=== PATIENT | female | born 2000 ===

== ENCOUNTER 2022-04-10 01:10 | Emergency (ER) | payer MEDICAID, SELFPAY ==
[2022-04-10 01:30] VITALS: BP 119/81; RESP 18; TEMP 36.6; O2SAT 98; BMI 58.9
--- NOTE | 2022-04-10 01:47 | ED_ITS ---
HPI - General Adult General Chief complaint: Sore Throat Stated complaint: Throat hurts, spitting out blood. Time Seen by Provider: 04/10/22 01:11 Source: patient Mode of arrival: ambulatory Limitations: no limitations History of Present Illness HPI narrative: 22-year-old female presents with a 2 month history of sore throat to the emergency department in the middle of the night. No shortness of breath, no throat closing, no itching, no tongue swelling. No specific reason why it needed to be addressed suddenly. Has not tried any isut-eti-ztjimck medications such as reflux medications, allergy meds, nasal sprays. No fevers. Does have some bloody mucousy drainage at times, mild mucus cough with no dyspnea. On specific questioning, does have a dog that sleeps in her room. Does not work around any severely cold environments or chemical irritants. Has not tried Tylenol, ibuprofen or other interventions as well. Past medical history benign, denies long-term health problems. Denies ENT surgeries. No long-term medications, no allergies. Is exposed to smoking and or vaping products. ROS is notable for the generalized and HEENT symptoms as above, otherwise denies times 12 systems. Related Data Previous Rx's Medication Instructions Recorded cetirizine 10 mg tablet (Zyrtec) 10 mg PO DAILY #30 tabs 04/10/22 fluticasone propionate 50 1 spray intranasal BID #16 grams 04/10/22 mcg/actuation nasal spray,suspension (Flonase Allergy Relief) Allergies Allergy/AdvReac Type Severity Reaction Status Date / Time No Known Drug Allergies Allergy Verified 04/10/22 01:37 Exam Const: Vital Signs, click to edit/add: Vital Signs - 24 hr 04/10/22 01:30 Temperature 97.8 F Respiratory Rate 18 Blood Pressure [Ri ght Upper Arm] 119/81 Pulse Oximetry 98 Oxygen Delivery Me thod Room Air Documenting provider has reviewed patient's vital signs: yes Common normals: no apparent distress General appearance: cooperative and comfortable HENMT: Common normals: normocephalic and head/scalp atraumatic Head and scalp: normocephalic and atraumatic Mouth: oral and palatal mucosa normal Other: Normal tongue, lips acyanotic. Normal dentition. Nose with some very minimal congestion, clear mucus. The oropharynx does have a slight cobblestoning postnasal drip and is slightly injected but not erythematous. Tonsils are not enlarged. There is no exudate. Eye: Common normals: conjunctivae normal General eye: normal appearance of both eyes Conjunctiva: conjunctiva(e) normal Neck & C-Spine: Common normals: full ROM and no lymphadenopathy Resp: Common normals: normal respiratory effort, no use of accessory muscles and clear to auscultation bilaterally Effort & inspection: able to speak in complete sentences Auscultation: clear to auscultation bilaterally Cardio: Common normals: regular rate, regular rhythm, S1 normal heart sound, S2 normal heart sound, no murmurs and peripheral pulses 2+ throughout Rate: regular rate Rhythm: regular rhythm Heart sounds: S1 normal and S2 normal Peripheral pulses: pulses 2+ throughout Psych: Common normals: thought process normal Activity/motor behavior: appropriate eye contact Thought process: normal thought process Insight: insight good Judgement: judgment good Skin: Common normals: no rashes or lesions noted General skin exam: no rashes or lesions noted Course Vital Signs Vital signs: Initial Vital Signs Temperature 97.8 F 04/10/22 01:30 Temperature Source Temporal Artery Scan 04/10/22 01:30 Respiratory Rate 18 04/10/22 01:30 Blood Pressure 119/81 04/10/22 01:30 Blood Pressure Mean 93 04/10/22 01:30 Blood Pressure Position Sitting 04/10/22 01:30 Pulse Oximetry 98 04/10/22 01:30 Oxygen Delivery Method 04/10/22 01:30 Vital Signs Temperature 97.8 F 04/10/22 01:30 Respiratory Rate 18 04/10/22 01:30 Blood Pressure 119/81 04/10/22 01:30 Pulse Oximetry 98 04/10/22 01:30 Oxygen Delivery Method 04/10/22 01:30 Temperature 97.8 F 04/10/22 01:30 Respiratory Rate 18 04/10/22 01:30 Blood Pressure 119/81 04/10/22 01:30 Pulse Oximetry 98 04/10/22 01:30 Oxygen Delivery Method 04/10/22 01:30 Medical Decision Making MDM Narrative Medical decision making narrative: Discussed chronic sore throat, underlying etiology is typically some type of rhinitis with postnasal drip, typically allergic. Other differential diagnosis including hidden gastric reflux. She is inclined to believe it is likely rhinitis and postnasal drip based on our discussion. Is agreeable to a trial of Zyrtec and Flonase, will be sent to pharmacy. Swabs reviewed. Counseled that if things are not improving in 1 month, discontinue the nasal medications and begin [id number] omeprazole for 1 month. If her symptoms still have not improved, follow-up with primary care provider. Discussed changing on her bedding and having the dog sleep outside of her room. She verbalized understanding and agreement. Update: Swabs negative as expected. Will start [id number] Flonase and Zyrtec Lab Data Lab results reviewed: Yes I reviewed the patient's lab results Labs: Lab Results 04/10/22 04/10/22 Range/Units 01:39 01:39 SARS-CoV-2 (PCR) Negative SARS-CoV-2 (Negative) Influenza Type A (PCR) Negative PCR FLU A (Negative) Influenza Type B (PCR) Negative PCR FLU B (Negative) RSV (PCR) Negative PCR RSV (Negative) Group A Strep DNA NOT DETECTED (Not Detectd) Discharge Plan Discharge Clinical Impression: Chronic sore throat, Allergic rhinitis Patient Disposition: Home w/ Parent or Adult Condition: Stable Instructions: Allergic Rhinitis (DC) Additional Instructions: As we discussed, your chronic sore throat is likely secondary to either hidden gastroesophageal reflux or postnasal drip from nasal irritation. They look the same on exam. We have elected to start 1 month of an allergy medicine combined with nasal spray. Try to avoid smoke, vaping products, extreme cold temperatures. Consider having her dog sleep outside the room u and washing all of your bedding. If after 1 month, your symptoms are not improving, discontinue the allergy and nasal medication and switch to 1 month of [id number]-[id number] omeprazole which is a stomach acid medication. If after that month, things are not improving, make an appointment with her primary care provider to discuss next steps. Activity Level: No Restrictions Discharge Diet: Regular Prescriptions: New cetirizine [Zyrtec] 10 mg tablet 10 mg PO DAILY Qty: 30 1RF fluticasone propionate [Flonase Allergy Relief] 50 mcg/actuation spray,suspension 1 spray intranasal BID Qty: 16 1RF Rx Instructions: administer into each nostril Stand Alone Forms: [employer] Info Instructions
[2022-04-10 02:16] LABS: Strep A DNA Probe* NOT DETECTED (Not Detectd)
[2022-04-10 02:29] LABS: PCR FLU A Negative PCR FLU A (Negative); PCR FLU B Negative PCR FLU B (Negative); PCR RSV Negative PCR RSV (Negative)
[2022-04-10 02:41] LABS: SARS PCR* Negative SARS-CoV-2 (Negative)
== END 2022-04-10 03:02 | disposition home or self-care (01) ==
PROVIDERS: Emergency Provider Family Medicine
DX: J02.9 Acute pharyngitis, unspecified (principal); J30.9 Allergic rhinitis, unspecified
CPT/HCPCS: 87502; 87634; 87635; 87651; 99282; 99283

== ENCOUNTER 2022-05-14 18:25 | Emergency (ER) | payer MEDICAID, SELFPAY ==
[2022-05-14 18:29] VITALS: BP 107/66; PULSE 82; RESP 16; TEMP 36.8; O2SAT 100; BMI 26.0
--- NOTE | 2022-05-14 18:59 | ED_ITS ---
HPI - Abdominal Pain General Chief Complaint: Abdominal Pain Stated Complaint: Rt abdominal pain, Time Seen by Provider: 05/14/22 18:45 History of Present Illness HPI narrative: This 22-year-old female comes in reporting abdominal pain that is been rather constant over the past couple months. She does not report any nausea, vomiting, lightheadedness, shortness of breath, diarrhea, or dysuria. She has not had any fevers. She states that food does not seem to make any difference. She found out recently that she is and states that she is not sure when her last menstrual period was as it is typically irregular. Related Data Previous Rx's Medication Instructions Recorded cetirizine 10 mg tablet (Zyrtec) 10 mg PO DAILY #30 tabs 04/10/22 fluticasone propionate 50 1 spray intranasal BID #16 grams 04/10/22 mcg/actuation nasal spray,suspension (Flonase Allergy Relief) ondansetron HCl 4 mg tablet 4 mg PO Q6H #20 tabs 05/14/22 Allergies Allergy/AdvReac Type Severity Reaction Status Date / Time No Known Drug Allergies Allergy Verified 05/14/22 18:32 Review of Systems Status of ROS Reports: 10 or more systems reviewed and unremarkable except as noted in History and below Narrative Constitutional: No fevers, no weight gain or loss. Eyes: No discharge. No vision changes. HENT: No congestion, no sore throat, no ear pain. Cardiovascular: No chest pain, no palpitations. Respiratory: No shortness of breath, no wheezes, no cough. Gastrointestinal: No vomiting, no diarrhea. Right-sided abdominal pain. Genitourinary: No dysuria, no hematuria. Musculoskeletal: Normal range of motion. Skin: No rashes, no pruritis. Neurological: No dizziness, weakness, sensory change, speech change. Endo/Heme/Allergies: No bruising or bleeding. No polydipsia. Pysch: no suicidality, no anxiety, no insomnia. All other systems reviewed and are negative. [facility] Social History Smoking Status: Current every day smoker What tobacco products do you use: cigarettes Do you use any of these nicotine containing products: E-Cigarettes Second hand tobacco smoke exposure: No How often do you have a drink containing alcohol: 2-4 times a month How many standard drinks containing alcohol do you have on a typical day: 1 or 2 AUDIT-C Alcohol total score: 2 Non-prescribed substance use: denies use service: No Exam Narrative: Exam Narrative: Constitutional: Well-developed, well-nourished, no acute distress. HEENT: Normocephalic, atraumatic. Neck: Normal range of motion. Nontender. Supple. Heart: Regular. No murmurs. Normal rate. Intact distal pulses. Lungs: Clear to auscultation. No chest discomfort. No wheezes, rhonchi, or rales. Abdomen: Normal bowel sounds. Diffuse tenderness in the right abdomen. I am a ble to palpate rather deeply but this does elicit [id number] pain. No rebound tenderness. Genitalia: Deferred. Back: No midline tenderness. Normal range of motion. Extremities: Normal range of motion. No injury. Skin: Intact. No rash. Warm. No erythema or pallor. Neurologic: No altered sensation. No weakness. Alert and oriented. Psychiatric: No suicidality. No anxiety or depression. No insomnia. Nursing notes and vitals signs are reviewed. Const: Vital Signs, click to edit/add: Vital Signs - 24 hr 05/14/22 18:29 Temperature 98.2 F Pulse Rate [Pulse Oximeter] 82 Respiratory Rate 16 Blood Pressure [Ri ght Upper Arm] 107/66 Pulse Oximetry 100 Oxygen Delivery Me thod Room Air Course Vital Signs Vital signs: Initial Vital Signs Temperature 98.2 F 05/14/22 18:29 Temperature Source Temporal Artery Scan 05/14/22 18:29 Pulse Rate 82 05/14/22 18:29 Pulse Rhythm 05/14/22 18:29 Pulse Strength 3+ Normal 05/14/22 18:29 Respiratory Rate 16 05/14/22 18:29 Blood Pressure 107/66 05/14/22 18:29 Blood Pressure Mean 79 05/14/22 18:29 Blood Pressure Position Sitting 05/14/22 18:29 Pulse Oximetry 100 05/14/22 18:29 Oxygen Delivery Method 05/14/22 18:29 Vital Signs Temperature 98.2 F 05/14/22 18:29 Pulse Rate 82 05/14/22 18:29 Respiratory Rate 16 05/14/22 18:29 Blood Pressure 107/66 05/14/22 18:29 Pulse Oximetry 100 05/14/22 18:29 Oxygen Delivery Method 05/14/22 18:29 Temperature 98.2 F 05/14/22 18:29 Pulse Rate 82 05/14/22 18:29 Respiratory Rate 16 05/14/22 18:29 Blood Pressure 107/66 05/14/22 18:29 Pulse Oximetry 100 05/14/22 18:29 Oxygen Delivery Method 05/14/22 18:29 Discharge Plan Discharge Clinical Impression: , Abdominal pain Patient Disposition: Home, Self-Care Condition: Stable Additional Instructions: Follow with MD for 1st OB appointment. Take medication for nausea as needed and indicated. Return if worsening symptoms happen. Prescriptions: New ondansetron HCl 4 mg tablet 4 mg PO Q6H Qty: 20 0RF No Action cetirizine [Zyrtec] 10 mg tablet 10 mg PO DAILY Qty: 30 1RF fluticasone propionate [Flonase Allergy Relief] 50 mcg/actuation spray,suspension 1 spray intranasal BID Qty: 16 1RF Rx Instructions: administer into each nostril Follow Up/Referrals: Provider,Not a Local [Primary Care Provider] - Stand Alone Forms: [facility] Info Instructions Procedures Ultrasound Biliary exam #1: Anatomical areas examined: gallbladder, long and short axis and common aggie e duct Indications: RUQ/epigastric pain Exam type: limited abdominal ultrasound; RUQ Description/Findings: Gallbladder is contracted but no obvious sign of sludge or stones in the gallbladder. Common bile duct also appears normal.
== END 2022-05-14 19:52 | disposition home or self-care (01) ==
PROVIDERS: Emergency Provider Emergency Medicine Emergency Medical Services
DX: R10.9 Unspecified abdominal pain (principal); Z33.1 Pregnant state, incidental
CPT/HCPCS: 76705; 99283; 99284

== ENCOUNTER 2022-10-15 17:05 | Outpatient (CLI) | payer MEDICAID, SELFPAY ==
[2022-10-15 17:26] VITALS: BP 100/63; PULSE 83; RESP 16; TEMP 37; O2SAT 100; BMI 31.1
--- NOTE | 2022-10-15 17:41 | ED.ABDPAIN ---
HPI - Abdominal Pain General Time Seen by Provider: 17:41 Date Seen: 10/15/22 Chief Complaint: Abdominal Pain Stated Complaint: Pressure on lower abdomen Time Seen by Provider: 10/15/22 17:39 Source: patient and RN notes reviewed Mode of arrival: ambulatory Limitations: no limitations Related Data Home Medications Medication Instructions Recorded Confirmed Vitamin D2 10/15/22 Allergies Allergy/AdvReac Type Severity Reaction Status Date / Time No Known Drug Allergies Allergy Verified 10/15/22 17:34 PFSH PFSH Social History Smoking Status: Former smoker Second hand tobacco smoke exposure: No How often do you have a drink containing alcohol: never AUDIT-C Alcohol total score: 0 Non-prescribed substance use: denies use service: No Exam Const: Vital Signs, click to edit/add: Vital Signs - 24 hr 10/15/22 17:26 Temperature 98.6 F Pulse Rate [Right Pulse Oximeter] 83 Respiratory Rate 16 Blood Pressure [Ri ght Upper Arm] 100/63 Pulse Oximetry 100 Oxygen Delivery Me thod Room Air Course Vital Signs Vital signs: Initial Vital Signs Temperature 98.6 F 10/15/22 17:26 Temperature Source Temporal Artery Scan 10/15/22 17:26 Pulse Rate 83 10/15/22 17:26 Pulse Rhythm Regular 10/15/22 17:26 Respiratory Rate 16 10/15/22 17:26 Blood Pressure 100/63 10/15/22 17:26 Blood Pressure Mean 75 10/15/22 17:26 Blood Pressure Position Sitting 10/15/22 17:26 Pulse Oximetry 100 10/15/22 17:26 Oxygen Delivery Method Room Air 10/15/22 17:26 Vital Signs Temperature 98.6 F 10/15/22 17:26 Pulse Rate 83 10/15/22 17:26 Respiratory Rate 16 10/15/22 17:26 Blood Pressure 100/63 10/15/22 17:26 Pulse Oximetry 100 10/15/22 17:26 Oxygen Delivery Method Room Air 10/15/22 17:26 Temperature 98.6 F 10/15/22 17:26 Pulse Rate 83 10/15/22 17:26 Respiratory Rate 16 10/15/22 17:26 Blood Pressure 100/63 10/15/22 17:26 Pulse Oximetry 100 10/15/22 17:26 Oxygen Delivery Method Room Air 10/15/22 17:26 Discharge Plan Discharge Prescriptions: No Action Vitamin D2 Follow Up/Referrals: Provider,Not a Local [Primary Care Provider] -
--- NOTE | 2022-10-15 17:48 | ED.NURSE ---
Called OB regarding patient, they said they would take her as their own patient.
[2022-10-15 18:10] VITALS: TEMP 37.1
[2022-10-15 18:11] VITALS: BP 103/59; PULSE 79
[2022-10-15 18:43] LABS: Appearance Urine Slightly Cloudy (Clear); Bilirubin Urine Negative (Negative); Blood Urine Negative (Negative); Color Urine Yellow (Yellow); Glucose Urine Negative (Negative); Ketones Urine Negative (Negative); Leukocyte Esterase Urine Negative (Negative); Nitrite Urine Negative (Negative); Protein Urine Negative (Negative); Specific Gravity Urine 1.025 (1.000-1.030); Urobilinogen Urine 0.2 (0.2-1.0)
[2022-10-15 19:12] LABS: RBC Urine 0-2 (0-2); WBC Urine 0-2 (0-5)
[2022-10-15 19:13] LABS: Squamous Epithelial Cell Urine Few (None-Few)
[2022-10-15] MEDS: ACETAMINOPHEN 500 MG TABLET 1000 MG PO (19:35)
--- NOTE | 2022-10-15 19:52 | PC.OBNST ---
NST Note NST Note Start: 10/15/22 18:04 Freq: ONCE Status: Active Protocol: Document 10/15/22 19:50 MMB (Rec: 10/15/22 19:52 MMB [id number]) NST Note 2 Para (# of births) 1 EDC 01/21/23 Gestational Age In Weeks & Days 26 Weeks & 0 Days Patient Presented with Complaint(s) of Contractions/cramping,Pain If Pain, describe location right lower sacrum Reactive Yes Appropriate for Gestational Age Yes RN Shae Cote RN Date 10/15/22 Reactive Yes Appropriate for Gestational Age Yes LYNNE Tiwari RN Date 10/15/22 OB NST charge Yes Complete NST Note via Write Note Yes The provider's electronic signature indicates the NST is reactive/appropriate for gestational age. *Note to provider: If an addendum is required, open the patient's chart and click on the note under the Nurse/Allied Health tab.
== END 2022-10-15 19:40 | disposition home or self-care (01) ==
LOC: ED 17:52 → OB OUT 17:53 → OB 17:54
PROVIDERS: Emergency Provider Family Medicine; Visit Provider Obstetrics & Gynecology
DX: O47.02 False labor before 37 completed weeks of gestation, second trimester (principal); Z3A.26 26 weeks gestation of pregnancy
CPT/HCPCS: 59025; 81001; 81003; 87086; 99213; A9270

== ENCOUNTER 2022-10-22 17:34 | Outpatient (CLI) | payer MEDICAID, SELFPAY ==
[2022-10-22 17:51] VITALS: PULSE 77; O2SAT 97
[2022-10-22 17:56] VITALS: PULSE 81; O2SAT 97
[2022-10-22 18:01] VITALS: PULSE 84; O2SAT 97
[2022-10-22 18:04] VITALS: BP 117/67; PULSE 83
[2022-10-22 18:06] VITALS: PULSE 84; O2SAT 97
[2022-10-22 18:13] LABS: Appearance Urine Cloudy (Clear); Bilirubin Urine Negative (Negative); Blood Urine Trace-intact (Negative); Color Urine Yellow (Yellow); Glucose Urine Negative (Negative); Ketones Urine Negative (Negative); Leukocyte Esterase Urine Trace (Negative); Nitrite Urine Negative (Negative); Protein Urine Negative (Negative); Urobilinogen Urine 0.2 (0.2-1.0)
[2022-10-22 18:22] LABS: Bacteria Urine Few; RBC Urine 0-2 (0-2); Squamous Epithelial Cell Urine Moderate (None-Few)
[2022-10-22 19:01] LABS: Amnisure Rom* Negative
[2022-10-22] MEDS: polyethylene glycoL 3350 17 GM PACK PO (19:48)
--- NOTE | 2022-10-22 20:09 | PC.OBNST ---
NST Note NST Note Start: 10/22/22 17:56 Freq: ONCE Status: Active Protocol: Document 10/22/22 19:55 MIRIAM (Rec: 10/22/22 20:08 MIRIAM [id number]) NST Note 2 Para (# of births) 1 EDC 01/20/23 Gestational Age In Weeks & Days 27 Weeks & 1 Days Patient Presented with Complaint(s) of Leaking fluid,Pain If Pain, describe location Patient having pain related to constipation Other Complaints Patient states pain is in her rectum when she tries to have a BM. Reactive Yes Appropriate for Gestational Age Yes LYNNE Pineda RN Date 10/22/22 Reactive Yes Appropriate for Gestational Age Yes LYNNE Hudson Date 10/22/22 OB NST charge Yes Complete NST Note via Write Note Yes The provider's electronic signature indicates the NST is reactive/appropriate for gestational age. *Note to provider: If an addendum is required, open the patient's chart and click on the note under the Nurse/Allied Health tab.
== END 2022-10-22 19:55 | disposition home or self-care (01) ==
LOC: OB OUT 17:34 → OB 17:35
PROVIDERS: Visit Provider Family Medicine
DX: O47.02 False labor before 37 completed weeks of gestation, second trimester (principal); Z3A.27 27 weeks gestation of pregnancy
CPT/HCPCS: 59025; 81003; 81015; 84112; 87086; 99213; A9270

== ENCOUNTER 2022-12-06 19:39 | Outpatient (CLI) | payer MEDICAID, SELFPAY ==
[2022-12-06 20:17] VITALS: TEMP 36.9
[2022-12-06] MEDS: ACETAMINOPHEN 500 MG TABLET 1000 MG PO (20:18)
[2022-12-06 20:19] LABS: Appearance Urine Clear (Clear); Bilirubin Urine Negative (Negative); Blood Urine Trace-lysed (Negative); Color Urine Yellow (Yellow); Glucose Urine Negative (Negative); Ketones Urine Trace (Negative); Leukocyte Esterase Urine Trace (Negative); Nitrite Urine Negative (Negative); Protein Urine Negative (Negative); Urobilinogen Urine 0.2 (0.2-1.0); pH Urine 6.5 (5.0-8.5)
[2022-12-06 20:35] LABS: RBC Urine 0-2 (0-2); Squamous Epithelial Cell Urine Few (None-Few); WBC Urine 0-2 (0-5)
[2022-12-06 20:36] LABS: Mucus Urine Few
--- NOTE | 2022-12-06 21:02 | PC.OBNST ---
NST Note NST Note Start: 12/06/22 19:49 Freq: ONCE Status: Active Protocol: Document 12/06/22 21:01 MELE (Rec: 12/06/22 21:02 MELE [id number]) NST Note 2 Para (# of births) 1 EDC 01/21/23 Gestational Age In Weeks & Days 33 Weeks & 3 Days Patient Presented with Complaint(s) of Contractions/cramping,Nausea and vomiting Reactive Yes Appropriate for Gestational Age Yes LYNNE Hudosn RNC Date 12/06/22 Reactive Yes Appropriate for Gestational Age Yes LYNNE Solis RN Date 12/06/22 OB NST charge Yes Complete NST Note via Write Note Yes The provider's electronic signature indicates the NST is reactive/appropriate for gestational age. *Note to provider: If an addendum is required, open the patient's chart and click on the note under the Nurse/Allied Health tab.
== END 2022-12-06 21:00 | disposition home or self-care (01) ==
LOC: OB CLI 19:44 → OB 19:46
PROVIDERS: Visit Provider Obstetrics & Gynecology
DX: O47.03 False labor before 37 completed weeks of gestation, third trimester (principal); Z3A.33 33 weeks gestation of pregnancy
CPT/HCPCS: 59025; 81003; 81015; 87086; 99213; A9270

== ENCOUNTER 2023-04-23 13:07 | Emergency (ER) | payer MEDICAID, SELFPAY ==
[2023-04-23 13:41] VITALS: BP 111/72; PULSE 86; RESP 16; TEMP 36.7; O2SAT 98; BMI 29.3
--- OUTSIDE RECORDS SUMMARY | 2023-04-23 16:22 | XMS_ITS | Encounter Summary ---
Author Name Unknown Organization [facility] Address [address] [place] [address] Care Team Providers Care Shower Room Attendant Name Role Phone Tyrel Reyes M.D. Primary Care Provider [phone] Reason for Referral * Outpatient (Routine) - Closed Specialty Diagnoses / Procedures Referred By Contac t Referred To Contact Diagnoses Abnormal Uterine And Vaginal Bleeding Unspecified Procedures US Pelvis Transvaginal Jesús Díaz M.D. [address] [place] [address] [facility] Referral ID Status Reason Start Date Expiration Date Visits Re quested Visits Authorized [id number] Closed 01/24/2023 01/24/2024 1 1 COVER CUTTER Reason for Visit * Reason Comments Nurse Visit 2 week incision chec k. * Appointment Request (Routine) - Closed Specialty Diagnoses / Procedures Referred By Contac t Referred To Contact Obstetrics and Gynecology Referral ID Status Reason Start Date Expiration Date Visits Re quested Visits Authorized [id number] Closed 01/15/2023 01/15/2024 1 1 Encounter Details Date Type Department Care Team (Late st Contact Info) Description 01/24/2023 1:45 PM SLIPCOVER CUTTER Office Visit Department of Obstetrics and Gynecology in [address] [phone] Silva Peterson M.D. [address] [place] [phone] Katiuska Clarke M.SOsirisN., R.N. Dysuria (Primary Dx); Abnormal Uterine And Vaginal Bleeding Unspecified Discharge Disposition: Home or Self Care Social History Tobacco Use Types Packs/Day Years Used Date Smoking Tobacco: Former Cigarettes Q uit: 05/13/2022 Smokeless Tobacco: Former Quit: 05/13/2022 Alcohol Use Standard Drinks/Week Comments No 0 (1 standard drink = 0.6 oz pur e alcohol) Overall Financial Resource Strain (CARDIA) Answe r Date Recorded How hard is it for you to pa y for the very basics like food, housing, medical care, and heating? Not very hard 01/04/2023 PHQ-2 Answer Date Recorded PHQ-2 Score 0 10/24/2022 Exercise Vital Sign Answer Date Recorde d On average, how many days pe r week do you engage in moderate to strenuous exercise (like a brisk walk)? 4 days 01/04/2023 On average, how many minutes do you engage in exercise at this level? 30 min 01/04/2023 Hunger Vital Sign Answer Date Recorded Within the past 12 months, y ou worried that your food would run out before you got the money to buy more. Never true 01/05/20 Within the past 12 months, t he food you bought just didn't last and you didn't have money to get more. Never true 01/04/2023 PRAPARE - Transportation Answer Date Re corded In the past 12 months, has l ack of transportation kept you from medical appointments or from getting medications? No 12/17 In the past 12 months, has l ack of transportation kept you from meetings, work, or from getting things needed for daily living? No 01/04/2023 Depression Answer Date Recor ded PHQ-9 Total Score (max 27) 1 10/24 Nutrition Answer Date Recorded Nutrition: EVOO Fat Source Unknown 01/04 On average, how many serving s of fruits and vegetables do you eat per day (serving size is equal to 1 cup or approximately the size of a tennis ball)? 0-2 01/04/2023 Dental Answer Date Recorded Dental: Regular Dentist No 01/05/20 Employment Answer Date Recorded Employment status Unemployed/not in th e paid workforce and NOT seeking employment 01/04/2023 Housing Stability Answer Date Recorded What is your living situatio n today? I do not have a steady place to live (I am temporarily staying with others, in a hotel, in a correction, living outside on the street, on a beach, in a car, abandoned building, bus or train station, or in a park) 01/04/2023 Education Answer Date Recorded What is the highest level of school you have completed or the highest degree you have received? High school graduate 05/15/2022 Comments Yes Sex and Gender Information Value Date Recorded Sex Assigned at Female 08/30/2021 5:50 PM CDT Gender Identity Female 08/30/2021 5:50 PM CDT Sexual Orientation Not on file documented as of this encounter Last Filed Vital Signs Vital Sign Reading Time Taken Comments Blood Pressure 126/70 01/24/2023 1:55 PM SLIPCOVER CUTTER Pulse - - Temperature 36.8 ??C (98.3 ??F) 01/24/2023 1:55 PM CS T Respiratory Rate - - Oxygen Saturation - - Inhaled Oxygen Concentration - - Weight 84.2 kg (185 lb 11.8 oz) 01/24/2023 1:55 PM SLIPCOVER CUTTER Height - - Body Mass Index 35.07 11/27/2017 1:37 PM CDT documented in this encounter Progress Notes * Katiuska Clarke M.S.Shobha., R.N. - 01/24/2023 1:45 PM CST 2 week check Delivery Date: 01/13/2023 Delivery Type: , repeat Gender and weight: male, 7 lbs, 11.8 ounces Are you adjusting well to being at home with a little one? Doing well. Good family support. Denies mood changes Do you have any concerns since we last connected with you? 1.Small pimples on face. Not itchy, red. No systemic complaints. 2. Dysuria and abdominal discomfort with urination. 3. Increased vaginal bleeding x 3 days 4. Constipation- daily Senna. Taking iron. LBM 11. Are you having any pain? Minimal incisional pain. Tylenol and Ibuprofen for pain, prn. Managed well. Discontinued oxycodone. She has some abdominal discomfort with urination. Dysuria at times. Denies urgency and frequency. Has some hesitancy. No flank pain. How is your vaginal bleeding? States in the last 3 days it is not uncommon to saturate a pad hourly. She denies dizziness or lightheadedness. She states that it is worse with light activity (walking)but happens at rest. Amount, color, clots, odor, how often are you changing a pad? Bright red, moderate to heavy. (If you are soaking that big maxi pad, provided to you in the hospital, in an hour or less it is too much bleeding and we would want to bring you in for a visit.) Are you developing any new headaches, vision changes, or right sided rib pain?Denies Are you breast feeding or bottle feeding?Breast feeding, going well. Any concerns or questions with this? No concerns. Any concerns with a laceration or incision? None. Steri strips removed. Her incision is clean, dry, and intact. Edges well approximated. No redness, drainage, or odor observed. Are you having any baby blue or mood swings symptoms? Denies (if yes, perform PHQ-9 and send to provider) visit scheduled? 02/27/2023 Plan: Monitor skin changes. Gentle cleanser and moisturizers. Monitor for worsening symptoms. UA/UC collected in clinic for dysuria, abdominal pain with urination and urinary hesitancy. She will report worsening signs and follow up with fevers, severe pain or worsening symptoms. MD aware. TVUS today, scheduled on provider calendar today due to increased bleeding x 3 days. Bleeding precautions discussed. Constipation-increase dietary intake of fiber and increase if possible with whole grains, high fiber cereals, fresh fruits, and increase your fluid intake. Continue Senna. Reviewed safe OTC medications for constipation. COVER CUTTER documented in this encounter Plan of Treatment Not on file documented as of this encounter Procedures Procedure Name Priority Date/Time Associated Diagnosis Comments BACTERIAL CULTURE, AEROBIC + SUSC, URINE Routine 01/24/2023 2:26 PM SLIPCOVER CUTTER Dysuria URINALYSIS WITH MICROSCOPIC Routine 01/24/2023 2:26 PM SLIPCOVER CUTTER Dysuria documented in this encounter Results * US Pelvis Transvaginal (01/24/2023 3:47 PM SLIPCOVER CUTTER) Anatomical Region Laterality Modality Pelvis, Ultrasound RST LOS, Ultrasound ARZ LOS, Ultrasound FLA LOS N/A Ultrasound 01/24/2023 6:19 PM SLIPCOVER CUTTER Impressions 01/24/2023 6:20 PM SLIPCOVER CUTTER Normal-appearing uterus and endometrium in the ., no evidence of retained products of conception Narrative 01/24/2023 6:20 PM SLIPCOVER CUTTER EXAM: US PELVIS TRANSVAGINAL COMPARISON: TECHNIQUE: Transvaginal. Transvaginal exam performed to better visualize the uterus and/or adnexal regions. FINDINGS: Uterus: x x . . Myometrium: Normal. Endometrium: avascular copmlex fluid, likely blood given recent csection. Thickness: 21 mm Right ovary: Normal. ??Ovarian volume: 4 cc. Left ovary: Normal. ??Ovarian volume: 4 cc. Intraperitoneal Fluid: None. Procedure Note Jesús Díaz M.D. - 01/24/2023 EXAM: US PELVIS TRANSVAGINAL COMPARISON: TECHNIQUE: Transvaginal. Transvaginal exam performed to better visualizethe uterus and/or adnexal regions. FINDINGS: Uterus: x x . . Myometrium: Normal. Endometrium: avascular copmlex fluid, likely blood given recent csection.Thickness: 21 mm Right ovary: Normal. Ovarian volume: 4 cc. Left ovary: Normal. Ovarian volume: 4 cc. Intraperitoneal Fluid: None. IMPRESSION: Normal-appearing uterus and endometrium in the ., no evidence ofretained products of conception Jesús Díaz M.D. IMG US PROCEDURES * Bacterial Culture, Aerobic + Susceptibility, Urine (01/24/2023 2:26 PM SLIPCOVER CUTTER) Urine Culture No growth after 1 day of incubation. 01/25/2023 12:15 PM SLIPCOVER CUTTER MKTO Urine (Urine, Midstream) 01/24/2023 2:26 PM SLIPCOVER CUTTER 01/24/2023 7:10 PM SLIPCOVER CUTTER Comment:Specimen Source Site : Urine Jesús Díaz M.D. LAB MICROBIOLOGY - G ENERAL ORDERABLES [facility] [address] [place] [address], [place] MKTO [facility] [place] [address] [place] [address] * (ABNORMAL) Urinalysis with Microscopic: Urine, Midstream (01/24/2023 2:26 PM SLIPCOVER CUTTER) Source Urine, Urine, Midstream 01/24/2023 4:54 PM SLIPCOVER CUTTER FB60 Clarity Cloudy(A) Clear 01/24/2023 4:58 PM SLIPCOVER CUTTER FB60 Color Yellow 01/24/2023 4:58 PM SLIPCOVER CUTTER FB60 Comment: ----REFERENCE VALUE---- Colorless Yellow Jelena Blood Large(A) Negative 01/24/2023 4:58 PM SLIPCOVER CUTTER FB60 Nitrite Negative Negative 01/24/2023 4:58 PM SLIPCOVER CUTTER FB60 Leukocyte Esterase Moderate(A) Negative 01/24/2023 4:58 PM SLIPCOVER CUTTER FB60 Protein 30(A) mg/dL 01/24/2023 4:58 PM SLIPCOVER CUTTER FB60 Comment: ----REFERENCE VALUE---- Negative Trace Glucose Negative Negative mg/dL 01/24/2023 4:58 PM SLIPCOVER CUTTER FB60 Ketones, QI(U) Negative Negative mg/dL 01/24/2023 4:58 PM SLIPCOVER CUTTER FB60 Bilirubin Negative Negative 01/24/2023 4:58 PM SLIPCOVER CUTTER FB60 pH 5.5 5.0 - 8.0 01/24/2023 4:58 PM SLIPCOVER CUTTER FB60 Specific [place] 1.020 1.001 - 1.035 01/24/2023 4:58 PM SLIPCOVER CUTTER FB60 Urobilinogen 0.2 0.2 - 1.0 mg/dL 01/24/2023 4:58 PM SLIPCOVER CUTTER FB60 White Blood Cells 11-20(A) /hpf 01/24/2023 5:12 PM SLIPCOVER CUTTER FB60 Comment: ----REFERENCE VALUE---- Males: 0-3 Females: 0-10 Unknown: 0-10 Red Blood Cells >100(A) 0 - 2 /hpf 5:12 PM SLIPCOVER CUTTER FB60 Dysmorphic Red Blood Cells <=25 <=25 % 01/24/2023 5:12 PM SLIPCOVER CUTTER FB60 Urine (Urine, Midstream) 01/24/2023 2:26 PM SLIPCOVER CUTTER 01/24/2023 4:54 PM SLIPCOVER CUTTER Jesús Díaz M.D. LAB URINE ORDERABLES [facility] [address] [place] [address], [facility] FB60 [facility] [place] [address] [place] [address] documented in this encounter Visit Diagnoses Diagnosis Dysuria- Primary Abnormal Uterine And Vaginal Bleeding Unspecified Abnormal Uterine And Vaginal Bleeding Unspecified documented in this encounter Additional Health Concerns Assessment Noted Time PHQ-9 Depression Total Score: 1 10/25/19 23 1:25 PM CDT documented as of this encounter Care Teams Shower Room Attendant Relationship Specialty Start Date End Date Tyrel Reyes M.D. [address] [place] [phone] PCP - General Family Medicine 05/14/22 documented as of this encounter
--- OUTSIDE RECORDS SUMMARY | 2023-04-23 16:22 | XMS_ITS ---
Author Name Unknown Organization [facility] Address [address] [place] [address] Care Team Providers Care Flume Ride Operator Name Role Phone Unavailable Unavailable Unavailable Surgery Details Not on file Complications Check Surgery Details section. Procedure Estimated Blood Loss Check Surgery Details section. Procedure Findings Check Surgery Details section. Procedure Specimens Taken Check Surgery Details section.
--- OUTSIDE RECORDS SUMMARY | 2023-04-23 16:22 | XMS_ITS | Encounter Summary ---
Author Name Unknown Organization [facility] Address [address] [place] [address] Care Team Providers Care [employer] Principal Name Role Phone Tyrel Reyes M.D. Primary Care Provider [phone] Reason for Visit * Outpatient (Routine) - Closed Specialty Diagnoses / Procedures Referred By Rebel armstrong Referred To Contact Diagnoses Abnormal Uterine And Vaginal Bleeding Unspecified Procedures US Pelvis Transvaginal Jesús Díaz M.D. [address] [place] [address] [facility] Referral ID Status Reason Start Date Expiration Date Visits Re quested Visits Authorized [id number] Closed 01/24/2023 01/24/2024 1 1 Encounter Details Date Type Department Care Team (Latest Contact Info) Description 01/24/2023 3:30 PM RN BARIATRIC Ancillary Procedure Department of Obstetrics and Gynecology in [place], [place] [address] [place] [address] Jesús Díaz M.D. [address] [place] [address] Abnormal Uterine And Vaginal Bleeding Unspecified Discharge [...] with others, in a hotel, in a skilled nursing, living outside on the street, on a [...] on file documented as of this encounter Plan of Treatment Not on file documented as of this encounter Procedures Procedure Name Priority Date/Time Associated Diagnosis Comments US PELVIS TRANSVAGINAL RAD - Routine (most inpatients and all outpatients) 01/24/2023 3:47 PM RN BARIATRIC Abnormal Uterine And Vaginal Bleeding Unspecified documented in this encounter Results * US Pelvis Transvaginal (01/24/2023 3:47 PM RN BARIATRIC) Anatomical Region Laterality Modality Pelvis, Ultrasound RST LOS, Ultrasound ARZ LOS, Ultrasound FLA LOS N/A Ultrasound 01/24/2023 6:19 PM RN BARIATRIC Impressions 01/24/2023 6:20 PM RN BARIATRIC Normal-appearing uterus and endometrium in the ., no evidence of retained products of conception Narrative 01/24/2023 6:20 PM RN BARIATRIC EXAM: US PELVIS TRANSVAGINAL COMPARISON: TECHNIQUE: Transvaginal. [...] conception Jesús Díaz M.D. IMG US PROCEDURES documented in this encounter Visit Diagnoses Diagnosis Abnormal Uterine And Vaginal Bleeding Unspecified documented in this encounter Additional Health Concerns Assessment Noted Time PHQ-9 Depression Total Score: 1 10/25/19 1:25 PM CDT documented as of this encounter Care Teams Middle [employer] Principal Relationship Specialty Start Date End Date Tyrel Reyes M.D. [address] [place] [phone] PCP - General Family Medicine 05/14/22 documented as of this encounter
--- OUTSIDE RECORDS SUMMARY | 2023-04-23 16:22 | XMS_ITS | Encounter Summary ---
Author Name Unknown Organization [facility] Address [address] [place] [address] Care Team Providers Care Early Childhood Coordinator Name Role Phone Tyrel Reyes M.D. Primary Care Provider Encounter Details Date Type Department Care Team (Late st Contact Info) Description 01/08/2023 Orders Only Department of Obstetrics and Gynecology in [place], [place] [address] [place] [address] Sarahi Prabhakar, HOROLOGIST, C.N.P. [address] [place] [address] Anemia Complicating Third Trimester (HCC) (Primary Dx) Social History Tobacco Use Types Packs/Day Years [...] with others, in a hotel, in a snf, living outside on the street, on a [...] on file documented as of this encounter Visit Diagnoses Diagnosis Anemia Complicating Third Trimester (HCC)- Primary documented in this encounter Additional Health Concerns Assessment Noted Time PHQ-9 Depression Total Score: 1 10/25/19 1:25 PM CDT documented as of this encounter Care Teams Early Childhood Coordinator Relationship Specialty Start Date End Date Tyrel Reyes M.D. [address] [place], [place] [address]j[place] [phone] PCP - General Family Medicine 05/14/22 documented as of this encounter
--- OUTSIDE RECORDS SUMMARY | 2023-04-23 16:22 | XMS_ITS | Encounter Summary ---
Author Name Unknown Organization [facility] Address [address] [place] [address] Care Team Providers Care Borough Coordinator Name Role Phone Tyrel Reyes M.D. Primary Care Provider Reason for Visit * Appointment Request (Routine) - Closed Specialty Diagnoses / Procedures Referred By Rebel armstrong Referred To Contact Obstetrics and Gynecology Referral ID Status Reason Start Date Expiration Date Visits Re quested Visits Authorized [id number] Closed 01/24/2023 01/24/2024 1 1 Encounter Details Date Type Department Care Team (Late st Contact Info) Description 01/24/2023 3:30 PM PROGRAM DIRECTOR SCOUTING Office Visit Department of Obstetrics and Gynecology in [address] [phone] Jesús Díaz M.D. [address] [place] [phone] Exam (HCC) (Primary Dx) Discharge Disposition: Home or Self Care Social [...] with others, in a hotel, in a fci, living outside on the street, on a [...] on file documented as of this encounter Progress Notes * Jesús Díaz M.D. - 01/24/2023 3:30 PM CST RN visit and ultrasound only today, see separate documentation RAM DIRECTOR SCOUTING documented in this encounter Plan of Treatment Not on file documented as of this encounter Visit Diagnoses Diagnosis Exam (HCC)- Primary documented in this encounter Additional Health Concerns Assessment Noted Time PHQ-9 Depression Total Score: 1 10/25/19 23 1:25 PM CDT documented as of this encounter Care Teams Borough Coordinator Relationship Specialty Start Date End Date Tyrel Reyes M.D. [address] [place] [phone] PCP - General Family Medicine 05/14/22 documented as of this encounter
--- OUTSIDE RECORDS SUMMARY | 2023-04-23 16:22 | XMS_ITS | Clinical Summary ---
Author Name Unknown Organization [facility] Address [address] [place] [id number] Care Team Providers Care Product Tester Fiberglass Name Role Phone Tyrel Reyes M.D. Primary Care Provider [phone] Source Comments Patient records contain information from all sites at [facility]. For routine questions regarding patient records, call [phone] during business hours, M-F 8:00 AM - 5:00 PM Central Time. Record requests for emergency care only can be directed to [phone] at any time.[facility] Allergies No known active allergies Medications Medication Sig Dispensed Refills Start Date End Date Status MAPAP EXTRA STRENGTH 500 mg tablet TAKE TWO TABLETS BY MOUTH EVERY 6 HOURS IF NEEDED MAXIMUM 4000MG ACETAMINOPHEN PER 24 HOURS 0 11/19/2017 Active ibuprofen (ADVIL,MOTRIN) 600 mg tablet TAKE ONE TABLET BY MOUTH EVERY 6 HOURS IF NEEDED FOR PAIN MAXIMUM OF 3200MG IN 24 HOURS 0 11/19/2017 Active polyethylene glycol (MIRALAX) 17 gram/dose oral powderIndications: Constipation Take 17 g by mouth daily. Dissolve each 17 g dose in 240 mL (8 ounces) of beverage. 595 g 2 08/29/2022 Active Additional Information Patient not taking.Reported on 01/08/2023 hydrocortisone (ANUSOL-HC) 2.5 % rectal creamIndications:C onstipation Insert 1 Application into the rectum 2 (two) times a day. 28 g 3 08/29/2022 Active Additional Information Patient not taking.Reported on 10/24/2022 witch alban-glycerin (TUCKS) pad Apply to rectum prn. 40 each 11 08/29/2022 Active Additional Information Patient not taking.Reported on 10/24/2022 cholecalciferol (VITAMIN D3) 10 mcg (400 Unit) tabletIndications: Deficiency Vitamin D Take 2 tablets (800 Units total) by mouth daily. 60 tablet 8 09/26/2022 Active Additional Information Patient not taking.Reported on 01/08/2023 ferrous sulfate 325 mg (65 mg iron) DR tabletIndications: Anemia Complicating Third Trimester (HCC) Take 1 tablet (65 mg of iron total) by mouth daily with breakfast. 60 tablet 3 12/12/2022 12/12/2023 Active multivit no.32-zfsb-itgpa acid (-U) 106.5-1 mg capsule Take 1 tablet by mouth daily. 0 01/15/2023 Active sennosides (SENOKOT) 8.6 mg tablet Take 8.6-17.2 mg by mouth 2 (two) times a day as needed. 0 01/15/2023 Active acetaminophen (TYLENOL) 500 mg tablet Take 1,000 mg by mouth every 6 (six) hours as needed. 0 01/15/2023 Active ibuprofen (MOTRIN) 600 mg tablet Take 600 mg by mouth every 6 (six) hours as needed. 0 01/15/2023 Active Hospital, Clinic, or Other Facility Administered Medication Ordered Dose Route Frequency Start Date End Date Status medroxyPROGESTERone injection 150 mgIndications:Manageme nt Contraceptive 150 mg IM Every 3 months 02/27/2023 02/22/2024 Acti ve Active Problems Patient Care Coordination No te Formatting of this note migh t be different from the original. First trimester OB education completed. Pre-reg completed at [facility]. LMP: 04/23/22 EDC:01/28/22 provider: filtration supervisor FOB involved: yes, Sorin. Problem Noted Date Diagnosed Date Management Contraceptive 02/27/2023 Overview: Desires depo provera. First injection today. Discussed possible weight gain with this. Will monitor weight closely. Deficiency Vitamin D 06/09/2022 Overview: S/p Vitamin D3 50,000 weekly x 8 weeks. Now on daily vitamin D3 800 IU. Exam 06/06/2022 Overview: The patient is making excellent progress. She is voiding, ambulating, tolerating a regular diet, and having bowel movements without difficulty. Her PHQ-9 score is 0 today. History Of Uterine Scar From Previous Surgery Overview: Did not progress past 4 cm with first labor and tracing was non-reassuring at that time, so section was performed. This was a LTCS. Chance of successful TOLAC with this is 63% and discuss risks and benefits of TOLAC vs scheduled repeat section discussed and [facility] TOLAC consent signed on 11/21/2022. Scoliosis 06/06/2022 Overview: Epidural was placed without difficulty with her last , but pain was not well managed when section was performed and anesthesia was converted to general. This should be a consideration with planning delivery with this . Spoke with anesthesia today (12/26/2022) and they have reviewed her chart and would like to examine her in the near future. Labor and delivery nursing will reach out to her to coordinate this visit. Anxiety 08/06/2017 Pain Chest Atypical 08/06/2017 Obesity Body Mass Index 30-39.9 Adult 06/26/2017 Dermatitis Perioral 06/07/2017 Suicide Ideation 05/23/2014 07/01/2022 Depression Major Overview: PHQ-9 score is 0 today, indicating well managed depression. Not currently on medication for this. Resolved Problems Problem Noted Date Diagnosed Date Resolved Date Anemia Complicating Third Trimester 10/26/19 23 02/27/2023 Overview: Hgb was 8.5 on discharge. On iron supplement since hospital discharge. Will recheck hgb today. Abnormal Ultrasound Placenta 08/30/2022 02/27/2023 Overview: Marginal cord insertion. Repeat US at 27 weeks 2 days showed EFW of 1197 gm with growth at the 75th%ile and normal amniotic fluid assessment, confirmed marginal cord insertion. Normal growth at 50th%ile at 36 weeks. Threatened 06/06/2022 02/27/2023 Overview: Possible subchorionic hemorrhage noted at the time of her US in the ED in early May. No recent bleeding. Rh positive, so rhogam was not needed. Examination Normal First Third Trimester 11/04/2017 05/24/2022 Uterine Size Date Discrepancy Third Trimester 11/05/19 18 05/24/2022 Pain Back From 06/07/2017 Deficiency Vitamin D 04/30/2017 018 Encounters Date Type Department Care Team Description 02/27/2023 11:33 AM [facility] - 02/27/2023 11:59 PM [facility] Hospital Encounter Department of Laboratory Medicine in [place], [place] [address] [place] [address] Silva Peterson M.D. Anemia Complicating Third Trimester (HCC) Discharge Disposition: Home or Self Care 02/27/2023 11:00 AM [facility] Office Visit Department of Obstetrics and Gynecology in [place], [place] [address] [place] [address] Silva Peterson M.D. Exam (HCC) (Primary Dx); Anemia Complicating Third Trimester (HCC); Management Contraceptive; Depression Major Discharge Disposition: Home or Self Care 01/24/2023 3:30 PM [facility] Office Visit Department of Obstetrics and Gynecology in [place], [place] [address] [place] [address] Jesús Díaz M.D. Exam (HCC) (Primary Dx) Discharge Disposition: Home or Self Care 01/24/2023 3:30 PM [facility] Ancillary Procedure Department of Obstetrics and Gynecology in [place], [place] [address] [place] [address] Jesús Díaz M.D. Abnormal Uterine And Vaginal Bleeding Unspecified Discharge Disposition: Home or Self Care 01/24/2023 1:45 PM [facility] Office Visit Department of Obstetrics and Gynecology in [place], [place] [address] [place] [address] Silva Peterson M.D. Lewis, Tarra J, M.S.N., R.N. Dysuria (Primary Dx); Abnormal Uterine And Vaginal Bleeding Unspecified Discharge Disposition: Home or Self Care from Last 3 Months Immunizations Name Administration Dates Next Due HepB Pediatric/Adolescent 05/01/2005 Influenza, Injectable, Quadrivalent 01/19/2016 MCV4 (Menveo) 04/19/2011 SARS-COV-2 (COVID-19) - MODERNA(Discontinued) 07/07/2020,06/09/2020 Tdap 10/24/2022,09/04/2017,04/19/2011 YOON 11/12/2011 Family History Medical History Relation Name Comments No Known Problems Daughter No Known Problems Father No Known Problems Maternal Grandfather Diabetes Maternal Grandmother No Known Problems Mother No Known Problems Paternal Grandfather No Known Problems Paternal Grandmother No Known Problems Sister Relation Name Status Comments Daughter Alive Father Alive Maternal Grandfather Alive Maternal Grandmother Alive Mother Alive Paternal Grandfather Alive Paternal Grandmother Alive Sister Social History Tobacco Use Types Packs/Day Years Used Date Smoking Tobacco: Former Cigarettes Q uit: 05/13/2022 Smokeless Tobacco: Former Quit: 05/13/2022 Tobacco Cessation:Counseling Given: Not Answered Alcohol Use Standard Drinks/Week Comments No 0 (1 standard drink = 0.6 oz pur e alcohol) Overall Financial Resource Strain (CARDIA) Answe r Date Recorded How hard is it for you to pa y for the very basics like food, housing, medical care, and heating? Not very hard 01/04/2023 PHQ-2 Answer Date Recorded PHQ-2 Score 0 02/27/2023 Exercise Vital Sign Answer Date Recorde d [...] money to buy more. Never true 01/05/20 23 Within the past 12 months, t he [...] Recor ded PHQ-9 Total Score (max 27) 0 02/27 Nutrition Answer Date Recorded Nutrition: EVOO Fat [...] with others, in a hotel, in a senior living, living outside on the street, on a beach, in a car, abandoned building, bus or train station, or in a park) 01/04/2023 Education Answer Date Recorded What is the highest level of school you have completed or the highest degree you have received? High school graduate 05/15/2022 Sex and Gender Information Value Date Recorded Sex Assigned at Female 08/30/2021 5:50 PM CDT Gender Identity Female 08/30/2021 5:50 PM CDT Sexual Orientation Not on file Last Filed Vital Signs Vital Sign Reading Time Taken Comments Blood Pressure 108/66 02/27/2023 10:38 AM [facility] Pulse 75 08/31/2021 7:15 PM CDT Temperature 36.8 ??C (98.3 ??F) 01/24/2023 1:55 PM CS T Respiratory Rate 16 08/31/2021 7:15 PM CDT Oxygen Saturation - - Inhaled Oxygen Concentration - - Weight 82.1 kg (180 lb 14.2 oz) 023 10:38 AM [facility] Height 155 cm (5' 1.02) 11/27/2017 1:37 PM CDT Body Mass Index 34.15 11/27/2017 1:37 PM CDT Plan of Treatment Health Maintenance Due Date Last Done Comments Hepatitis B Vaccines (2 of 3 - 3-dose series) 05/29/2005 05/01/2005 HPV Vaccines (1 - 2-dose series) 2007 Varicella Vaccines (2 of 2 - 13+ 2-dose series) 12/10/2011 11/12/2011 COVID-19 Vaccine (3 - 2022- season) 2022 07/07/2020, 06/09/2020 Depression Monitoring (PHQ-9) 06/29/2023 02/27/2023 Cervical Cancer Screening 06/20/2025 06/20/2022 DTaP,Tdap,and Td Vaccines (4 - Td or Tdap) 10/24/2032 10/24/2022, 09/04/2017, 04/19/2011 HIV Screening Completed 06/05/2022, 04/26/2017 Chlamydia and Gonorrhea Screening Discontinued 06/20/2022, 08/31/2021, 12/15/2019, Additional history exists Influenza Vaccine Completed 01/15/2023, 01/19/2016 Pneumococcal vaccine (0-64 years) Aged Out No longer eligible based on patient's age to complete this topic Procedures Procedure Name Priority Date/Time Associated Diagnosis Comments CBC WITH DIFFERENTIAL, B Routine 02/27/2023 11:40 AM [facility] Anemia Complicating Third Trimester (HCC) US PELVIS TRANSVAGINAL RAD - Routine (most inpatients and all outpatients) 01/24/2023 3:47 PM [facility] Abnormal Uterine And Vaginal Bleeding Unspecified URINALYSIS WITH MICROSCOPIC Routine 01/24/2023 2:26 PM [facility] Dysuria BACTERIAL CULTURE, AEROBIC + SUSC, URINE Routine 01/24/2023 2:26 PM [facility] Dysuria from Last 3 Months Results * CBC with Differential, Blood (02/27/2023 11:40 AM [facility]) Hemoglobin 12.1 11.6 - 15.0 g/dL 02/27/2023 12:52 PM [facility] Hematocrit 39.8 35.5 - 44.9 % 02/27/2023 12:52 PM [facility] Erythrocytes 4.87 3.92 - 5.13 x10(12)/L 02/27/2023 12:52 PM [facility] MCV 81.7 78.2 - 97.9 fL 02/27/2023 12:52 PM [facility] RBC Distrib Width 13.5 12.2 - 16.1 % 02/27/2023 12:52 PM [facility] Platelet Count 336 157 - 371 x10(9)/L 02/27/2023 12:52 PM [facility] Leukocytes 7.6 3.4 - 9.6 x10(9)/L 02/27/2023 12:52 PM [facility] Neutrophils 3.89 1.56 - 6.45 x10(9)/L 02/27/2023 12:52 PM [facility] Lymphocytes 2.92 0.95 - 3.07 x10(9)/L 02/27/2023 12:52 PM [facility] Monocytes 0.62 0.26 - 0.81 x10(9)/L 02/27/2023 12:52 PM [facility] Eosinophils 0.12 0.03 - 0.48 x10(9)/L 02/27/2023 12:52 PM [facility] Basophils 0.03 0.01 - 0.08 x10(9)/L 02/27/2023 12:52 PM [facility] Blood (Blood, Venous) 02/27/2023 11:40 AM [facility] 02/27/2023 11:40 AM [facility] Silva Peterson M.D. LAB BLOOD ADD-O N [facility] [address] [place] [address], [facility] OWAT [facility] in [place] [address] [place] [address] * US Pelvis Transvaginal (01/24/2023 3:47 PM [facility]) Anatomical Region Laterality Modality Pelvis, Ultrasound RST LOS, Ultrasound ARZ LOS, Ultrasound FLA LOS N/A Ultrasound 01/24/2023 6:19 PM [facility] Impressions 01/24/2023 6:20 PM [facility] Normal-appearing uterus and endometrium in the ., no evidence of retained products of conception Narrative 01/24/2023 6:20 PM [facility] EXAM: US PELVIS TRANSVAGINAL COMPARISON: TECHNIQUE: Transvaginal. [...] Aerobic + Susceptibility, Urine (01/24/2023 2:26 PM [facility]) Urine Culture No growth after 1 day of incubation. 01/25/2023 12:15 PM [facility] Urine (Urine, Midstream) 01/24/2023 2:26 PM [facility] 01/24/2023 7:10 PM [facility] Comment:Specimen Source Site : Urine Jesús Díaz M.D. LAB MICROBIOLOGY - G ENERAL ORDERABLES [facility] [address] [place] [address], [facility] MKTO [facility] in [place] [address] [place] [address] * (ABNORMAL) Urinalysis with Microscopic: Urine, Midstream (01/24/2023 2:26 PM [facility]) Source Urine, Urine, Midstream 01/24/2023 4:54 PM [facility] Clarity Cloudy(A) Clear 01/24/2023 4:58 PM [facility] Color Yellow 01/24/2023 4:58 PM [facility] Comment: ----REFERENCE VALUE---- Colorless Yellow Jelena Blood Large(A) Negative 01/24/2023 4:58 PM [facility] Nitrite Negative Negative 01/24/2023 4:58 PM [facility] Leukocyte Esterase Moderate(A) Negative 01/24/2023 4:58 PM [facility] Protein 30(A) mg/dL 01/24/2023 4:58 PM [facility] FB60 Comment: ----REFERENCE VALUE---- Negative Trace Glucose Negative Negative mg/dL 01/24/2023 4:58 PM [facility]60 Ketones, QI(U) Negative Negative mg/dL 01/24/2023 4:58 PM [facility] Bilirubin Negative Negative 01/24/2023 4:58 PM [facility] pH 5.5 5.0 - 8.0 01/24/2023 4:58 PM [facility]60 Specific [place] 1.020 1.001 - 1.035 01/24/2023 4:58 PM [facility] Urobilinogen 0.2 0.2 - 1.0 mg/dL 01/24/2023 4:58 PM [facility] White Blood Cells 11-20(A) /hpf 01/24/2023 5:12 PM [facility] Comment: ----REFERENCE VALUE---- Males: 0-3 Females: 0-10 Unknown: 0-10 Red Blood Cells >100(A) 0 - 2 /hpf 5:12 PM [facility] Dysmorphic Red Blood Cells <=25 <=25 % 01/24/2023 5:12 PM [facility] Urine (Urine, Midstream) 01/24/2023 2:26 PM [facility] 01/24/2023 4:54 PM [facility] Jesús Díaz M.D. LAB URINE ORDERABLES [facility] [address] [place] [address], [facility] FB60 [facility] [place] [address] [place] [address] from Last 3 Months Care Teams Product Tester Fiberglass Relationship Specialty Start Date End Date Tyrel Reyes M.D. NPDigna: [phone] [address] [facility] [place] [address] PCP - General Family Medicine 05/14/22
--- OUTSIDE RECORDS SUMMARY | 2023-04-23 16:22 | XMS_ITS | Clinical Summary ---
Author Name Unknown Organization [facility] [employer] Address [place], [place] [address] Care Team Providers Care Paper Cutter Operator Name Role Phone Stella Cid DO Unavailable [phone] Gretchen Summers RN, AUTOMATIC SPINNING LATHE OPERATOR Unavailable Jesús Díaz MD Primary Care Provider + Allergies No known active allergies Medications Medication Sig Dispensed Refills Start Date End Date Status Breast Pump - PurchaseIndicatio ns: delivery delivered Electric breast pump for home use. Gestation age at delivery: 52 weeks. Reason for need: breastpumping. Length of need: 12 months 1 Device 0 11/17/2017 Active acetaminophen (TYLENOL EXTRA STRGTH) 500 mg tabletIndications : delivery delivered Take 2 Tablets (1,000 mg) by mouth every 6 hours if needed for Pain. Max acetaminophen dose: 4000mg in 24 hrs. 60 Tablet 1 01/15/2023 Active ibuprofen (ADVIL; MOTRIN) 600 mg tabletIndications : delivery delivered Take 1 Tablet (600 mg) by mouth every 6 hours if needed for Pain. Maximum of 3200 mg in 24 hours. 60 Tablet 0 01/15/2023 Active oxyCODONE (ROXICODONE) 5 mg immediate release tabletIndications : delivery delivered Take 1 Tablet (5 mg) by mouth every 4 hours if needed for Pain. 10 Tablet 0 01/15/2023 Active sennosides (SENNA) 8.6 mg tabletIndications : delivery delivered Take 1-2 Tablets (8.6-17.2 mg) by mouth 2 times daily if needed for Constipation. 60 Tablet 0 01/15/2023 Active vit 28/iron fum/folic (multivitamin folic acid 1 mg)Indications:Ce sarean delivery delivered Take 1 Tablet by mouth once daily. 100 Tablet 0 01/15/2023 Active Breast Pump PurchaseIndicatio ns: delivery delivered Electric breast pump for home use. Gestational age at delivery: 38 weeks. Reason for need: assist with breast feeding. Length of need: 99 months (lifetime use) 1 Each 0 01/15/2023 Active ferrous sulfate, 65 mg elemental, tabletIndications : delivery delivered Take 1 Tablet (325 mg) by mouth once daily with a meal. 100 Tablet 0 01/15/2023 Active Active Problems Problem Noted Date Diagnosed Date delivery delivered 11/16/2017 Depression 06/08/2014 Depression 05/23/2014 Suicidal ideation 05/23/2014 Vitamin D deficiency 07/11/2012 Immunizations Name Administration Dates Next Due Influenza, IIV4 01/15/2023 Meningococcal Vaccine (Menveo) 04/19/2011 Tdap 04/19/2011 Varicella Vaccine 11/12/2011 Family History Medical History Relation Name Comments Diabetes Maternal Grandmother Relation Name Status Comments Maternal Grandmother Social History Tobacco Use Types Packs/Day Years Used Date Smoking Tobacco: Never Smokeless Tobacco: Never Tobacco Cessation:Counseling Given: Yes Comments:uncle smokes Alcohol Use Standard Drinks/Week Comments No 0 (1 standard drink = 0.6 oz pur e alcohol) Social Connections Answer Date Recorded Frequency of Communication with Friends and Fami ly 0 01/13/2023 Financial Resource Strain Answer Date R ecorded Difficulty of Paying Living Expenses 3 01/13/2023 Difficulty of Paying Living Expenses Not on file 01/13/2023 Food Insecurity Answer Date Recorded Worried About Running Out of Food in the Last Ye ar 1 01/13/2023 Transportation Needs Answer Date Record ed Lack of Transportation (Medical) 1 01/13/2023 Housing Stability Answer Date Recorded Unable to Pay for Housing in the Last Year 1 01/13/2023 Sex and Gender Information Value Date Recorded Sex Assigned at Not on file Gender Identity Not on file Sexual Orientation Not on file Obstetrics History Para Term AB IAB SAB Ectopic Multiple Livin g Live Births 2 2 2 0 0 0 0 0 0 2 2 Date Outcome GA Total Labor Labor/2nd/3rd Weight Sex Delivery Anes PTL Pau A1 A5 Name Cl in 11/14 Term 38w 5d 19h 45m 3.59 kg (7 lb 14.6 oz) F CS-LTranv Epidu ral,S sharif ,Gene ral N Vilma zhou Complications:Failure to Pro marck in Second Stage Delivery Location:[place] 3 Comments:Unplanned C-s ection 01/13 Term 38w 6d 3.51 kg (7 lb 11.8 oz) M [facility] Vilma ng 9 9 OLYAI SUZETTE [place],BB Leonard Holden MD Complications:None Delivery Location:Hospital ( [facility] Last Filed Vital Signs Vital Sign Reading Time Taken Comments Blood Pressure 119/65 01/15/2023 9:00 AM CDT Pulse 80 01/15/2023 9:00 AM CDT Temperature 37 ??C (98.6 ??F) 01/15/2023 9:00 AM CDT Respiratory Rate 16 01/15/2023 9:00 AM CDT Oxygen Saturation 99% 01/13/2023 10:32 AM CDT Inhaled Oxygen Concentration - - Weight 90.7 kg (200 lb) 01/15/2023 9:00 AM CDT Height 157.5 cm (5' 2) 01/13/2023 2:15 AM CDT Body Mass Index 36.58 01/13/2023 2:15 AM CDT Plan of Treatment Health Maintenance Due Date Last Done Comments HPV series for age 9-26 (1 - 2-dose series) 2009 BMI (ht and wt on same day) for age 18+ 2016 Hepatitis C screening for ag e 18-79 2016 Depression screening for age 12+ 04/01/2016 04/01/2015 Pap test for age 21-65 2019 Tetanus booster 04/19/2021 04/19/2011 COVID-19 vaccine series (2022- season) 2022 07/07/2020, 06/09/2020 Tdap Completed 04/19/2011 HIV for age 15-65 Completed 09/11/2013 Influenza for age 9-49 Completed 01/15/2023 Pneumococcal series for age 6-64 Aged Out No longer eligible b ased on patient's age to complete this topic Advance Directives Latest Code Status on File Code Status Date Activated Date Inactivated Comments Full Code 01/13/2023 3:47 AM 01/15/2023 5:00 PM Question Answer Comments Code Status Discussion: Unable to Assess Preferences, Provider to review later Code Status History Code Status Date Activated Date Inactivated Comments Full Code 11/14/2017 8:32 PM 11/17/2017 1:38 PM Question Answer Comments Code Status Discussion: Discussed Full Code 05/22/2014 8:38 PM 05/24/2014 7:50 PM Care Teams Paper Cutter Operator Relationship Specialty Start Date End Date Jesús Díaz MD [address] [place] [address] SAMY NOBLE [phone] PCP - General Obstetrics and Gynecology 01/14/23 Stella Cid DO Family Practice 05/25/14 Gretchen Summers RN, AUTOMATIC SPINNING LATHE OPERATOR [address] [place] [address] Nurse Practitioner 08/04/13
--- OUTSIDE RECORDS SUMMARY | 2023-04-23 16:22 | XMS_ITS | Encounter Summary ---
Author Name Unknown Organization [facility] Address [address] [place] [address] Care Team Providers Care Sports Media Name Role Phone Tyrel Reyes M.D. Primary Care Provider Encounter Details Date Type Department Care Team (Latest Contact Info) Description 02/27/2023 11:33 AM DISPENSARY TECHNICIAN - 02/27/2023 11:59 PM DISPENSARY TECHNICIAN Hospital Encounter Department of Laboratory Medicine in [place] [address] [place] [address] Silva Peterson M.D. [address] [place] [phone] Anemia Complicating Third Trimester (HCC) Discharge Disposition: Home or Self Care Social [...] on file documented as of this encounter Medications at Time of Discharge Medication Sig Dispensed Refills Start Date End Date acetaminophen (TYLENOL) 500 mg tablet Take 1,000 mg by mouth every 6 (six) hours as needed. 0 01/15/2023 cholecalciferol (VITAMIN D3) 10 mcg (400 Unit) tabletIndications:Def iciency Vitamin D Take 2 tablets (800 Units total) by mouth daily. 60 tablet 8 09/26/2022 ferrous sulfate 325 mg (65 mg iron) DR tabletIndications:Ane nasir Complicating Third Trimester (HCC) Take 1 tablet (65 mg of iron total) by mouth daily with breakfast. 60 tablet 3 12/12/2022 12/12/2023 hydrocortisone (ANUSOL-HC) 2.5 % rectal creamIndications:Cons tipation Insert 1 Application into the rectum 2 (two) times a day. 28 g 3 08/29/2022 ibuprofen (ADVIL,MOTRIN) 600 mg tablet TAKE ONE TABLET BY MOUTH EVERY 6 HOURS IF NEEDED FOR PAIN MAXIMUM OF 3200MG IN 24 HOURS 0 11/19/2017 ibuprofen (MOTRIN) 600 mg tablet Take 600 mg by mouth every 6 (six) hours as needed. 0 01/15/2023 MAPAP EXTRA STRENGTH 500 mg tablet TAKE TWO TABLETS BY MOUTH EVERY 6 HOURS IF NEEDED MAXIMUM 4000MG ACETAMINOPHEN PER 24 HOURS 0 11/19/2017 multivit no.90-osyc-nphuq acid (-U) 106.5-1 mg capsule Take 1 tablet by mouth daily. 0 01/15/2023 polyethylene glycol (MIRALAX) 17 gram/dose oral powderIndications:Con stipation Take 17 g by mouth daily. Dissolve each 17 g dose in 240 mL (8 ounces) of beverage. 595 g 2 08/29/2022 sennosides (SENOKOT) 8.6 mg tablet Take 8.6-17.2 mg by mouth 2 (two) times a day as needed. 0 01/15/2023 witch alban-glycerin (TUCKS) pad Apply to rectum prn. 40 each 11 08/29/2022 documented as of this encounter Plan of Treatment Not on file documented as of this encounter Procedures Procedure Name Priority Date/Time Associated Diagnosis Comments CBC WITH DIFFERENTIAL, B Routine 02/27/2023 11:40 AM DISPENSARY TECHNICIAN Anemia Complicating Third Trimester (HCC) documented in this encounter Results * CBC with Differential, Blood (02/27/2023 11:40 AM DISPENSARY TECHNICIAN) Hemoglobin 12.1 11.6 - 15.0 g/dL 02/27/2023 12:52 PM DISPENSARY TECHNICIAN OWAT Hematocrit 39.8 35.5 - 44.9 % 02/27/2023 12:52 PM DISPENSARY TECHNICIAN OWAT Erythrocytes 4.87 3.92 - 5.13 x10(12)/L 02/27/2023 12:52 PM DISPENSARY TECHNICIAN OWAT MCV 81.7 78.2 - 97.9 fL 02/27/2023 12:52 PM DISPENSARY TECHNICIAN OWAT RBC Distrib Width 13.5 12.2 - 16.1 % 02/27/2023 12:52 PM DISPENSARY TECHNICIAN OWAT Platelet Count 336 157 - 371 x10(9)/L 02/27/2023 12:52 PM DISPENSARY TECHNICIAN OWAT Leukocytes 7.6 3.4 - 9.6 x10(9)/L 02/27/2023 12:52 PM DISPENSARY TECHNICIAN OWAT Neutrophils 3.89 1.56 - 6.45 x10(9)/L 02/27/2023 12:52 PM DISPENSARY TECHNICIAN OWAT Lymphocytes 2.92 0.95 - 3.07 x10(9)/L 02/27/2023 12:52 PM DISPENSARY TECHNICIAN OWAT Monocytes 0.62 0.26 - 0.81 x10(9)/L 02/27/2023 12:52 PM DISPENSARY TECHNICIAN OWAT Eosinophils 0.12 0.03 - 0.48 x10(9)/L 02/27/2023 12:52 PM DISPENSARY TECHNICIAN OWAT Basophils 0.03 0.01 - 0.08 x10(9)/L 02/27/2023 12:52 PM DISPENSARY TECHNICIAN OWAT Blood (Blood, Venous) 02/27/2023 11:40 AM DISPENSARY TECHNICIAN 02/27/2023 11:40 AM DISPENSARY TECHNICIAN Silva Peterson M.D. LAB BLOOD ADD-O N [facility] [address] [place] [address], [facility] OWAT [facility] in [place] [address] [place] [address] documented in this encounter Visit Diagnoses Diagnosis Anemia Complicating Third Trimester (HCC) documented in this encounter Additional Health Concerns Assessment Noted Time PHQ-9 Depression Total Score: 0 02/28/20 10:40 AM DISPENSARY TECHNICIAN documented as of this encounter Care Teams Sports Media Relationship Specialty Start Date End Date Tyrel Reyes M.D. [address] [place] [address] [place] [phone] PCP - General Family Medicine 05/14/22 documented as of this encounter
--- OUTSIDE RECORDS SUMMARY | 2023-04-23 16:22 | XMS_ITS | Referral Summary ---
Author Name Unknown Organization [facility] Address [address] [place] [address] Care Team Providers Care Lumber Racker Name Role Phone Tyrel Reyes M.D. Primary Care Provider Source Comments Patient records contain information from all sites at [facility]. For routine questions regarding patient records, call [phone] during business hours, M-F 8:00 AM - 5:00 PM Central Time. Record requests for emergency care only can be directed to [phone] at any time.[facility] Encounters Date Type Department Care Team Description 02/27/2023 11:33 AM ENGINEERING DRAFTER - 02/27/2023 11:59 PM ENGINEERING DRAFTER Hospital Encounter Department of Laboratory Medicine in [place], [place] [address] [place] [phone] Silva Peterson M.D. Anemia Complicating Third Trimester (HCC) Discharge Disposition: Home or Self Care 02/27/2023 11:00 AM ENGINEERING DRAFTER Office Visit Department of Obstetrics and Gynecology in [place], [place] [address] [place] [phone] Silva Peterson M.D. Exam (HCC) (Primary Dx); Anemia Complicating Third Trimester (HCC); Management Contraceptive; Depression Major Discharge Disposition: Home or Self Care 01/24/2023 3:30 PM ENGINEERING DRAFTER Office Visit Department of Obstetrics and Gynecology in [place], [place] [address] [place] [address] Jesús Díaz M.D. Exam (HCC) (Primary Dx) Discharge Disposition: Home or Self Care 01/24/2023 3:30 PM ENGINEERING DRAFTER Ancillary Procedure Department of Obstetrics and Gynecology in [address] [phone] Jesús Díaz M.D. Abnormal Uterine And Vaginal Bleeding Unspecified Discharge Disposition: Home or Self Care 01/24/2023 1:45 PM ENGINEERING DRAFTER Office Visit Department of Obstetrics and Gynecology in [address] [address] Silva Peterson M.D. Lewis, Tarra J, M.S.N., R.N. Dysuria (Primary Dx); Abnormal Uterine And Vaginal Bleeding Unspecified Discharge Disposition: Home or Self Care from Last 3 Months Allergies No known active allergies Medications Medication [...] 60 tablet 3 12/12/2022 12/12/2023 Active multivit no.11-ptep-amgco acid (-U) 106.5-1 mg capsule Take 1 [...] education completed. Pre-reg completed at [facility]. LMP: 04/23/22 EDC:01/28/22 [place] provider: avionics systems repairer FOB involved: yes, Sorin. Problem Noted Date [...] Date Resolved Date Anemia Complicating Third Trimester 10/26/1902/27/2023 Overview: Hgb was 8.5 on discharge. On [...] From 06/07/2017 Deficiency Vitamin D 04/30/2017 018 Immunizations Name Administration Dates Next Due HepB Pediatric/Adolescent 05/01/2005 Influenza, Injectable, Quadrivalent 01/19/2016 MCV4 (Menveo) 04/19/2011 SARS-COV-2 (COVID-19) - MODERNA(Discontinued) 07/07/2020,06/09/2020 Tdap 10/24/2022,09/04/2017,04/19/2011 YOON 11/12/2011 Social History Tobacco Use Types Packs/Day Years [...] with others, in a hotel, in a usp, living outside on the street, on a [...] Comments Blood Pressure 108/66 02/27/2023 10:38 AM ENGINEERING DRAFTER Pulse 75 08/31/2021 7:15 PM CDT Temperature 36.8 ??C (98.3 ??F) 01/24/2023 1:55 PM CS T Respiratory Rate 16 08/31/2021 7:15 PM CDT Oxygen Saturation - - Inhaled Oxygen Concentration - - Weight 82.1 kg (180 lb 14.2 oz) 023 10:38 AM ENGINEERING DRAFTER Height 155 cm (5' 1.02) 11/27/2017 1:37 PM CDT Body Mass Index 34.15 11/27/2017 1:37 PM CDT Plan of Treatment Not on file Procedures Procedure Name Priority Date/Time Associated Diagnosis Comments CBC WITH DIFFERENTIAL, B Routine 02/27/2023 11:40 AM ENGINEERING DRAFTER Anemia Complicating Third Trimester (HCC) US PELVIS TRANSVAGINAL RAD - Routine (most inpatients and all outpatients) 01/24/2023 3:47 PM ENGINEERING DRAFTER Abnormal Uterine And Vaginal Bleeding Unspecified URINALYSIS WITH MICROSCOPIC Routine 01/24/2023 2:26 PM ENGINEERING DRAFTER Dysuria BACTERIAL CULTURE, AEROBIC + SUSC, URINE Routine 01/24/2023 2:26 PM ENGINEERING DRAFTER Dysuria from Last 3 Months Results * CBC with Differential, Blood (02/27/2023 11:40 AM ENGINEERING DRAFTER) Hemoglobin 12.1 11.6 - 15.0 g/dL 02/27/2023 12:52 PM ENGINEERING DRAFTER OWAT Hematocrit 39.8 35.5 - 44.9 % 02/27/2023 12:52 PM ENGINEERING DRAFTER OWAT Erythrocytes 4.87 3.92 - 5.13 x10(12)/L 02/27/2023 12:52 PM ENGINEERING DRAFTER OWAT MCV 81.7 78.2 - 97.9 fL 02/27/2023 12:52 PM ENGINEERING DRAFTER OWAT RBC Distrib Width 13.5 12.2 - 16.1 % 02/27/2023 12:52 PM ENGINEERING DRAFTER OWAT Platelet Count 336 157 - 371 x10(9)/L 02/27/2023 12:52 PM ENGINEERING DRAFTER OWAT Leukocytes 7.6 3.4 - 9.6 x10(9)/L 02/27/2023 12:52 PM ENGINEERING DRAFTER OWAT Neutrophils 3.89 1.56 - 6.45 x10(9)/L 02/27/2023 12:52 PM ENGINEERING DRAFTER OWAT Lymphocytes 2.92 0.95 - 3.07 x10(9)/L 02/27/2023 12:52 PM ENGINEERING DRAFTER OWAT Monocytes 0.62 0.26 - 0.81 x10(9)/L 02/27/2023 12:52 PM ENGINEERING DRAFTER OWAT Eosinophils 0.12 0.03 - 0.48 x10(9)/L 02/27/2023 12:52 PM ENGINEERING DRAFTER OWAT Basophils 0.03 0.01 - 0.08 x10(9)/L 02/27/2023 12:52 PM ENGINEERING DRAFTER OWAT Blood (Blood, Venous) 02/27/2023 11:40 AM ENGINEERING DRAFTER 02/27/2023 11:40 AM ENGINEERING DRAFTER Silva Peterson M.D. LAB BLOOD ADD-O N [facility] [address] [place] [address], [place] OWAT [facility] in [place] [address] [place] [address] * US Pelvis Transvaginal (01/24/2023 3:47 PM ENGINEERING DRAFTER) Anatomical Region Laterality Modality Pelvis, Ultrasound RST LOS, Ultrasound ARZ LOS, Ultrasound FLA LOS N/A Ultrasound 01/24/2023 6:19 PM ENGINEERING DRAFTER Impressions 01/24/2023 6:20 PM ENGINEERING DRAFTER Normal-appearing uterus and endometrium in the ., no evidence of retained products of conception Narrative 01/24/2023 6:20 PM ENGINEERING DRAFTER EXAM: US PELVIS TRANSVAGINAL COMPARISON: TECHNIQUE: Transvaginal. [...] Aerobic + Susceptibility, Urine (01/24/2023 2:26 PM ENGINEERING DRAFTER) Urine Culture No growth after 1 day of incubation. 01/25/2023 12:15 PM ENGINEERING DRAFTER MKTO Urine (Urine, Midstream) 01/24/2023 2:26 PM ENGINEERING DRAFTER 01/24/2023 7:10 PM ENGINEERING DRAFTER Comment:Specimen Source Site : Urine Jesús Díaz M.D. LAB MICROBIOLOGY - G ENERAL ORDERABLES [facility] [address] [place] [address], [facility] MKTO [facility] in [place] [address] [place] [address] * (ABNORMAL) Urinalysis with Microscopic: Urine, Midstream (01/24/2023 2:26 PM ENGINEERING DRAFTER) Source Urine, Urine, Midstream 01/24/2023 4:54 PM ENGINEERING DRAFTER FB60 Clarity Cloudy(A) Clear 01/24/2023 4:58 PM ENGINEERING DRAFTER FB60 Color Yellow 01/24/2023 4:58 PM ENGINEERING DRAFTER FB60 Comment: ----REFERENCE VALUE---- Colorless Yellow Jelena Blood Large(A) Negative 01/24/2023 4:58 PM ENGINEERING DRAFTER FB60 Nitrite Negative Negative 01/24/2023 4:58 PM ENGINEERING DRAFTER FB60 Leukocyte Esterase Moderate(A) Negative 01/24/2023 4:58 PM ENGINEERING DRAFTER FB60 Protein 30(A) mg/dL 01/24/2023 4:58 PM ENGINEERING DRAFTER FB60 Comment: ----REFERENCE VALUE---- Negative Trace Glucose Negative Negative mg/dL 01/24/2023 4:58 PM ENGINEERING DRAFTER FB60 Ketones, QI(U) Negative Negative mg/dL 01/24/2023 4:58 PM ENGINEERING DRAFTER FB60 Bilirubin Negative Negative 01/24/2023 4:58 PM ENGINEERING DRAFTER FB60 pH 5.5 5.0 - 8.0 01/24/2023 4:58 PM ENGINEERING DRAFTER FB60 Specific [place] 1.020 1.001 - 1.035 01/24/2023 4:58 PM ENGINEERING DRAFTER FB60 Urobilinogen 0.2 0.2 - 1.0 mg/dL 01/24/2023 4:58 PM ENGINEERING DRAFTER FB60 White Blood Cells 11-20(A) /hpf 01/24/2023 5:12 PM ENGINEERING DRAFTER FB60 Comment: ----REFERENCE VALUE---- Males: 0-3 Females: 0-10 Unknown: 0-10 Red Blood Cells >100(A) 0 - 2 /hpf 5:12 PM ENGINEERING DRAFTER FB60 Dysmorphic Red Blood Cells <=25 <=25 % 01/24/2023 5:12 PM ENGINEERING DRAFTER FB60 Urine (Urine, Midstream) 01/24/2023 2:26 PM ENGINEERING DRAFTER 01/24/2023 4:54 PM ENGINEERING DRAFTER Jesús Díaz M.D. LAB URINE ORDERABLES [facility] [address] [place] [address], [facility] FB60 [facility] in [place] [address] [place] [address] from Last 3 Months Care Teams Lumber Racker Relationship Specialty Start Date End Date Tyrel Reyes M.D. [address] [place] [phone] PCP - General Family Medicine 05/14/22
--- OUTSIDE RECORDS SUMMARY | 2023-04-23 16:22 | XMS_ITS | Encounter Summary ---
Author Name Unknown Organization [facility] Address [address] [place] [address] Care Team Providers Care Machine Spreader Name Role Phone Tyrel Reyes M.D. Primary Care Provider [phone] Reason for Visit * Appointment Request (Routine) - Closed Specialty Diagnoses / Procedures Referred By Rebel armstrong Referred To Contact Obstetrics and Gynecology Referral ID Status Reason Start Date Expiration Date Visits Re quested Visits Authorized [id number] Closed 01/14/2023 01/14/2024 1 1 Encounter Details Date Type Department Care Team (Late st Contact Info) Description 02/27/2023 11:00 AM TRACK WELDER Office Visit Department of Obstetrics and Gynecology in [address] [phone] Silva Peterson M.D. [address], [place] [address] Exam (HCC) (Primary Dx); Anemia Complicating Third Trimester (HCC); Management Contraceptive; Depression Major Discharge Disposition: Home or Self Care Social [...] with others, in a hotel, in a long-term, living outside on the street, on a [...] Comments Blood Pressure 108/66 02/27/2023 10:38 AM TRACK WELDER Pulse - - Temperature - - Respiratory Rate - - Oxygen Saturation - - Inhaled Oxygen Concentration - - Weight 82.1 kg (180 lb 14.2 oz) 023 10:38 AM TRACK WELDER Height - - Body Mass Index 34.15 11/27/2017 1:37 PM CDT documented in this encounter H&P Notes * Silva Peterson M.D. - 02/27/2023 11:00 AM CST SUBJECTIVE VISIT REASON FOR VISIT/CHIOMA IF COMPLAINT visit HISTORY OF PRESENT ILLNESS Miguel is a 22 y.o. female who is 6 weeks 3 day(s) status post repeat low transverse section who presents for visit today. She is voiding, ambulating, tolerating a regular diet, and having bowel movements without difficulty. She is having no difficulty with voiding, ambulating, tolerating a regular diet, and having bowel movements. Her lochia has resolved. She has had intercourse since delivery. She has soreness near her incision with intercourse. She has no mood concerns at this time. She has post delivery pain at this time, she has soreness near her incision. Thisis on the skin, and the skin was red. She put some antifungal medication on it, and her symptoms have resolved. She is bottle feeding her infant without difficulty. She plans Depo Provera for contraception. The patient's allergies and current medications were reviewed and updated as appropriate. REVIEW OF SYSTEMS: Skin: Positive for skin rash (near the incision under her panus). All other systems reviewed and are negative. The patient's Past Medical History, Past Surgical History, Social History, and Family History were reviewed and updated as appropriate. 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 OB History Para Term AB Living 2 2 2 2 SAB IAB Ectopic Molar Multiple Live Births 2 # Outcome Date GA Lbr Nate/2nd Weight Sex Delivery Anes PTL Lv 2 Term 01/13/23 38w6d 3.51 kg M Spinal BRIGHT 1 Term 11/14/17 38w5d 3.59 kg F CS-LTranv BRIGHT Complications: Failure to Progress in First Stage, Premature Rupture Membrane (HCC) OBJECTIVE PHYSICAL EXAM Vitals: 02/27/23 1038 BP: 108/66 Weight: 82.1 kg General: Well-nourished female in no acute distress Head: Normocephalic, atraumatic ENT: Vision and hearing grossly intact Lymph nodes: No supraclavicular, infraclavicular, or axillary lymphadenopathy Heart: Regular rate and rhythm, no murmurs, rubs or gallops Chest: Clear to auscultation bilaterally, no wheezes or rales, breathing nonlabored Breasts: Symmetric bilaterally, no lesions or dimpling of the skin noted, nipples without inversion, drainage is present and consistent with , no dominant masses palpable but changes consistent with are noted Abdomen: Soft, nondistended, nontender, normoactive bowel sounds, no masses palpable, no rebound orguarding, Pfannenstiel skin incision is healing well and without signs of infection. Pelvic exam: External genitalia without lesions or abnormalities, normal pubic hair distribution, urethral meatus normal in appearance and without masses, vaginal mucosa is pink and moist with a small amount of thin, clear discharge present in the posterior vaginal fornix, cervix appears parous andis without gross lesions or abnormalities, on bimanual examination, the bladder and urethra are nontender, the uterus is normal in size and nontender, no adnexal masses or tenderness are noted Lower extremities: Nontender, no edema Skin: No rashes or lesions Neuro: Alert and oriented x3 ASSESSMENT / PLAN 22 y.o. female who is 6 weeks 3 day(s) status post repeat low transverse section who presents for visit today. #1 Exam (HCC) Overview: The patient is making excellent progress. She is voiding, ambulating, tolerating a regular diet, and having bowel movements without difficulty. Her PHQ-9 score is 0 today. #2 Anemia Complicating Third Trimester (HCC) Overview: Hgb was 8.5 on discharge. On iron supplement since hospital discharge. Will recheck hgb today. Orders: - CBC with Differential, Blood; Future; Expected date: 02/27/2023 #3 Management Contraceptive Overview: Desires depo provera. First injection today. Discussed possible weight gain with this. Will monitorweight closely. Orders: - medroxyPROGESTERone injection 150 mg; 150 mg, intramuscular, Every 3 months, First dose on Sat02/27/23 at 1200, For 4 doses #4 Depression Major Overview: PHQ-9 score is 0 today, indicating well managed depression. Not currently on medication for this. Follow-up: 2 1/2 years for well adult exam and pap smear, or as needed. K WELDER documented in this encounter Plan of Treatment Not on file documented as of this encounter Results * CBC with Differential, Blood (02/27/2023 11:40 AM TRACK WELDER) Hemoglobin 12.1 11.6 - 15.0 g/dL 02/27/2023 12:52 PM TRACK WELDER OWAT Hematocrit 39.8 35.5 - 44.9 % 02/27/2023 12:52 PM TRACK WELDER OWAT Erythrocytes 4.87 3.92 - 5.13 x10(12)/L 02/27/2023 12:52 PM TRACK WELDER OWAT MCV 81.7 78.2 - 97.9 fL 02/27/2023 12:52 PM TRACK WELDER OWAT RBC Distrib Width 13.5 12.2 - 16.1 % 02/27/2023 12:52 PM TRACK WELDER OWAT Platelet Count 336 157 - 371 x10(9)/L 02/27/2023 12:52 PM TRACK WELDER OWAT Leukocytes 7.6 3.4 - 9.6 x10(9)/L 02/27/2023 12:52 PM TRACK WELDER OWAT Neutrophils 3.89 1.56 - 6.45 x10(9)/L 02/27/2023 12:52 PM TRACK WELDER OWAT Lymphocytes 2.92 0.95 - 3.07 x10(9)/L 02/27/2023 12:52 PM TRACK WELDER OWAT Monocytes 0.62 0.26 - 0.81 x10(9)/L 02/27/2023 12:52 PM TRACK WELDER OWAT Eosinophils 0.12 0.03 - 0.48 x10(9)/L 02/27/2023 12:52 PM TRACK WELDER OWAT Basophils 0.03 0.01 - 0.08 x10(9)/L 02/27/2023 12:52 PM TRACK WELDER OWAT Blood (Blood, Venous) 02/27/2023 11:40 AM TRACK WELDER 02/27/2023 11:40 AM TRACK WELDER Silva Peterson M.D. LAB BLOOD ADD-O N [facility] [address] [place] [address], [place] OWAT [facility] [place] [address] [place] [address] documented in this encounter Visit Diagnoses Diagnosis Exam (HCC)- Primary Anemia Complicating Third Trimester (HCC) Management Contraceptive Depression Major documented in this encounter Administered Medications Active Administered Medications - up to 3 most recent administrations Medication Order MAR Action Action Date Dose Rate Site medroxyPROGESTERone injection 150 mg 150 mg, intramuscular, Every 3 months, First dose on Sat02/27/23 at 1200, For 4 doses Given 02/27/2023 11:34 AM TRACK WELDER 150 mg Right Ventrogluteal documented in this encounter Additional Health Concerns Assessment Noted Time PHQ-9 Depression Total Score: 0 02/28/20 10:40 AM TRACK WELDER documented as of this encounter Care Teams Machine Spreader Relationship Specialty Start Date End Date Tyrel Reyes M.D. [address] [place] [address] [place] [address] PCP - General Family Medicine 05/14/22 documented as of this encounter
--- OUTSIDE RECORDS SUMMARY | 2023-04-23 16:22 | XMS_ITS | Encounter Summary ---
Author Name Unknown Organization [facility] Address [address] [place] [address] Care Team Providers Care Lab Support Technician Name Role Phone Tyrel Reyes M.D. Primary Care Provider Encounter Details Date Type Department Care Team (Latest Contact Info) Description 01/08/2023 11:13 AM CDT - 01/08/2023 11:59 PM CDT Hospital Encounter Department of Laboratory Medicine in [place] [address] [place] [address] Sarahi Prabhakar, REPORT CHECKER, C.N.P. [address] [place] [phone] Anemia Complicating Third Trimester (HCC) Discharge Disposition: [...] with others, in a hotel, in a prison, living outside on the street, on a [...] Sig Dispensed Refills Start Date End Date cholecalciferol (VITAMIN D3) 10 mcg (400 Unit) tabletIndications:Defi ciency Vitamin D Take 2 tablets (800 Units total) by mouth daily. 60 tablet 8 09/26/2022 ferrous sulfate 325 mg (65 mg iron) DR tabletIndications:Anem ia Complicating Third Trimester (HCC) Take 1 tablet (65 mg of iron total) by mouth daily with breakfast. 60 tablet 3 12/12/2022 12/12/2023 hydrocortisone (ANUSOL-HC) 2.5 % rectal creamIndications:Const ipation Insert 1 Application into the rectum 2 (two) times a day. 28 g 3 08/29/2022 ibuprofen (ADVIL,MOTRIN) 600 mg tablet TAKE ONE TABLET BY MOUTH EVERY 6 HOURS IF NEEDED FOR PAIN MAXIMUM OF 3200MG IN 24 HOURS 0 11/19/2017 MAPAP EXTRA STRENGTH 500 mg tablet TAKE TWO TABLETS BY MOUTH EVERY 6 HOURS IF NEEDED MAXIMUM 4000MG ACETAMINOPHEN PER 24 HOURS 0 11/19/2017 polyethylene glycol (MIRALAX) 17 gram/dose oral powderIndications:Cons tipation Take 17 g by mouth daily. Dissolve each 17 g dose in 240 mL (8 ounces) of beverage. 595 g 2 08/29/2022 witch alban-glycerin (TUCKS) pad Apply to rectum prn. 40 each 11 08/29/2022 PNV NO.95/FERROUS FUM/FOLIC AC ( MULTIVITAMINS ORAL) Take by mouth. 0 2022 documented as of this encounter Plan of Treatment Not on file documented as of this encounter Procedures Procedure Name Priority Date/Time Associated Diagnosis Comments CBC WITH DIFFERENTIAL, B Routine 01/08/2023 11:28 AM CDT Anemia Complicating Third Trimester (HCC) documented in this encounter Results * (ABNORMAL) CBC with Differential, Blood (01/08/2023 11:28 AM CDT) Hemoglobin 10.5(L) 11.6 - 15.0 g/dL 01/08/2023 11:49 AM CDT FB60 Hematocrit 33.3(L) 35.5 - 44.9 % 01/08/2023 11:49 AM CDT FB60 Erythrocytes 4.12 3.92 - 5.13 x10(12)/L 01/08/2023 11:49 AM CDT FB60 MCV 80.8 78.2 - 97.9 fL 01/08/2023 11:49 AM CDT FB60 RBC Distrib Width 15.6 12.2 - 16.1 % 01/08/2023 11:49 AM CDT FB60 Platelet Count 298 157 - 371 x10(9)/L 01/08/2023 11:49 AM CDT FB60 Leukocytes 8.4 3.4 - 9.6 x10(9)/L 01/08/2023 11:49 AM CDT FB60 Neutrophils 5.00 1.56 - 6.45 x10(9)/L 01/08/2023 11:49 AM CDT FB60 Lymphocytes 2.41 0.95 - 3.07 x10(9)/L 01/08/2023 11:49 AM CDT FB60 Monocytes 0.80 0.26 - 0.81 x10(9)/L 01/08/2023 11:49 AM CDT FB60 Eosinophils 0.15 0.03 - 0.48 x10(9)/L 01/08/2023 11:49 AM CDT FB60 Basophils 0.05 0.01 - 0.08 x10(9)/L 01/08/2023 11:49 AM CDT FB60 Blood (Blood, Venous) 01/08/2023 11:28 AM CDT 01/08/2023 11:28 AM CDT Sarahi Prabhakar APRN, C.N.P. LAB BLOOD ADD-ON [facility] [address] [place] [address], [facility] FB60 [facility] [place] [address] [place] [address] documented in this encounter Visit Diagnoses Diagnosis Anemia Complicating Third Trimester (HCC) documented in this encounter Additional Health Concerns Assessment Noted Time PHQ-9 Depression Total Score: 1 10/25/19 23 1:25 PM CDT documented as of this encounter Care Teams Lab Support Technician Relationship Specialty Start Date End Date Tyrel Reyes M.D. [address] [place] [address] PCP - General Family Medicine 05/14/22 documented as of this encounter
--- OUTSIDE RECORDS SUMMARY | 2023-04-23 16:23 | XMS_ITS | Encounter Summary ---
Author Name Unknown Organization [facility] Address [address] [place] [address] Care Team Providers Care Lobby Concierge Name Role Phone Tyrel Reyes M.D. Primary Care Provider Reason for Visit * Outpatient (Routine) - Closed Specialty Diagnoses / Procedures Referred By Rebel armstrong Referred To Contact Obstetrics and Gynecology Diagnoses Examination Other Normal Second Trimester (HCC) Silva Peterson M.D. [address], [place] [address] [facility] Referral ID Status Reason Start Date Expiration Date Visits Re quested Visits Authorized [id number] Closed 11/21/2022 11/20/2025 1 1 Encounter Details Date Type Department Care Team (Latest Contact Info) Description 12/12/2022 2:00 PM CDT Routine Department of Obstetrics and Gynecology in [address] [phone] Silva Peterson M.D. [address], [place] [address] Examination Other Normal Third Trimester (HCC) (Primary Dx); Threatened (HCC); Depression Major; History Of Uterine Scar From Previous Surgery; Scoliosis; Deficiency Vitamin D; Abnormal Ultrasound Placenta; Anemia Complicating Third Trimester (HCC) Discharge Disposition: Home or Self Care Social History Tobacco Use Types Packs/Day Years Used Date Smoking Tobacco: Former Cigarettes Q uit: 05/13/2022 Smokeless Tobacco: Former Quit: 05/13/2022 Alcohol Use Standard Drinks/Week Comments No 0 (1 standard drink = 0.6 oz pur e alcohol) PHQ-2 Answer Date Recorded PHQ-2 Score 0 10/24/2022 Depression Answer Date Recor ded PHQ-9 Total Score (max 27) 1 10/24 Nutrition Answer Date Recorded Nutrition: EVOO Fat Source Unknown 05/05 Nutrition: Servings of Fruits/Vegetables per Day Not on file 05/05/2020 Dental Answer Date Recorded Dental: Regular Dentist Unknown 05/05/19 21 Education Answer Date Recorded What is the [...] Sign Reading Time Taken Comments Blood Pressure 116/70 12/12/2022 1:59 PM CDT Pulse - - Temperature - - Respiratory Rate - - Oxygen Saturation - - Inhaled Oxygen Concentration - - Weight 87.1 kg (192 lb 2.1 oz) 12/12/2022 1:59 P M CDT Height - - Body Mass Index 36.27 11/27/2017 1:37 PM CDT documented in this encounter Progress Notes * Silva Peterson M.D. - 12/12/2022 2:00 PM CDT SUBJECTIVE She is having some contractions. Sometimes they are quite strong. Sometimes she has more than 6 in an hour, but they have always improved and decreased with increased hydration. She fell a couple of weeks ago on her knee and felt like some fluid came out at that time. She had some soreness in the lower abdomen after that. She reports feeling like she has to urinate when bending forward, but she doesn't think the liquid was urine. She has not continued to leak fluid after that. SYSTEMS REVIEW Gastrointestinal: Positive for abdominal (belly) pain or cramping (occasional, with contractions adn after a fall). All other systems reviewed and are negative. OBJECTIVE Vitals: 12/12/22 1359 BP: 116/70 Weight: 87.1 kg PHYSICAL EXAM Gen: NAD Lower extremities: Nontender, no edema ASSESSMENT / PLAN Miguel George is a 22 y.o. female at 34w2d by 7+1 week ultrasound who presents for OBFU. #1 Examination Other Normal Third Trimester (HCC) Overview: OB education complete. Plan US for presentation check at 36 weeks. Ordered. Concern about possible leaking of fluid after a fall - no further leaking noted, so SROM is unlikely. Also, US today shows normal amount of amniotic fluid. Orders: - Obstetrics and Gynecology office visit (clinic) - US OB Limited; Future; Expected date: 12/12/2022 #2 Threatened (HCC) Overview: Possible subchorionic hemorrhage noted at the time of her US in the ED in early May. No recent bleeding. Rh positive, so rhogam was not needed. #3 Depression Major Overview: PHQ-9 score was 4 on 05/15/22 and was 1 on 10/24/2022, indicating well managed depression. Not currently on medication for this. We will follow mood closely in and the . #4 History Of Uterine Scar From Previous Surgery Overview: Did not progress past 4 cm with first labor and tracing was non-reassuring at that time, so section was performed. This was a LTCS. Chance of successful TOLAC with this is 63% and discuss risks and benefits of TOLAC vs scheduled repeat section discussed today and [facility] TOLAC consent signed (11/21/2022). #5 Scoliosis Overview: Epidural was placed without difficulty with her last , but pain was not well managed when section was performed and anesthesia was converted to general. This should be a consideration with planning delivery with this . Consider anesthesia consult prior to delivery. #6 Deficiency Vitamin D Overview: S/p Vitamin D3 50,000 weekly x 8 weeks. Now on daily vitamin D3 800 IU. #7 Abnormal Ultrasound Placenta Overview: Marginal cord insertion. Repeat US at 27 weeks 2 days showed EFW of 1197 gm with growth at the 75th%ile and normal amniotic fluid assessment, confirmed marginal cord insertion. #8 Anemia Complicating Third Trimester (HCC) Overview: Hgb was 10.5 at 28 weeks. Iron supplement started. Will reassess at 38 weeks. Orders: - ferrous sulfate 325 mg (65 mg iron) DR tablet; Take 1 tablet (65 mg of iron total) by mouth dailywith breakfast., Starting 12/12/2022, Until Latesha 12/12/2023, Normal Followup: In 2 weeks for OBFU. documented in this encounter Plan of Treatment Not on file documented as of this encounter Results * US OB Limited (12/12/2022 2:47 PM CDT) Anatomical Region Laterality Modality Ultrasound OB RST LOS, Ultra sound ARZ LOS, Ultrasound FLA LOS, Ultrasound ARZ LOS N/A Ultrasound 12/12/2022 8:16 PM CDT Impressions 12/12/2022 8:18 PM CDT Single intrauterine at 34 w 2 d gestation. Normal amniotic fluid assessment. ??Fetus is vertex. Narrative 12/12/2022 8:18 PM CDT EXAM: US OB LIMITED COMPARISON: None TECHNIQUE: Transabdominal Only FINDINGS: Number of Gestations: Single Established Gestational age: 34 w 2 d, TIKI: 01/21/2023 Presentation: Cephalic Placenta Location: Right Lateral, Fundal Placental Relationship to Internal Os: Not visualized Amniotic Fluid: Normal Maximum Vertical Pocket: 4.3 cm heart rate: 155 Uterus: No unexpected findings. Right ovary/adnexa: Not Evaluated. Left ovary/adnexa: Not Evaluated. Cervix: Subjectively normal by Transabd evaluation only. Procedure Note Silva Peterson M.D. - 12/12/2022 EXAM: US OB LIMITED COMPARISON: None TECHNIQUE: Transabdominal Only FINDINGS: Number of Gestations: Single Established Gestational age: 34 w 2 d, TIKI: 01/21/2023 Presentation: Cephalic Placenta Location: Right Lateral, Fundal Placental Relationship to Internal Os: Not visualized Amniotic Fluid: Normal Maximum Vertical Pocket: 4.3 cm heart rate: 155 Uterus: No unexpected findings. Right ovary/adnexa: Not Evaluated. Left ovary/adnexa: Not Evaluated. Cervix: Subjectively normal by Transabd evaluation only. IMPRESSION: Single intrauterine at 34 w 2 d gestation. Normal amniotic fluidassessment. Fetus is vertex. Silva Peterson M.D. IMG OB US DC HUNTER documented in this encounter Visit Diagnoses Diagnosis Examination Other Normal Third Trimester (HCC)- Primary Threatened (HCC) Depression Major History Of Uterine Scar From Previous Surgery Scoliosis Deficiency Vitamin D Abnormal Ultrasound Placenta Anemia Complicating Third Trimester (HCC) Examination Other Normal Third Trimester (HCC) documented in this encounter Additional Health Concerns Assessment Noted Time PHQ-9 Depression Total Score: 1 10/25/19 1:25 PM CDT documented as of this encounter Care Teams Lobby Concierge Relationship Specialty Start Date End Date Tyrel Reyes M.D. [address] [place] [phone] PCP - General Family Medicine 05/14/22 documented as of this encounter
--- OUTSIDE RECORDS SUMMARY | 2023-04-23 16:23 | XMS_ITS | Encounter Summary ---
Author Name Unknown Organization [facility] Address [address] [place] [address] Care Team Providers Care Food Photographer Name Role Phone Tyrel Reyes M.D. Primary Care Provider [phone] Reason for Visit * Reason Comments Nurse Visit 28 week education * Outpatient (Routine) - Authorized Specialty Diagnoses / Procedures Referred By Contjacqueline t Referred To Contact Obstetrics and Gynecology Diagnoses Examination Other Normal First Trimester (HCC) Aleah Hayes M.D. [address] [place] [address] [facility] Region Referral ID Status Reason Start Date Expiration Date V isits Requested Visits Authorized [id number] Authorized 08/29/2022 08/28/2025 4 4 Encounter Details Date Type Department Care Team (Latest Contact Info) Description 10/24/2022 1:00 PM CDT Routine Department of Obstetrics and Gynecology in [address] [address] Aleah Hayes M.D. [address] [place] [address] Ladonna Cohen, ROsirisNOsiris Need Vaccine Immunization Tetanus And Diphtheria Toxoids And Pertussis (Primary Dx); Examination Other Normal Second Trimester (HCC) Discharge Disposition: Home or Self [...] Sign Reading Time Taken Comments Blood Pressure 112/60 10/24/2022 1:25 PM CDT Pulse - - Temperature - - Respiratory Rate - - Oxygen Saturation - - Inhaled Oxygen Concentration - - Weight 78.2 kg (172 lb 6.4 oz) 10/24/2022 1:25 P M CDT Height - - Body Mass Index 32.55 11/27/2017 1:37 PM CDT documented in this encounter Progress Notes * Ladonna Cohen, ROsirisN. - 10/24/2022 1:00 PM CDT S: Patient states she is feeling good. She has not had cramping, has not had nausea, has not had vomiting, has not had vaginal bleeding, leaking of fluid, or contractions. She stated movement is present and active. REVIEW OF SYSTEMS: General: No fever, chills, fatigue, unintentional weight loss, or weight gain HEENT: No sore throat, nasal congestion, changes in vision or changes in hearing Cardiovascular: No chest pain, irregular heartbeat or racing heart Respiratory: No shortness of breath, cough, or wheezing Gastrointestinal: No nausea, vomiting, diarrhea, constipation or abdominal pain Genitourinary: No leaking urine, pain with urination, burning with urination, irregular vaginal bleeding, heavy periods, painful periods, abnormal vaginal discharge or leaking gas or stool Skin: No rashes or skin lesions Breasts: No masses or lumps, positive for discharge from the nipples Neuro: No difficulty with memory, numbness, tingling, or falls Psych: No anxiety, depression or difficulty sleeping Endocrine: No excessive thirst, hair loss, intolerance of heat or cold A/P: 22 y.o. at 27w2d who presents for OB follow up and third trimester OB education. 1.) 28 week labs were ordered and obtained 10/24/22. We will contact her with results. 2.) TDAP was administered 10/24/22 She tolerated this well. 3.) Depression screening was completed and her PHQ-9 score was 1, answering no to question 9. Good communication encouraged. Advised to contact us with any worsening mood concerns. 4.) movement monitoring, labor signs, signs and symptoms of preeclampsia, postterm counseling, and depression were all discussed in detail. 5.) Anesthesia plans discussed. She is planning on TOLAC. Non-medication pain relief options were also discussed in detail. 6.) [place] education was discussed in detail, including safe sleeping positions/ SIDS, medications, and screening. provider is ultrasound applications specialist. She is having a boy. She is planning to breastfeed. Signs and symptoms of mastitis were also reviewed. 7.) family planning was reviewed and she is planning on unsure at this time. 2nd/3rd Trimester education provided today using the ACOG list of recommended antepartum education topics and in accordance with [facility] guidelines. Patient states understanding to all topics presented. All questions answered during appointment. Written information regarding topics presented provided for patient to take home. Please see education tab for further details about topics addressed. documented in this encounter Plan of Treatment Not on file documented as of this encounter Visit Diagnoses Diagnosis Need Vaccine Immunization Tetanus And Diphtheria Toxoids And Pertussis- Primary Examination Other Normal Second Trimester (HCC) documented in this encounter Additional Health Concerns Assessment Noted Time PHQ-9 Depression Total Score: 1 10/25/19 23 1:25 PM CDT documented as of this encounter Care Teams Food Photographer Relationship Specialty Start Date End Date Tyerl Reyes M.D. [address] [place], [place] [address] [phone] PCP - General Family Medicine 05/14/22 documented as of this encounter
--- OUTSIDE RECORDS SUMMARY | 2023-04-23 16:23 | XMS_ITS | Encounter Summary ---
Author Name Unknown Organization [facility] Address [address] [place] [address] Care Team Providers Care Lye Treater Name Role Phone Tyrel Reyes M.D. Primary Care Provider [phone] Reason for Visit * Outpatient (Routine) - Closed Specialty Diagnoses / Procedures Referred By Rebel armstrong Referred To Contact Obstetrics and Gynecology Diagnoses Examination Other Normal Second Trimester (HCC) Silva Peterson M.D. [address], [place] [address] [facility] Referral ID Status Reason Start Date Expiration Date Visits Re quested Visits Authorized [id number] Closed 11/21/2022 11/20/2025 1 1 Encounter Details Date Type Department Care Team (Latest Contact Info) Description 12/26/2022 9:15 AM CDT Routine Department of Obstetrics and Gynecology in [address] [phone] Silva Peterson M.D. [address] [place] [address] Examination Other Normal Third Trimester [...] Sign Reading Time Taken Comments Blood Pressure 116/68 12/26/2022 9:56 AM CDT Pulse - - Temperature - - Respiratory Rate - - Oxygen Saturation - - Inhaled Oxygen Concentration - - Weight 89.1 kg (196 lb 8.6 oz) 12/26/2022 9:56 A M CDT Height - - Body Mass Index 37.11 11/27/2017 1:37 PM CDT documented in this encounter Progress Notes * Silva Peterson M.D. - 12/26/2022 9:15 AM CDT SUBJECTIVE She was worried that her water had broken 5 days ago. This was ruled out, but she was having contractions on the monitor that day and was feeling some of them. She continues to have some contractionsbut less than she was the day that she presented. SYSTEMS REVIEW Gastrointestinal: Positive for abdominal (belly) pain or cramping (occasional, with contractions adn after a fall). All other systems reviewed and are negative. OBJECTIVE Vitals: 12/26/22 0956 BP: 116/68 Weight: 89.1 kg PHYSICAL EXAM Gen: NAD Lower extremities: Nontender, no edema ASSESSMENT / PLAN Miguel George is a 22 y.o. female at 36w2d by 7+1 week ultrasound who presents for OBFU. #1 Examination Other Normal Third Trimester (HCC) Overview: OB education complete. Plan US for presentation check at 36 weeks - fetus is vertex today (12/26/2022) with growth at the 50th%ile. GBS negative on 12/21/2022, will need to repeat this if she has not delivered by 01/25/2023. Orders: - Obstetrics and Gynecology office visit (clinic) #2 Threatened (HCC) Overview: Possible subchorionic hemorrhage [...] and [facility] TOLAC consent signed on 11/21/2022. #5 Scoliosis Overview: Epidural was placed without [...] out to her to coordinate this visit. #6 Deficiency Vitamin D Overview: S/p Vitamin D3 50,000 weekly x 8 weeks. Now on daily vitamin D3 800 IU. #7 Abnormal Ultrasound Placenta Overview: Marginal cord insertion. Repeat US at 27 weeks 2 days showed EFW of 1197 gm with growth at the 75th%ile and normal amniotic fluid assessment, confirmed marginal cord insertion. Normal growth at 50th%ile at 36 weeks. #8 Anemia Complicating Third Trimester (HCC) Overview: Hgb was 10.5 at 28 weeks. Iron supplement started. Will reassess at 38 weeks. Followup: In 2 weeks for OBFU. documented in this encounter Plan of Treatment Not on file documented as of this encounter Visit Diagnoses Diagnosis Examination Other Normal Third Trimester (HCC)- Primary Threatened (HCC) Depression Major History Of Uterine Scar From Previous Surgery Scoliosis Deficiency Vitamin D Abnormal Ultrasound Placenta Anemia Complicating Third Trimester (HCC) documented in this encounter Additional Health Concerns Assessment Noted Time PHQ-9 Depression Total Score: 1 10/25/19 1:25 PM CDT documented as of this encounter Care Teams Lye Treater Relationship Specialty Start Date End Date Tyrel Reyes M.D. NPDigna: [phone] [address] [place] [phone] PCP - General Family Medicine 05/14/22 documented as of this encounter
--- OUTSIDE RECORDS SUMMARY | 2023-04-23 16:23 | XMS_ITS | Encounter Summary ---
Author Name Unknown Organization [facility] Address [address] [place] [address] Care Team Providers Care Yarn Skeins Examiner Name Role Phone Tyrel Reyes M.D. Primary Care Provider Encounter Details Date Type Department Care Team (Latest Contact Info) Description 12/26/2022 9:30 AM CDT Silent Schedule Department of Obstetrics and Gynecology in [place], [place] [address] [place] [address] Silva Peterson M.D. [address] [place] [address] Examination Other Normal Third Trimester (HCC) Discharge Disposition: Home or [...] Name Priority Date/Time Associated Diagnosis Comments US OB GROWTH GARNER RAD - Routine (most inpatients and all outpatients) 12/26/2022 9:40 AM CDT Examination Other Normal Third Trimester (HCC) documented in this encounter Results * US OB Growth Garner (12/26/2022 9:40 AM CDT) Anatomical Region Laterality Modality Body, Ultrasound OB RST LOS, Ultrasound ARZ LOS N/A Ultrasound 12/28/2022 2:35 PM CDT Impressions 12/28/2022 2:38 PM CDT Single intrauterine at 36 w 2 d gestation. Based upon multiple biometric measurements, EFW is 2874 gm with growth at the 50th%ile. ??Fetus is vertex. ??Cardiac activity and amniotic fluid assessment are normal. ??Placenta is right lateral and fundal. Narrative 12/28/2022 2:38 PM CDT EXAM: US OB GROWTH GARNER COMPARISON: None TECHNIQUE: Transabdominal Only FINDINGS: Number of Gestations: Single Established Gestational age: 36 w 2 d, TIKI: ??01/21/2023 Presentation: Cephalic Placenta Location: Right Lateral, Fundal Placental Relationship to Internal Os: Not visualized Amniotic Fluid: Normal Maximum Vertical Pocket: 5.0 cm Age by current ultrasound measurements: 35 w 6 d Estimated weight: 2874 g. EFW %: 50.0 % heart rate: 144 Motion: . Stomach: Normal. Kidneys: Normal. Bladder: Normal. BIOMETRIC PARAMETERS: ?? BPD: 35 w 4 d 40.4 % HC: 36 w 2 d 20.3 % AC: 36 w 6 d 77.5 % FL: 35 w 0 d 15.3 % HC/AC ratio: 0.97 Uterus: No unexpected findings. Right ovary/adnexa: Not Evaluated. Left ovary/adnexa: Not Evaluated. Cervix: Subjectively normal by Transabd evaluation only. Procedure Note Silva Peterson M.D. - 12/28/2022 EXAM: US OB GROWTH GARNER COMPARISON: None TECHNIQUE: Transabdominal Only FINDINGS: Number of Gestations: Single Established Gestational age: 36 w 2 d, TIKI: 01/21/2023 Presentation: Cephalic Placenta Location: Right Lateral, Fundal Placental Relationship to Internal Os: Not visualized Amniotic Fluid: Normal Maximum Vertical Pocket: 5.0 cm Age by current ultrasound measurements: 35 w 6 d Estimated weight: 2874 g. EFW %: 50.0 % heart rate: 144 Motion: . Stomach: Normal. Kidneys: Normal. Bladder: Normal. BIOMETRIC PARAMETERS: BPD: 35 w 4 d 40.4 % HC: 36 w 2 d 20.3 % AC: 36 w 6 d 77.5 % FL: 35 w 0 d 15.3 % HC/AC ratio: 0.97 Uterus: No unexpected findings. Right ovary/adnexa: Not Evaluated. Left ovary/adnexa: Not Evaluated. Cervix: Subjectively normal by Transabd evaluation only. IMPRESSION: Single intrauterine at 36 w 2 d gestation. Based upon multiple biometric measurements, EFW is 2874 gm with growth atthe 50th%ile. Fetus is vertex. Cardiac activity and amniotic fluid assessment are normal.Placenta is right lateral and fundal. Silva Peterson M.D. IMG OB US DC HUNTER documented in this encounter Visit Diagnoses Diagnosis Examination Other Normal Third Trimester (HCC) documented in this encounter Additional Health Concerns Assessment Noted Time PHQ-9 Depression Total Score: 1 10/25/19 23 1:25 PM CDT documented as of this encounter Care Teams Yarn Skeins Examiner Relationship Specialty Start Date End Date Tyrel Reyes M.D. [address] [place] [phone] PCP - General Family Medicine 05/14/22 documented as of this encounter
--- OUTSIDE RECORDS SUMMARY | 2023-04-23 16:23 | XMS_ITS | Encounter Summary ---
Author Name Unknown Organization [facility] Address [address] [place] [address] Care Team Providers Care Data Integration Analyst Name Role Phone Tyrel Reyes M.D. Primary Care Provider Reason for Referral * Outpatient (Routine) - Closed Specialty Diagnoses / Procedures Referred By Rebel armstrong Referred To Contact Obstetrics and Gynecology Diagnoses Examination Other Normal Second Trimester (HCC) Silva Peterson M.D. [address] [phone] [facility] Referral ID Status Reason Start Date Expiration Date Visits Re quested Visits Authorized [id number] Closed 09/26/2022 09/25/2025 1 1 Reason for Visit * Outpatient (Routine) - Authorized Specialty Diagnoses / Procedures Referred By Rebel armstrong Referred To Contact Obstetrics and Gynecology Diagnoses Examination Other Normal First Trimester (HCC) Aleah Hayes M.D. [address] [place] [phone] [facility] Region Referral ID Status Reason Start Date Expiration Date V isits Requested Visits Authorized [id number] Authorized 08/29/2022 08/28/2025 4 4 Encounter Details Date Type Department Care Team (Latest Contact Info) Description 09/26/2022 1:15 PM CDT Routine Department of Obstetrics and Gynecology in [address] [phone] Silva Peterson M.D. [address] [place] [phone] Examination Other Normal Second Trimester (HCC) (Primary Dx); Deficiency Vitamin D; Abnormal Ultrasound Placenta; Threatened (HCC); Depression Major; Scoliosis Discharge Disposition: Home or Self Care Social History Tobacco Use Types Packs/Day Years Used Date Smoking Tobacco: Former Cigarettes Q uit: 05/13/2022 Smokeless Tobacco: Former Quit: 05/13/2022 Alcohol Use Standard Drinks/Week Comments No 0 (1 standard drink = 0.6 oz pur e alcohol) PHQ-2 Answer Date Recorded PHQ-2 Score 2 05/15/2022 Depression Answer Date Recor ded PHQ-9 Total Score (max 27) 4 05/15 Nutrition Answer Date Recorded Nutrition: EVOO Fat Source Unknown 05/05 Nutrition: Servings of Fruits/Vegetables per Day Not on file 05/05/2020 Dental Answer Date Recorded Dental: Regular Dentist Unknown 05/05/19 Education Answer Date Recorded What is the [...] Sign Reading Time Taken Comments Blood Pressure 96/60 09/26/2022 1:03 PM CDT Pulse - - Temperature - - Respiratory Rate - - Oxygen Saturation - - Inhaled Oxygen Concentration - - Weight 76 kg (167 lb 7 oz) 09/26/2022 1:03 PM CD T Height - - Body Mass Index 31.61 11/27/2017 1:37 PM CDT documented in this encounter Progress Notes * Silva Peterson M.D. - 09/26/2022 1:15 PM CDT SUBJECTIVE When she saw Dr. Díaz last on 08/29/2022, she had complains of pain with intercourse and RLQ pain. She is still having this pain. She does have occasional issues with constipation with passage of blood per rectum. SYSTEMS REVIEW All other systems reviewed and are negative. OBJECTIVE Vitals: 09/26/22 1303 BP: 96/60 Weight: 76 kg PHYSICAL EXAM Gen: NAD Lower extremities: Nontender, no edema ASSESSMENT / PLAN Miguel George is a 22 y.o. female at 23+2 by 7+1 week ultrasound who presents for OBFU. #1 Examination Other Normal Second Trimester (HCC) Overview: S/p visit with OB educator for 1st trimester OB education. 2nd and 3rd trimester ed at 28 week visit. Orders: - Obstetrics and Gynecology office visit (clinic) - Obstetrics and Gynecology - OB education visit (clinic); Future; Expected date: 10/24/2022 - Obstetrics and Gynecology office visit (clinic); Future; Expected date: 11/21/2022 #2 Deficiency Vitamin D Overview: S/p Vitamin D3 50,000 weekly x 8 weeks. Rx for daily vitamin D3 800 IU sent. Orders: - cholecalciferol (VITAMIN D3) 10 mcg (400 Unit) tablet; Take 2 tablets (800 Units total) by mouth daily., Starting 09/26/2022, Normal #3 Abnormal Ultrasound Placenta Overview: Marginal cord insertion. Repeat US at 28 weeks. Orders: - US OB Growth Garner; Future; Expected date: 10/24/2022 #4 Threatened (HCC) Overview: Possible subchorionic hemorrhage noted at the time of her US in the ED in early May. No recent bleeding. Rh positive, so rhogam was not needed. #5 Depression Major Overview: PHQ-9 score was 4 on 05/15/22, indicating well managed depression. Not currently on medication for this. We will follow mood closely in and the #6 Scoliosis Overview: Epidural was placed without difficulty with her last , but pain was not well managed when section was performed and anesthesia was converted to general. This should be a consideration with planning delivery with this . Consider anesthesia consult prior to delivery. Followup: In 4-5 weeks for OB ed, 28 week labs, and OBFU with RN and in 9 weeks with me for OBFU. documented in this encounter Plan of Treatment Scheduled Referrals Name Type Priority Associated Diagnoses Order Schedule Obstetrics and Gynecology office visit (clinic) Outpatient Referral Routine Examination Other Normal Second Trimester (HCC) Expected: 11/21/2022 (Approximate), Expires: 12/28/2023 documented as of this encounter Results * US OB Follow-up and or Growth Garner (10/24/2022 1:52 PM CDT) Anatomical Region Laterality Modality Body, Ultrasound OB RST LOS, Ultrasound ARZ LOS N/A Ultrasound 10/30/2022 2:58 PM CDT Impressions 10/30/2022 3:02 PM CDT Single intrauterine at 27 w 2 d gestation. Based upon multiple biometric measurements, EFW is 1197 gm with growth at the 75th%ile. ??Fetus is in breech presentation. ??Placenta is fundal. ??Marginal cord insertion. Narrative 10/30/2022 3:02 PM CDT EXAM: US OB FOLLOW-UP AND OR GROWTH GARNER COMPARISON: None TECHNIQUE: Transabdominal Only FINDINGS: Number of Gestations: Single Established Gestational age: 27 w 2 d, TIKI: ??01/21/2023 Presentation: Breech Placenta Location: Right Lateral, Fundal ??Marginal umbilical cord insertion. Placental Relationship to Internal Os: Normal, no previa Amniotic Fluid: Normal Maximum Vertical Pocket: 3.8 cm Age by current ultrasound measurements: 28 w 2 d Estimated weight: 1197 g. EFW %: ??74.9 % heart rate: 143 Motion: Normal. Stomach: Normal. Kidneys: Normal. Bladder: Normal. BIOMETRIC PARAMETERS: ?? BPD: 28 w 6 d ??85.1 % HC: 28 w 2 d ??52.0 % AC: 29 w 1 d ??90.0 % FL: 26 w 5 d ??21.2 % HC/AC ratio: 1.04 Uterus: No unexpected findings. Right ovary/adnexa: Not Evaluated. Left ovary/adnexa: Not Evaluated. Cervix: Subjectively normal by Transabd evaluation only. Procedure Note Silva Peterson M.D. - 10/30/2022 EXAM: US OB FOLLOW-UP AND OR GROWTH GARNER COMPARISON: None TECHNIQUE: Transabdominal Only FINDINGS: Number of Gestations: Single Established Gestational age: 27 w 2 d, TIKI: 01/21/2023 Presentation: Breech Placenta Location: Right Lateral, Fundal Marginal umbilical cordinsertion. Placental Relationship to Internal Os: Normal, no previa Amniotic Fluid: Normal Maximum Vertical Pocket: 3.8 cm Age by current ultrasound measurements: 28 w 2 d Estimated weight: 1197 g. EFW %: 74.9 % heart rate: 143 Motion: Normal. Stomach: Normal. Kidneys: Normal. Bladder: Normal. BIOMETRIC PARAMETERS: BPD: 28 w 6 d 85.1 % HC: 28 w 2 d 52.0 % AC: 29 w 1 d 90.0 % FL: 26 w 5 d 21.2 % HC/AC ratio: 1.04 Uterus: No unexpected findings. Right ovary/adnexa: Not Evaluated. Left ovary/adnexa: Not Evaluated. Cervix: Subjectively normal by Transabd evaluation only. IMPRESSION: Single intrauterine at 27 w 2 d gestation. Based upon multiple biometric measurements, EFW is 1197 gm with growth atthe 75th%ile. Fetus is in breech presentation. Placenta is fundal. Marginal cord insertion. Silva Peterson M.D. 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 [address] [place] [phone] PCP - General Family Medicine 05/14/22 documented as of this encounter
--- OUTSIDE RECORDS SUMMARY | 2023-04-23 16:23 | XMS_ITS | Encounter Summary ---
Author Name Unknown Organization [facility] Address [address] [place] [address] Care Team Providers Care Child Care Aide Name Role Phone Tyrel Reyes M.D. Primary Care Provider [phone] Reason for Visit * Reason Onset Date Comments Left Without Being Seen 12/28/2022 * Outpatient (Routine) - Closed Specialty Diagnoses / Procedures Referred By Rebel armstrong Referred To Contact Obstetrics and Gynecology Diagnoses Examination Test With Positive Result (HCC) Silva Peterson M.D. [address] [place] [address] [facility] Region Referral ID Status Reason Start Date Expiration Date Visits Re quested Visits Authorized [id number] Closed 06/05/2022 06/04/2025 1 1 Encounter Details Date Type Department Care Team (Latest Contact Info) Description 06/19/2022 11:00 AM CDT Routine Department of Obstetrics and Gynecology in [address] [phone] Sarahi Prabhakar, ZAIRE, C.N.P. [address] [place] [address] Procedure And Treatment Not Carried Out Due To Patient Leaving Prior To Being Seen By Health Care Provider (Primary Dx); Examination Test With Positive Result (HCC) Social History Tobacco Use Types Packs/Day Years [...] as of this encounter Progress Notes * Bernadine Grayson - 06/19/2022 11:00 AM CDT Miguel George was scheduled and checked in for an appointment but left before being seen by Sarahi Prabhakar APRN, C.N.P.. 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 [address] [place] [phone] PCP - General Family Medicine 05/14/22 documented as of this encounter
--- OUTSIDE RECORDS SUMMARY | 2023-04-23 16:23 | XMS_ITS | Encounter Summary ---
Author Name Unknown Organization [facility] Address [address] [place] [address] Care Team Providers Care Scrub Nurse Name Role Phone Tyrel Reyes M.D. Primary Care Provider [phone] Reason for Visit * Reason Comments Routine Visit 38w1d * Outpatient (Routine) - Closed Specialty Diagnoses / Procedures Referred By Rebel armstrong Referred To Contact Obstetrics and Gynecology Diagnoses Examination Other Normal Second Trimester (HCC) Silva Peterson M.D. [address] [place] [address] [facility] Region Referral ID Status Reason Start Date Expiration Date Visits Re quested Visits Authorized [id number] Closed 11/21/2022 11/20/2025 1 1 Encounter Details Date Type Department Care Team (Latest Contact Info) Description 01/08/2023 10:30 AM CDT Routine Department of Obstetrics and Gynecology in [address] [phone] Sarahi Prabhakar, ZAIRE, C.N.P. [address] [place] [address] Examination Other Normal Third Trimester (HCC) (Primary Dx); Anemia Complicating Third Trimester (HCC); History Of Uterine Scar From Previous Surgery; Pain Back From Discharge Disposition: Home or Self Care Social [...] Sign Reading Time Taken Comments Blood Pressure 114/66 01/08/2023 10:19 AM CDT Pulse - - Temperature - - Respiratory Rate - - Oxygen Saturation - - Inhaled Oxygen Concentration - - Weight 92.8 kg (204 lb 9.4 oz) 01/08/2023 10:19 AM CDT Height - - Body Mass Index 38.63 11/27/2017 1:37 PM CDT documented in this encounter Progress Notes * Sarahi Prabhakar APRN, C.N.P. - 01/08/2023 10:30 AM CDT SUBJECTIVE Chief Complaint Patient presents with Routine Visit 38w1d HISTORY OF PRESENT ILLNESS Miguel is a 22 y.o. Patient's last menstrual period was 04/23/2022 (approximate). Estimated Date of Delivery: 01/21/23 Based on this, her gestational age is 38w1d. She presents to the office today for routine care. She denies any vaginal bleeding , leaking of fluids or mucousy discharge. She is having irregular contractions and crampy back pain, especially at night. She reports movement that is active. Overall, she is doing well. She has no unusual complaints. She denies any bowel or bladder concerns, although she is getting up at night to urinate, no headache or vision changes, and no concerns surrounding her mood at this time. REVIEW OF SYSTEMS Cardiovascular: Positive for swelling in the legs or feet. Musculoskeletal: Positive for back pain. The following systems were negative: Constitutional, Skin, Eyes, ENT, Respiratory, Gastrointestinal, Genitourinary, Hematologic, Neurological, Psychiatric The patient's allergies, current medications and problem list were reviewed and updated as appropriate. OBJECTIVE BP 114/66 Wt 92.8 kg LMP 04/23/2022 (Approximate) BMI 38.63 kg/m?? PHYSICAL EXAM General: She is a well appearing female in no acute distress. HEENT: Hearing vision are grossly intact. Abdomen: Soft and nontender, gravid. Fundal Height 36cm. heart tones 150bpm per doptone. Vertex per Alessio's. Pelvis: External genitalia appears healthy and normal. Upon sterile digital exam, I am only able topalpate the external os, and therefore can not assess dilation. Extremities: Trace nonpitting pedal edema edema bilaterally. Automotive Parts Coordinator: Rachael Lomeli CNA ASSESSMENT / PLAN #1 Examination Other Normal Third Trimester ([facility]) Overview: OB education complete. US for presentation check at 36 weeks - fetus is vertex today (12/26/2022) with growth at the 50th%ile. GBS negative on 12/21/2022, will need to repeat this if she has not delivered by 01/25/2023. Orders: - Obstetrics and Gynecology office visit (clinic) #2 Anemia Complicating Third Trimester ([facility]) Overview: Hgb was 10.5 at 28 weeks. Iron supplement started. Repeat CBC obtained at 38 week visit. Orders: - CBC with Differential, Blood; Future; Expected date: 01/08/2023 #3 History Of Uterine Scar From Previous Surgery Overview: Did not progress past 4 cm with first labor and tracing was non-reassuring at that time, so section was performed. This was a LTCS. Chance of successful TOLAC with this is 63% and discuss risks and benefits of TOLAC vs scheduled repeat section discussed and [facility] TOLAC consent signed on 11/21/2022. #4 Pain Back From ([facility]) Satisfactory third trimester ob exam today. I will plan to send her a portal message with CBC results. Signs and symptoms of labor and precautions were reviewed. She will continue monitoring movement and will seek care if she notes decreased movement. She is scheduled for routine ob follow-up in 1 week(s). She will contact our obstetrics team if she has any concerns or questions prior to her next visit. All questions have been answered and those present are in agreement with this plan. Sarahi Prabhakar APRN, C.N.P. Patient Education Ready to learn, no apparent learning barriers were identified; learning preferences include listening. Explained diagnosis and treatment plan; patient expressed understanding of the content. documented in this encounter Plan of Treatment Not on file documented as of this encounter Results * (ABNORMAL) CBC with [...] Sarahi Prabhakar APRN, C.N.P. LAB BLOOD ADD-[facility] [address] [place] [address], [facility] [address] [facility] [place] [facility] [place] [address] [place] [address] documented in this encounter Visit Diagnoses Diagnosis Examination Other Normal Third Trimester (HCC)- Primary Anemia Complicating Third Trimester (HCC) History Of Uterine Scar From Previous Surgery Pain Back From documented in this encounter Additional Health Concerns Assessment Noted Time PHQ-9 Depression Total Score: 1 10/25/19 23 1:25 PM CDT documented as of this encounter Care Teams Scrub Nurse Relationship Specialty Start Date End Date Tyrel Reyes M.D. [address] [place] [phone] PCP - General Family Medicine 05/14/22 documented as of this encounter
--- OUTSIDE RECORDS SUMMARY | 2023-04-23 16:23 | XMS_ITS | Encounter Summary ---
Author Name Unknown Organization [facility] Address [address] [place] [address] Care Team Providers Care Cadmium Plater Name Role Phone Tyrel Reyes M.D. Primary Care Provider [phone] Encounter Details Date Type Department Care Team (Late st Contact Info) Description 06/20/2022 11:40 AM CDT Silent Schedule Department of Obstetrics and Gynecology in [place], [place] [address] [place] [phone] Silva Peterson M.D. [address] [place] [phone] Social History Tobacco Use Types Packs/Day Years [...] Priority Date/Time Associated Diagnosis Comments US OB LIMITED RAD - Routine (most inpatients and all outpatients) 07/01/2022 2:09 PM CDT Examination Other Normal First Trimester (HCC) documented in this encounter Results * US OB Limited (07/01/2022 2:09 PM CDT) FHR 182 bpm CRL 23 mm Anatomical Region Laterality Modality Ultrasound OB RST LOS, Ultra sound ARZ LOS, Ultrasound FLA LOS, Ultrasound ARZ LOS N/A Ultrasound Narrative 07/01/2022 2:09 PM CDT Single, living intrauterine with crown-rump length of 2.3 cm corresponding to 9w0d gestational age. ??Cardiac activity is present at 182 bpm. ?? The report for this exam was documented during the exam and is located with the images in Qreads. Silva Peterson M.D. 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 [address] [place] [phone] PCP - General Family Medicine 05/14/22 documented as of this encounter
--- OUTSIDE RECORDS SUMMARY | 2023-04-23 16:23 | XMS_ITS | Encounter Summary ---
Author Name Unknown Organization [facility] Address [address] [place] [address] Care Team Providers Care Edger Feeder Name Role Phone Tyrel Reyes M.D. Primary Care Provider Encounter Details Date Type Department Care Team (Latest Contact Info) Description 10/24/2022 1:30 PM CDT Ancillary Procedure Department of Obstetrics and Gynecology in [place], [place] [address] [place] [address] Silva Peterson M.D. [address] [place] [address] Abnormal Ultrasound Placenta Discharge Disposition: Home or Self Care Social [...] Priority Date/Time Associated Diagnosis Comments US OB FOLLOW-UP AND OR GROWTH GARNER RAD - Routine (most inpatients and all outpatients) 10/24/2022 1:52 PM CDT Abnormal Ultrasound Placenta documented in this encounter Results * US OB Follow-up [...] insertion. Silva Peterson M.D. IMG OB US PROCE DURES documented in this encounter Visit Diagnoses Diagnosis Abnormal Ultrasound Placenta documented in this encounter Additional Health Concerns Assessment Noted Time PHQ-9 Depression Total Score: 1 10/25/19 1:25 PM CDT documented as of this encounter Care Teams Edger Feeder Relationship Specialty Start Date End Date Tyrel Reyes M.D. [address] [place] [phone] PCP - General Family Medicine 05/14/22 documented as of this encounter
--- OUTSIDE RECORDS SUMMARY | 2023-04-23 16:23 | XMS_ITS | Encounter Summary ---
Author Name Unknown Organization [facility] Address [address] [place] [address] Care Team Providers Care Cellophaner Name Role Phone Tyrel Reyes M.D. Primary Care Provider Encounter Details Date Type Department Care Team (Latest Contact Info) Description 10/24/2022 1:56 PM CDT - 10/24/2022 11:59 PM CDT Hospital Encounter Department of Laboratory Medicine in [place] [address] [place] [phone] Aleah Hayes M.D. [address] [place] [phone] Screening Examination Diabetes Mellitus; Deficiency Vitamin D; Examination Other Normal First Trimester (HCC); Screening For Venereal Disease Discharge Disposition: Home or Self Care Social [...] by mouth daily. 60 tablet 8 09/26/2022 hydrocortisone (ANUSOL-HC) 2.5 % rectal creamIndications:Const ipation [...] to rectum prn. 40 each 11 08/29/2022 ferrous sulfate 325 mg (65 mg iron) tablet Take 65 mg of iron by mouth daily with breakfast. 3 11/19/2017 12/12/2022 PNV NO.95/FERROUS FUM/FOLIC AC ( MULTIVITAMINS ORAL) Take by mouth. 0 2022 documented as of this encounter Plan of Treatment Not on file documented as of this encounter Procedures Procedure Name Priority Date/Time Associated Diagnosis Comments SYPHILIS TOTAL AB W/ REFLEX S Routine 10/24/2022 2:18 PM CDT Screening For Venereal Disease VITAMIN D, IMMUNOASSAY, TOTAL, S Routine 10/24/2022 2:18 PM CDT GLUCOSE RONDA, 1HR, S/P Routine 10/24/2022 2:18 PM CDT Screening Examination Diabetes Mellitus CBC WITHOUT DIFFERENTIAL, B Routine 10/24/2022 2:18 PM CDT Examination Other Normal First Trimester (HCC) documented in this encounter Results * Vitamin D, Immunoassay, Total, Serum (10/24/2022 2:18 PM CDT) Vitamin D, Immunoassay, Total, S 31 20 - 80 ng/mL 10/24/2022 8:04 PM CDT [facility] Comment: Optimum levels within the healthy population are 20-50, patients with bone disease may benefit from high levels within this range Blood 10/24/2022 2:18 PM CDT 10/24/2022 7:03 PM CDT Aleah Hayes M.D. LAB BLOOD ADD-ON Performing Organization Address [facility]/ZIP Co de Phone Number [facility] [address] [place] [address], [place] [facility] in [place] [address] [place] [address] * Syphilis Total Antibody with Reflex, Serum (10/24/2022 2:18 PM CDT) Pathologist [facility] Syphilis Total Ab w/ Reflex Nonreactive Nonreactive 10/25/2022 1:03 PM CDT [facility] Comment: No serologic evidence of infection with T. pallidum (syphilis). ??Repeat testing may be considered in patients with suspected acute or primary syphilis in 2-4 weeks. For additional information on interpretation of the syphilis reverse algorithm and results, see: [email or web address] Blood (Blood, Venous) 10/24/2022 2:18 PM CDT 10/25/2022 11:43 AM CDT Aleah Hayes M.D. LAB BLOOD ADD-ON [facility] [address] [place] [address], [facility] in [address] [address] * (ABNORMAL) CBC without Differential (10/24/2022 2:18 PM CDT) Hemoglobin 10.5(L) 11.6 - 15.0 g/dL 10/24/2022 2:47 PM CDT FB[facility] Hematocrit 33.6(L) 35.5 - 44.9 % 10/24/2022 2:47 PM CDT [facility] Erythrocytes 4.19 3.92 - 5.13 x10(12)/L 10/24/2022 2:47 PM CDT [facility] MCV 80.2 78.2 - 97.9 fL 10/24/2022 2:47 PM CDT FB[facility] RBC Distrib Width 14.8 12.2 - 16.1 % 10/24/2022 2:47 PM CDT [facility] Platelet Count 343 157 - 371 x10(9)/L 10/24/2022 2:47 PM CDT [facility] Leukocytes 9.1 3.4 - 9.6 x10(9)/L 10/24/2022 2:47 PM CDT [facility] Blood (Blood, Venous) 10/24/2022 2:18 PM CDT 10/24/2022 2:27 PM CDT Aleah Hayes M.D. LAB BLOOD ADD-ON [facility] [address] [place] [address], [facility] FB60 [facility] in [place] [address] [place] [address] * Glucose Tolerance Test, 1 hour (10/24/2022 2:18 PM CDT) Glucose Ronda, 1 Hr, P 97 <140 mg/dL 10/25/2022 9:18 AM CDT [facility] Blood (Blood, Venous) 10/24/2022 2:18 PM CDT 10/24/2022 3:31 PM CDT Aleah Hayes M.D. LAB BLOOD NON ADD-ON [facility] [address] [place] [address], [place] [facility] in [place] [address] [place] [address] documented in this encounter Visit Diagnoses Diagnosis Screening Examination Diabetes Mellitus Deficiency Vitamin D Examination Other Normal First Trimester (HCC) Screening For Venereal Disease documented in this encounter Additional Health Concerns Assessment Noted Time PHQ-9 Depression Total Score: 1 10/25/19 23 1:25 PM CDT documented as of this encounter Care Teams Cellophaner Relationship Specialty Start Date End Date Tyrel Reyes M.D. [address] [place] [phone] PCP - General Family Medicine 05/14/22 documented as of this encounter
--- OUTSIDE RECORDS SUMMARY | 2023-04-23 16:23 | XMS_ITS | Encounter Summary ---
Author Name Unknown Organization [facility] Address [address] [place] [address] Care Team Providers Care Slat Basket Maker Name Role Phone Tyrel Reyes M.D. Primary Care Provider Reason for Referral * Outpatient (Routine) - Closed Specialty Diagnoses / Procedures Referred By Rebel armstrong Referred To Contact Obstetrics and Gynecology Diagnoses Examination Other Normal Second Trimester (HCC) Silva Peterson M.D. [address] [phone] [facility] Region Referral ID Status Reason Start Date Expiration Date Visits Re quested Visits Authorized [id number] Closed 11/21/2022 11/20/2025 1 1 * Outpatient (Routine) - Closed Specialty Diagnoses / Procedures Referred By Rebel t Referred To Contact Obstetrics and Gynecology Diagnoses Examination Other Normal Second Trimester (HCC) Silva Peterson M.D. [address] [place] [phone] [facility] Region Referral ID Status Reason Start Date Expiration Date Visits Re quested Visits Authorized [id number] Closed 11/21/2022 11/20/2025 1 1 * Outpatient (Routine) - Closed Specialty Diagnoses / Procedures Referred By Contac t Referred To Contact Obstetrics and Gynecology Diagnoses Examination Other Normal Second Trimester (HCC) Silva Peterson M.D. [address] [place] [phone] [facility] Region Referral ID Status Reason Start Date Expiration Date Visits Re quested Visits Authorized [id number] Closed 11/21/2022 11/20/2025 1 1 Reason for Visit * Outpatient (Routine) - Closed Specialty Diagnoses / Procedures Referred By Rebel t Referred To Contact Obstetrics and Gynecology Diagnoses Examination Other Normal Second Trimester (HCC) Silva Peterson M.D. [address] [place] [phone] [facility] Referral ID Status Reason Start Date Expiration Date Visits Re quested Visits Authorized [id number] Closed 09/26/2022 09/25/2025 1 1 Encounter Details Date Type Department Care Team (Latest Contact Info) Description 11/21/2022 1:45 PM CDT Routine Department of Obstetrics and Gynecology in [address] [phone] Silva Peterson M.D. [address] [phone] Examination Other Normal Third Trimester (HCC) (Primary Dx); History Of Uterine Scar From Previous Surgery; Scoliosis; Depression Major; Threatened (HCC); Deficiency Vitamin D; Abnormal Ultrasound Placenta Discharge Disposition: Home or [...] Sign Reading Time Taken Comments Blood Pressure 114/56 11/21/2022 2:05 PM CDT Pulse - - Temperature - - Respiratory Rate - - Oxygen Saturation - - Inhaled Oxygen Concentration - - Weight 83.4 kg (183 lb 13.8 oz) 11/21/2022 2:05 PM CDT Height - - Body Mass Index 34.71 11/27/2017 1:37 PM CDT documented in this encounter Progress Notes * Silva Peterson M.D. - 11/21/2022 1:45 PM CDT SUBJECTIVE The RLQ pain that she had in the past has resolved. She has some left lower back pain. She is no longer passing blood in her stools. She does have some contractions that are not regular or painful. SYSTEMS REVIEW All other systems reviewed and are negative. OBJECTIVE Vitals: 11/21/22 1405 BP: 114/56 Weight: 83.4 kg PHYSICAL EXAM Gen: NAD Lower extremities: Nontender, no edema ASSESSMENT / PLAN Miguel George is a 22 y.o. female at 31w2d by 7+1 week ultrasound who presents for OBFU. #1 Examination Other Normal Third Trimester (HCC) Overview: OB education complete. Orders: - Obstetrics and Gynecology office visit (clinic) - Obstetrics and Gynecology office visit (clinic); Future; Expected date: 12/12/2022 - Obstetrics and Gynecology office visit (clinic); Future; Expected date: 12/26/2022 - Obstetrics and Gynecology office visit (clinic); Future; Expected date: 01/09/2023 - Obstetrics and Gynecology office visit (clinic); Future; Expected date: 01/16/2023 - Obstetrics and Gynecology office visit (clinic); Future; Expected date: 01/23/2023 - US OB Follow-up and or Growth Bustos; Future; Expected date: 12/26/2022 #2 History Of Uterine Scar From Previous Surgery Overview: Did not progress past 4 cm with first labor and tracing was non-reassuring at that time, so section was performed. This was a LTCS. Chance of successful TOLAC with this is 63% and discuss risks and benefits of TOLAC vs scheduled repeat section discussed today and [facility] TOLAC consent signed (11/21/2022). #3 Scoliosis Overview: Epidural was placed without difficulty with her last , but pain was not well managed when section was performed and anesthesia was converted to general. This should be a consideration with planning delivery with this . Consider anesthesia consult prior to delivery. #4 Depression Major Overview: PHQ-9 score was 4 on 05/15/22 and was 1 on 10/24/2022, indicating well managed depression. Not currently on medication for this. We will follow mood closely in and the . #5 Threatened (HCC) Overview: Possible subchorionic hemorrhage noted at the time of her US in the ED in early May. No recent bleeding. Rh positive, so rhogam was not needed. #6 Deficiency Vitamin D Overview: S/p Vitamin D3 50,000 weekly x 8 weeks. Now on daily vitamin D3 800 IU. #7 Abnormal Ultrasound Placenta Overview: Marginal cord insertion. Repeat US at 27 weeks 2 days showed EFW of 1197 gm with growth at the 75th%ile and normal amniotic fluid assessment, confirmed marginal cord insertion. Followup: In 3 weeks for OBFU. documented in this encounter Plan of Treatment Scheduled Referrals Name Type Priority Associated Diagnoses Order Schedule Obstetrics and Gynecology office visit (clinic) Outpatient Referral Routine Examination Other Normal Third Trimester (HCC) Expected: 12/12/2022 (Approximate), Expires: 02/21/2024 Obstetrics and Gynecology office visit (clinic) Outpatient Referral Routine Examination Other Normal Third Trimester (HCC) Expected: 12/26/2022 (Approximate), Expires: 02/21/2024 Obstetrics and Gynecology office visit (clinic) Outpatient Referral Routine Examination Other Normal Third Trimester (HCC) Expected: 01/09/2023 (Approximate), Expires: 02/21/2024 documented as of this encounter Visit Diagnoses Diagnosis Examination Other Normal Third Trimester (HCC)- Primary History Of Uterine Scar From Previous Surgery Scoliosis Depression Major Threatened (HCC) Deficiency Vitamin D Abnormal Ultrasound Placenta documented in this encounter Additional Health Concerns Assessment Noted Time PHQ-9 Depression Total Score: 1 10/25/19 23 1:25 PM CDT documented as of this encounter Care Teams Slat Basket Maker Relationship Specialty Start Date End Date Tyrel Reyes M.D. [address] [place] [phone] PCP - General Family Medicine 05/14/22 documented as of this encounter
--- OUTSIDE RECORDS SUMMARY | 2023-04-23 16:23 | XMS_ITS | Encounter Summary ---
Author Name Unknown Organization [facility] Address [address] [place] [address] Care Team Providers Care Inside Contractor Sales Name Role Phone Tyrel Reyes M.D. Primary Care Provider Encounter Details Date Type Department Care Team (Late st Contact Info) Description 12/21/2022 Clinical Communication Department of Obstetrics and Gynecology in [place], [place] [address] [phone] Silva Peterson M.D. [address], [place] [phone] Social History Tobacco Use Types [...] on file documented as of this encounter Miscellaneous Notes * Telephone Encounter - Katiuska Clarke M.S.N., R.N. - 12/21/2022 11:02 AM CDT CHIEF COMPLAINT / REASON FOR CALL Possible rupture of membranes HISTORY OF PRESENT ILLNESS Miguel George is a [address] Peterson. She is 35w4d today, and a . Patient'slast menstrual period was 04/23/2022 (approximate).. Her Blood type is Opos. Next OB appt is 12/26/22. ASSESSMENT / PLAN Pt states she had a large gush of clear fluid while getting ready for her day. She has some mild lower abdominal cramping. She has a pad on and continues to have clear fluid leaking. She denies vaginal bleeding, spotting. She has good movement. Disposition/Recommendation: recommended to report to the nearest emergency department and recommended not to drive self If urge to push to call 911. Education: patient/caller able to teach back Caller agreeable to plan of care: yes The following references were used: nursing clinical judgement documented in this encounter Plan of Treatment Not on file documented as of this encounter Visit Diagnoses Not on filedocumented in this encounter Additional Health Concerns Assessment Noted Time PHQ-9 Depression Total Score: 1 10/25/19 1:25 PM CDT documented as of this encounter Care Teams Inside Contractor Sales Relationship Specialty Start Date End Date Tyrel Reyes M.D. [address] [place] [phone] PCP - General Family Medicine 05/14/22 documented as of this encounter
--- OUTSIDE RECORDS SUMMARY | 2023-04-23 16:23 | XMS_ITS | Encounter Summary ---
Author Name Unknown Organization [facility] Address [address] [place] [address] Care Team Providers Care Transcription Name Role Phone Tyrel Reyes M.D. Primary Care Provider Encounter Details Date Type Department Care Team (Latest Contact Info) Description 12/12/2022 2:40 PM CDT Silent Schedule Department of Obstetrics and Gynecology in [place], [place] [address] [place] [phone] Silva Peterson M.D. [address] [place] [address] Examination Other Normal Third Trimester (HCC) Social History Tobacco Use Types Packs/Day [...] - Routine (most inpatients and all outpatients) 12/12/2022 2:47 PM CDT Examination Other Normal Third Trimester (HCC) [...] documented as of this encounter Care Teams Transcription Relationship Specialty Start Date End Date Tyrel Reyes M.D. [address] [place] [phone] PCP - General Family Medicine 05/14/22 documented as of this encounter
--- OUTSIDE RECORDS SUMMARY | 2023-04-23 16:23 | XMS_ITS | Encounter Summary ---
Author Name Unknown Organization [facility] Address [address] [place] [address] Care Team Providers Care President Name Role Phone Tyrel Reyes M.D. Primary Care Provider [phone] Reason for Referral * Outpatient (Routine) - Authorized Specialty Diagnoses / Procedures Referred By Rebel armstrong Referred To Contact Obstetrics and Gynecology Diagnoses Examination Other Normal First Trimester (HCC) Aleah Hayes M.D. [address], [place] [address] [facility] Region Referral ID Status Reason Start Date Expiration Date V isits Requested Visits Authorized [id number] Authorized 08/29/2022 08/28/2025 4 4 Reason for Visit * Outpatient (Routine) - Closed Specialty Diagnoses / Procedures Referred By Rebel armstrong Referred To Contact Obstetrics and Gynecology Diagnoses Examination Other Normal First Trimester (HCC) Silva Peterson M.D. [address], [place] [address] [facility] Region Referral ID Status Reason Start Date Expiration Date Visits Re quested Visits Authorized [id number] Closed 06/20/2022 06/19/2025 1 1 Encounter Details Date Type Department Care Team (Latest Contact Info) Description 08/29/2022 11:45 AM CDT Routine Department of Obstetrics and Gynecology in [address] [phone] Aleah Hayes M.D. [address] [place] [phone] History Of Uterine Scar From Previous Surgery (Primary Dx); Examination Other Normal First Trimester (HCC); Constipation; Deficiency Vitamin D; Screening Examination Diabetes Mellitus; Screening For Venereal Disease Discharge Disposition: Home [...] Sign Reading Time Taken Comments Blood Pressure 106/54 08/29/2022 11:14 AM CDT Pulse - - Temperature - - Respiratory Rate - - Oxygen Saturation - - Inhaled Oxygen Concentration - - Weight 71 kg (156 lb 8.4 oz) 08/29/2022 11:14 AM CDT Height - - Body Mass Index 29.55 11/27/2017 1:37 PM CDT documented in this encounter Patient Instructions * Attachments The following attachments cannot be sent through Care Everywhere. * Hemorrhoids (Haitian) * About Constipation (Haitian) documented in this encounter Progress Notes * Aleah Hayes M.D. - 08/29/2022 11:45 AM CDT 22 y.o. 19w2d 01/21/2023, by Ultrasound presents for routine obstetrical visit SUBJECTIVE Patient presents for 19 week visit. She underwent an ultrasound prior to our visit. This showed normal anatomy, normal growth, fundal placenta and borderline marginal cord insertion. We reviewed consideration of recheck ultrasound at 28-32 weeks. The patient reports symptoms of pain with intercourse and right lower quadrant pain. She also admits to constipation and occasionally blood per rectum associated with increased strain. She has used MiraLax previously for this but was not sure if she could use this with . OBJECTIVE BP (!) 106/54 Wt 71 kg LMP 04/23/2022 (Approximate) BMI 29.55 kg/m?? ASSESSMENT / PLAN Diagnosis Plan 1. History Of Uterine Scar From Previous Surgery 2. Examination Other Normal First Trimester (HCC) Obstetrics and Gynecology office visit (clinic) CBC without Differential Obstetrics and Gynecology office visit (clinic) 3. Constipation polyethylene glycol (MIRALAX) 17 gram/dose oral powder hydrocortisone (ANUSOL-HC) 2.5 % rectal cream 4. Deficiency Vitamin D cholecalciferol, vitamin D3, (cholecalciferol) 25 mcg (1,000 Unit) tablet 25-Hydroxyvitamin D2 and D3 5. Screening Examination Diabetes Mellitus Glucose Tolerance Test, 1 hour 6. Screening For Venereal Disease Syphilis Total Antibody with Reflex, Serum -Ultrasound reviewed, essentially normal with normal growth and question of marginal cord insertion, consider attention on follow-up. - The patient has been on increased dosage of vitamin-D for vitamin-D deficiency. She wonders if a refill as needed. I would favor decreased to 1000 units per day and to recheck this with her 28 weeklabs. These are ordered for her. - Additionally I discussed management of hemorrhoids and constipation in and Anusol and MiraLax are prescribed. -reviewed safety of sexual intercourse in and advised to consider varying positioned to facilitate comfort Advised to schedule future ob visits 28 week labs ordered, including recheck of vit C Followup: 4 weeks. Interval precautions reviewed. Problem List updated: Patient Active Problem List Diagnosis Depression Major Pain Back From (HCC) Dermatitis Perioral Obesity Body Mass Index 30-39.9 Adult Anxiety Pain Chest Atypical Examination Other Normal First Trimester (HCC) Threatened (HCC) History Of Uterine Scar From Previous Surgery Scoliosis Deficiency Vitamin D Suicide Ideation Aleah Hayes M.D. documented in this encounter Plan of Treatment Scheduled Referrals Name Type Priority Associated Diagnoses Order Schedule Obstetrics and Gynecology office visit (clinic) Outpatient Referral Routine Examination Other Normal First Trimester (HCC) 4 week for 4 Occurrences starting 08/29/2022 until 11/30/2023 documented as of this encounter Results * Syphilis Total Antibody with Reflex, Serum (10/24/2022 2:18 PM CDT) Syphilis Total Ab w/ Reflex Nonreactive Nonreactive 10/25/2022 1:03 PM CDT [facility] Comment: No serologic evidence of infection with T. pallidum (syphilis). ??Repeat testing may be considered in patients with suspected acute or primary syphilis in 2-4 weeks. For additional information on interpretation of the syphilis reverse algorithm and results, see: [email or web address] Blood (Blood, Venous) 10/24/2022 2:18 PM CDT 10/25/2022 11:43 AM CDT Aleah Hayes M.D. LAB BLOOD ADD-ON [facility] [address] [place] [address], [facility] in [address] [address] * (ABNORMAL) CBC without Differential (10/24/2022 2:18 [...] M.D. LAB BLOOD ADD-ON Performing Organization Address City/[facility] Co de Phone Number [facility] [address] [place] [address], [facility] FB60 [facility] [place] [address] [place] [address] * Glucose Tolerance Test, 1 hour (10/24/2022 2:18 PM CDT) Glucose Ronda, 1 Hr, P 97 <140 mg/dL 10/25/2022 9:18 AM CDT [facility] Blood (Blood, Venous) 10/24/2022 2:18 PM CDT 10/24/2022 3:31 PM CDT Aleah Hayes M.D. LAB BLOOD NON ADD-ON Performing Organization Address City/[facility] Co de Phone Number [facility] [address] [place] [address], [facility] OW[facility] [place] [address] [place] [address] documented in this encounter Visit Diagnoses Diagnosis History Of Uterine Scar From Previous Surgery- Primary Examination Other Normal First Trimester (HCC) Constipation Deficiency Vitamin D Screening Examination Diabetes Mellitus Screening For Venereal Disease documented in this encounter Additional Health Concerns Assessment Noted Time PHQ-9 Depression Total Score: 4 05/15/19 23 10:39 AM PORTER [place] documented as of this encounter Care Teams President Relationship Specialty Start Date End Date Tyrel Reyes M.D. [address] [place] [address] SAMY Mcbride [phone] PCP - General Family Medicine 05/14/22 documented as of this encounter
--- OUTSIDE RECORDS SUMMARY | 2023-04-23 16:23 | XMS_ITS | Encounter Summary ---
Author Name Unknown Organization [facility] Address [address] [place] [address] Care Team Providers Care Insurance Follow Up Specialist Name Role Phone Tyrel Reyes M.D. Primary Care Provider [phone] Reason for Referral * Outpatient (Routine) - Closed Specialty Diagnoses / Procedures Referred By Rebel armstrong Referred To Contact Obstetrics and Gynecology Diagnoses Examination Other Normal First Trimester (HCC) Silva Peterson M.D. [address] [phone] [facility] Referral ID Status Reason Start Date Expiration Date Visits Re quested Visits Authorized [id number] Closed 06/20/2022 06/19/2025 1 1 Reason for Visit * Outpatient (Routine) - Closed Specialty Diagnoses / Procedures Referred By Rebel armstrong Referred To Contact Obstetrics and Gynecology Diagnoses Examination Test With Positive Result ([facility]) Silva Peterson M.D. [address] [place] [phone] [facility] Referral ID Status Reason Start Date Expiration Date Visits Re quested Visits Authorized [id number] Closed 06/05/2022 06/04/2025 1 1 Encounter Details Date Type Department Care Team (Latest Contact Info) Description 06/20/2022 11:30 AM CDT Routine Department of Obstetrics and Gynecology in [address] [phone] Silva Peterson M.D. [address] [place] [phone] Examination Other Normal First Trimester (HCC) (Primary Dx); Pap Smear Examination; Threatened (HCC); Depression Major; Scoliosis; Deficiency Vitamin D Social History Tobacco Use Types Packs/Day Years [...] Sign Reading Time Taken Comments Blood Pressure 112/62 06/20/2022 11:14 AM CDT Pulse - - Temperature - - Respiratory Rate - - Oxygen Saturation - - Inhaled Oxygen Concentration - - Weight 69.5 kg (153 lb 3.5 oz) 06/20/2022 11:14 AM CDT Height - - Body Mass Index 28.93 11/27/2017 1:37 PM CDT documented in this encounter Progress Notes * Silva Peterson M.D. - 06/20/2022 11:30 AM CDT SUBJECTIVE She is doing well and has no complaints. No nausea or vomiting. SYSTEMS REVIEW All other systems reviewed and are negative. OBJECTIVE Vitals: 06/20/22 1114 BP: 112/62 Weight: 69.5 kg PHYSICAL EXAM Constitutional General: She is not in acute distress. Appearance: Normal appearance. She is well-developed. Exam conducted with a periodontal assistant present. Genitourinary Urethral meatus normal. No lesions in the vagina. Right Labia: No tenderness, lesions or skin changes. Left Labia: No tenderness, lesions or skin changes. No vaginal erythema or ulceration. Right Adnexa: not tender and no mass present. Left Adnexa: not tender and no mass present. No cervical lesion. Uterus is enlarged (to 9 weeks size). Uterus is not tender or irregular. No urethral tenderness or mass present. Bladder is not tender. Breasts Breasts are symmetrical. Right: No inverted nipple, mass, nipple discharge or skin change. Left: No inverted nipple, mass, nipple discharge or skin change. HENT Head: Normocephalic and atraumatic. Eyes General: Vision grossly intact. Cardiovascular Rate and Rhythm: Normal rate and regular rhythm. Heart sounds: S1 normal and S2 normal. No murmur heard. No friction rub. No gallop. Pulmonary Effort: No respiratory distress. Breath sounds: Normal breath sounds. No wheezing or rales. Abdominal General: Bowel sounds are normal. There is no distension. Palpations: Abdomen is soft. There is no mass. Tenderness: There is no abdominal tenderness. There is no guarding or rebound. Lymphadenopathy Upper Body: Right upper body: No supraclavicular, axillary or pectoral adenopathy. Left upper body: No supraclavicular, axillary or pectoral adenopathy. Neurological Mental Status: She is alert and oriented to person, place, and time. Skin General: Skin is warm and dry. Findings: No lesion or rash. Psychiatric Mood and Affect: Mood and affect normal. Behavior: Behavior normal. Musculoskeletal General: No tenderness. Right lower leg: No tenderness. No edema. Left lower leg: No tenderness. No edema. ASSESSMENT / PLAN Miguel George is a 22 y.o. female at 9w2d by 7+1 week ultrasound who presents for OBFU. #1 Examination Other Normal First Trimester (HCC) Overview: S/p visit with OB educator for 1st trimester OB education. 2nd and 3rd trimester ed at 28 week visit. Orders: - US OB Limited - Chlamydia / Gonorrhoeae Amplified RNA - Obstetrics and Gynecology office visit (clinic); Future; Expected date: 08/29/2022 - US OB Anatomy Garner; Future; Expected date: 08/29/2022 #2 Pap Smear Examination - ThinPrep Screen HPV Reflex #3 Threatened (HCC) Overview: Possible subchorionic hemorrhage noted at the time of her US in the ED in early May. No recent bleeding. US today shows a viable IUP with appropriate growth since the last US. RH positive, so rhogam was needed. #4 Depression Major Overview: Recent PHQ-9 score was 4 on 05/15/22, indicating well managed depression. Not currently on medication for this. We will follow mood closely in and the #5 Scoliosis Overview: Epidural was placed without difficulty with her last , but pain was not well managed when section was performed and anesthesia was converted to general. This should be a consideration with planning delivery with this . Consider anesthesia consult prior to delivery. #6 Deficiency Vitamin D Overview: Vitamin D3 50,000 weekly x 8 weeks. Will then transition to daily vitamin D3 800 IU. Followup: In 10 weeks for OBFU and anatomy US. documented in this encounter Plan of Treatment Scheduled Referrals Name Type Priority Associated Diagnoses Order Schedule Obstetrics and Gynecology office visit (clinic) Outpatient Referral Routine Examination Other Normal First Trimester (HCC) Expected: 08/29/2022 (Approximate), Expires: 09/20/2023 documented as of this encounter Procedures Procedure Name Priority Date/Time Associated Diagnosis Comments US OB LIMITED RAD - Routine (most inpatients and all outpatients) 07/01/2022 2:09 PM CDT Examination Other Normal First Trimester (HCC) THINPREP SCREEN HPV REFLEX Routine 06/20/2022 12:19 PM CDT Pap Smear Examination CHLAMYDIA/GONORRH OEAE AMPLIFIED RNA Routine 06/20/2022 12:08 PM CDT Examination Other Normal First Trimester (HCC) documented in this encounter Results * US OB Anatomy Garnre (08/29/2022 11:14 AM CDT) Anatomical Region Laterality Modality Body, Ultrasound OB RST LOS, Ultrasound ARZ LOS N/A Ultrasound 08/30/2022 12:2 9 PM CDT Impressions 08/30/2022 12:40 PM CDT 1. Garner . No abnormalities identified. 2. No placenta previa. Marginal cord insertion into the placenta. Follow-up ultrasound at 28 weeks for growth assessment is recommended. Narrative 08/30/2022 12:40 PM CDT EXAM: ??US OB ANATOMY GARNER COMPARISON: ??1st trimester OB ultrasound 06/20/2022 FINDINGS: ?? TECHNIQUE: ?? Transabdominal Only NUMBER OF GESTATIONS: ?? Single LMP DATE: ?? ESTABLISHED TIKI IN EMR: ?? Yes GA BY LMP: ?? 19 w 2 d TIKI BY LMP: ?? 01/21/2023 POSITION: ?? Variable; PLACENTA LOCATION: ?? PLACENTA RELATIONSHIP TO CERVICAL OS: ?? Normal, no previa; AMNIOTIC FLUID: ?? Subjectively normal in volume; CURRENT US AGE: ?? 19 w 3 d ESTIMATED WEIGHT: ?? 298 g WEIGHT PERCENTILE: ?? 58.7 % HEART RATE: ?? 142 bpm BIOMETRIC PARAMETERS: ??BPD EGA: ?? 19 w 4 d ??BPD %ile: ?? 63.1 % HC EGA: ?? 19 w 2 d ??HC %ile: ?? 41.4 % AC EGA: ?? 19 w 6 d ??AC %ile: ?? 62.6 % FL EGA: ?? 19 w 2 d ??FL %ile: ?? 43.3 % HC/AC ratio: ??1.14 ? SURVEY: ??PARAMETER ?FINDINGS ?? Motion ??Normal ? 4 Chamber Heart ??Normal ? RVOT/LVOT ??Normal ? Cardiac Situs ?? Normal ? Diaphragm ??Normal ?? Stomach/Situs ??Normal ? Kidneys ??Normal ? Bladder ??Normal ? Spine ??Normal ? Lat Vents, Choroid ??Normal ? Cavum Septum ??Normal ? Cisterna Magna ??Normal ? Nuchal Fold Thickness ??Normal ? Cerebellum ??Normal ? 3 Vessel Cord ??Normal ? Cord Insert ?? Normal ? Placental Cord Insert ??Other ?? augustin approx 1cm from post edge 4 Extremities ??Normal ? Lip and Face ??Normal ? 3VV ??Not evaluated ? Aortic/Ductal Arches ??Not evaluated ? Orbits ??Not evaluated ? Procedure Note Sammi Sandhu M.D. - 08/30/2022 EXAM: US OB ANATOMY GARNER COMPARISON: 1st trimester OB ultrasound 06/20/2022 FINDINGS: TECHNIQUE: Transabdominal Only NUMBER OF GESTATIONS: Single LMP DATE: ESTABLISHED TIKI IN EMR: Yes GA BY LMP: 19 w 2 d TIKI BY LMP: 01/21/2023 POSITION: Variable; PLACENTA LOCATION: PLACENTA RELATIONSHIP TO CERVICAL OS: Normal, no previa; AMNIOTIC FLUID: Subjectively normal in volume; CURRENT US AGE: 19 w 3 d ESTIMATED WEIGHT: 298 g WEIGHT PERCENTILE: 58.7 % HEART RATE: 142 bpm BIOMETRIC PARAMETERS: BPD EGA: 19 w 4 d BPD %ile: 63.1 % HC EGA: 19 w 2 d HC %ile: 41.4 % AC EGA: 19 w 6 d AC %ile: 62.6 % FL EGA: 19 w 2 d FL %ile: 43.3 % HC/AC ratio: 1.14 SURVEY: PARAMETER FINDINGS Motion Normal 4 Chamber Heart Normal RVOT/LVOT Normal Cardiac Situs Normal Diaphragm Normal Stomach/Situs Normal Kidneys Normal Bladder Normal Spine Normal Lat Vents, Choroid Normal Cavum Septum Normal Cisterna Magna Normal Nuchal Fold Thickness Normal Cerebellum Normal 3 Vessel Cord Normal Cord Insert Normal Placental Cord Insert Other augustin approx 1cm from post edge 4 Extremities Normal Lip and Face Normal 3VV Not evaluated Aortic/Ductal Arches Not evaluated Orbits Not evaluated IMPRESSION: 1. Garner . No abnormalities identified. 2. No placenta previa. Marginal cord insertion into the placenta.Follow-up ultrasound at 28 weeks for growth assessment is recommended. Silva WHITE OB US PROCE DURES * US OB Limited (07/01/2022 2:09 PM [...] the images in Qreads. Silva Peterson M.D. [facility] OB US PROCE DURES * ThinPrep Screen HPV Reflex (06/20/2022 12:19 PM CDT) 06/27/2022 1:11 PM CDT [facility] Report electronically signed by Norah Fan MD I verify that I have examined all relevant slides/materials for the specimen(s) and rendered or confirmed the diagnosis. 06/27/2022 1:11 PM CDT [facility] Gross Description Received specimen in a ThinPrep vial. 06/27/2022 1:11 PM CDT [facility] Pap Test Source Cervical/Endocervi dory 06/27/2022 1:11 PM CDT [facility] Clinical History routine 06/28/19 23 1:11 PM CDT [facility] Menstrual Status(LMP, PM, ) 06/27/2022 1:11 PM CDT [facility] Hormone Therapy/Contracep tives None/Not known 06/27/2022 1:11 PM CDT [facility] Interpretation Cervical/Endocervi dory ??(ThinPrep): Satisfactory for Evaluation Partially obscuring bacteria Negative for Intraepithelial Lesion or Malignancy Reactive cellular changes associated with: ? Reparative or inflammatory changes 06/27/2022 1:11 PM CDT [facility] Thin Prep Vial (Cervix/Endocerv ix) 06/20/2022 12:19 PM CDT 06/21/2022 1:16 PM CDT Silva Peterson M.D. LAB PAP PATHDX ORDERABLES Performing Organization Address [facility] Co de Phone Number [facility] [address] [place] [phone], [facility] HKCY [facility] [address] [place] [phone] * Chlamydia / Gonorrhoeae Amplified RNA (06/20/2022 12:08 PM CDT) Source Swab, Vagina 06/20/2022 11:11 PM CDT [facility] Chlamydia trachomatis amplified RNA Negative Negative 06/20/2022 11:11 PM CDT [facility] Source Swab, Vagina 06/20/2022 11:11 PM CDT [facility] Neisseria gonorrhoeae amplified RNA Negative Negative 06/20/2022 11:11 PM CDT [facility] Swab (Vagina) 06/20/2022 12: 08 PM CDT 06/20/2022 3:15 PM CDT Silva Peterson M.D. LAB MICROBIOLOG Y - GENERAL ORDERABLES Performing Organization Address [facility] Co de Phone Number [facility] [address] [place] [phone], [facility] MKTO [facility] [place] [address] documented in this encounter Visit Diagnoses Diagnosis Examination Other Normal First Trimester (HCC)- Primary Pap Smear Examination Threatened (HCC) Depression Major Scoliosis Deficiency Vitamin D Examination Other Normal First Trimester (HCC) documented in this encounter Additional Health Concerns Assessment Noted Time PHQ-9 Depression Total Score: 4 05/15/19 23 10:39 AM STOCK REPLENISHER documented as of this encounter Care Teams Insurance Follow Up Specialist Relationship Specialty Start Date End Date Tyrel Reyes M.D. [address] [place] [phone] PCP - General Family Medicine 05/14/22 documented as of this encounter
--- OUTSIDE RECORDS SUMMARY | 2023-04-23 16:23 | XMS_ITS | Encounter Summary ---
Author Name Unknown Organization [facility] Address [address] [place] [address] Care Team Providers Care Jewelry Bench Worker Name Role Phone Tyrel Reyes M.D. Primary Care Provider Encounter Details Date Type Department Care Team (Latest Contact Info) Description 08/29/2022 10:45 AM CDT Ancillary Procedure Department of Obstetrics and Gynecology in [place], [place] [address] [place] [address] Silva Peterson M.D. [address] [place] [address] Examination Other Normal First Trimester (HCC) Discharge Disposition: Home or Self [...] Priority Date/Time Associated Diagnosis Comments US OB ANATOMY GARNER RAD - Routine (most inpatients and all outpatients) 08/29/2022 11:14 AM CDT Examination Other Normal First Trimester (HCC) documented in this encounter Results * US OB Anatomy Garner (08/29/2022 11:14 AM CDT) Anatomical Region Laterality [...] weeks for growth assessment is recommended. Silva Peterson M.D. IMG OB US DC HUNTER documented in this encounter Visit Diagnoses Diagnosis Examination Other Normal First Trimester (HCC) documented in this encounter Additional Health Concerns Assessment Noted Time PHQ-9 Depression Total Score: 4 05/15/19 23 10:39 AM DOCK HAND documented as of this encounter Care Teams Jewelry Bench Worker Relationship Specialty Start Date End Date Tyrel Reyes M.D. [address] [place] [phone] PCP - General Family Medicine 05/14/22 documented as of this encounter
--- OUTSIDE RECORDS SUMMARY | 2023-04-23 16:24 | XMS_ITS | Encounter Summary ---
Author Name Unknown Organization [facility] Address [address] [place] [address] Care Team Providers Care Channel Marketing Program Manager Name Role Phone Tyrel Reyes M.D. Primary Care Provider Reason for Referral * Outpatient (Routine) - Closed Specialty Diagnoses / Procedures Referred By Rebel armstrong Referred To Contact Obstetrics and Gynecology Diagnoses Examination Test With Positive Result (HCC) Silva Peterson M.D. [address] [place] [phone] [facility] Referral ID Status Reason Start Date Expiration Date Visits Re quested Visits Authorized [id number] Closed 05/15/2022 05/15/2023 1 1 HAND Reason for Visit * Reason Comments Nurse Visit RN NOYao intake/educat ion * Appointment Request (Routine) - Closed Specialty Diagnoses / Procedures Referred By Rebel armstrong Referred To Contact Obstetrics and Gynecology Referral ID Status Reason Start Date Expiration Date Visits Re quested Visits Authorized [id number] Closed 05/14/2022 05/14/2023 1 Encounter Details Date Type Department Care Team (Latest Contact Info) Description 05/15/2022 10:30 AM YARD HAND Initial Department of Obstetrics and Gynecology in [address] [phone] Jesús Díaz M.D. [address] [place] [phone] Katiuska Clarke M.S.N., R.N. GA: 4w1d Discharge Disposition: Home or Self Care Social [...] as of this encounter Progress Notes * Katiuska Clarke R.N. - 05/15/2022 10:30 AM CST SUBJECTIVE Consult conducted via real-time audio/video technology by Katiuska Clarke R.N. in [facility] Region to the patient in Patient's Home CHIEF COMPLAINT / REASON FOR VISIT Miguel George is a 22 y.o. . Patient's last menstrual period was 04/23/2022 (approximate). Her Estimated Date of Delivery: 01/28/23 determined by LMP. Gestational age is 3w1d. + UPT on 05/13/22. Relationship with FOB: significant other, not living together. Patient plans to breastfeed. Pt has hx of c/s 2018, would like TOLAC. ED visit on 05/14/22 for right sided 9/10 abdominal pain (off midline from umbilicus). She was encouraged to go home and take Tylenol. Her pain was still present this morning. She has no other associated symptoms. Denies fever, vaginal bleeding, LOF, dizziness/lightheaded, dysuria. She has been resting and at time of call pain has resolved. She has not yet tried taking Tylenol. 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 Former tobacco user; quit with + test 05/13/22. Pt requests hcg test. HISTORY OF PRESENT CONDITION OB History Para Term AB Living 2 1 1 1 SAB IAB Ectopic Molar Multiple Live Births 1 # Outcome Date GA Lbr Nate/2nd Weight Sex Delivery Anes PTL Lv 2 Current 1 Term 11/14/17 38w5d 3.59 kg F CS-LTranv BRIGHT Complications: Failure to Progress in First Stage, Premature Rupture Membrane (HCC) Genetic Screen: reviewed Past Medical History: Diagnosis Date ??? Deficiency Vitamin D 04/30/2017 ??? Depression Major ??? 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 Infection Chlamydia ??? Obesity Body Mass Index 30-39.9 Adult 06/26/2017 ??? Pain Back From (HCC) 06/07/2017 Past Surgical History: Procedure Laterality Date ??? SECTION 11/14/2017 Family History Problem Relation Age of Onset ??? No Known Problems Mother ??? No Known Problems Father ??? No Known Problems Sister ??? No Known Problems Daughter ??? Diabetes Maternal Grandmother ??? No Known Problems Maternal Grandfather ??? No Known Problems Paternal Grandmother ??? No Known Problems Paternal Grandfather Social History Socioeconomic History ??? Marital status: Single Spouse name: Sorin--ROSYB ??? Number of children: 1 ??? Highest education level: High school graduate Occupational History ??? Occupation: [employer] Comment: [employer] Tobacco Use ??? Smoking status: Former Types: Cigarettes Quit date: 05/13/2022 ??? Smokeless tobacco: Former Quit date: 05/13/2022 Vaping Use ??? Vaping Use: former use ??? Start date: 03/18/2019 ??? Substances: Nicotine ??? Devices: Pre-filled pod Substance and Sexual Activity ??? Alcohol use: No ??? Drug use: Not Currently Types: Methamphetamines Comment: used 3 moths, quit 01/2022 ??? Sexual activity: Yes Partners: Male Social History Narrative Lives with uncle. FOB from Sorin Pickard that she does not live with but is involved.. Has daughter from previous relationship that is with her night thru Saturday. Verbal consent to [facility]. She has already spoken to [employer] [facility] for insurance questions. Needs are housing. Discussed WIC. No Known Allergies OBJECTIVE VITAL SIGNS ASSESSMENT / PLAN Pain/bleeding precautions discussed and when to follow up emergently. ELECTRONIC PAGE MAKEUP SYSTEM OPERATOR contact information given. Encouraged daily PNV. . The following were reviewed with patient:1st/2ndTrimester education provided today using the ACOG list of recommended antepartum education topics and in accordance with [facility] guidelines. Patient states understanding to all topics presented. All questions answered during appointment. Written information regarding topics presented provided for patient to take home. Please see education tab for further details about topics addressed. Anticipated course of care, Routine labs, optional labs, seat belt use, dental care, exercise, caffeine use, sexual activity, toxoplasmosis precautions(if indicated), avoidance of hot tubs/saunas, WIC, [place] policy, safe over the counter medications, care cost estimate/insurance, common symptoms, mercury and listeria precautions, and , topics of when to notify care team(fever, excessive nausea/vomiting, pain, bleeding, urinary symptoms, headaches). Encouraged good communication with care team re: emotional status. Lead screening complete and is negative. [facility] pre-registration form completed and sent. Encouraged to call with questions or concerns. Katiuska Clarke R.N. HAND documented in this encounter Plan of Treatment Scheduled Referrals Name Type Priority Associated Diagnoses Orde r Schedule Obstetrics and Gynecology - Obstetrics consult (clinic) Outpatient Referral Routine Examination Test With Positive Result (HCC) Expected: 06/11/2022, Expires: 08/13/2023 documented as of this encounter Results * US OB First Trimester (06/05/2022 1:48 PM CDT) Anatomical Region Laterality Modality Body, Ultrasound OB RST LOS, Ultrasound ARZ LOS N/A Ultrasound 06/09/2022 7:16 AM CDT Impressions 06/09/2022 7:17 AM CDT Single, living intrauterine with crown-rump length of 1.01 cm, 7w 1d gestation. ??Normal cardiac activity. ?? Narrative 06/09/2022 7:17 AM CDT EXAM: US OB FIRST TRIMESTER COMPARISON: None TECHNIQUE: FINDINGS: Number of Gestations: Single Gestational age and TIKI by LMP or OB/EHR assignment: 6 w 1 d, TIKI: 01/28/2023 INTRAUTERINE Pole: Normal, [place]-Rump Length: 10.1 mm ??There is indistinct tissue near the embryo within the gestational sac. Gestational Sac: Normal Yolk Sac: Normal Placenta Location: Too Early to ID Age and TIKI by current ultrasound measurements: 7 w 1 d, TIKI: 01/21/2023. heart rate: 140 Uterus: No unexpected findings. Right Ovary/Adnexa: Normal. Left Ovary/Adnexa: Normal. Cervical Length: Subjectively normal by Transabd evaluation only Intraperitoneal Fluid: None. Procedure Note Silva Peterson M.D. - 06/09/2022 EXAM: US OB FIRST TRIMESTER COMPARISON: None TECHNIQUE: FINDINGS: Number of Gestations: Single Gestational age and TIKI by LMP or OB/EHR assignment: 6 w 1 d, TIKI:01/28/2023 INTRAUTERINE Pole: Normal, [place]-Rump Length: 10.1 mm There is indistinct tissuenear the embryo within the gestational sac. Gestational Sac: Normal Yolk Sac: Normal Placenta Location: Too Early to ID Age and TIKI by current ultrasound measurements: 7 w 1 d, TIKI: 01/21/2023. heart rate: 140 Uterus: No unexpected findings. Right Ovary/Adnexa: Normal. Left Ovary/Adnexa: Normal. Cervical Length: Subjectively normal by Transabd evaluation only Intraperitoneal Fluid: None. IMPRESSION: Single, living intrauterine with crown-rump length of 1.01 cm,7w 1d gestation. Normal cardiac activity. Silva Peterson M.D. IMG OB US PROCE DURES documented in this encounter Visit Diagnoses Diagnosis Examination Test With Positive Result (HCC)- Primary Examination Test With Positive Result (HCC) documented in this encounter Additional Health Concerns Assessment Noted Time PHQ-9 Depression Total Score: 4 02/28/20 23 10:39 AM YARD HAND documented as of this encounter Care Teams Channel Marketing Program Manager Relationship Specialty Start Date End Date Tyrel Reyes M.D. [address] [place] [address] [email or web address] [phone] PCP - General Family Medicine 05/14/22 documented as of this encounter
--- OUTSIDE RECORDS SUMMARY | 2023-04-23 16:24 | XMS_ITS | Encounter Summary ---
Author Name Unknown Organization [facility] Address [address] [place] [address] Care Team Providers Care Tailoring Teacher Name Role Phone Tyrel Reyes M.D. Primary Care Provider [phone] Encounter Details Date Type Department Care Team (Latest Contact Info) Description 06/05/2022 2:10 PM CDT - 06/05/2022 2:11 PM CDT Hospital Encounter Department of Laboratory Medicine in [place] [address] [place] [address] Silva Peterson M.D. [address] [place] [phone] Examination Test With Positive Result (HCC) Discharge Disposition: Home or Self Care [...] Sig Dispensed Refills Start Date End Date ibuprofen (ADVIL,MOTRIN) 600 mg tablet TAKE ONE TABLET BY MOUTH EVERY 6 HOURS IF NEEDED FOR PAIN MAXIMUM OF 3200MG IN 24 HOURS 0 11/19/2017 MAPAP EXTRA STRENGTH 500 mg tablet TAKE TWO TABLETS BY MOUTH EVERY 6 HOURS IF NEEDED MAXIMUM 4000MG ACETAMINOPHEN PER 24 HOURS 0 11/19/2017 cholecalciferol (VITAMIN D3) 1,250 mcg (50,000 unit) tabletIndications:Defi ciency Vitamin D Take 1 tablet (50,000 Units total) by mouth once a week. 8 tablet 0 06/09/2022 08/29/2022 ferrous sulfate 325 mg (65 mg iron) tablet Take 65 mg of iron by mouth daily with breakfast. 3 11/19/2017 12/12/2022 PNV NO.95/FERROUS FUM/FOLIC AC ( MULTIVITAMINS ORAL) Take by mouth. 0 2022 documented as of this encounter Plan of Treatment Not on file documented as of this encounter Procedures Procedure Name Priority Date/Time Associated Diagnosis Comments HEPATITIS B SURFACE ANTIGEN Routine 06/05/2022 2:30 PM CDT Examination Test With Positive Result (HCC) CF AND SMA CARRIER SCREEN PANEL Routine 06/05/2022 2:29 PM CDT Examination Test With Positive Result (HCC) HIV-1/-2 AG AND AB SCRN, PLASMA Routine 06/05/2022 2:29 PM CDT Examination Test With Positive Result (HCC) SYPHILIS TOTAL AB W/ REFLEX S Routine 06/05/2022 2:29 PM CDT Examination Test With Positive Result (HCC) HCV AB SCRN W/REFLEX TO HCV PCR, S Routine 06/05/2022 2:29 PM CDT Examination Test With Positive Result (HCC) ABORH, RBC Routine 06/05/2022 2:29 PM CDT Examination Test With Positive Result (HCC) 25-HYDROXYVITAMIN D2 AND D3, S Routine 06/05/2022 2:29 PM CDT Examination Test With Positive Result (HCC) RUBELLA ANTIBODIES, IGG Routine 06/05/2022 2:29 PM CDT Examination Test With Positive Result (HCC) CBC WITH DIFFERENTIAL, B Routine 06/05/2022 2:29 PM CDT Examination Test With Positive Result (HCC) ANTIBODY SCREEN, B Routine 06/05/2022 2: 29 PM CDT Examination Test With Positive Result (HCC) documented in this encounter Results * Hepatitis B Surface Antigen (06/05/2022 2:30 PM CDT) HBs Antigen, S Nonreactive Nonreactive 06/06/2022 1:25 AM CDT [facility] Blood (Blood, Venous) 06/05/2022 2:30 PM CDT 06/05/2022 9:17 PM CDT Silva Peterson M.D. LAB MICROBIOLOG Y - BLOOD ORDERABLES Performing Organization Address [facility]/State/ZIP Co de Phone Number [facility] [address] [place] [address], [facility] [place] [address] * Cystic Fibrosis and Spinal Muscular Atrophy Carrier Screen Panel (06/05/2022 2:29 PM CDT) Released By Sugey Silverio M.D., Ph.D. 06/15/2022 4:09 PM CDT DTL Result Summary NEGATIVE 06/15/2022 4:09 PM CDT DTL Result No variants tested by this assay were identified. Spinal Muscular Atrophy (SMA): SMN1 Copies: greater than or equal to 2. The [id number] polymorphism is absent. 06/15/2022 4:09 PM CDT DTL Specimen WB Whole Blood 06/15/2022 4:09 PM CDT DTL Method Targeted genotyping array (build GRCh37 (hg19)) was performed to test for the presence of select variants within the CFTR gene (GenBank accession number [id number]) and for SMN1 exon 7 and exon 8 copy numbers (GenBank accession number [id number]). A variety of methods including (but not limited to) multiplex ligation-dependen t probe amplification (MLPA), digital droplet PCR, and [place] sequencing are used to confirm variants detected by when appropriate. See www.[employer] (Test ID [email or web address]) for additional information about this test, including CFTR variants assessed by this assay. 06/15/2022 4:09 PM CDT DTL Interpretation The result indicates a reduced carrier risk for cystic fibrosis (CF) and spinal muscular atrophy (SMA). CYSTIC FIBROSIS (CF) This screening panel includes the most common pathogenic variants in CFTR; however, it does not comprehensively rule out all known disease-causing pathogenic variants in this gene. An individual's residual risk for CF carrier status varies by ancestry. The table below lists the residual risk of being a carrier based on ancestry. Ancestry ?Prior Risk ?Residual Risk After ?Negative Carrier Screen -------- Chilean ? 04/11 ? Ashkenazi Advent ?04/11 ? 481 ? 493 [place]an ? [place]an* ? 255 General [place] Population ? 244 *Does not apply to individuals of Romansh ancestry SPINAL MUSCULAR ATROPHY (SMA) SMN1 gene deletions account for 95% of SMA-causing pathogenic variants; however, carrier status cannot be completely excluded because this test cannot differentiate at least one copy of SMN1 exon 7 on each chromosome from all copies of SMN1 on one chromosome and none on the other chromosome. Individuals that carry zero copies of the SMN1 gene on one of their chromosomes may be at risk to have an affected child if their partner is also an SMA carrier. Other variants within the SMN1 gene, such as single nucleotide variants, are also not detected by this test. We are unable to provide a revised risk assessment for ancestries other than those listed above as there is insufficient information available about the carrier frequency and pathogenic variant detection rates in other populations. These calculations are based on the pathogenic variant detection rates and population carrier frequencies noted in the chart. They assume that this individual is neither clinically affected with nor has a family history of CF or SMA. A genetic consultation may be of benefit. 06/15/2022 4:09 PM CDT DTL Comment: ----ADDITIONAL INFORMATION---- CAUTIONS A negative result does not eliminate the risk of carrier status for any of the included conditions, due to the possibility that the patient carries a variant that is not interrogated with this assay or the rare chance of a false-negative result for a tested variant. For tested variants, the negative predictive value of this screen is greater than 98%. The patient's residual risk to be a carrier after a negative screen is dependent on ethnic background and family history. A positive control was not available for all variants targeted on this panel. For more information regarding availability of a positive control for each variant see Targeted Variants Interrogated by Expanded Carrier Screen Panels in Special Instructions. ??The negative predictive value of these targets is unknown. Rare polymorphisms exist that could lead to false-negative or false-positive results. If results obtained do not match the clinical findings, additional testing should be considered. All detected variants are evaluated according to [employer] [employer] recommendations. This assay was designed to specifically target known pathogenic or likely pathogenic variants. ??In rare cases, DNA variants of undetermined significance may be identified. ??The laboratory encourages health care providers to contact the laboratory at any time to learn how the status of a particular variant may have changed over time. Multiple in-silico evaluation tools may have been used to assist in the interpretation of these results. Of note, the sensitivity and specificity of these tools for the determination of pathogenicity is currently unvalidated. Test results should be interpreted in the context of clinical findings, family history, and other laboratory data. Misinterpretation of results may occur if the information provided is inaccurate or incomplete. Bone Marrow transplants from allogenic donors will interfere with testing. Call [facility] for instructions for testing patients who have received a bone marrow transplant. An online research opportunity called 1-800-DENTIST ([employer]), a project of [employer], is available for the recipient of this genetic test. This patient registry collects deidentified genetic and health information to advance the knowledge of genetic variants. [facility] is a collaborator of [employer]. This may not be applicable for all tests. TEST CLASSIFICATION This test was developed and its performance characteristics determined by [facility] in a manner consistent with CLIA requirements. This test has not been cleared or approved by the U.S. Food and Drug Administration. Blood (Blood, Peripheral Draw) 06/05/2022 2:29 PM CDT 06/06/2022 7:20 AM CDT Silva Peterson M.D. LAB GENETIC [facility] [address] [place] [address], [facility] [address] [address] * HCV Ab Scrn w/Reflex to HCV PCR, Serum (06/05/2022 2:29 PM CDT) HCV Ab Screen, S Negative Negative 06/06/19 9:12 PM CDT [facility] Comment: Biotin has been identified by the gang mower operator as a potential interfering substance. Higher concentrations of biotin may be found in multivitamins, hair/nail supplements, and workout supplements. If the result does not match clinical observations, repeat testing after patient refrains from the use of supplements for at least 12 hours. Blood (Blood, Venous) 06/05/2022 2:29 PM CDT 06/05/2022 7:[address] [facility] - 06/05/2022 9:12 PM CDT Specimen Information: Specimen ID: [id number] Specimen Type: Blood Specimen Collection Start Date: 06/05/2022 ??2:29 PM Specimen Received Date: 06/05/2022 ??7:13 PM Specimen ID: [id number] Specimen Type: Blood Specimen Collection Start Date: 06/05/2022 ??2:30 PM Specimen Received Date: 06/05/2022 ??7:11 PM Silva Peterson M.D. LAB MICROBIOLOG Y - BLOOD ORDERABLES [facility] [address] [place] [address], [facility] in [place] [address] [place] [address] * (ABNORMAL) 25-Hydroxyvitamin D2 and D3 (06/05/2022 2:29 PM CDT) [facility] 25-Hydroxy D2 <4.0 ng/mL 06/08/2022 12:19 AM CDT [facility] 25-Hydroxy D3 15 ng/mL 06/08/2022 12:19 AM CDT [facility] 25-Hydroxy D Total 15(L) ng/mL 2022 12:19 AM CDT [facility] Comment: Interpretation: 10-19 ng/mL (mild to moderate deficiency) ----REFERENCE VALUE---- 25-HYDROXY D TOTAL (D2+D3) Optimum levels in the healthy population are 20-50, patients with bone disease may benefit from higher levels within this range. ----ADDITIONAL INFORMATION---- This test was developed and its performance characteristics determined by [facility] in a manner consistent with CLIA requirements. This test has not been cleared or approved by the U.S. Food and Drug Administration. Blood (Blood, Venous) 06/05/2022 2:29 PM CDT 06/06/2022 7:09 AM CDT Silva Peterson M.D. LAB BLOOD ADD-O N [facility] [address] [place] [address] [facility] [address] [place] [address] * Syphilis Total Ab w/ Reflex, Serum (06/05/2022 2:29 PM CDT) Syphilis Total Ab w/ Reflex Nonreactive Nonreactive 06/06/2022 1:01 PM CDT [facility] Comment: No serologic evidence of infection with T. pallidum (syphilis). ??Repeat testing may be considered in patients with suspected acute or primary syphilis in 2-4 weeks. For additional information on interpretation of the syphilis reverse algorithm and results, see: [email or web address] Blood (Blood, Venous) 06/05/2022 2:29 PM CDT 06/06/2022 10:54 AM CDT Silva Peterson M.D. LAB BLOOD ADD-O N Performing Organization Address City/[facility]/ZIP Co de Phone Number [facility] [address] [place] [address], [facility] in [address] [address] * Rubella Antibodies, IgG (06/05/2022 2:29 PM CDT) Rubella Ab, IgG, S Positive 06/06/2022 1:01 PM CDT [facility] Comment: Results suggest response to immunization or prior exposure to the virus. ----REFERENCE VALUE---- Vaccinated: Positive (>=1.0 AI) Unvaccinated: Negative (<=0.7 AI) Rubella IgG Antibody Index 1.9 06/06/2022 1:01 PM CDT [facility] Blood (Blood, Venous) 06/05/2022 2:29 PM CDT 06/06/2022 10:54 AM CDT Silva Peterson M.D. LAB MICROBIOLOG Y - BLOOD ORDERABLES Performing Organization Address City/[facility]/ZIP Co de Phone Number [facility] [address] [place] [address] [place] [address], [facility] in [address] [place] [address] * HIV-1/-2 Ag and Ab Scrn, Plasma (06/05/2022 2:29 PM CDT) HIV Ag/Ab Scrn, P Negative Negative 06/06/2022 1:01 PM CDT [facility] Comment: Negative result does not rule out HIV infection. If exposure to HIV infection occurred <14 days ago, contact the laboratory to request addition of HIV-1 RNA detection / quantification test. HIV-1 p24 Ag Scrn, P Negative Negative 06/06/2022 1:01 PM CDT [facility] Comment: Negative result does not rule out HIV infection. If exposure to HIV infection occurred <14 days ago, contact the laboratory to request addition of HIV-1 RNA detection / quantification test. HIV-1 Ab Scrn, P Negative Negative 06/06/2022 1:01 PM CDT [facility] Comment: Negative result does not rule out HIV infection. If exposure to HIV infection occurred <14 days ago, contact the laboratory to request addition of HIV-1 RNA detection / quantification test. HIV-2 Ab Scrn, P Negative Negative 06/06/2022 1:01 PM CDT [facility] Comment: Negative result does not rule out HIV infection. If exposure to HIV infection occurred <14 days ago, contact the laboratory to request addition of HIV-1 RNA detection / quantification test. Blood (Blood, Venous) 06/05/2022 2:29 PM CDT 06/06/2022 10:54 AM CDT Silva Peterson M.D. LAB MICROBIOLOG Y - BLOOD ORDERABLES Performing Organization Address City/[facility]/ZIP Co de Phone Number [facility] [address] [place] [address] [place] [address], [place] [facility] in [address] [place] [address] * CBC with Differential, Blood (06/05/2022 2:29 PM CDT) Hemoglobin 11.7 11.6 - 15.0 g/dL 06/05/2022 3:02 PM CDT FB60 Hematocrit 36.8 35.5 - 44.9 % 06/05/2022 3:02 PM CDT FB60 Erythrocytes 4.70 3.92 - 5.13 x10(12)/L 06/05/2022 3:02 PM CDT FB60 MCV 78.3 78.2 - 97.9 fL 06/05/2022 3:02 PM CDT FB60 RBC Distrib Width 13.8 12.2 - 16.1 % 06/05/2022 3:02 PM CDT FB60 Platelet Count 311 157 - 371 x10(9)/L 06/05/2022 3:02 PM CDT FB60 Leukocytes 8.3 3.4 - 9.6 x10(9)/L 06/05/2022 3:02 PM CDT FB60 Neutrophils 5.81 1.56 - 6.45 x10(9)/L 06/05/2022 3:02 PM CDT FB60 Lymphocytes 1.86 0.95 - 3.07 x10(9)/L 06/05/2022 3:02 PM CDT FB60 Monocytes 0.62 0.26 - 0.81 x10(9)/L 06/05/2022 3:02 PM CDT FB60 Eosinophils <0.04 0.03 - 0.48 x10(9)/L 06/05/2022 3:02 PM CDT FB60 Basophils <0.04 0.01 - 0.08 x10(9)/L 06/05/2022 3:02 PM CDT FB60 Blood (Blood, Venous) 06/05/2022 2:29 PM CDT 06/05/2022 2:30 PM CDT Silva Peterson M.D. LAB BLOOD ADD-O N [facility] [address] [place] [address], [place] FB60 [facility] [place] [address] [place] [address] * ABORh, RBC (06/05/2022 2:29 PM CDT) ABO Group O 06/06/2022 9:2 3 AM CDT [facility] Rh Type POS 06/06/2022 9:2 3 AM CDT [facility] Blood (Blood, Venous) 06/05/2022 2:29 PM CDT 06/05/2022 9:20 PM CDT Silva Peterson M.D. LAB BLOOD BANK TEST ORDERABLES Performing Organization Address City/[facility]/ZIP Co de Phone Number [facility] [address] [place] [address], [facility] - [address] [address] * Antibody Screen, RBC (with reflex Antibody ID) (06/05/2022 2:29 PM CDT) Antibody Screen NEG 9:23 AM CDT [facility] Blood (Blood, Venous) 06/05/2022 2:29 PM CDT 06/05/2022 9:20 PM CDT Silva Peterson M.D. 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 [address] [place] [address] [place] [address] PCP - General Family Medicine 05/14/22 documented as of this encounter
--- OUTSIDE RECORDS SUMMARY | 2023-04-23 16:24 | XMS_ITS | Encounter Summary ---
Author Name Unknown Organization [facility] Address [address] [place] [address] Care Team Providers Care Road Design Draftsperson Name Role Phone Tyrel Reyes M.D. Primary Care Provider [phone] Reason for Referral * Outpatient (Routine) - Closed Specialty Diagnoses / Procedures Referred By Rebel armstrong Referred To Contact Obstetrics and Gynecology Diagnoses Examination Test With Positive Result (HCC) Ventura Pineda M.D. [address] [address] [facility] Referral ID Status Reason Start Date Expiration Date Visits Re quested Visits Authorized [id number] Closed 06/05/2022 06/04/2025 1 1 Scheduling Instructions Can schedule during blocked time if needed Reason for Visit * Outpatient (Routine) - Closed Specialty Diagnoses / Procedures Referred By Rebel armstrong Referred To Contact Obstetrics and Gynecology Diagnoses Examination Test With Positive Result (HCC) Ventura Pineda M.D. [address] [place] [phone] [facility] Referral ID Status Reason Start Date Expiration Date Visits Re quested Visits Authorized [id number] Closed 05/15/2022 05/15/2023 1 1 Encounter Details Date Type Department Care Team (Latest Contact Info) Description 06/05/2022 1:15 PM CDT Initial Department of Obstetrics and Gynecology in [address] [phone] Ventura Pineda M.D. [address] [facility] [place] [phone] [place]: [id number] Discharge Disposition: Home or Self Care Social [...] Sign Reading Time Taken Comments Blood Pressure 104/56 06/05/2022 1:11 PM CDT Pulse - - Temperature - - Respiratory Rate - - Oxygen Saturation - - Inhaled Oxygen Concentration - - Weight 69.8 kg (153 lb 14.1 oz) 06/05/2022 1:11 PM CDT Height - - Body Mass Index 29.05 11/27/2017 1:37 PM CDT documented in this encounter Progress Notes * Ventura Pineda M.D. - 06/05/2022 1:15 PM CDT SUBJECTIVE REASON FOR VISIT/CHIEF COMPLAINT confirmation HISTORY OF PRESENT ILLNESS LMP: 04/23/2022, was on time, was normal amount and duration. She has had VB since her LMP. This occurred on 05/21/2022 and she was seen in the ED for this. Dr. Greenwood saw her in follow up on 05/24/2022 and the bleeding had decreased by that time and intrauterine gestational sac was noted on US but no definitive pole or cardiac activity was noted. Today, she states that the bleeding has resolved. She has had varicella or the vaccination, has no history of TB, has no history of blood transfusions, has no history of herpes, and has no history of complications from anesthesia. She has no nausea and vomiting. She is doing well at this time. The patient's allergies and current medications were reviewed and updated as appropriate. REVIEW OF SYSTEMS: The patient's Past Medical History, Past Surgical History, Social History, and Family History were reviewed and updated as appropriate. OBJECTIVE Vitals: 06/05/22 1311 BP: 104/56 Weight: 69.8 kg General: Well-nourished female in no acute distress Head: Normocephalic, atraumatic ENT: Vision and hearing grossly intact Chest: Breathing nonlabored Abdomen: Soft, nondistended, nontender Lower extremities: Nontender, no edema Neuro: Alert and oriented x3, normal gait Skin: No rashes or lesions ASSESSMENT / PLAN IMPRESSION/PLAN 22 y.o. at 7w1d by 7+1 week ultrasound who presents for confirmation today and follow up of bleeding in early . #1 Examination Test With Positive Result (HCC) Overview: care: S/p visit with OB educator for 1st trimester OB education. New OB labs were drawn today. 2nd and 3rd trimester ed at 28 week visit. Dating/viability: Ultrasound today shows a single living intrauterine at 7+1 weeks gestation. Her LMP is approximate, not certain, so we will use the US today for dating. Therefore her TIKI will be 01/21/2023. Orders: - Obstetrics and Gynecology - Obstetrics consult (clinic) - Antibody Screen, RBC (with reflex Antibody ID); Future; Expected date: 06/05/2022 - ABORh, RBC; Future; Expected date: 06/05/2022 - CBC with Differential, Blood; Future; Expected date: 06/05/2022 - Hepatitis B Surface Antigen; Future; Expected date: 06/05/2022 - HIV-1/-2 Ag and Ab Scrn, Plasma; Future; Expected date: 06/05/2022 - Rubella Antibodies, IgG; Future; Expected date: 06/05/2022 - Syphilis Total Ab w/ Reflex, Serum; Future; Expected date: 06/05/2022 - Bacterial Culture, Aerobic + Susc, Urine; Future; Expected date: 06/05/2022 - 25-Hydroxyvitamin D2 and D3; Future; Expected date: 06/05/2022 - HCV Ab Scrn w/Reflex to HCV PCR, Serum; Future; Expected date: 06/05/2022 - Cystic Fibrosis and Spinal Muscular Atrophy Carrier Screen Panel; Future; Expected date: 06/05/2022 - Obstetrics and Gynecology office visit (clinic); Future; Expected date: 06/19/2022 - US OB Follow-up and or Growth Bustos; Future; Expected date: 06/19/2022 #2 Threatened (HCC) Overview: Possible subchorionic hemorrhage noted at the time of her US in the ED in early May. No recent bleeding. US today shows a viable IUP. RH positive, so rhogam not needed. #3 Depression Major Overview: Recent PHQ-9 score was 4 on 05/15/22, indicating well managed depression. Not currently on medication for this. We will follow mood closely in and the #4 Scoliosis Overview: Epidural was placed without difficulty with her last , but pain was not well managed when section was performed and anesthesia was converted to general. #5 History Of Uterine Scar From Previous Surgery Overview: Did not progress past 4 cm with first labor and tracing was non-reassuring at that time, so section was performed. This was a LTCS. Will need to calculate chance of successful TOLAC with this and discuss risks and benefits of TOLAC vs scheduled repeat section. Follow-up: 2 weeks for OBFU and US. documented in this encounter Miscellaneous Notes * Addendum Note - Ventura Pineda M.D. - 06/05/2022 1:15 PM CDTAddended by: VENTURA PINEDA on: 06/09/2022 07:38 AM Modules accepted: Orders documented in this encounter Plan of Treatment Scheduled Referrals Name Type Priority Associated Diagnoses Orde r Schedule Obstetrics and Gynecology office visit (clinic) Outpatient Referral Routine Examination Test With Positive Result (HCC) Expected: 06/19/2022 (Approximate), Expires: 09/06/2023 documented as of this encounter Results * Hepatitis B Surface Antigen (06/05/2022 2:30 PM CDT) HBs Antigen, S Nonreactive Nonreactive 06/06/2022 1:25 AM CDT [facility] Blood (Blood, Venous) 06/05/2022 2:30 PM CDT 06/05/2022 9:17 PM CDT Ventura Pineda M.D. LAB MICROBIOLOG Y - BLOOD ORDERABLES [facility] [address] [place] [address], [facility] [place] [address] * Cystic Fibrosis and Spinal Muscular Atrophy Carrier Screen Panel (06/05/2022 2:29 PM CDT) Pathologist [facility] Released By Sugey Silverio M.D., Ph.D. 06/15/2022 4:09 PM CDT DTL Result Summary NEGATIVE 06/15/2022 4:09 PM CDT DTL Result No variants tested by this assay were identified. Spinal Muscular Atrophy (SMA): SMN1 Copies: greater than or equal to 2. The [id number] polymorphism is absent. 06/15/2022 4:09 PM CDT [...] probe amplification (MLPA), digital droplet PCR, and Coco sequencing are used to confirm variants detected by when appropriate. See [email or web address].com (Test ID [email or web address]) for additional information about [...] ?Residual Risk After ?Negative Carrier Screen -------- [place]er ? 04/11 ? 401 Ashkenazi Methodist ?04/11 ? 481 ?65 ? 493 [place]er ? 46 ? 347 [place]* ? 1255 General [place] Population ? 244 *Does not apply to individuals of [place] ancestry SPINAL MUSCULAR ATROPHY (SMA) SMN1 gene [...] All detected variants are evaluated according to [place] [employer] recommendations. [...] allogenic donors will interfere with testing. Call [facility] [employer] (ROOF) for instructions for testing patients who have received a bone marrow transplant. An online research opportunity called [employer] (genomeconnect.org), a project of [employer], is available for the recipient of this genetic test. This patient registry collects deidentified genetic and health information to advance the knowledge of genetic variants. [facility] is a collaborator of [employer]. This may not be applicable for all tests. TEST CLASSIFICATION This test was developed and its performance characteristics determined by [facility] in a manner consistent with CLIA requirements. This test has not been cleared or approved by the U.S. Food and Drug Administration. Blood (Blood, Peripheral Draw) 06/05/2022 2:29 PM CDT 06/06/2022 7:20 AM CDT eVntura Pineda M.D. LAB GENETIC GABBY TING [facility] [address] [place] [address], [facility] [place] [address] [place] [address] * HCV Ab Scrn w/Reflex to HCV PCR, Serum (06/05/2022 2:29 PM CDT) HCV Ab Screen, S Negative Negative 06/06/19 9:12 PM CDT [facility] Comment: Biotin has been identified by the button maker and installer as a potential interfering substance. Higher concentrations of biotin may be found in multivitamins, hair/nail supplements, and workout supplements. If the result does not match clinical observations, repeat testing after patient refrains from the use of supplements for at least 12 hours. Blood (Blood, Venous) 06/05/2022 2:29 PM CDT 06/05/2022 7:13 PM CDT Narrative [facility] - 06/05/2022 9:12 PM CDT Specimen Information: Specimen ID: [id number] Specimen Type: Blood Specimen Collection Start Date: 06/05/2022 ??2:29 PM Specimen Received Date: 06/05/2022 ??7:13 PM Specimen ID: [id number] Specimen Type: Blood Specimen Collection Start Date: 06/05/2022 ??2:30 PM Specimen Received Date: 06/05/2022 ??7:11 PM Ventura Pineda M.D. LAB MICROBIOLOG Y - BLOOD ORDERABLES [facility] [address] [place] [address], [place] [facility] [place] [address] [place] [address] * (ABNORMAL) 25-Hydroxyvitamin D2 and D3 (06/05/2022 2:29 PM CDT) 25-Hydroxy D2 <4.0 ng/mL 06/08/2022 12:19 AM CDT SDSC 25-Hydroxy D3 15 ng/mL 06/08/2022 12:19 AM CDT SDS 25-Hydroxy D Total 15(L) ng/mL 2022 12:19 AM CDT [facility] Comment: Interpretation: 10-19 ng/mL (mild to moderate deficiency) ----REFERENCE VALUE---- 25-HYDROXY D TOTAL (D2+D3) Optimum levels in the healthy population are 20-50, patients with bone disease may benefit from higher levels within this range. ----ADDITIONAL INFORMATION---- This test was developed and its performance characteristics determined by [facility] in a manner consistent with CLIA requirements. This test has not been cleared or approved by the U.S. Food and Drug Administration. Blood (Blood, Venous) 06/05/2022 2:29 PM CDT 06/06/2022 7:09 AM CDT Ventura Pineda M.D. LAB BLOOD ADD-O N [facility] [address] [place] [address] [facility] [address] [place] [address] * Syphilis Total Ab w/ Reflex, Serum (06/05/2022 2:29 PM CDT) Syphilis Total Ab w/ Reflex Nonreactive Nonreactive 06/06/2022 1:01 PM CDT [facility] Comment: No serologic evidence of infection with T. pallidum (syphilis). ??Repeat testing may be considered in patients with suspected acute or primary syphilis in 2-4 weeks. For additional information on interpretation of the syphilis reverse algorithm and results, see: [email or web address]-[email or web address]_Algorithm.pdf Blood (Blood, Venous) 06/05/2022 2:29 PM CDT 06/06/2022 10:54 AM CDT Ventura Pineda M.D. LAB BLOOD ADD-O N Performing Organization Address [facility]/ZIP Co de Phone Number [address] [address], [facility] in [address] [address] * Rubella Antibodies, IgG (06/05/2022 2:29 PM CDT) Rubella Ab, IgG, S Positive 06/06/2022 1:01 PM CDT [facility] Comment: Results suggest response to immunization or prior exposure to the virus. ----REFERENCE VALUE---- Vaccinated: Positive (>=1.0 AI) Unvaccinated: Negative (<=0.7 AI) Rubella IgG Antibody Index 1.9 06/06/2022 1:01 PM CDT [facility] Blood (Blood, Venous) 06/05/2022 2:29 PM CDT 06/06/2022 10:54 AM CDT Ventura Pineda M.D. LAB MICROBIOLOG Y - BLOOD ORDERABLES Performing Organization Address [facility]/ZIP Co de Phone Number [facility] [address] [place] [address], [facility] in [address] [address] * HIV-1/-2 Ag and Ab Scrn, Plasma [...] 2:29 PM CDT 06/06/2022 10:54 AM CDT Ventura Pineda M.D. LAB MICROBIOLOG Y - BLOOD ORDERABLES [facility] [address] [place] [address], [facility] [place] [address] * CBC with Differential, Blood (06/05/2022 2:29 [...] 2:29 PM CDT 06/05/2022 2:30 PM CDT Ventura Pineda M.D. LAB BLOOD ADD-O N [facility] [address] [place] [address], [facility] FB60 [facility] [place] [address] [place] [address] * ABORh, RBC (06/05/2022 2:29 PM CDT) ABO Group O 06/06/2022 9:2 3 AM CDT [facility] Rh Type POS 06/06/2022 9:2 3 AM CDT [facility] Blood (Blood, Venous) 06/05/2022 2:29 PM CDT 06/05/2022 9:20 PM CDT Ventura Pineda M.D. LAB BLOOD BANK TEST ORDERABLES Performing Organization Address City/[facility]/ZIP Co de Phone Number [address] [address], [facility] - [address] [address] * Antibody Screen, RBC (with reflex Antibody ID) (06/05/2022 2:29 PM CDT) Antibody Screen NEG 9:23 AM CDT [facility] Blood (Blood, Venous) 06/05/2022 2:29 PM CDT 06/05/2022 9:20 PM CDT Ventura Pineda M.D. LAB BLOOD BANK TEST ORDERABLES Performing Organization Address [facility] Co de Phone Number [facility] [address] [place] [address], [facility] - [address] [address] documented in this encounter Visit Diagnoses Diagnosis Examination Test With Positive Result (HCC)- Primary Threatened (HCC) Depression Major Scoliosis History Of Uterine Scar From Previous Surgery Deficiency Vitamin D Examination Test With Positive Result (HCC) documented in this encounter Additional Health Concerns Assessment Noted Time PHQ-9 Depression Total Score: 4 05/15/19 10:39 AM FILL MANAGER documented as of this encounter Care Teams Road Design Draftsperson Relationship Specialty Start Date End Date Tyrel Reyes M.D. [address] [place] [address] [place] [address] PCP - General Family Medicine 05/14/22 documented as of this encounter
--- OUTSIDE RECORDS SUMMARY | 2023-04-23 16:24 | XMS_ITS | Encounter Summary ---
Author Name Unknown Organization [facility] Address [address] [place] [address] Care Team Providers Care Hydrogen Power Plant Manager Name Role Phone Tyrel Reyes M.D. Primary Care Provider Encounter Details Date Type Department Care Team (Late st Contact Info) Description 05/14/2022 Clinical Communication Department of Family Medicine, [facility], in [place], [place] [address] [place] [phone] Tyrel Reyes M.D. [address] [place] [phone] Social History Tobacco Use Types Packs/Day Years Used Date Smoking Tobacco: Former Cigarettes Q uit: 01/2017 Smokeless Tobacco: Former Alcohol Use Standard Drinks/Week Comments No 0 [...] Recorded Dental: Regular Dentist Unknown 05/05/19 21 Sex and Gender Information Value Date Recorded Sex Assigned at Female 08/30/2021 5:50 PM CDT Gender Identity Female 08/30/2021 5:50 PM CDT Sexual Orientation Not on file documented as of this encounter Plan of Treatment Not on file documented as of this encounter Visit Diagnoses Not on filedocumented in this encounter Additional Health Concerns Assessment Noted Time PHQ-9 Depression Total Score: 3 05/29/19 18 3:23 PM CDT documented as of this encounter Care Teams Hydrogen Power Plant Manager Relationship Specialty Start Date End Date Tyrel Reyes M.D. [address] [place], [place] [address] [address] PCP - General Family Medicine 05/14/22 documented as of this encounter
--- OUTSIDE RECORDS SUMMARY | 2023-04-23 16:24 | XMS_ITS | Encounter Summary ---
Author Name Unknown Organization [facility] Address [address] [place] [address] Care Team Providers Care Insights Analyst Name Role Phone Tyrel Reyes M.D. Primary Care Provider Reason for Visit * Reason Onset Date Comments Vag Bleed 05/22/2022 Encounter Details Date Type Department Care Team (Late st Contact Info) Description 05/22/2022 Nurse Triage Department of Family Medicine, [facility], in [address] [phone] Anabel Green, R.N. Vag Bleed Social History Tobacco Use Types Packs/Day Years [...] encounter Miscellaneous Notes * Telephone Encounter - Anabel Green RJax. - 05/22/2022 10:15 AM RASCHEL KNITTING MACHINE OPERATOR Chief Complaint / Reason for Call Patient is a 22 y.o. female calling regarding Vag Bleed . Assessment Concern: Increased vaginal bleeding with very small clots Present for: 22 hours of bleeding Home cares tried: went to the ED and was advised to schedule a follow-up appointment Calling to request: appointment The recommended disposition is See a health care provider within 3 days. Patient was warm transferred toHiginio Patient Appointment Telephone Information Supervisor at the clinic for further assistance. Reason for Disposition MILD vaginal bleeding (i.e., less than 1 pad / hour; less than patient's usual menstrual bleeding; not just spotting) Protocols used: - Vaginal Bleeding Less Than 20 Weeks [id number] Care Advice Patient/Caregiver understands and will follow care advice?: Yes, able to teach back SEE PCP WITHIN 3 DAYS: GENERAL RECOMMENDATIONS: * No intercourse until next seen by your PCP. * Avoid heavy lifting or strenuous labor. * No douching. * Do not use tampons. Use a vaginal pad (sanitary pad). CALL BACK IF: * Severe abdomen pain or constant pain lasting over 1 hour * Vaginal bleeding worsens * Pass any tissue * You become worse HEL KNITTING MACHINE OPERATOR documented in this encounter Plan of Treatment Not on file documented as of this encounter Visit Diagnoses Not on filedocumented in this encounter Additional Health Concerns Assessment Noted Time PHQ-9 Depression Total Score: 4 05/15/19 10:39 AM RASCHEL KNITTING MACHINE OPERATOR documented as of this encounter Care Teams Insights Analyst Relationship Specialty Start Date End Date Tyrel Reyes M.D. [address] [place] [phone] PCP - General Family Medicine 05/14/22 documented as of this encounter
--- OUTSIDE RECORDS SUMMARY | 2023-04-23 16:24 | XMS_ITS | Encounter Summary ---
Author Name Unknown Organization [facility] Address [address] [place] [address] Care Team Providers Care International Relations Professor Name Role Phone Tyrel Reyes M.D. Primary Care Provider [phone] Encounter Details Date Type Department Care Team (Latest Contact Info) Description 06/05/2022 2:12 PM CDT - 06/05/2022 11:59 PM CDT Hospital Encounter Department of Laboratory Medicine in [place] [address] [place] [address] Silva Peterson M.D. [address] [place] [phone] Examination Test With Positive Result (HCC) Discharge [...] of this encounter Visit Diagnoses Diagnosis Examination Test With Positive Result (HCC) documented in this encounter Additional Health Concerns Assessment Noted Time PHQ-9 Depression Total Score: 4 05/15/19 23 10:39 AM PEANUT SALTER documented as of this encounter Care Teams International Relations Professor Relationship Specialty Start Date End Date Tyrel Reyes M.D. [address] [place] [phone] PCP - General Family Medicine 05/14/22 documented as of this encounter
--- OUTSIDE RECORDS SUMMARY | 2023-04-23 16:24 | XMS_ITS | Encounter Summary ---
Author Name Unknown Organization [facility] Address [address] [place] [address] Care Team Providers Care Supervisor Case Loading Name Role Phone Tyrel Reyes M.D. Primary Care Provider Reason for Visit * Reason Comments Problem Encounter Details Date Type Department Care Team (Late st Contact Info) Description 05/21/2022 6:46 PM ACCREDITATION MANAGER - 05/21/2022 8:55 PM ACCREDITATION MANAGER Emergency [facility] [address] [place] [address] Pain Abdominal With (Primary Dx) Discharge Disposition: Home or Self [...] 4000MG ACETAMINOPHEN PER 24 HOURS 0 11/19/2017 ferrous sulfate 325 mg (65 mg iron) tablet Take 65 mg of iron by mouth daily with breakfast. 3 11/19/2017 12/12/2022 PNV NO.95/FERROUS FUM/FOLIC AC ( MULTIVITAMINS ORAL) Take by mouth. 0 2022 documented as of this encounter Plan of Treatment Not on file documented as of this encounter Procedures Procedure Name Priority Date/Time Associated Diagnosis Comments US OB TRANSVAGINAL RAD - Semiurgent (Fast; most ED patients; some inpatients) 05/21/2022 8:10 PM ACCREDITATION MANAGER documented in this encounter Results * US OB Transvaginal (05/21/2022 8:10 PM ACCREDITATION MANAGER) Anatomical Region Laterality Modality Pelvis, Ultrasound OB RST LOS, Ultrasound ARZ LO S N/A Ultrasound 05/21/2022 11:1 3 PM ACCREDITATION MANAGER Impressions 05/21/2022 11:22 PM ACCREDITATION MANAGER 1. ??Intrauterine with a yolk sac but no embryo or cardiac activity yet seen. Consider follow-up ultrasound in 11-14 days. 2. ??Small hypoechoic collection adjacent to the gestational sac, which is most suspicious for a subchorionic hemorrhage. vRad: ??Findings concordant with preliminary vRad report. Narrative 05/21/2022 11:22 PM ACCREDITATION MANAGER EXAM: US OB TRANSVAGINAL COMPARISON: Ultrasound 11/11/2017 TECHNIQUE: Transvaginal Only FINDINGS: Number of Gestations: Single Gestational age and TIKI by LMP or OB/EHR assignment: 4 w 0 d, TIKI: 01/28/2023 INTRAUTERINE Pole: Not seen Gestational Sac: Normal position and morphology of the gestational sac. Yolk Sac: Normal Placenta Location: Too Early to ID Uterus: There is a thin marginal hypoechoic collection adjacent to the gestational sac, measuring 2 x 10 x 8 mm, most suspicious for a small subchorionic hemorrhage. Right Ovary/Adnexa: Thick walled centrally hypoechoic structure centered in the right ovary with marginal increased vascularity demonstrated on color Doppler, most consistent with a corpus luteum. Right ovarian volume measures 9.9 mL. Left Ovary/Adnexa: Normal. Left ovarian volume measures 3.9 mL. Cervical Length: Subjectively normal by Transabd evaluation only Intraperitoneal Fluid: None. Procedure Note Suad Conn M.D. - 05/21/2022 EXAM: US OB TRANSVAGINAL COMPARISON: Ultrasound 11/11/2017 TECHNIQUE: Transvaginal Only FINDINGS: Number of Gestations: Single Gestational age and TIKI by LMP or OB/EHR assignment: 4 w 0 d, TIKI:01/28/2023 INTRAUTERINE Pole: Not seen Gestational Sac: Normal position and morphology of the gestational sac. Yolk Sac: Normal Placenta Location: Too Early to ID Uterus: There is a thin marginal hypoechoic collection adjacent to thegestational sac, measuring 2 x 10 x 8 mm, most suspicious for a small subchorionic hemorrhage. Right Ovary/Adnexa: Thick walled centrally hypoechoic structure centeredin the right ovary with marginal increased vascularity demonstrated on color Doppler, mostconsistent with a corpus luteum. Right ovarian volume measures 9.9 mL. Left Ovary/Adnexa: Normal. Left ovarian volume measures 3.9 mL. Cervical Length: Subjectively normal by Transabd evaluation only Intraperitoneal Fluid: None. IMPRESSION: 1. Intrauterine with a yolk sac but no embryo or cardiacactivity yet seen. Consider follow-up ultrasound in 11-14 days. 2. Small hypoechoic collection adjacent to the gestational sac, which ismost suspicious for a subchorionic hemorrhage. vRad: Findings concordant with preliminary vRad report. Wesley Tuttle M.D. IMG OB US PROCEDURES documented in this encounter Visit Diagnoses Diagnosis Pain Abdominal With - Primary documented in this encounter Additional Health Concerns Assessment Noted Time PHQ-9 Depression Total Score: 4 05/15/19 23 10:39 AM ACCREDITATION MANAGER documented as of this encounter Care Teams Supervisor Case Loading Relationship Specialty Start Date End Date Tyrel Reyes M.D. [address] [place] [phone] PCP - General Family Medicine 05/14/22 documented as of this encounter
--- OUTSIDE RECORDS SUMMARY | 2023-04-23 16:24 | XMS_ITS | Encounter Summary ---
Author Name Unknown Organization [facility] Address [address] [place] [address] Care Team Providers Care Field Staff Manager Name Role Phone Tyrel Reyes M.D. Primary Care Provider [phone] Encounter Details Date Type Department Care Team (Late st Contact Info) Description 06/05/2022 Clinical Communication Department of Obstetrics and Gynecology in [place], [place] [address] [place] [phone] Silva Peterson M.D. [address] [place] [phone] Social History Tobacco Use Types Packs/Day Years [...] Depression Total Score: 4 05/15/19 10:39 AM RIGGING ENGINEER documented as of this encounter Care Teams Field Staff Manager Relationship Specialty Start Date End Date Tyrel Reyes M.D. [address] [place] [phone] PCP - General Family Medicine 05/14/22 documented as of this encounter
--- OUTSIDE RECORDS SUMMARY | 2023-04-23 16:24 | XMS_ITS | Encounter Summary ---
Author Name Unknown Organization [facility] Address [address] [place] [address] Care Team Providers Care Drapery Estimator Name Role Phone Tyrel Reyes M.D. Primary Care Provider Encounter Details Date Type Department Care Team (Latest Contact Info) Description 05/24/2022 3:05 PM PERL DEVELOPER Silent Schedule Department of Obstetrics and Gynecology in [place], [place] [address] [place] [address] Regis Greenwood Jr., M.D. [address] [place] [phone] Bleeding Vaginal Less Than 22 Week (HCC) Social History Tobacco Use Types Packs/Day [...] Diagnosis Comments US OB TRANSVAGINAL RAD - Routine (most inpatients and all outpatients) 05/24/2022 3:23 PM PERL DEVELOPER Bleeding Vaginal Less Than 22 Week (HCC) documented in this encounter Results * US OB Transvaginal (05/24/2022 3:23 PM PERL DEVELOPER) Anatomical Region Laterality Modality Pelvis, Ultrasound OB RST LOS, Ultrasound ARZ LO S N/A Ultrasound 05/24/2022 3:28 PM PERL DEVELOPER Impressions 05/24/2022 3:29 PM PERL DEVELOPER Pick List or free text intrauterine without definitive pole noted. Previous Section is noted. ??Small amount of free fluid noted next 2 IUP. ??Probable right corpus luteum. ??Recommend follow-up in 1-2 weeks. Narrative 05/24/2022 3:29 PM PERL DEVELOPER EXAM: US OB TRANSVAGINAL COMPARISON: None TECHNIQUE: Transvaginal Only FINDINGS: Number of Gestations: Single Gestational age and TIKI by LMP or OB/EHR assignment: 4 w 3 d, TIKI: 01/28/2023 INTRAUTERINE Pole: Not seen, [place]-Rump Length: Gestational Sac: Normal Yolk Sac: Normal Placenta Location: Too Early to ID Age and TIKI by current ultrasound measurements: 6 w 0 d, TIKI: 01/17/2023. heart rate: Uterus: No unexpected findings. Right Ovary/Adnexa: Corpus luteum. Left Ovary/Adnexa: Normal. Cervical Length: Normal, greater than 2.5cm TV Intraperitoneal Fluid: None. Procedure Note Regis Greenwood Jr., M.D. - 05/24/2022 EXAM: US OB TRANSVAGINAL COMPARISON: None TECHNIQUE: Transvaginal Only FINDINGS: Number of Gestations: Single Gestational age and TIKI by LMP or OB/EHR assignment: 4 w 3 d, TIKI:01/28/2023 INTRAUTERINE Pole: Not seen, [place] Length: Gestational Sac: Normal Yolk Sac: Normal Placenta Location: Too Early to ID Age and TIKI by current ultrasound measurements: 6 w 0 d, TIKI: 01/17/2023. heart rate: Uterus: No unexpected findings. Right Ovary/Adnexa: Corpus luteum. Left Ovary/Adnexa: Normal. Cervical Length: Normal, greater than 2.5cm TV Intraperitoneal Fluid: None. IMPRESSION: Pick List or free text intrauterine without definitive fetalpole noted. Previous Section is noted. Small amount of free fluid noted next2 IUP. Probable right corpus luteum. Recommend follow-up in 1-2 weeks. Regis Greenwood Jr., M.D. IMG OB US PROC EDURES documented in this encounter Visit Diagnoses Diagnosis Bleeding Vaginal Less Than 22 Week (HCC) documented in this encounter Additional Health Concerns Assessment Noted Time PHQ-9 Depression Total Score: 4 05/15/19 23 10:39 AM PERL DEVELOPER documented as of this encounter Care Teams Drapery Estimator Relationship Specialty Start Date End Date Tyrel Reyes M.D. [address] [place] [phone] PCP - General Family Medicine 05/14/22 documented as of this encounter
--- OUTSIDE RECORDS SUMMARY | 2023-04-23 16:24 | XMS_ITS | Encounter Summary ---
Author Name Unknown Organization [facility] Address [address] [place] [address] Care Team Providers Care Drinking Water Technician Name Role Phone Tyrel Reyes M.D. Primary Care Provider Reason for Visit * Reason Comments Initial Visit Bleeding with pos itive test * Appointment Request (Routine) - Closed Specialty Diagnoses / Procedures Referred By Rebel t Referred To Contact Obstetrics and Gynecology Referral ID Status Reason Start Date Expiration Date Visits Re quested Visits Authorized [id number] Closed 05/24/2022 05/24/2023 1 Encounter Details Date Type Department Care Team (Latest Contact Info) Description 05/24/2022 5:00 PM DIRECTOR OF REHABILITATIVE SERVICES Initial Department of Obstetrics and Gynecology in [address] [phone] Regis Greenwood Jr., M.D. [address] [place] [phone] GA: 5w3d Discharge Disposition: Home or Self Care Social [...] Sign Reading Time Taken Comments Blood Pressure 100/50 05/24/2022 2:59 PM DIRECTOR OF REHABILITATIVE SERVICES Pulse - - Temperature - - Respiratory Rate - - Oxygen Saturation - - Inhaled Oxygen Concentration - - Weight 67.8 kg (149 lb 7.6 oz) 05/24/2022 2:59 P M DIRECTOR OF REHABILITATIVE SERVICES Height - - Body Mass Index 28.22 11/27/2017 1:37 PM CDT documented in this encounter Progress Notes * Regis Greenwood Jr., M.D. - 05/24/2022 5:00 PM CST SUBJECTIVE Follow-up from an emergency department. Was seen on 05/21 with a quantitative HCG over 3000 and an intrauterine with probable subchorionic hemorrhage noted on ultrasound. She is having minimal spotting at this time and otherwise generally feels well. PHYSICAL EXAM GEN: NAD Lower Extremities: NT, no edema DIAGNOSTICS Ultrasound consistent with a gestational sac of 6 weeks. Intrauterine without definitive pole. Yolk sac is seen. ASSESSMENT / PLAN Miguel George is a 22 y.o. female at 4w3d who presents for OBFU. #1 Bleeding Vaginal Less Than 22 Week (HCC) Overview: Irregular menstruation. Ultrasound on 05/24/2022 shows positive gestational sac with a yolk sac. Nodefinitive pole is seen. What appears to be a small hemorrhagic right corpus luteum is noted.Minimal free pelvic fluid. Gestational sac size consistent with 6 weeks. Threatened miscarriage warnings given. Patient will follow-up in 2 weeks. Orders: - US OB Transvaginal; Future; Expected date: 05/24/2022 Follow up: 2 weeks earlier if needed. CTOR OF REHABILITATIVE SERVICES documented in this encounter Plan of Treatment Not on file documented as of this encounter Results * US OB Transvaginal (05/24/2022 3:23 PM DIRECTOR OF REHABILITATIVE SERVICES) Anatomical Region Laterality Modality Pelvis, Ultrasound OB RST LOS, Ultrasound ARZ LO S N/A Ultrasound 05/24/2022 3:28 PM DIRECTOR OF REHABILITATIVE SERVICES Impressions 05/24/2022 3:29 PM DIRECTOR OF REHABILITATIVE SERVICES Pick List or free text intrauterine without definitive pole noted. Previous Section is noted. ??Small amount of free fluid noted next 2 IUP. ??Probable right corpus luteum. ??Recommend follow-up in 1-2 weeks. Narrative 05/24/2022 3:29 PM DIRECTOR OF REHABILITATIVE SERVICES EXAM: US OB TRANSVAGINAL COMPARISON: None TECHNIQUE: Transvaginal Only FINDINGS: Number of Gestations: Single Gestational age and TIKI by LMP or OB/EHR assignment: 4 w 3 d, TIKI: 01/28/2023 INTRAUTERINE Pole: Not seen, [place]-Rump Length: Gestational Sac: Normal Yolk Sac: Normal [...] 3 d, TIKI:01/28/2023 INTRAUTERINE Pole: Not seen, [place]-Rump Length: Gestational Sac: Normal Yolk Sac: Normal [...] in 1-2 weeks. Regis Greenwood Jr., M.D. [facility] [place] OB US PROC EDURES documented in this encounter Visit Diagnoses Diagnosis Bleeding Vaginal Less Than 22 Week (HCC)- Primary Bleeding Vaginal Less Than 22 Week (HCC) documented in this encounter Additional Health Concerns Assessment Noted Time PHQ-9 Depression Total Score: 4 05/15/19 23 10:39 AM DIRECTOR OF REHABILITATIVE SERVICES documented as of this encounter Care Teams Drinking Water Technician Relationship Specialty Start Date End Date Tyrel Reyes M.D. [address] [place] [phone] PCP - General Family Medicine 05/14/22 documented as of this encounter
--- OUTSIDE RECORDS SUMMARY | 2023-04-23 16:24 | XMS_ITS | Encounter Summary ---
Author Name Unknown Organization [facility] Address [address] [place] [address] Care Team Providers Care Salon Supervisor Name Role Phone Tyrel Reyes M.D. Primary Care Provider Encounter Details Date Type Department Care Team (Latest Contact Info) Description 06/05/2022 1:15 PM CDT Silent Schedule Department of Obstetrics and Gynecology in [place], [place] [address] [place] [phone] Silva Peterson M.D. [address] [place] [phone] Examination Test With Positive Result (HCC) Discharge [...] Priority Date/Time Associated Diagnosis Comments US OB FIRST TRIMESTER RAD - Routine (most inpatients and all outpatients) 06/05/2022 1:48 PM CDT Examination Test With Positive Result (HCC) documented in this encounter Results * US OB First [...] 1 d, TIKI: 01/28/2023 INTRAUTERINE Pole: Normal, [place]-Rump Length: 10.1 mm ??There is indistinct tissue [...] w 1 d, TIKI:01/28/2023 INTRAUTERINE Pole: Normal, [place]-Rump Length: 10.1 mm There is indistinct tissuenear [...] activity. Silva Peterson M.D. IMG OB US DC HUNTER documented in this encounter Visit Diagnoses Diagnosis Examination Test With Positive Result (HCC) documented in this encounter Additional Health Concerns Assessment Noted Time PHQ-9 Depression Total Score: 4 05/15/19 23 10:39 AM SAND CARRIER documented as of this encounter Care Teams Salon Supervisor Relationship Specialty Start Date End Date Tyrel Reyes M.D. [address] [place] [phone] PCP - General Family Medicine 05/14/22 documented as of this encounter
--- OUTSIDE RECORDS SUMMARY | 2023-04-23 16:24 | XMS_ITS | Encounter Summary ---
Author Name Unknown Organization [facility] Address [address] [place] [address] Care Team Providers Care Field Technical Specialist Name Role Phone Tyrel Reyes M.D. Primary Care Provider [phone] Reason for Visit * Appointment Request (Routine) - Closed Specialty Diagnoses / Procedures Referred By Rebel armstrong Referred To Contact Family Medicine Referral ID Status Reason Start Date Expiration Date Visits Re quested Visits Authorized [id number] Closed 05/22/2022 05/22/2023 1 1 Encounter Details Date Type Department Care Team (Late st Contact Info) Description 05/24/2022 3:00 PM SCREEN CUTTER AND TRIMMER Office Visit Department of Family Medicine, [facility], in [place], [place] [address] [place] [address] Tyrel Reyes M.D. [address] [place] [phone] Examination Normal First First Trimester (HCC) (Primary Dx) Social History Tobacco [...] as of this encounter Progress Notes * Tyrel Reyes M.D. - 05/24/2022 3:00 PM CST Scheduled with OBGYN documented in this encounter Plan of Treatment Not on file documented as of this encounter Visit Diagnoses Diagnosis Examination Normal First First Trimester (HCC)- Primary documented in this encounter Additional Health Concerns Assessment Noted Time PHQ-9 Depression Total Score: 4 05/15/19 23 10:39 AM SCREEN CUTTER AND TRIMMER documented as of this encounter Care Teams Field Technical Specialist Relationship Specialty Start Date End Date Tyrel Reyes M.D. [address] [place] [phone] PCP - General Family Medicine 05/14/22 documented as of this encounter
--- NOTE | 2023-04-23 16:35 | ED.NURSE ---
Patient not in waiting room when called back for rooming in ED.
--- NOTE | 2023-04-23 16:39 | W.ED.CHARTNO ---
ED Chart Note Chart Note Details Date: 04/23/23 Details: Patient left without being seen by a provider
== END 2023-04-23 16:36 | disposition left against medical advice (07) ==
PROVIDERS: Emergency Provider Student in an Organized Health Care Education/Training Program
DX: Z53.21 Procedure and treatment not carried out due to patient leaving prior to being seen by health care provider (principal)

== ENCOUNTER 2024-02-09 16:42 | Emergency (ER) | payer MEDICAID, SELFPAY ==
[2024-02-09 16:44] VITALS: BP 115/74; PULSE 76; RESP 16; TEMP 36.1; O2SAT 99; BMI 31.9
--- NOTE | 2024-02-09 17:15 | ED_ITS ---
HPI - Abdominal Pain General Date Seen: 02/09/24 Chief Complaint: Abdominal Pain Stated Complaint: R side abd pain Time Seen by Provider: 02/09/24 16:51 Source: patient Mode of arrival: ambulatory Limitations: no limitations History of Present Illness HPI narrative: Patient is a 23-year-old female presenting for right lower quadrant abdominal pain. Symptoms have been going on for the past 2 weeks but usually she states symptoms were either for what 10 seconds acutely then go away. The symptoms occurred earlier sharp in nature. This time she had this sharp pain again but lasted for 3 minutes so she came in to be evaluated. Also states she is late on her menstrual period. She is usually very regular and is concerned she could be . Denies ever having pain like this before. No history of kidney stones. Does have some mostly right lower quadrant pain but also some suprapubic and pelvic pain on palpation. Has not noticed any vaginal discharge or bleeding. Denies dysuria. Has been eating and drinking without issue. Denies constipation, diarrhea, nausea/vomiting, chest pain, shortness of breath, lightheadedness, dizziness. Related Data Home Medications ?Medication ?Instructions ?Recorded ?Confirmed medroxyprogesterone 150 mg/mL 150 mg IM [id number] 04/30/23 04/30/23 intramuscular suspension (Depo-Provera) Allergies Allergy/AdvReac Type Severity Reaction Status Date / Time No Known Drug Allergies Allergy Verified 02/09/24 16:49 Review of Systems Status of ROS Reports: 10 or more systems reviewed and unremarkable except as noted in History and below PFSH PFS Surgical History History of section ?Z98.891 - History of uterine scar from previous surgery (ICD-10) Social History Smoking Status: Former smoker Do you use any of these nicotine containing products: Vaping Products Second hand tobacco smoke exposure: No How often do you have a drink containing alcohol: monthly or less How many standard drinks containing alcohol do you have on a typical day: 1 or 2 AUDIT-C Alcohol total score: 1 Non-prescribed substance use: denies use service: No Exam Narrative: Exam Narrative: Const: Well-nourished, Well-developed, in mild distress Eyes: PERRL, no conjunctival injection, and symmetrical lids HENT: Atraumatic external nose and ears. Moist mucous membranes. Neck: Symmetric, trachea midline, No thyromegaly. CVS: RRR, No murmurs or gallops. Peripheral pulses 2+ and equal in all extremities RESP: Unlabored respiratory effort. Clear to auscultation bilaterally. GI: Right lower quadrant tenderness around McBurney's point, suprapubic tenderness, Nondistended, No rebound or guarding. Has some midline pelvic tenderness but no tenderness to the right or left pelvic region MSK:Extremities w/o deformity, Normal Active ROM Skin: Warm, Dry. No rashes or lesions. Neuro: Normal Muscle tone, No focal neurological deficits. Psych: Awake, Alert, & Oriented x3. Appropriate mood and affect. Const: Vital Signs, click to edit/add: Vital Signs - 24 hr 02/09/24 16:44 02/09/24 18:00 Temperature 97 F L Pulse Rate [Pulse Oximeter] 76 77 Respiratory Rate 16 16 Blood Pressure [Ri t Upper Arm] 115/74 102/46 L Pulse Oximetry 99 98 Oxygen Delivery Me thod Room Air Room Air Course Vital Signs Vital signs: Initial Vital Signs Temperature 97 F L 02/09/24 16:44 Temperature Source Temporal Artery Scan 02/09/24 16:44 Pulse Rate 76 02/09/24 16:44 Respiratory Rate 16 02/09/24 16:44 Blood Pressure 115/74 02/09/24 16:44 Blood Pressure Mean 87 02/09/24 16:44 Blood Pressure Position Sitting 02/09/24 16:44 Pulse Oximetry 99 02/09/24 16:44 Oxygen Delivery Method Room Air 02/09/24 16:44 Vital Signs Temperature 97 F L 02/09/24 16:44 Pulse Rate 76 02/09/24 16:44 Respiratory Rate 16 02/09/24 16:44 Blood Pressure 115/74 02/09/24 16:44 Pulse Oximetry 99 02/09/24 16:44 Oxygen Delivery Method Room Air 02/09/24 16:44 Temperature 97 F L 02/09/24 16:44 Pulse Rate 77 02/09/24 18:00 Respiratory Rate 16 02/09/24 18:00 Blood Pressure 102/46 L 02/09/24 18:00 Pulse Oximetry 98 02/09/24 18:00 Oxygen Delivery Method Room Air 02/09/24 18:00 MDM - Abdominal Pain MDM Narrative Medical decision making narrative: Patient is a 23-year-old female presenting to emergency department for right lower quadrant pain. My initial concern was appendicitis due to the location although other location the symptoms she was describing does not sound like appendicitis. She is also concerned she is so will hold off on any imaging until test returns. Will also do a CBC, urinalysis, CMP. test is positive. Due to this there is some concern for ectopic . Will order an transvaginal ultrasound. Quantitative hCG was ordered. Came back at the 3353. CBC and CMP showed no concerning abnormalities. Urinalysis shows no signs of UTI. Ultrasound shows a intrauterine gestational sac without definitive evidence of viability. Considering age this is likely due to being too early to establish viability. I spoke to the patient about the results. Spoke to her about concern for appendicitis. I explained that there is theoretical concern for fetus abnormalities caused by CT of the abdomen. Did inform her that this has not been improving yet. I explained to her that her symptoms are not consistent with appendicitis other than location. Spoke to her and if she would want to CT scanner not at this time she declined. Also spoke to her about possible transfer for MRI and she declined this also. I find this all reasonable as this does not appear to be consistent with a appendicitis episode. I did inform her that if symptoms return we do have MRI available during the day on weekdays. She is agreeable to this plan. Lab Data Labs: Lab Results 02/09/24 02/09/24 02/09/24 Range/Units 17:15 17:25 17:30 WBC 9.34 (4.50-11.00) K/uL RBC 5.36 H (4.00-5.20) m/uL Hgb 13.1 (12.0-16.0) gm/dL Hct 41.9 (33.0-51.0) % MCV 78 L (80-100) fL MCH 24 L (26-34) pg MCHC 31 L (32-36) gm/dL RDW Coeff of Lorenzo 14.6 (11.5-15.5) % Plt Count 332 (140-440) K/uL Neut % (Auto) 59.5 (42.0-72.0) % Lymph % (Auto) 31.7 (20-44) % [place] % (Auto) 7.5 (0.0-11.0) % Eos % (Auto) 0.9 (0.0-7.0) % Baso % (Auto) 0.2 (0.0-3.0) % Neut # (Auto) 5.56 (1.7-7.0) K/uL Lymph # (Auto) 2.96 H (0.90-2.90) K/uL [place] # (Auto) 0.70 (0.00-0.90) K/UL Eos # (Auto) 0.08 (0.00-0.50) K/uL Baso # (Auto) 0.02 (0.00-0.30) K/uL Abs Immat Gran (auto) 0.02 (0.00-0.30) K/uL Imm/Tot Granulo (auto) 0.2 % Sodium 138 (135-149) mmol/L Potassium 3.9 (3.6-5.1) mmol/L Chloride 104 (96-114) mmol/L Carbon Dioxide 23 (20-32) mmol/L Anion Gap 11 (7-15) mEq/L BUN 9 (5-24) mg/dL Creatinine 0.6 (0.5-1.5) mg/dL Estimated Creat Clear 118.57 Estimated GFR 128 ml/min Glucose 101 (60-115) mg/dL Calcium 9.3 (8.4-10.6) mg/dL Total Bilirubin 0.6 (0.1-1.5) mg/dL AST 52 H (12-35) U/L ALT 116 H (4-35) U/L Alkaline Phosphatase 112 (40-150) U/L Total Protein 8.2 (6.0-8.3) g/dL Albumin 4.9 (3.3-5.0) g/dL HCG, Quant 3353.70 mIU/mL Urine Color Yellow (Yellow) Urine Appearance Clear (Clear) Urine pH 6.5 (5.0-8.5) Ur Specific [employer] 1.025 (1.000-1.030) Urine Protein Negative (Negative) Urine Glucose (UA) Negative (Negative) Urine Ketones Negative (Negative) Urine Blood Negative (Negative) Urine Nitrite Negative (Negative) Urine Bilirubin Negative (Negative) Urine Urobilinogen 0.2 (0.2-1.0) Ur Leukocyte Esterase Negative (Negative) Urine RBC 0-2 (0-2) Urine WBC 0-2 (0-5) Ur Squamous Epith Cells Moderate A (None-Few) Urine Bacteria None (None) Urine HCG, Qual POSITIVE H (Negative) Lab Acknowledgement Test Added Imaging Data Transvaginal ultrasound: Attestation: I have reviewed the pertinent imaging results. Radiologist's impression: Intrauterine gestational sac identified without definite evidence of viability at this time. It may be too early for viability to be established sonographically. Recommend continued obstetric evaluation, serial beta HCG and repeat pelvic ultrasound in 10-14 days. Dictated by Rosalio Peters MD @ 02/09/2024 7:27:30 PM Discharge Plan Discharge Clinical Impression: Abdominal pain Qualifiers: Abdominal location: right lower quadrant Qualified Code(s): R10.31 - Right lower quadrant pain Instructions: Abdominal Pain in (ED) Additional Instructions: At this time if symptoms do not seem consistent with appendicitis but if they do persist you could return for re-evaluation. You may need an MRI at that time. Will be left up to the provider's discretion at that time. MRI is available at this location week days during business hours. Return for any other new or concerning symptoms. Prescriptions: No Action medroxyprogesterone [Depo-Provera] 150 mg/mL suspension 150 mg IM [id number] Follow Up/Referrals: Provider,Not a Local [Primary Care Provider] - Stand Alone Forms: MyHealth Info Instructions
--- OUTSIDE RECORDS SUMMARY | 2024-02-09 17:21 | XMS_ITS | Clinical Summary ---
Author Organization [facility] Address [place], [place] [address] Care Team Providers Care Division Director Name Role Phone Stella Cid DO Unavailable [phone] Gretchen Summers RN, COAL TRAM DRIVER Unavailable Jesús Díaz MD Primary Care Provider + Allergies No known active allergies Medications Medication Sig Dispensed Refills Start Date End Date Status Breast Pump - PurchaseIndicatio ns: delivery delivered Electric breast pump for home use. Gestation age at delivery: 52 weeks. Reason for need: breastpumping. Length of need: 12 months 1 Device 11/17/2017 Active acetaminophen (TYLENOL EXTRA STRGTH) 500 [...] 3200 mg in 24 hours. 60 Tablet 01/15/2023 Active oxyCODONE (ROXICODONE) 5 mg immediate release tabletIndications : delivery delivered Take 1 Tablet (5 mg) by mouth every 4 hours if needed for Pain. 10 Tablet 01/15/2023 Active sennosides (SENNA) 8.6 mg tabletIndications : delivery delivered Take 1-2 Tablets (8.6-17.2 mg) by mouth 2 times daily if needed for Constipation. 60 Tablet 01/15/2023 Active vit 28/iron fum/folic (multivitamin folic acid 1 mg)Indications:Ce sarean delivery delivered Take 1 Tablet by mouth once daily. 100 Tablet 01/15/2023 Active Breast Pump PurchaseIndicatio ns: delivery delivered Electric breast pump for home use. Gestational age at delivery: 38 weeks. Reason for need: assist with breast feeding. Length of need: 99 months (lifetime use) 1 Each 01/15/2023 Active ferrous sulfate, 65 mg elemental, tabletIndications : delivery delivered Take 1 Tablet (325 mg) by mouth once daily with a meal. 100 Tablet 01/15/2023 Active Active Problems Problem Noted Date Diagnosed Date delivery delivered 11/16/2017 Depression 06/08/2014 Depression 05/23/2014 Suicidal ideation 05/23/2014 Vitamin D deficiency 07/11/2012 Immunizations Name Administration Dates Next Due Influenza, IIV4 01/15/2023 MENINGOCOCCAL VACCINE 2 VIAL [id number] (MENVEO) 0 04/19/2011 Tdap 04/19/2011 Varicella Vaccine 11/12/2011 Family [...] file 01/13/2023 Food Insecurity Answer Date Recorded Do you worry your food will run out before you are able to buy more? 1 01/13/2023 Transportation Needs Answer Date Record ed Lack of Transportation (Medical) 1 01/13/2023 Housing Stability Answer Date Recorded What is your housing situation today? 1 01/13/2023 Sex and Gender Information Value Date Recorded Sex Assigned at Not on file Gender Identity Not on file Sexual Orientation Not on file Obstetrics History Para Term AB IAB SAB Ectopic Multiple Livin g Live Births 2 2 2 0 0 0 0 0 0 2 2 Date Outcome GA Total Labor Labor/2nd/3rd Weight Sex Type Anes PTL Pau A1 A5 Name Clin 08/30/ 2018 Term 38w 5d 19h 45m 3.59 kg (7 lb 14.6 oz) F CS-LT ranv Epidur al,Spi nal,Ge neral N Livin g Ayleen zhou Complications:Failure to Pro marck in Second Stage Delivery Location:[place] 3 Comments:Unplanned C-s ection 2022 Term 38w 6d 3.51 kg (7 lb 11.8 oz) M C-Sec tion Spinal Livin g 9 9 CASTIL МАРИНА Foreman,BB Leonard Holden MD Complications:None Delivery Location:Hospital ( [facility] ([place] Last Filed Vital Signs Vital Sign Reading Time Taken Comments Blood Pressure 119/65 01/15/2023 9:00 AM CDT Pulse 80 01/15/2023 9:00 AM CDT Temperature 37 C (98.6 F) 01/15/2023 9:00 AM CDT Respiratory Rate 16 [...] HPV series for age 9-26 (1 - 3-dose series) 2013 BMI (ht and wt on same day) for age 18+ 2016 Hepatitis C screening for ag e 18-79 2016 Depression screening for age 12+ 04/01/2016 04/01/2015 Pap test for age 21-65 2019 Tetanus booster 04/19/2021 04/19/2011 COVID-19 vaccine series (2023- season) 2023 07/07/2020, 06/09/2020 Influenza for age 9-49 11/17/2023 01/15/2023 Tdap Completed 04/19/2011 HIV for age 15-65 Completed 09/11/2013 Pneumococcal series for age 6-64 Aged Out No longer eligible b ased on patient's age to complete this topic Procedures Procedure Name Priority Date/Time Associated Diagnosis Comments ANTI HIV 1/2 Routine 09/11/2013 12:47 PM CDT Screen for STD (sexually transmitted disease) from Last 3 Months or Most Recently Relevant to Health Maintenance Results * ANTI HIV 1/2 (09/11/2013 12:47 PM CDT) HIV-1/HIV-2 ANTIBODY Non-Reacti ve Non-Reacti ve 09/11/2013 8:35 PM CDT [facility] Blood specimen (specimen) BLOOD SPECIMEN / Unknown Venipuncture / Unknown 09/11/2013 12:47 PM CDT 09/11/2013 12:47 PM CDT Narrative [facility] - 09/11/2013 8:35 PM CDT HIV-1 p24 and HIV-1/HIV-2 Ab not detected Dina Sequeira SEND OUTS [facility] [address] [place] [address], [place] from Last 3 Months or Most Recently Relevant to Health Maintenance Advance Directives * Full Code (Latest Code Status on File) Date Activated Date Inactivated Comments 01/13/2023 3:47 AM 01/15/2023 5:00 PM Question Answer Comments Code Status Discussion: Unable to Assess Preferences, Provider to review later * Full Code Date Activated Date Inactivated Comments 11/14/2017 8:32 PM 11/17/2017 1:38 PM Question Answer Comments Code Status Discussion: Discussed * Full Code Date Activated Date Inactivated Comments 05/22/2014 8:38 PM 05/24/2014 7:50 PM Care Teams Division Director Relationship Specialty Start Date End Date Jesús Díaz MD [address] [place] [address] PCP - General Obstetrics and Gynecology 01/14/23 Stella Cid DO Family Practice 05/25/14 Gretchen Summers RN, COAL TRAM DRIVER [address] [place] [address] Nurse Practitioner 08/04/13
[2024-02-09 17:22] LABS: Appearance Urine Clear (Clear); Bilirubin Urine Negative (Negative); Blood Urine Negative (Negative); Color Urine Yellow (Yellow); Glucose Urine Negative (Negative); Ketones Urine Negative (Negative); Leukocyte Esterase Urine Negative (Negative); Nitrite Urine Negative (Negative); Protein Urine Negative (Negative); Specific Gravity Urine 1.025 (1.000-1.030); Ur HCG Qualitative* POSITIVE (Negative); Urobilinogen Urine 0.2 (0.2-1.0); pH Urine 6.5 (5.0-8.5)
--- NOTE | 2024-02-09 17:25 | CRLHL7_ITS ---
For Patients: As a result of the Century Cures Act, medical imaging exams and procedure reports are released immediately into your electronic medical record. You may view this report before your referring provider. If you have questions, please contact your health care provider. INDICATION: Right pelvic pain. TECHNIQUE: Transvaginal limited obstetric ultrasound examination of the pelvis was performed. Grayscale and color Doppler images were obtained. COMPARISON: None. FINDINGS: Uterus: Normal in echotexture. No suspicious masses. Endometrium: No significant endometrial free fluid. Intrauterine gestation: Yes. Mean sac diameter of 6 mm compatible with estimated gestational age of 5 weeks and 2 days. cardiac activity: Not detected. [place]-rump length: Not visualized. Yolk sac: Not visualized. Perigestational hemorrhage: No. Estimated sonographic due date: 10/09/2024. Right Ovary: Measures 2.5 x 2.0 x 2.4 cm. Probable right corpus luteal cyst. Normal arterial and venous flow on color Doppler imaging. Left ovary: Measures 2.8 x 1.5 x 1.6 cm. No suspicious masses. Normal arterial and venous flow on color Doppler imaging. Cul-de-sac: No free fluid. IMPRESSION: Intrauterine gestational sac identified without definite evidence of viability at this time. It may be too early for viability to be established sonographically. Recommend continued obstetric evaluation, serial beta HCG and repeat pelvic ultrasound in 10-14 days. Dictated by Rosalio Peters MD @ 02/09/2024 7:27:30 PM (Electronically Signed)
[2024-02-09 17:35] LABS: RBC Urine 0-2 (0-2); Squamous Epithelial Cell Urine Moderate (None-Few); WBC Urine 0-2 (0-5)
[2024-02-09 17:39] LABS: Basophils Absolute Auto 0.02 K/uL (0.00-0.30); Basophils Percent Auto 0.2 % (0.0-3.0); Eosinophils Absolute Auto 0.08 K/uL (0.00-0.50); Eosinophils Percent Auto 0.9 % (0.0-7.0); Hematocrit 41.9 % (33.0-51.0); Hemoglobin* 13.1 gm/dL (12.0-16.0); Immature Granulocytes Abs Auto 0.02 K/uL (0.00-0.30); Immature Granulocytes Pct Auto 0.2 %; Lymphocytes Absolute Auto 2.96 K/uL (0.90-2.90); Lymphocytes Percent Auto 31.7 % (20-44); Mean Corpuscular HGB Conc 31 gm/dL (32-36); Mean Corpuscular Hemoglobin 24 pg (26-34); Mean Corpuscular Volume 78 fL (80-100); Monocytes Percent Auto 7.5 % (0.0-11.0); Neutrophils Absolute Auto 5.56 K/uL (1.7-7.0); Neutrophils Percent Auto 59.5 % (42.0-72.0); Platelet Count* 332 K/uL (140-440); RDW Coefficient of Variation % 14.6 % (11.5-15.5); Red Blood Count 5.36 m/uL (4.00-5.20); White Blood Count* 9.34 K/uL (4.50-11.00)
[2024-02-09 17:52] LABS: Slide Review Reflex No
[2024-02-09 17:59] LABS: Albumin* 4.9 g/dL (3.3-5.0); Chloride* 104 mmol/L (96-114); Potassium* 3.9 mmol/L (3.6-5.1); Sodium* 138 mmol/L (135-149)
[2024-02-09 18:00] VITALS: BP 102/46; PULSE 77; RESP 16; O2SAT 98
[2024-02-09 18:02] LABS: Alanine Aminotransferase* 116 U/L (4-35); Alkaline Phosphatase* 112 U/L (40-150); Anion Gap 11 mEq/L (7-15); Aspartate Amino Transferase* 52 U/L (12-35); Bilirubin Total* 0.6 mg/dL (0.1-1.5); Blood Urea Nitrogen* 9 mg/dL (5-24); Carbon Dioxide* 23 mmol/L (20-32); Creatinine* 0.6 mg/dL (0.5-1.5); Est. Creatinine Clearance* 118.57; Estimated Glomerular Filt Rate 128 ml/min; Glucose* 101 mg/dL (60-115); Total Protein* 8.2 g/dL (6.0-8.3)
[2024-02-09 18:03] LABS: Calcium* 9.3 mg/dL (8.4-10.6)
[2024-02-09 19:47] VITALS: BP 107/72; PULSE 76; RESP 16
== END 2024-02-09 19:48 | disposition home or self-care (01) ==
PROVIDERS: Emergency Provider Student in an Organized Health Care Education/Training Program
DX: R10.31 Right lower quadrant pain (principal)
CPT/HCPCS: 36415; 76817; 80053; 81001; 81025; 84702; 85025; 99284

== ENCOUNTER 2024-03-29 12:33 | Emergency (ER) | payer MEDICAID, SELFPAY ==
[2024-03-29] VITALS (11 sets, daily range): BP systolic 103–114; BP diastolic 68–81; PULSE 75–81; RESP 16; TEMP 36.2; O2SAT 97–100; BMI 32.2
--- OUTSIDE RECORDS SUMMARY | 2024-03-29 12:35 | XMS_ITS | Clinical Summary ---
Author Organization [facility] [facility] Address [place], [place] [address] Care Team Providers Care Ice Skating Teacher Name Role Phone Stella Cid DO Unavailable Gretchen Summers RN, ANALOG DESIGN ENGINEER Unavailable Jesús Díaz MD Primary Care Provider + Allergies No known active allergies Medications * This document contains information received from the source organization and may not represent a complete record from that organization. Breast Pump - PurchaseIndica tions: delivery delivered Electric breast pump for home use. Gestation age at delivery: 52 weeks. Reason for need: breastpumping. Length of need: 12 months 1 Device 8 Active acetaminophen (TYLENOL EXTRA STRGTH) 500 mg tabletIndicati ons: delivery delivered Take 2 Tablets (1,000 mg) by mouth every 6 hours if needed for Pain. Max acetaminophen dose: 4000mg in 24 hrs. 60 Tablet 1 01/15/2023 4:39 PM CDT 3 Active ibuprofen (ADVIL; MOTRIN) 600 mg tabletIndicati ons: delivery delivered Take 1 Tablet (600 mg) by mouth every 6 hours if needed for Pain. Maximum of 3200 mg in 24 hours. 60 Tablet 01/15/2023 4:39 PM CDT 3 Active oxyCODONE (ROXICODONE) 5 mg immediate release tabletIndicati ons: delivery delivered Take 1 Tablet (5 mg) by mouth every 4 hours if needed for Pain. 10 Tablet 01/15/2023 4:39 PM CDT 3 Active sennosides (SENNA) 8.6 mg tabletIndicati ons: delivery delivered Take 1-2 Tablets (8.6-17.2 mg) by mouth 2 times daily if needed for Constipation. 60 Tablet 01/15/2023 4:39 PM CDT 3 Active vit 28/iron fum/folic (multivitamin folic acid 1 mg)Indications : delivery delivered Take 1 Tablet by mouth once daily. 100 Tablet 01/15/2023 4:39 PM CDT 3 Active Breast Pump PurchaseIndica tions: delivery delivered Electric breast pump for home use. Gestational age at delivery: 38 weeks. Reason for need: assist with breast feeding. Length of need: 99 months (lifetime use) 1 Each 3 Active ferrous sulfate, 65 mg elemental, tabletIndicati ons: delivery delivered Take 1 Tablet (325 mg) by mouth once daily with a meal. 100 Tablet 01/15/2023 4:39 PM CDT 3 Active Active Problems Problem Noted Date Diagnosed [...] is your housing situation today? 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 Not on file Not on file Not on file Obstetrics History Para Term AB IAB SAB Ectopic Multiple Livin g Live Births 2 2 2 0 0 0 0 0 0 2 2 Date Outcome GA Total Labor Labor/2nd/3rd Weight Sex Type Anes PTL Pau A1 A5 Name Clin 2017 Term 38w 5d 19h 45m 3.59 kg (7 lb 14.6 oz) F CS-LT ranv Epidur al,Spi nal,Ge neral N Livin g Ayleen zhou Complications:Failure to Pro marck in Second Stage Delivery Location:[place] 3 Comments:Unplanned C-s ection 2022 Term 38w 6d 3.51 kg (7 lb 11.8 oz) M C-Sec tion Spinal Livin g 9 9 CASTIL МАРИНА Foreman,BB MIGUEL Franco , Leonard roberts MD Complications:None Delivery Location:Hospital ( [facility] ([place])) Last Filed Vital [...] 15-65 Completed 09/11/2013 Pneumococcal series for age 6-49 Aged Out No longer eligible b ased [...] ve Non-Reacti ve 09/11/2013 8:35 PM CDT [facility] Blood specimen (specimen) BLOOD SPECIMEN / Unknown Venipuncture / Unknown 09/11/2013 12:47 PM CDT 09/11/2013 12:47 PM CDT Narrative [facility] - 09/11/2013 8:35 PM CDT HIV-1 p24 and HIV-1/HIV-2 Ab not detected us Dina Sequeira SEND OUTS Final R esult [facility] [address] [place] [address], [place] from Last 3 Months or Most Recently Relevant to Health Maintenance [place] [address] [place] [address] [place] [id number] Advance Directives * Full Code (Latest Code [...] 8:38 PM 05/24/2014 7:50 PM Care Teams Ice Skating Teacher Relationship Specialty Start Date End Date Jesús Díaz MD [address] [place] [address] PCP - General Obstetrics and Gynecology 01/14/23 Stella Cid DO Family Practice 05/25/14 Gretchen Summers RN, ANALOG DESIGN ENGINEER [address] [place] [address] Nurse Practitioner 08/04/13
--- OUTSIDE RECORDS SUMMARY | 2024-03-29 12:35 | XMS_ITS | Continuity of Care Document ---
Author Name [email or web address] Address Unknown Organization Unknown Address Unknown Procedures FILTER APPLIED:Only known Procedures with Onset Date within the last 5 years Procedure Date Procedure Provider Additional Inform ation Status NON-STRESS TEST (55219) Completed OFFICE O/P EST LOW 20 MIN (14522) Completed MICROSCOPIC EXAM OF URINE (00931) Completed URINALYSIS AUTO W/O SCOPE (58649) Completed Encounters FILTER APPLIED:Only known Encounters with Admission Date within the last 5 years Encounter Location Admission Discharge Billing Code [facility]
--- NOTE | 2024-03-29 12:47 | ED.PREGNANCY ---
HPI - General Time Seen by Provider: 12:47 Date Seen: 03/29/24 Chief complaint: Vaginal Bleeding Stated complaint: 11 weeks -bleeding today Time Seen by Provider: 03/29/24 12:47 Source: patient and RN notes reviewed Mode of arrival: ambulatory Limitations: no limitations History of Present Illness HPI Narrative: Patient is a very pleasant 24-year-old female at approximately 12 weeks +3 days based on ultrasound who comes to the emergency room for evaluation regarding vaginal bleeding. Patient notes having some back pain at last evening and the start of dark red vaginal bleeding this morning. She has a headache with this but no cough symptoms fever chills runny nose. She denies being lightheaded or feeling like she is going to faint. She thinks she has a blood type of O-positive. She has not yet established with an OB here. Previous pregnancies were seen in [place] but she would like to switch to [place]. Patient is otherwise healthy. No large clots or any discharge with the exception of the blood. Related Data Allergies Allergy/AdvReac Type Severity Reaction Status Date / Time No Known Drug Allergies Allergy Verified 03/29/24 12:46 Review of Systems Status of ROS: Reports: 10 or more systems reviewed and unremarkable except as noted in History and below [facility] Surgical History History of section ?Z98.891 - History of uterine scar from previous surgery (ICD-10) Social History Smoking Status: Former smoker Do you use any of these nicotine containing products: Vaping Products Second hand tobacco smoke exposure: No How often do you have a drink containing alcohol: never How many standard drinks containing alcohol do you have on a typical day: 1 or 2 AUDIT-C Alcohol total score: 0 Non-prescribed substance use: denies use service: No Exam Narrative: Exam Narrative: Alert and oriented. Nontoxic in appearance. External ears eyes nose clear. Neck is supple. Heart with regular rate and rhythm and lungs are clear bilaterally. Abdomen is soft nontender. Patient had just changed her pad and she does have some dark red areas on the pad. She shows me a picture of her pad from earlier which showed 2 larger areas approximately Kaden's size of dark red maroonish blood. Lower extremities without edema. Const: Vital Signs, click to edit/add: Vital Signs - 24 hr 03/29/24 12:39 03/29/24 13:39 03/29/24 13:42 Temperature 97.1 F L Pulse Rate 79 78 Pulse Rate [Right Pulse Oximeter] 81 Respiratory Rate 16 Blood Pressure 113/77 Blood Pressure [Ri ght Upper Arm] 112/73 Pulse Oximetry 97 97 97 Oxygen Delivery Me thod Room Air 03/29/24 13:45 03/29/24 14:00 03/29/24 14:01 Temperature Pulse Rate 76 76 77 Pulse Rate [Right Pulse Oximeter] Respiratory Rate Blood Pressure 110/69 Blood Pressure [Ri ght Upper Arm] Pulse Oximetry 97 98 97 Oxygen Delivery Me thod 03/29/24 14:15 03/29/24 14:21 03/29/24 14:30 Temperature Pulse Rate 76 79 75 Pulse Rate [Right Pulse Oximeter] Respiratory Rate Blood Pressure 103/81 Blood Pressure [Ri ght Upper Arm] Pulse Oximetry 97 98 97 Oxygen Delivery Me thod 03/29/24 14:51 03/29/24 14:52 Temperature Pulse Rate 80 76 Pulse Rate [Right Pulse Oximeter] Respiratory Rate Blood Pressure 114/68 Blood Pressure [Ri ght Upper Arm] Pulse Oximetry 99 100 Oxygen Delivery Me thod Documenting provider has reviewed patient's vital signs: yes Course Course ED Course: At this time differential diagnosis includes threatened , miscarriage. Will have our information technology program manager assist us in evaluation with pelvic ultrasound. Will also check hCG, CBC and comprehensive panel. Given her headache will also check for COVID flu and RSV. An IV will be established. Reevaluation(s) Reevaluation #1: Patient noted to have a normal white count, hemoglobin, potassium and creatinine. HCG was 74,000 993. Negative for COVID influenza and RSV. She is O-positive blood type Vital Signs Vital signs: Initial Vital Signs Temperature 97.1 F L 03/29/24 12:39 Temperature Source Temporal Artery Scan 03/29/24 12:39 Pulse Rate 81 03/29/24 12:39 Respiratory Rate 16 03/29/24 12:39 Blood Pressure 112/73 03/29/24 12:39 Blood Pressure Mean 86 03/29/24 12:39 Blood Pressure Position Sitting 03/29/24 12:39 Pulse Oximetry 97 03/29/24 12:39 Oxygen Delivery Method Room Air 03/29/24 12:39 Vital Signs Temperature 97.1 F L 03/29/24 12:39 Pulse Rate 81 03/29/24 12:39 Respiratory Rate 16 03/29/24 12:39 Blood Pressure 112/73 03/29/24 12:39 Pulse Oximetry 97 03/29/24 12:39 Oxygen Delivery Method Room Air 03/29/24 12:39 Temperature 97.1 F L 03/29/24 12:39 Pulse Rate 76 03/29/24 14:52 Respiratory Rate 16 03/29/24 12:39 Blood Pressure 114/68 03/29/24 14:52 Pulse Oximetry 100 03/29/24 14:52 Oxygen Delivery Method Room Air 03/29/24 12:39 MDM - OB/Uterine Contractions MDM Narrative Medical decision making narrative: 1. Subchorionic hemorrhage-vaginal bleeding started today. Patient appears to be hemodynamically stable with no evidence of tachycardia or hypotension. Intrauterine noted with heart tones of 159 and a moderate subchorionic hemorrhage. We did ensure that she is Rh positive and indeed she is. Patient will be discharged home. Suggest resting for the next 24 hours and follow-up with OBGYN for a recheck. Of course for worsening symptoms return to the emergency room for further evaluation. I did tell patient that many times this sort of bleeding stabilizes but I cannot promise that this might end up as a miscarriage. We will have to watch and wait to see what happens. 2. Disposition-home at this time. No work over the next 48 hours-note is given. Given headache we did do a COVID and influenza swab and these are negative. Medical Records Attestation: I reviewed the patient's medical records. Lab Data Attestation: I reviewed the patient's lab results. Labs: Lab Results 03/29/24 Range/Units 13:05 WBC 8.86 (4.50-11.00) K/uL RBC 5.20 (4.00-5.20) m/uL Hgb 12.5 (12.0-16.0) gm/dL Hct 39.0 (33.0-51.0) % MCV 75 L (80-100) fL MCH 24 L (26-34) pg MCHC 32 (32-36) gm/dL RDW Coeff of Lorenzo 13.7 (11.5-15.5) % Plt Count 304 (140-440) K/uL Neut % (Auto) 56.0 (42.0-72.0) % Lymph % (Auto) 33.5 (20-44) % Bennett % (Auto) 9.5 (0.0-11.0) % Eos % (Auto) 0.6 (0.0-7.0) % Baso % (Auto) 0.3 (0.0-3.0) % Neut # (Auto) 4.96 (1.7-7.0) K/uL Lymph # (Auto) 2.97 H (0.90-2.90) K/uL Bennett # (Auto) 0.80 (0.00-0.90) K/UL Eos # (Auto) 0.05 (0.00-0.50) K/uL Baso # (Auto) 0.03 (0.00-0.30) K/uL Abs Immat Gran (auto) 0.01 (0.00-0.30) K/uL Imm/Tot Granulo (auto) 0.1 % Sodium 137 (135-149) mmol/L Potassium 3.9 (3.6-5.1) mmol/L Chloride 108 (96-114) mmol/L Carbon Dioxide 19 L (20-32) mmol/L Anion Gap 10 (7-15) mEq/L BUN 4 L (5-24) mg/dL Creatinine 0.4 L (0.5-1.5) mg/dL Estimated Creat Clear 176.30 Estimated GFR 140 ml/min Glucose 85 (60-115) mg/dL Calcium 8.7 (8.4-10.6) mg/dL Total Bilirubin 0.6 (0.1-1.5) mg/dL AST 35 (12-35) U/L ALT 62 H (4-35) U/L Alkaline Phosphatase 86 (40-150) U/L Total Protein 7.5 (6.0-8.3) g/dL Albumin 4.4 (3.3-5.0) g/dL HCG, Quant 97488.00 mIU/mL SARS-CoV-2 (PCR) Negative SARS-CoV-2 (Negative) Influenza Type A (PCR) Negative PCR FLU A (Negative) Influenza Type B (PCR) Negative PCR FLU B (Negative) RSV (PCR) Negative PCR RSV (Negative) Blood Type O Positive Imaging Data US - abdomen: Attestation: I have reviewed the pertinent imaging results. Discharge Plan Discharge Clinical Impression: Vaginal bleeding Patient Disposition: Home, Self-Care Condition: Unchanged Instructions: Abnormal (Dysfunctional) Uterine Bleeding (ED) Additional Instructions: Follow-up with clinic of your choice for recheck. They may also want to redo the ultrasound, recheck blood or may just decide to monitor you. Return to the emergency room for increased bleeding, increased abdominal pain and as needed. Note for work for no work tonight or tomorrow night. Follow Up/Referrals: Provider,Not a Local [Primary Care Provider] - Stand Alone Forms: [employer] Info Instructions
--- NOTE | 2024-03-29 12:55 | CRLHL7_ITS ---
For Patients: As a result of the Cures Act, medical imaging exams and procedure reports are released immediately into your electronic medical record. You may view this report before your referring provider. If you have questions, please contact your health care provider. INDICATION: Bleeding in TECHNIQUE: Ultrasound OB pelvis transabdominal. Real-time king-scale imaging of the pelvis was performed. COMPARISON: None FINDINGS: Sonographic imaging demonstrates a single living intrauterine gestation. The embryo demonstrates a regular cardiac rate measuring 159 beats per minute. The embryo`s crown rump length measurement of 5.6 cm corresponds to a gestational age of 12 weeks 2 days with a sonographic due date of October 09, 2024. There is a normal appearing yolk sac. There are no gross abnormalities noted within the embryo at this early state of development. The placenta has not yet developed. There is moderate perigestational hemorrhage along the inferior gestational sac measuring 10.5 x 1.2 x 5.7 centimeters. The ovaries are not visualized. There are no suspicious fluid collections noted in the cul-de-sac. IMPRESSION: 1. Demonstration of a single live intrauterine gestation measuring 12 weeks 2 days by ultrasound measurements with a moderate subchorionic hemorrhage along the inferior gestational sac measuring up to 10.5 x 5.7 centimeters in greatest dimensions. Dictated by Bryan Hartmann MD @ 03/29/2024 2:40:49 PM (Electronically Signed)
[2024-03-29 13:14] LABS: Basophils Absolute Auto 0.03 K/uL (0.00-0.30); Basophils Percent Auto 0.3 % (0.0-3.0); Eosinophils Absolute Auto 0.05 K/uL (0.00-0.50); Eosinophils Percent Auto 0.6 % (0.0-7.0); Hemoglobin* 12.5 gm/dL (12.0-16.0); Immature Granulocytes Abs Auto 0.01 K/uL (0.00-0.30); Immature Granulocytes Pct Auto 0.1 %; Lymphocytes Absolute Auto 2.97 K/uL (0.90-2.90); Lymphocytes Percent Auto 33.5 % (20-44); Mean Corpuscular HGB Conc 32 gm/dL (32-36); Mean Corpuscular Hemoglobin 24 pg (26-34); Mean Corpuscular Volume 75 fL (80-100); Monocytes Percent Auto 9.5 % (0.0-11.0); Neutrophils Absolute Auto 4.96 K/uL (1.7-7.0); Platelet Count* 304 K/uL (140-440); RDW Coefficient of Variation % 13.7 % (11.5-15.5); White Blood Count* 8.86 K/uL (4.50-11.00)
[2024-03-29 13:29] LABS: Albumin* 4.4 g/dL (3.3-5.0); Chloride* 108 mmol/L (96-114); Potassium* 3.9 mmol/L (3.6-5.1); Sodium* 137 mmol/L (135-149)
[2024-03-29 13:31] LABS: Creatinine* 0.4 mg/dL (0.5-1.5); Estimated Glomerular Filt Rate 140 ml/min
[2024-03-29 13:32] LABS: Alanine Aminotransferase* 62 U/L (4-35); Alkaline Phosphatase* 86 U/L (40-150); Anion Gap 10 mEq/L (7-15); Aspartate Amino Transferase* 35 U/L (12-35); Bilirubin Total* 0.6 mg/dL (0.1-1.5); Blood Urea Nitrogen* 4 mg/dL (5-24); Calcium* 8.7 mg/dL (8.4-10.6); Carbon Dioxide* 19 mmol/L (20-32); Glucose* 85 mg/dL (60-115); Total Protein* 7.5 g/dL (6.0-8.3)
--- OUTSIDE RECORDS SUMMARY | 2024-03-29 13:37 | XMS_ITS | Continuity of Care Document ---
Author Name [facility] User [email or web address] Address Unknown Organization Unknown Address Unknown Procedures FILTER APPLIED:Only known Procedures with Onset Date within the last 5 years Procedure Date Procedure Provider Additional Inform ation Status NON-STRESS TEST (21888) Completed OFFICE O/P EST LOW 20 MIN (36042) Completed MICROSCOPIC EXAM OF URINE (93568) Completed URINALYSIS AUTO W/O SCOPE (16633) Completed Encounters FILTER APPLIED:Only known Encounters with Admission Date within the last 5 years Encounter Location Admission Discharge Billing Code Tellers Supervisor [facility]
--- OUTSIDE RECORDS SUMMARY | 2024-03-29 13:37 | XMS_ITS | Clinical Summary ---
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 Gender Identity Not on file Sexual Orientation [...] Leonard roberts MD Complications:None Delivery Location:Hospital ( [facility] ([facility] Last Filed Vital Signs [...] ve Non-Reacti ve 09/11/2013 8:35 PM CDT [facility] Blood specimen (specimen) BLOOD SPECIMEN / Unknown Venipuncture / Unknown 09/11/2013 12:47 PM CDT 09/11/2013 12:47 PM CDT Narrative [facility] - 09/11/2013 8:35 PM CDT HIV-1 p24 and HIV-1/HIV-2 Ab not detected us Dina Sequeira SEND OUTS Final R esult [facility] [address] [place] [address], [place] from Last 3 Months or Most Recently Relevant to Health Maintenance [place] [address] [place] [address] [address] [place] [id number] Advance Directives * Full Code (Latest Code [...] 8:38 PM 05/24/2014 7:50 PM Care Teams Storage Facility Housekeeper Relationship Specialty Start Date End Date Jesús Díaz MD [address] [place] [address] PCP - General Obstetrics and Gynecology 01/14/23 Stella Cid DO Family Practice 05/25/14 Gretchen Summers RN, RACE ENGINE BUILDER [address] [place] [address] Nurse Practitioner 08/04/13
[2024-03-29 13:43] LABS: Slide Review Reflex No
[2024-03-29 14:05] LABS: PCR FLU A Negative PCR FLU A (Negative); PCR FLU B Negative PCR FLU B (Negative); PCR RSV Negative PCR RSV (Negative); SARS PCR* Negative SARS-CoV-2 (Negative)
== END 2024-03-29 15:26 | disposition home or self-care (01) ==
PROVIDERS: Emergency Provider Family Medicine
DX: O20.9 Hemorrhage in early pregnancy, unspecified (principal); Z3A.11 11 weeks gestation of pregnancy
CPT/HCPCS: 36415; 76801; 80053; 84702; 85025; 86900; 86901; 87631; 99284

== ENCOUNTER 2024-03-31 13:53 | Outpatient (CLI) | payer MEDICAID, SELFPAY ==
--- NOTE | 2024-03-31 14:00 | CRLHL7_ITS ---
For Patients: As a result of the Cures Act, medical imaging exams and procedure reports are released immediately into your electronic medical record. You may view this report before your referring provider. If you have questions, please contact your health care provider. INDICATION: F/U [employer] and RAMEZ COMPARISON: 03/29/2024 TECHNIQUE: Real-time king-scale imaging of the pelvis was performed. FINDINGS: Sonographic imaging demonstrates a single living intrauterine gestation. The embryo demonstrates a regular cardiac rate measuring 164 beats per minute. The embryo`s crown-rump length measurement of 5.9 cm corresponds to a gestational age of 12 weeks 3 days with a sonographic due date of 10/10/2024. Subchorionic hemorrhage inferior to the gestational sac measures 3.4 x 1.2 x 1.6 cm. Curvilinear subchorionic hemorrhage also present on the right measures 3.8 x 4.1 x 1 cm. IMPRESSION: Single living intrauterine with sonographic gestational age 12 weeks 3 days and sonographic due date of 10/10/2024. Subchorionic hemorrhages detailed above. Dictated by Stephen Baker MD @ 04/01/2024 12:52:52 PM (Electronically Signed)
== END 2024-03-31 13:54 | disposition home or self-care (01) ==
LOC: US 13:54
PROVIDERS: Visit Provider Physician Assistant
DX: O20.9 Hemorrhage in early pregnancy, unspecified (principal); Z3A.12 12 weeks gestation of pregnancy
CPT/HCPCS: 76816

== ENCOUNTER 2024-03-31 15:39 | Outpatient (CLI) | payer MEDICAID, SELFPAY ==
[2024-03-31 18:56] LABS: Chlamydia DNA Amplified* NOT DETECTED (No Detected); GC DNA Amplified* NOT DETECTED (No Detected)
== END 2024-03-31 15:40 | disposition home or self-care (01) ==
PROVIDERS: Visit Provider Physician Assistant
DX: Z36.89 Encounter for other specified antenatal screening (principal); O20.9 Hemorrhage in early pregnancy, unspecified; Z3A.12 12 weeks gestation of pregnancy
CPT/HCPCS: 83020; 83021; 85660; 86592; 86703; 86704; 86706; 86762; 86787; 86803; 86850; 86900; 86901; 87086; 87340; 87491; 87591

== ENCOUNTER 2024-05-11 17:32 | Emergency (ER) | payer MEDICAID, SELFPAY ==
[2024-05-11 18:10] VITALS: BP 110/69; PULSE 78; RESP 18; TEMP 36.4; O2SAT 99; BMI 32.6
[2024-05-11 18:28] LABS: Appearance Urine Clear (Clear); Bilirubin Urine Negative (Negative); Blood Urine Negative (Negative); Color Urine Yellow (Yellow); Glucose Urine Negative (Negative); Ketones Urine Negative (Negative); Leukocyte Esterase Urine Negative (Negative); Nitrite Urine Negative (Negative); Protein Urine Negative (Negative); Specific Gravity Urine >= 1.030 (1.000-1.030)
[2024-05-11 18:38] LABS: Bacteria Urine Few; RBC Urine 0-2 (0-2); Squamous Epithelial Cell Urine Few (None-Few); WBC Urine 0-2 (0-5)
[2024-05-11 19:01] VITALS: BP 116/70; PULSE 86; RESP 16; O2SAT 99
--- NOTE | 2024-05-11 19:07 | CRLHL7_ITS ---
For Patients: As a result of the Century Cures Act, medical imaging exams and procedure reports are released immediately into your electronic medical record. You may view this report before your referring provider. If you have questions, please contact your health care provider. INDICATION: Pelvic/right flank pain. COMPARISON: None. TECHNIQUE: Grayscale and color Doppler images were acquired of the kidneys and urinary bladder. FINDINGS: Right kidney: Measures 11.9 cm in length. Normal cortical thickness and echogenicity. No hydronephrosis, calculus, or mass. Left kidney: Measures 11.5 cm in length. Normal cortical thickness and echogenicity. No hydronephrosis, calculus, or mass. Bladder: The prevoid bladder volume measures 48 cc. Postvoid residual measures 4 cc. There is bladder wall thickening. Color Doppler images demonstrate presence of both ureteral jets. Other: The visualized liver demonstrates increased parenchymal echogenicity relative to the right kidney suggesting hepatic steatosis. IMPRESSION: 1. Normal sonographic appearance of the kidneys. No hydronephrosis. 2. Bladder wall thickening could be due to underdistention, however correlation with urinalysis is recommended. 3. Incidentally noted hepatic steatosis. Dictated by Paola Michele MD @ 05/11/2024 9:21:57 PM (Electronically Signed)
--- NOTE | 2024-05-11 19:07 | CRLHL7_ITS ---
For Patients: As a result of the Century Cures Act, medical imaging exams and procedure reports are released immediately into your electronic medical record. You may view this report before your referring provider. If you have questions, please contact your health care provider. INDICATION: Pelvic/right flank pain. COMPARISON: OB ultrasound 03/31/2024. TECHNIQUE: Ultrasound OB pelvis with real time king scale imaging and color Doppler analysis. FINDINGS: Sonographic imaging demonstrates a single living intrauterine gestation. The fetus has a regular cardiac rate of 152 beats per minute. The fetus has a breech orientation. Amniotic fluid volume appears normal with deepest pocket measuring 5.1 cm. The cervix is closed and measures 3.2 cm in length. The placenta lies anteriorly without evidence of placenta previa. There is a 7.5 x 1.0 x 1.9 cm preplacental hemorrhage along the side of the placenta which is new since prior exam. There is a persistent subchorionic hemorrhage along the inferior aspect of the placenta which measures 3.1 x 1.4 x 4.3 cm today compared to 3.4 x 1.2 x 1.6 cm previously. The maternal right ovary measures 3.2 x 1.3 x 1.9 cm and contains a corpus luteal cyst. The maternal left ovary measures 2.4 x 1.5 x 2.1 cm. Blood flow is visualized within both ovaries. IMPRESSION: 1. Single living intrauterine gestation in breech position with heart rate 152 beats per minute. 2. New moderate to large preplacental hemorrhage measuring 7.5 x 1.0 x 1.9 cm. No retroplacental fluid collections. 3. Slightly increased size of the subchorionic hemorrhage along the inferior aspect of the placenta. Dictated by Paola Michele MD @ 05/11/2024 9:17:53 PM (Electronically Signed)
--- OUTSIDE RECORDS SUMMARY | 2024-05-11 19:13 | XMS_ITS | Clinical Summary ---
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 Gender Identity Not on file Sexual Orientation [...] Leonard roberts MD Complications:None Delivery Location:Hospital ( [facility] ([facility])) Last Filed Vital [...] Tetanus booster 04/19/2021 04/19/2011 COVID-19 vaccine series ( season) 2023 07/07/2020, 06/09/2020 Influenza for age [...] ve Non-Reacti ve 09/11/2013 8:35 PM CDT [facility] Blood specimen (specimen) BLOOD SPECIMEN / Unknown Venipuncture / Unknown 09/11/2013 12:47 PM CDT 09/11/2013 12:47 PM CDT Narrative [facility] - 09/11/2013 8:35 PM CDT HIV-1 p24 and HIV-1/HIV-2 Ab not detected us Dina Sequeira SEND OUTS Final R esult [facility] [address] [place] [address], [place] from Last 3 Months or Most Recently Relevant to Health Maintenance [place] [address] [place] [address] [place] [id number] Advance Directives * Full Code (Latest Code [...] 8:38 PM 05/24/2014 7:50 PM Care Teams Electronic Security Technician Relationship Specialty Start Date End Date Jesús Díaz MD [address] [place] [address] PCP - General Obstetrics and Gynecology 01/14/23 Stella Cid DO Family Practice 05/25/14 Gretchen Summers, RN, LOOM CHECKER [address] [place] [address] Nurse Practitioner 08/04/13
[2024-05-11 19:20] LABS: Basophils Absolute Auto 0.02 K/uL (0.00-0.30); Basophils Percent Auto 0.2 % (0.0-3.0); Eosinophils Absolute Auto 0.06 K/uL (0.00-0.50); Eosinophils Percent Auto 0.6 % (0.0-7.0); Hematocrit 34.7 % (33.0-51.0); Hemoglobin* 10.8 gm/dL (12.0-16.0); Immature Granulocytes Abs Auto 0.03 K/uL (0.00-0.30); Immature Granulocytes Pct Auto 0.3 %; Lymphocytes Percent Auto 27.9 % (20-44); Mean Corpuscular HGB Conc 31 gm/dL (32-36); Mean Corpuscular Hemoglobin 24 pg (26-34); Mean Corpuscular Volume 78 fL (80-100); Monocytes Percent Auto 7.6 % (0.0-11.0); Neutrophils Percent Auto 63.4 % (42.0-72.0); Platelet Count* 291 K/uL (140-440); RDW Coefficient of Variation % 14.6 % (11.5-15.5); Red Blood Count 4.45 m/uL (4.00-5.20); White Blood Count* 9.32 K/uL (4.50-11.00)
[2024-05-11 19:27] LABS: Slide Review Reflex No
[2024-05-11 19:33] LABS: Albumin* 4.1 g/dL (3.3-5.0); Chloride* 104 mmol/L (96-114); Potassium* 3.6 mmol/L (3.6-5.1); Sodium* 136 mmol/L (135-149)
[2024-05-11 19:35] LABS: Creatinine* 0.4 mg/dL (0.5-1.5); Estimated Glomerular Filt Rate 140 ml/min
[2024-05-11 19:36] LABS: Alanine Aminotransferase* 50 U/L (4-35); Alkaline Phosphatase* 81 U/L (40-150); Anion Gap 9 mEq/L (7-15); Aspartate Amino Transferase* 30 U/L (12-35); Bilirubin Total* 0.6 mg/dL (0.1-1.5); Blood Urea Nitrogen* 7 mg/dL (5-24); Calcium* 9.1 mg/dL (8.4-10.6); Carbon Dioxide* 23 mmol/L (20-32); Glucose* 85 mg/dL (60-115); Total Protein* 6.9 g/dL (6.0-8.3)
[2024-05-11 21:15] VITALS: BP 121/70; PULSE 89; RESP 16; TEMP 36.4; O2SAT 99
--- NOTE | 2024-05-11 21:56 | CRLHL7_ITS ---
For Patients: As a result of the Century Cures Act, medical imaging exams and procedure reports are released immediately into your electronic medical record. You may view this report before your referring provider. If you have questions, please contact your health care provider. INDICATION: Abdominal pain. TECHNIQUE: Multiplanar CT examination of the abdomen and pelvis was performed after the administration of 90 mL Isovue 370 intravenous contrast. COMPARISON: None. FINDINGS: Lower chest: No focal consolidation. Normal heart size. No pleural effusions or pneumothorax. Subsegmental atelectasis. Small hiatal hernia. Liver: Severe diffuse hepatic steatosis. Gallbladder: Unremarkable. Biliary: Unremarkable. Pancreas: Within normal limits. Spleen: Unremarkable. Adrenal glands: Unremarkable. Renal/ureters/bladder: Normal in size and symmetrically enhancing. No obstructive uropathy. No hydronephrosis or obstructive urinary calculi. No suspicious renal masses. The ureters appear unremarkable. The bladder is within normal limits. Pelvis: Gravid uterus. No adnexal masses. Gastrointestinal: Questionable wall thickening and hyperenhancement involving several loops of nondistended, fluid-filled small bowel in the right lower quadrant. No bowel obstruction. Normal appendix. No significant colonic diverticulosis. Mild colonic stool burden. Vasculature: No aortic aneurysm. The portal vein remains patent. No significant atherosclerotic calcifications. Lymph nodes: No pathologic lymphadenopathy by size criteria. Peritoneum: No free fluid or pneumoperitoneum. No drainable fluid collections. Abdominal wall/soft tissues: Unremarkable. Bones: No acute osseous abnormalities. IMPRESSION: 1. Questionable wall hyper enhancement and thickening involving several loops of nondistended, fluid-filled small bowel in the right lower quadrant, raising the possibility of a nonspecific infectious versus inflammatory enteritis. No bowel obstruction. 2. Otherwise, no acute abdominal pelvic pathology. The etiology of the patient`s abdominal pain is not elucidated on this examination. 3. Severe diffuse hepatic steatosis. Please note that all CT scans at this facility use dose modulation, iterative reconstruction, and/or weight-based dosing when appropriate to reduce radiation dose to as low as reasonably achievable. Dictated by Rosalio Peters MD @ 05/11/2024 11:30:19 PM (Electronically Signed)
--- NOTE | 2024-05-11 22:29 | ED_ITS ---
HPI - Abdominal Pain General Date Seen: 05/11/24 Chief Complaint: Abdominal Pain Stated Complaint: 18 weeks , R side pain Time Seen by Provider: 05/11/24 18:59 Source: patient Mode of arrival: ambulatory Limitations: no limitations History of Present Illness HPI narrative: Patient is a 24-year-old female presenting for right-sided abdominal pain. She is currently 18 weeks with a viable intrauterine seen on previous ultrasound. The pain is mostly in the right mid to lower abdomen. No pain in the right upper abdomen. He teared states she states this pain is been going on for the past week. Has had before but usually it stops he after a day or 2. Has spoken to her OB provider about it and they thought it was pains from the . Patient is concerned gets that is relatively severe she states and is not getting better. She states she has been diagnosed with subchorionic hemorrhages and was previously having vaginal bleeding but that has since stopped. Has not had any vaginal bleeding in the past few weeks. Denies fevers, chills, chest pain, shortness of breath, lightheadedness, dizziness, weakness, numbness, vaginal discharge, dysuria. No history of abdominal surgeries. She is also having some mild right flank pain that seems to start in the low back and radiates up to the kidney. Has not had the symptoms before. Related Data Home Medications ?Medication ?Instructions ?Recorded ?Confirmed acetaminophen 500 mg tablet 1,000 mg PO Q6H PRN 04/28/24 04/28/24 (Tylenol Extra Strength) docosahexaenoic acid 200 mg mg PO 04/28/24 04/28/24 capsule ( DHA) Allergies Allergy/AdvReac Type Severity Reaction Status Date / Time No Known Drug Allergies Allergy Verified 05/11/24 22:32 Review of Systems Status of ROS Reports: 10 or more systems reviewed and unremarkable except as noted in History and below [facility] Medical History No significant past medical history Surgical History History of section ?Z98.891 - History of uterine scar from previous surgery (ICD-10) Social History Narrative: Occupation: []. Marital status: singke. Moravian/cultural needs: no. Chemical or radiation exposure: no. Pre- tobacco use: no. Pre- alcohol use: no. Current tobacco use: no. Current alcohol use: no. Recreational drug use: no. Dietary restrictions: no. Blood transfusion acceptable in an emergency: yes. PSYCHOSOCIAL HISTORY: History of depression or currently depressed: yes, history. Current or past physical, emotional, or sexual mistreatment: Denies. Problems that will make it hard to make it to appointments: Denies. What is your current living situation?: I presently have a place to live Problems where you live: unsafe wanda/stairs and no known problems In the past 12 months, utilities in danger of being shut off: no In past 12 months, lack of transportation kept you from medical appts, meetings, work, or getting things needed for daily living: no In the past 12 mos, have been you worried that your food would run out before you had money to buy more?: sometimes true In the past 12 mos, the food you bought just didn't last and you didn't have money to buy more?: never true Smoking Status: Former smoker Do you use any of these nicotine containing products: Vaping Products Second hand tobacco smoke exposure: No How often do you have a drink containing alcohol: never How many standard drinks containing alcohol do you have on a typical day: 1 or 2 AUDIT-C Alcohol total score: 0 Non-prescribed substance use: denies use How often does anyone, including family, friends and others, physically hurt you : never How often does anyone, including family, friends and others, insult or talk down to you: rarely How often does anyone, including family, friends and others, threaten you with harm: never How often does anyone, including family, friends and others, scream or curse at you: never service: No Health Related Social Needs: Inadequate housing (Z59.1), food insecurity (Z59.41) and Other personal risk factors, not elsewhere classified (Z91.89) Exam Narrative: Exam Narrative: Const: Well-nourished, Well-developed, in mild distress Eyes: PERRL, no conjunctival injection, and symmetrical lids HENT: Atraumatic external nose and ears. Moist mucous membranes. Neck: Symmetric, trachea midline, No thyromegaly. CVS: RRR, No murmurs or gallops. Peripheral pulses 2+ and equal in all extremities RESP: Unlabored respiratory effort. Clear to auscultation bilaterally. GI: Right mid and right lower quadrant abdominal tenderness. No other tenderness noted. Nondistended, No rebound or guarding. MSK:Extremities w/o deformity, Normal Active ROM Skin: Warm, Dry. No rashes or lesions. Neuro: Normal Muscle tone, No focal neurological deficits. Psych: Awake, Alert, & Oriented x3. Appropriate mood and affect. Const: Vital Signs, click to edit/add: Vital Signs - 24 hr 05/11/24 18:10 05/11/24 19:01 05/11/24 21:15 Temperature 97.6 F 97.6 F Pulse Rate [Pulse Oximeter] 78 86 89 Respiratory Rate 18 16 16 Blood Pressure [Ri ght Upper Arm] 110/69 116/70 121/70 Pulse Oximetry 99 99 99 Oxygen Delivery Me thod Room Air Room Air 05/11/24 23:13 Temperature 97.6 F Pulse Rate [Pulse Oximeter] 81 Respiratory Rate 16 Blood Pressure [Ri ght Upper Arm] 118/74 Pulse Oximetry 99 Oxygen Delivery Me thod Room Air Course Vital Signs Vital signs: Initial Vital Signs Temperature 97.6 F 05/11/24 18:10 Temperature Source Temporal Artery Scan 05/11/24 18:10 Pulse Rate 78 05/11/24 18:10 Respiratory Rate 18 05/11/24 18:10 Blood Pressure 110/69 05/11/24 18:10 Blood Pressure Mean 82 05/11/24 18:10 Pulse Oximetry 99 05/11/24 18:10 Vital Signs Temperature 97.6 F 05/11/24 18:10 Pulse Rate 78 05/11/24 18:10 Respiratory Rate 18 05/11/24 18:10 Blood Pressure 110/69 05/11/24 18:10 Pulse Oximetry 99 05/11/24 18:10 Temperature 97.6 F 05/11/24 23:13 Pulse Rate 81 05/11/24 23:13 Respiratory Rate 16 05/11/24 23:13 Blood Pressure 118/74 05/11/24 23:13 Pulse Oximetry 99 05/11/24 23:13 Oxygen Delivery Method Room Air 05/11/24 23:13 MDM - Abdominal Pain MDM Narrative Medical decision making narrative: Patient is a 24-year-old female presenting for abdominal pain and flank pain. Differential is very broad at this time but will start out with a pelvic ultrasound to look for signs of torsion in to evaluate the . Will also ultrasound the right kidney to look for signs of hydronephrosis the could be from a kidney stone. CBC, CMP, urinalysis also ordered. Lab work returned showing no concerning abnormalities. She is slightly anemic. No obvious signs of UTI. Platelets are normal and ALT is only slightly elevated with normal blood pressures. Ultrasounds returned showing a large new pre placental hemorrhage and slightly increase in size of her previous subchorionic hemorrhage renal ultrasound shows no concerning findings. Due to this large 3+ and hemorrhage I did speak to OB on-call and recommendations at this time is follow-up for her 20 week appointment. Informed me that she should return for re-evaluation if she develops worsening pain or vaginal bleeding. Since the patient is having this right-sided abdominal pain I do have concerns still for appendicitis. I did speak to her about the risks versus benefits of a CT scan at this time. I explained that no official studies have been done but it is not been proven to cause any issues especially considering she is into her 2nd trimester. After a long conversation she is agreeable to do the CT scan. CT scan returns some questionable wall hyperenhancement of several loops of nondistended small bowel. This could be causing her symptoms. No signs of appendicitis. She will be discharged Lab Data Labs: Lab Results 05/11/24 05/11/24 Range/Units 18:16 19:10 WBC 9.32 (4.50-11.00) K/uL RBC 4.45 (4.00-5.20) m/uL Hgb 10.8 L (12.0-16.0) gm/dL Hct 34.7 (33.0-51.0) % MCV 78 L (80-100) fL MCH 24 L (26-34) pg MCHC 31 L (32-36) gm/dL RDW Coeff of Lorenzo 14.6 (11.5-15.5) % Plt Count 291 (140-440) K/uL Neut % (Auto) 63.4 (42.0-72.0) % Lymph % (Auto) 27.9 (20-44) % Hubbard % (Auto) 7.6 (0.0-11.0) % Eos % (Auto) 0.6 (0.0-7.0) % Baso % (Auto) 0.2 (0.0-3.0) % Neut # (Auto) 5.90 (1.7-7.0) K/uL Lymph # (Auto) 2.60 (0.90-2.90) K/uL Hubbard # (Auto) 0.70 (0.00-0.90) K/UL Eos # (Auto) 0.06 (0.00-0.50) K/uL Baso # (Auto) 0.02 (0.00-0.30) K/uL Abs Immat Gran (auto) 0.03 (0.00-0.30) K/uL Imm/Tot Granulo (auto) 0.3 % Sodium 136 (135-149) mmol/L Potassium 3.6 (3.6-5.1) mmol/L Chloride 104 (96-114) mmol/L Carbon Dioxide 23 (20-32) mmol/L Anion Gap 9 (7-15) mEq/L BUN 7 (5-24) mg/dL Creatinine 0.4 L (0.5-1.5) mg/dL Estimated Creat Clear 176.30 Estimated GFR 140 ml/min Glucose 85 (60-115) mg/dL Calcium 9.1 (8.4-10.6) mg/dL Total Bilirubin 0.6 (0.1-1.5) mg/dL AST 30 (12-35) U/L ALT 50 H (4-35) U/L Alkaline Phosphatase 81 (40-150) U/L Total Protein 6.9 (6.0-8.3) g/dL Albumin 4.1 (3.3-5.0) g/dL Urine Color Yellow (Yellow) Urine Appearance Clear (Clear) Urine pH 6.0 (5.0-8.5) Ur Specific [place] >= 1.030 (1.000-1.030) Urine Protein Negative (Negative) Urine Glucose (UA) Negative (Negative) Urine Ketones Negative (Negative) Urine Blood Negative (Negative) Urine Nitrite Negative (Negative) Urine Bilirubin Negative (Negative) Urine Urobilinogen 1.0 (0.2-1.0) Ur Leukocyte Esterase Negative (Negative) Urine RBC 0-2 (0-2) Urine WBC 0-2 (0-5) Ur Squamous Epith Cells Few (None-Few) Urine Bacteria Few A (None) Imaging Data Pelvic ultrasound: Attestation: I have reviewed the pertinent imaging results. Radiologist's impression: 1. Single living intrauterine gestation in breech position with heart rate 152 beats per minute. 2. New moderate to large preplacental hemorrhage measuring 7.5 x 1.0 x 1.9 cm. No retroplacental fluid collections. 3. Slightly increased size of the subchorionic hemorrhage along the inferior aspect of the placenta. Dictated by Paola Michele MD @ 05/11/2024 9:17:53 PM Renal ultrasound: Attestation: I have reviewed the pertinent imaging results. Radiologist's impression: 1. Normal sonographic appearance of the kidneys. No hydronephrosis. 2. Bladder wall thickening could be due to underdistention, however correlation with urinalysis is recommended. 3. Incidentally noted hepatic steatosis. Dictated by Paola Michele MD @ 05/11/2024 9:21:[address] scan abdomen and pelvis: Attestation: I have reviewed the pertinent imaging results. Radiologist's impression: 1. Questionable wall hyper enhancement and thickening involving several loops of nondistended, fluid-filled small bowel in the right lower quadrant, raising the possibility of a nonspecific infectious versus inflammatory enteritis. No bowel obstruction. 2. Otherwise, no acute abdominal pelvic pathology. The etiology of the patient`s abdominal pain is not elucidated on this examination. 3. Severe diffuse hepatic steatosis. Please note that all CT scans at this facility use dose modulation, iterative reconstruction, and/or weight-based dosing when appropriate to reduce radiation dose to as low as reasonably achievable. Dictated by Rosalio Peters MD @ 05/11/2024 11:30:19 PM Discharge Plan Discharge Clinical Impression: Abdominal pain affecting , Subchorionic hemorrhage Patient Disposition: Home, Self-Care Condition: Stable Instructions: Abdominal Pain in (ED), Subchorionic Hemorrhage (ED) Additional Instructions: Your pain appears to be from enteritis. This typically viral and will resolve on its own. Take Tylenol for pain. You also have a relatively large subchorionic hemorrhage. If he started feeling lightheaded, dizzy, developed vaginal bleeding, worsening suprapubic abdominal pain return for re-evaluation immediately. At this time you need to follow-up with OB for your 20 week appointment. Prescriptions: No Action acetaminophen [Tylenol Extra Strength] 500 mg tablet 1,000 mg PO Q6H PRN DHA 200 mg capsule PO Follow Up/Referrals: Provider,Not a Local [Primary Care Provider] - Stand Alone Forms: Informaat Info Instructions
[2024-05-11 23:13] VITALS: BP 118/74; PULSE 81; RESP 16; TEMP 36.4; O2SAT 99
[2024-05-11 23:44] VITALS: O2SAT 99
[2024-05-11 23:45] VITALS: BP 118/74; PULSE 81; RESP 16; TEMP 36.4
== END 2024-05-11 23:45 | disposition home or self-care (01) ==
PROVIDERS: Emergency Provider Student in an Organized Health Care Education/Training Program
DX: O46.8X2 Other antepartum hemorrhage, second trimester (principal); O26.892 Other specified pregnancy related conditions, second trimester; R10.9 Unspecified abdominal pain; Z3A.18 18 weeks gestation of pregnancy
CPT/HCPCS: 36415; 74177; 76770; 76815; 80053; 81001; 85025; 87086; 94761; 99284; 99285; Q9967

== ENCOUNTER 2024-05-21 08:06 | Outpatient (CLI) | payer MEDICAID, SELFPAY | END 2024-05-21 08:07 | disposition home or self-care (01) | PROVIDERS: Visit Provider Physician Assistant | DX: O23.42 Unspecified infection of urinary tract in pregnancy, second trimester (principal); N39.0 Urinary tract infection, site not specified; R10.11 Right upper quadrant pain; N89.8 Other specified noninflammatory disorders of vagina; Z3A.20 20 weeks gestation of pregnancy | CPT/HCPCS: 80053; 82150; 83690; 87086 ==

== ENCOUNTER 2024-05-22 14:52 | Outpatient (CLI) | payer MEDICAID, SELFPAY | END 2024-05-22 14:53 | disposition home or self-care (01) | LOC: US 14:53 | PROVIDERS: Visit Provider Physician Assistant | DX: R10.11 Right upper quadrant pain (principal); R16.0 Hepatomegaly, not elsewhere classified; K76.0 Fatty (change of) liver, not elsewhere classified | CPT/HCPCS: 76705 ==

== ENCOUNTER 2024-05-29 13:47 | Outpatient (CLI) | payer MEDICAID, SELFPAY ==
--- NOTE | 2024-05-29 14:00 | CRLHL7_ITS ---
For Patients: As a result of the Century Cures Act, medical imaging exams and procedure reports are released immediately into your electronic medical record. You may view this report before your referring provider. If you have questions, please contact your health care provider. OBSTETRICAL ULTRASOUND ??? ANATOMY SURVEY, 05/29/2024 INDICATION: anatomy survey. TIKI by LMP: 10/10/2024 GESTATIONAL AGE: 20 weeks 6 days TECHNIQUE: Real-time king-scale imaging of the fetus was performed transabdominal. FINDINGS: position: Multiple positions. Cervix: Visualized Technique: Transabdominal Length of closed cervix: 3.9 cm Placenta position: Anterior Technique: Transabdominal Placenta tip to internal os: 6.2 cm Umbilical cord: 3-vessel cord Placental insertion: Central Amniotic fluid: 4.1 cm SDP (greater than/equal to 2 to less than 8 cm) ANATOMY SURVEY: Observed Structures Cerebellum: 2.1 cm, 20 weeks 6 days Cisterna magna: 4.7 mm Nuchal fold: 3.9 mm Lateral ventricle: 6.3 mm CSP: Yes Midline falx: Yes Choroid plexus: Yes Spine: Yes Stomach: Yes Abdominal cord insert: Yes Urinary bladder: Yes Kidneys: Yes Diaphragm: Yes Nose/lips: Yes Orbital view: Yes Profile: Yes Upper extremities: Yes Lower extremities: Yes Hands: Yes Feet: Yes 4-chamber heart: Yes LVOT: Yes RVOT: Yes 3VV: Yes 3VTV: Yes BIOMETRY BPD: 4.9 cm, 20 weeks 5 days, 42.4% HC: 18.9 cm, 21 weeks 1 day, 54.9% AC: 17.0 cm, 22 weeks 0 days, 77.7% FL: 3.4 cm, 20 weeks 4 days, 30.0% FL/AC: 19.81% HC/AC ratio: 1.11 heart rate: 154 bpm age by this ultrasound: 21 weeks 0 days TIKI by this ultrasound: 10/09/2024 Estimated weight: 411.55 grams (0 pounds 15 ounces) Percentile by TIKI: 67.9% IMPRESSION: 1. Concordance of clinical and sonographic dating. 2. Normal anatomic survey. 3. Residual areas of perigestational blood products noted measuring 2.3 x 1.0 x 6.5 cm inferiorly and 6.3 x 1.0 x 4.5 cm superiorly. These are considered incidental. STEPHEN MILLER M.D. Diagnostic Radiologist [email or web address] DW/Dictated by: Stephen Miller MD @ 05/31/2024 8:00:00 AM (Electronically Signed)
== END 2024-05-29 13:48 | disposition home or self-care (01) ==
LOC: US 13:48
PROVIDERS: Visit Provider Obstetrics & Gynecology
DX: Z34.92 Encounter for supervision of normal pregnancy, unspecified, second trimester (principal); Z3A.20 20 weeks gestation of pregnancy
CPT/HCPCS: 76805

== ENCOUNTER 2024-07-15 01:52 | Emergency (ER) | payer MEDICAID, SELFPAY ==
--- OUTSIDE RECORDS SUMMARY | 2024-07-15 01:56 | XMS_ITS | Clinical Summary ---
Author Organization [facility] Address [address] [place] [id number] Care Team Providers Care Small Boat Engineer Name Role Phone Stella Cid DO Unavailable [phone] Gretchen Summers RN, PATTERN ROOM ATTENDANT Unavailable [phone] Jesús Díaz MD Primary Care Provider + Allergies No known active allergies Medications * This document contains information received from the source organization and may not represent a complete record from that organization. Breast Pump - PurchaseIndica tions: delivery delivered (HC) Electric breast pump for home use. Gestation age at delivery: 52 weeks. Reason for need: breastpumping. Length of need: 12 months 1 Device 8 Active acetaminophen (TYLENOL EXTRA STRGTH) 500 mg tabletIndicati ons: delivery delivered (HC) Take 2 Tablets (1,000 mg) by mouth every 6 hours if needed for Pain. Max acetaminophen dose: 4000mg in 24 hrs. 60 Tablet 1 01/15/2023 4:39 PM CDT 3 Active ibuprofen (ADVIL; MOTRIN) 600 mg tabletIndicati ons: delivery delivered (HC) Take 1 Tablet (600 mg) by mouth every 6 hours if needed for Pain. Maximum of 3200 mg in 24 hours. 60 Tablet 01/15/2023 4:39 PM CDT 3 Active oxyCODONE (ROXICODONE) 5 mg immediate release tabletIndicati ons: delivery delivered (HC) Take 1 Tablet (5 mg) by mouth every 4 hours if needed for Pain. 10 Tablet 01/15/2023 4:39 PM CDT 3 Active sennosides (SENNA) 8.6 mg tabletIndicati ons: delivery delivered (HC) Take 1-2 Tablets (8.6-17.2 mg) by mouth 2 times daily if needed for Constipation. 60 Tablet 01/15/2023 4:39 PM CDT 3 Active vit 28/iron fum/folic (multivitamin folic acid 1 mg)Indications : delivery delivered (HC) Take 1 Tablet by mouth once daily. 100 Tablet 01/15/2023 4:39 PM CDT 3 Active Breast Pump PurchaseIndica tions: delivery delivered (HC) Electric breast pump for home use. Gestational age at delivery: 38 weeks. Reason for need: assist with breast feeding. Length of need: 99 months (lifetime use) 1 Each 3 Active ferrous sulfate, 65 mg elemental, tabletIndicati ons: delivery delivered (HC) Take 1 Tablet (325 mg) by mouth once daily with a meal. 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 Gender Identity Not on file Sexual Orientation [...] C-Sec tion Spinal Livin g 9 9 CASTJUAN Foreman,BB MIGUEL Franco , Leonard roberts MD Complications:None Delivery Location:Hospital ( [facility] Last Filed Vital [...] series ( season) 2023 07/07/2020, 06/09/2020 Influenza Vaccine (Season Ended) 2024 01/15/2023 Tdap Completed 04/19/2011 HIV for age [...] ve Non-Reacti ve 09/11/2013 8:35 PM CDT [facility] Blood specimen (specimen) BLOOD SPECIMEN / Unknown Venipuncture / Unknown 09/11/2013 12:47 PM CDT 09/11/2013 12:47 PM CDT Narrative [facility] - 09/11/2013 8:35 PM CDT HIV-1 p24 and HIV-1/HIV-2 Ab not detected us Dina Sequeira SEND OUTS Final R [facility] [address] [place] [address], [place] from Last 3 Months or Most Recently Relevant to Health Maintenance Insurance [facility] [facility] [place] [id number] [id number] Advance Directives * Full Code (Latest Code [...] 8:38 PM 05/24/2014 7:50 PM Care Teams Small Boat Engineer Relationship Specialty Start Date End Date Jesús Díaz MD [address] [place] [address] PCP - General Obstetrics and Gynecology 01/14/23 Stella Cid DO Family Practice 05/25/14 Gretchen Summers RN, PATTERN ROOM ATTENDANT [address] [place] [address] Nurse Practitioner 08/04/13
[2024-07-15 01:59] VITALS: BP 113/61; PULSE 84; RESP 16; TEMP 36.6; O2SAT 97; BMI 33.7
--- NOTE | 2024-07-15 02:05 | ED_ITS ---
HPI - Ear Problem General Date Seen: 07/15/24 Chief complaint: Ear/Nose/Throat Problem Stated complaint: Left ear and jaw pain Time Seen by Provider: 07/15/24 01:58 Source: patient Mode of arrival: ambulatory Limitations: no limitations History of Present Illness HPI Narrative: Patient is a 24-year-old female presenting to the emergency department for left ear pain. She insert noticing ear pain yesterday that has been progressively getting worse. Pain seems to be somewhat radiate to her trauma. No pain with movement of the ear. No pain behind the ear. No history of recurrent ear i nfections. Has not noticed any changes in her hearing. States Tylenol helped with the pain and improved quite a bit but she woke up tonight and started having ear pain again. Describes pain in a of 10. No other concerns noted. Denies fevers, chills. Is currently 26 weeks . Related Data Home Medications ?Medication ?Instructions ?Recorded ?Confirmed acetaminophen 500 mg tablet 1,000 mg PO Q6H PRN 04/28/24 06/26/24 (Tylenol Extra Strength) docosahexaenoic acid 200 mg mg PO 04/28/24 06/26/24 capsule ( DHA) Previous Rx's ?Medication ?Instructions ?Recorded polyethylene glycol 3350 17 4 g PO ONCE #119 grams 05/29/24 gram/dose oral powder (Miralax) sennosides 8.6 mg tablet (Natural 8.6 mg PO QDAY PRN constipation 05/29/24 Senna Laxative) #30 tabs amoxicillin 500 mg tablet 1,000 mg (2 x 500 mg) PO TID 10 07/15/24 days #60 tabs Allergies Allergy/AdvReac Type Severity Reaction Status Date / Time No Known Drug Allergies Allergy Verified 06/26/24 08:24 Review of Systems Narrative: Pertinent systems reviewed and were negative unless stated in HPI PFSH PFSH Medical History No significant past medical history Surgical History History of section ?Z98.891 - History of uterine scar from previous surgery (ICD-10) Social History Narrative: Occupation: []. Marital status: singke. Holiness/cultural needs: no. Chemical or radiation exposure: no. Pre- tobacco use: no. Pre- alcohol use: no. Current tobacco use: no. Current alcohol use: no. Recreational drug use: no. Dietary restrictions: no. Blood transfusion acceptable in an emergency: yes. PSYCHOSOCIAL HISTORY: History of depression or currently depressed: yes, history. Current or past physical, emotional, or sexual mistreatment: Denies. Problems that will make it hard to make it to appointments: Denies. What is your current living situation?: I presently have a place to live Problems where you live: unsafe wanda/stairs and no known problems In the past 12 months, utilities in danger of being shut off: no In past 12 months, lack of transportation kept you from medical appts, meetings, work, or getting things needed for daily living: no In the past 12 mos, have been you worried that your food would run out before you had money to buy more?: sometimes true In the past 12 mos, the food you bought just didn't last and you didn't have money to buy more?: never true Smoking Status: Former smoker Do you use any of these nicotine containing products: Vaping Products Second hand tobacco smoke exposure: No How often do you have a drink containing alcohol: never How many standard drinks containing alcohol do you have on a typical day: 1 or 2 AUDIT-C Alcohol total score: 0 Non-prescribed substance use: denies use How often does anyone, including family, friends and others, physically hurt you : never How often does anyone, including family, friends and others, insult or talk down to you: rarely How often does anyone, including family, friends and others, threaten you with harm: never How often does anyone, including family, friends and others, scream or curse at you: never service: No Health Related Social Needs: Inadequate housing (Z59.1), food insecurity (Z59.41) and Other personal risk factors, not elsewhere classified (Z91.89) Exam Narrative: Exam Narrative: Const: Well-nourished, Well-developed, in no distress Eyes: PERRL, no conjunctival injection, and symmetrical lids HENT: Atraumatic external nose and ears. Moist mucous membranes. cerumen mostly blocking the right tympanic membrane and I cannot visualize it. Left tympanic membrane looks only mildly erythematous at most. Normal external auditory canals bilaterally. No tenderness or swelling behind the ears. No drainage noted. Neck: Symmetric, trachea midline, No thyromegaly. MSK:Extremities w/o deformity, Normal Active ROM Skin: Warm, Dry. No rashes or lesions. Neuro: Normal Muscle tone, No focal neurological deficits. Psych: Awake, Alert, & Oriented x3. Appropriate mood and affect. Const: Vital Signs, click to edit/add: Vital Signs - 24 hr 07/15/24 01:59 Temperature 97.8 F Pulse Rate [Pulse Oximeter] 84 Respiratory Rate 16 Blood Pressure [Ri ght Upper Arm] 113/61 Pulse Oximetry 97 Oxygen Delivery Me thod Room Air Course Vital Signs Vital signs: Initial Vital Signs Temperature 97.8 F 07/15/24 01:59 Temperature Source Temporal Artery Scan 07/15/24 01:59 Pulse Rate 84 07/15/24 01:59 Respiratory Rate 16 07/15/24 01:59 Blood Pressure 113/61 07/15/24 01:59 Blood Pressure Mean 78 07/15/24 01:59 Blood Pressure Position Sitting 07/15/24 01:59 Pulse Oximetry 97 07/15/24 01:59 Oxygen Delivery Method Room Air 07/15/24 01:59 Vital Signs Temperature 97.8 F 07/15/24 01:59 Pulse Rate 84 07/15/24 01:59 Respiratory Rate 16 07/15/24 01:59 Blood Pressure 113/61 07/15/24 01:59 Pulse Oximetry 97 07/15/24 01:59 Oxygen Delivery Method Room Air 07/15/24 01:59 Temperature 97.8 F 07/15/24 01:59 Pulse Rate 84 07/15/24 01:59 Respiratory Rate 16 07/15/24 01:59 Blood Pressure 113/61 07/15/24 01:59 Pulse Oximetry 97 07/15/24 01:59 Oxygen Delivery Method Room Air 07/15/24 01:59 Medical Decision Making MDM Narrative Medical decision making narrative: Patient is a 24-year-old female presenting to the emergency department for an earache. Exam does not clearly show an ear infection. There is some left ear erythema of the tympanic membrane. No signs of otitis externa. No signs of mastoiditis. Is appearing otherwise well. No systemic symptoms. Ice informed her that this could be an ear infection but they are usually viral. I recommended her watch and wait approach with antibiotics. Will send her amoxicillin but stated she should give it a day or 2 to see if symptoms are improving 1st. She states she understands. Discharge Plan Discharge Clinical Impression: Ear pain, left Patient Disposition: Home, Self-Care Condition: Stable Instructions: Earache (ED) Additional Instructions: There is some very mild erythema to the left ear. Cannot say definitively this is an earache as I cannot compare to your right due to the earwax buildup in the right ear. If this is an ear infection is most likely viral. Recommendations at this time is to use the washroom weight approach with antibiotics. I will prescribe amoxicillin but given 1 or 2 days to see if symptoms are improving before you started as unnecessary antibiotics can cause other issues. If you do start the antibiotics is important you finish them. Amoxicillin is safe in . Prescriptions: New amoxicillin 500 mg tablet 1,000 mg PO TID 10 Days Qty: 60 0RF No Action acetaminophen [Tylenol Extra Strength] 500 mg tablet 1,000 mg PO Q6H PRN DHA 200 mg capsule PO polyethylene glycol 3350 [Miralax] 17 gram/dose powder 4 g PO ONCE Qty: 119 0RF sennosides [Natural Senna Laxative] 8.6 mg tablet 8.6 mg PO QDAY PRN (Reason: constipation) Qty: 30 0RF Follow Up/Referrals: Provider,Not a Local [Primary Care Provider] - Stand Alone Forms: [employer] [facility] [employer]th Info Instructions
[2024-07-15 02:16] VITALS: BP 115/65; PULSE 80; RESP 16; TEMP 36.6; O2SAT 97
== END 2024-07-15 02:17 | disposition home or self-care (01) ==
PROVIDERS: Emergency Provider Student in an Organized Health Care Education/Training Program
DX: H92.02 Otalgia, left ear (principal)
CPT/HCPCS: 99282; 99283

== ENCOUNTER 2024-07-22 23:35 | Emergency (ER) | payer MEDICAID, SELFPAY ==
--- OUTSIDE RECORDS SUMMARY | 2024-07-22 23:37 | XMS_ITS | Clinical Summary ---
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 Gender Identity Not on file Sexual Orientation [...] Leonard roberts MD Complications:None Delivery Location:Hospital ( [facility] ([facility])) Last Filed Vital [...] ve Non-Reacti ve 09/11/2013 8:35 PM CDT [facility] Blood specimen (specimen) BLOOD SPECIMEN / Unknown Venipuncture / Unknown 09/11/2013 12:47 PM CDT 09/11/2013 12:47 PM CDT Narrative [facility] - 09/11/2013 8:35 PM CDT HIV-1 p24 and HIV-1/HIV-2 Ab not detected us Dina Sequeira SEND OUTS Final [facility] [address] [place] [address], [place] from Last 3 Months or Most Recently Relevant to Health Maintenance [facility] [place] [address] [place] [id number] Advance Directives * Full Code (Latest Code [...] 8:38 PM 05/24/2014 7:50 PM Care Teams Gis Physical Scientist Relationship Specialty Start Date End Date Jesús Díaz MD [address] [place] [address] PCP - General Obstetrics and Gynecology 01/14/23 Stella Cid DO Family Practice 05/25/14 Gretchen Summers RN, BUSINESS COORDINATOR [address] [place] [address] Nurse Practitioner 08/04/13
[2024-07-22 23:40] VITALS: BP 117/65; PULSE 95; RESP 16; TEMP 36.2; O2SAT 99; BMI 35.4
--- NOTE | 2024-07-22 23:40 | ED_ITS ---
HPI - General Adult General Time Seen by Provider: 23:40 Date Seen: 07/22/24 Chief complaint: Weakness Stated complaint: 28 wks preg/feels weak Time Seen by Provider: 07/22/24 23:40 Source: patient, RN notes reviewed and old records reviewed Mode of arrival: ambulatory Limitations: no limitations History of Present Illness HPI narrative: 24-year-old female by [facility] at 28+5 weeks by 10/10/2024 who presents with lightheadedness , fatigue, low back pain today. Denies chest pain, shortness of breath, nausea, vomiting, diarrhea, pain with urination, vaginal bleeding, leakage of fluid. Good movement today. No sore throat, no cough. Patient admits to decreased oral intake and poor appetite. Related Data Home Medications ?Medication ?Instructions ?Recorded ?Confirmed acetaminophen 500 mg tablet 1,000 mg PO Q6H PRN 04/28/24 06/26/24 (Tylenol Extra Strength) docosahexaenoic acid 200 mg mg PO 04/28/24 06/26/24 capsule ( DHA) Previous Rx's ?Medication ?Instructions ?Recorded polyethylene glycol 3350 17 4 g PO ONCE #119 grams 05/29/24 gram/dose oral powder (Miralax) sennosides 8.6 mg tablet (Natural 8.6 mg PO QDAY PRN constipation 05/29/24 Senna Laxative) #30 tabs amoxicillin 500 mg tablet 1,000 mg (2 x 500 mg) PO TID 10 07/15/24 days #60 tabs hydroxyzine HCl 50 mg tablet 50 mg PO TID PRN pain #10 tabs 07/15/24 Allergies Allergy/AdvReac Type Severity Reaction Status Date / Time No Known Drug Allergies Allergy Verified 06/26/24 08:24 PFSH PFSH Medical History No significant past medical history Surgical History History of section ?Z98.891 - History of uterine scar from previous surgery (ICD-10) Social History Narrative: Occupation: []. Marital status: singke. Episcopal/cultural needs: no. Chemical or radiation exposure: no. Pre- tobacco use: no. Pre- alcohol use: no. Current tobacco use: no. Current alcohol use: no. Recreational drug use: no. Dietary restrictions: no. Blood transfusion acceptable in an emergency: yes. PSYCHOSOCIAL HISTORY: History of depression or currently depressed: yes, history. Current or past physical, emotional, or sexual mistreatment: Denies. Problems that will make it hard to make it to appointments: Denies. What is your current living situation?: I presently have a place to live Problems where you live: unsafe wanda/stairs and no known problems In the past 12 months, utilities in danger of being shut off: no In past 12 months, lack of transportation kept you from medical appts, meetings, work, or getting things needed for daily living: no In the past 12 mos, have been you worried that your food would run out before you had money to buy more?: sometimes true In the past 12 mos, the food you bought just didn't last and you didn't have money to buy more?: never true Smoking Status: Former smoker Do you use any of these nicotine containing products: Vaping Products Second hand tobacco smoke exposure: No How often do you have a drink containing alcohol: never How many standard drinks containing alcohol do you have on a typical day: 1 or 2 AUDIT-C Alcohol total score: 0 Non-prescribed substance use: denies use How often does anyone, including family, friends and others, physically hurt you : never How often does anyone, including family, friends and others, insult or talk down to you: rarely How often does anyone, including family, friends and others, threaten you with harm: never How often does anyone, including family, friends and others, scream or curse at you: never service: No Health Related Social Needs: Inadequate housing (Z59.1), food insecurity (Z59.41) and Other personal risk factors, not elsewhere classified (Z91.89) Exam Narrative: Exam Narrative: General: Well-developed and well-nourished, no acute distress Head: Atraumatic and normocephalic Eyes: Pupils are equal reactive, extraocular motions intact, conjunctiva clear ENT: External nose and ears are normal, posterior pharynx without erythema or exudate Neck: No midline cervical tenderness, full spontaneous range of motion the neck, trachea midline, no adenopathy Heart: Regular rate and rhythm no murmurs or thrills Lungs: Clear to auscultation bilaterally without wheezes or crackles Abdomen: Soft, Gravid, nontender Musculoskeletal: Diffuse bilateral low lumbar tenderness Neurologic: Awake, alert, and oriented x3, no gross focal neurologic deficits, cranial nerves intact as tested Psych: Mood and affect are appropriate Skin: No rashes Const: Vital Signs, click to edit/add: Vital Signs - 24 hr 07/22/24 23:40 Temperature 97.2 F L Pulse Rate [Pulse Oximeter] 95 Respiratory Rate 16 Blood Pressure [Ri ght Upper Arm] 117/65 Pulse Oximetry 99 Oxygen Delivery Me thod Room Air Course Course ED Course: Reviewed most recent emergency department visit from May 11 when patient was complaining of right-sided abdominal pain, reassuring evaluation at that time, subchorionic hemorrhage with preplacental hemorrhage measuring 7.5 x 1 x 1.9 cm. Patient presents today with lightheadedness, fatigue, and some low back pain. She is . No contractions or leakage of fluid. On exam patient is finally stable, lungs are clear, heart is regular, no abdominal tenderness, mild diffuse lumbar paraspinous tenderness. Symptoms could be from poor oral intake, also consider anemia, urinary tract infection, viral infection. Patient has no chest pain or shortness of breath to suggest pneumonia, pulmonary embolism. Given lightheadedness, EKG is ordered. Anticipate discharge. Patient is low back pain is not consistent with labor pains and seems to be musculoskeletal. Reevaluation(s) Time of Reevaluation #1: 00:25 Reevaluation #1: Patient is asking to be discharged. Does not want to stay for further evaluation and treatment. Follow-up with primary care/ob Vital Signs Vital signs: Initial Vital Signs Temperature 97.2 F L 07/22/24 23:40 Temperature Source Temporal Artery Scan 07/22/24 23:40 Pulse Rate 95 07/22/24 23:40 Respiratory Rate 16 07/22/24 23:40 Blood Pressure 117/65 07/22/24 23:40 Blood Pressure Mean 82 07/22/24 23:40 Blood Pressure Position Semi-Fowlers 07/22/24 23:40 Pulse Oximetry 99 07/22/24 23:40 Oxygen Delivery Method Room Air 07/22/24 23:40 Vital Signs Temperature 97.2 F L 07/22/24 23:40 Pulse Rate 95 07/22/24 23:40 Respiratory Rate 16 07/22/24 23:40 Blood Pressure 117/65 07/22/24 23:40 Pulse Oximetry 99 07/22/24 23:40 Oxygen Delivery Method Room Air 07/22/24 23:40 Temperature 97.2 F L 07/22/24 23:40 Pulse Rate 95 07/22/24 23:40 Respiratory Rate 16 07/22/24 23:40 Blood Pressure 117/65 07/22/24 23:40 Pulse Oximetry 99 07/22/24 23:40 Oxygen Delivery Method Room Air 07/22/24 23:40 Discharge Plan Discharge Clinical Impression: , Lightheadedness, Fatigue Patient Disposition: Home, Self-Care Condition: Stable Instructions: Lightheadedness (ED), at 27 to 30 Weeks (ED) Additional Instructions: Follow-up with your primary care doctor Activity Level: Activity as Tolerated Discharge Diet: Regular Prescriptions: No Action acetaminophen [Tylenol Extra Strength] 500 mg tablet 1,000 mg PO Q6H PRN DHA 200 mg capsule PO polyethylene glycol 3350 [Miralax] 17 gram/dose powder 4 g PO ONCE Qty: 119 0RF sennosides [Natural Senna Laxative] 8.6 mg tablet 8.6 mg PO QDAY PRN (Reason: constipation) Qty: 30 0RF amoxicillin 500 mg tablet 1,000 mg PO TID 10 Days Qty: 60 0RF hydroxyzine HCl 50 mg tablet 50 mg PO TID PRN (Reason: pain) Qty: 10 0RF Follow Up/Referrals: Provider,Not a Local [Primary Care Provider] - Stand Alone Forms: [facility] Info Instructions
--- OUTSIDE RECORDS SUMMARY | 2024-07-23 00:10 | XMS_ITS | Clinical Summary ---
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 Gender Identity Not on file Sexual Orientation [...] MD Complications:None Delivery Location:Hospital ( [facility] ([facility])) Last Filed Vital Signs [...] ve Non-Reacti ve 09/11/2013 8:35 PM CDT [facility] Blood specimen (specimen) BLOOD SPECIMEN / Unknown Venipuncture / Unknown 09/11/2013 12:47 PM CDT 09/11/2013 12:47 PM CDT Narrative [facility] - 09/11/2013 8:35 PM CDT HIV-1 p24 and HIV-1/HIV-2 Ab not detected us Dina Sequeira SEND OUTS Final R [facility] [address] [place] [address], [place] from Last 3 Months or Most Recently Relevant to Health Maintenance [facility] [place] [address] [place] [id number] Advance Directives * Full Code (Latest Code [...] 8:38 PM 05/24/2014 7:50 PM Care Teams Marinator Relationship Specialty Start Date End Date Jesús Díaz MD [address] [place] [address] PCP - General Obstetrics and Gynecology 01/14/23 Stella Cid DO Family Practice 05/25/14 Gretchen Summers RN, CMM INSPECTOR [address] [place] [address] Nurse Practitioner 08/04/13
[2024-07-23 00:28] LABS: Appearance Urine Slightly Cloudy (Clear); Bilirubin Urine Negative (Negative); Blood Urine Negative (Negative); Color Urine Yellow (Yellow); Glucose Urine Negative (Negative); Ketones Urine Negative (Negative); Leukocyte Esterase Urine Negative (Negative); Nitrite Urine Negative (Negative); Protein Urine Negative (Negative); Specific Gravity Urine 1.015 (1.000-1.030); Urobilinogen Urine 0.2 (0.2-1.0); pH Urine 6.5 (5.0-8.5)
[2024-07-23 00:37] LABS: RBC Urine 0-2 (0-2); WBC Urine 0-2 (0-5)
[2024-07-23 00:38] LABS: Bacteria Urine Moderate; Squamous Epithelial Cell Urine Few (None-Few)
== END 2024-07-23 00:32 | disposition home or self-care (01) ==
PROVIDERS: Emergency Provider Family Medicine
DX: R51.9 Headache, unspecified (principal); R31.9 Hematuria, unspecified; R10.9 Unspecified abdominal pain; R80.9 Proteinuria, unspecified; R07.89 Other chest pain; Z87.891 Personal history of nicotine dependence
CPT/HCPCS: 80048; 81001; 83735; 85025; 87086; 87631; 93005; 99283; 99284

== ENCOUNTER 2024-07-23 16:37 | Emergency (ER) | payer MEDICAID, SELFPAY ==
[2024-07-23 16:55] VITALS: BP 106/70; PULSE 101; RESP 14; TEMP 37; O2SAT 98
[2024-07-23 17:49] LABS: PCR FLU A Negative PCR FLU A (Negative); PCR FLU B Negative PCR FLU B (Negative); PCR RSV Negative PCR RSV (Negative); SARS PCR* Negative SARS-CoV-2 (Negative)
--- NOTE | 2024-07-23 18:16 | ED.GENADULT ---
HPI - General Adult General Time Seen by Provider: 18:10 Date Seen: 07/23/24 Chief complaint: Back Injury/Pain Stated complaint: L back pain- 28 weeks preg Time Seen by Provider: 07/23/24 17:49 Source: patient, RN notes reviewed and old records reviewed Mode of arrival: ambulatory Limitations: no limitations History of Present Illness HPI narrative: Patient is very pleasant 24-year-old at approximately weeks who comes to the emergency room with complaints of nasal congestion continued low back pain and visual changes. Patient was initially seen in the ED last night at which time she had to leave after incomplete evaluation because she states her other children were crying at home. She did attain a urinalysis last night. She initially came in because of low back pain and not feeling quite right. Today she notes that she feels a little bit worse. Yesterday she had some visual changes and agrees that she even had some floaters in her vision. States that she wears glasses and was working at a computer but had a hard time really seeing it. She notes that today she is more congested in her nose and face. She does not have any cough. She has not had a fever but describes that her whole body seems to be sore. She shows that she has low back pain but she shows the sacral and upper buttock area. She did initially denies any flank pain. She denies dysuria hematuria or any diarrhea. She has been mildly nauseated but no vomiting. Patient reports a headache in both of her temples. Has a history of headaches but this seems to be a little bit worse than normal. Positive for exposure to viral type illness in her son with congestion. Patient denies any sore throat or cough. Related Data Home Medications ?Medication ?Instructions ?Recorded ?Confirmed acetaminophen 500 mg tablet 1,000 mg PO Q6H PRN 04/28/24 07/23/24 (Tylenol Extra Strength) docosahexaenoic acid 200 mg mg PO 04/28/24 06/26/24 capsule ( DHA) Previous Rx's ?Medication ?Instructions ?Recorded polyethylene glycol 3350 17 4 g PO ONCE #119 grams 05/29/24 gram/dose oral powder (Miralax) sennosides 8.6 mg tablet (Natural 8.6 mg PO QDAY PRN constipation 05/29/24 Senna Laxative) #30 tabs amoxicillin 500 mg tablet 1,000 mg (2 x 500 mg) PO TID 10 07/15/24 days #60 tabs hydroxyzine HCl 50 mg tablet 50 mg PO TID PRN pain #10 tabs 07/15/24 Allergies Allergy/AdvReac Type Severity Reaction Status Date / Time No Known Drug Allergies Allergy Verified 07/23/24 16:54 Review of Systems Status of ROS: Reports: 10 or more systems reviewed and unremarkable except as noted in History and below Const: Reports: fatigue; Denies: fever or chills Eyes: Reports: blurry vision and floaters ENMT: Reports: nasal congestion; Denies: throat pain, neck pain, throat swelling or nasal discharge Cardio: Reports: chest pain (Fleeting and intermittent starting today lasting 1 minute and then resolvi) and shortness of breath with exertion; Denies: palpitations, swelling of feet/ankles or lightheadedness Resp: Reports: shortness of breath; Denies: cough GI: Reports: abdominal pain and nausea; Denies: vomiting or diarrhea : Denies: painful urination or urinary frequency Musculo: Reports: back pain; Denies: neck pain Integ/Breast: Denies: rash Neuro: Reports: headache (Bitemporal) Endo: Reports: fatigue Allergy/Immuno: Denies: throat swelling PFSH PFSH Medical History No significant past medical history Surgical History History of section ?Z98.891 - History of uterine scar from previous surgery (ICD-10) Social History Narrative: Occupation: []. Marital status: singke. Nondenominational/cultural needs: no. Chemical or radiation exposure: no. Pre- tobacco use: no. Pre- alcohol use: no. Current tobacco use: no. Current alcohol use: no. Recreational drug use: no. Dietary restrictions: no. Blood transfusion acceptable in an emergency: yes. PSYCHOSOCIAL HISTORY: History of depression or currently depressed: yes, history. Current or past physical, emotional, or sexual mistreatment: Denies. Problems that will make it hard to make it to appointments: Denies. What is your current living situation?: I presently have a place to live Problems where you live: unsafe wanda/stairs and no known problems In the past 12 months, utilities in danger of being shut off: no In past 12 months, lack of transportation kept you from medical appts, meetings, work, or getting things needed for daily living: no In the past 12 mos, have been you worried that your food would run out before you had money to buy more?: sometimes true In the past 12 mos, the food you bought just didn't last and you didn't have money to buy more?: never true Smoking Status: Former smoker Do you use any of these nicotine containing products: Vaping Products Second hand tobacco smoke exposure: No How often do you have a drink containing alcohol: never How many standard drinks containing alcohol do you have on a typical day: 1 or 2 AUDIT-C Alcohol total score: 0 Non-prescribed substance use: denies use How often does anyone, including family, friends and others, physically hurt you: never How often does anyone, including family, friends and others, insult or talk down to you: rarely How often does anyone, including family, friends and others, threaten you with harm: never How often does anyone, including family, friends and others, scream or curse at you: never service: No Health Related Social Needs: Inadequate housing (Z59.1), food insecurity (Z59.41) and Other personal risk factors, not elsewhere classified (Z91.89) Exam Narrative: Exam Narrative: Alert and oriented. Patient appears fatigued but nontoxic in appearance. Eyes are clear. Face symmetrical. Heart with a tachycardic rate but normal rhythm. Lungs are clear bilaterally. Palpation down the spine does not yield any tenderness TV. No CVA tenderness with percussion. Lower extremities without calf tenderness edema redness. Const: Vital Signs, click to edit/add: Vital Signs - 24 hr 07/23/24 16:55 Temperature 98.6 F Pulse Rate [Pulse Oximeter] 101 H Respiratory Rate 14 Blood Pressure [Ri ght Upper Arm] 106/70 Pulse Oximetry 98 Oxygen Delivery Me thod Room Air Documenting provider has reviewed patient's vital signs: yes Course Course ED Course: Patient noted to have onset of low back pain over a week ago. Initially denies flank pain but now and sources left flank pain. No dysuria hematuria. No past history of preeclampsia. Patient has a headache, abdominal pain, visual changes but a normal blood pressure which makes preeclampsia less likely. She does have hematuria in her urine last night and tonight associated with left flank pain which raises the possibility of ureteral colic from possible kidney stone. At this time the urine culture from last evening has not yet been resulted. He denies fever. Will also check COVID/influenza/RSV as she has had exposure to recent illness and her child. Patient has no history of calf tenderness periods of prolonged inactivity but tachycardia differential does include PE, pericarditis, acute coronary syndrome. Will obtain EKG as well as troponin. No evidence of lower extremity edema and patient has normal oxygen saturations. Further differential includes headache related to preeclampsia, viral illness, migraine. Further labs include CBC, comprehensive, urinalysis. Will give 1 L of normal saline. Reevaluation(s) Reevaluation #1: Patient is feeling somewhat improved. Endorses left flank pain at this time with the return of hematuria in the urine sample. Have spoken to patient about risks benefits of CT in the evaluation of potential ureteral stones. She is agreeing that she would like to go forward with this. Ob was able to evaluate and notes no ongoing contractions and states that baby appears to be fine. Will treat headache with Reglan Benadryl in the hopes that she has improvement. Consultations Consultation #1: I had the pleasure of discussing this patient with Dr. Alvarado, network technical analyst computer systems consultant. At this time preeclampsia highly unlikely but there is elevation of LFTs, 1+ urine protein, visual symptoms and headache. Given normal blood pressure however preeclampsia highly unlikely. Will proceed with CT of the abdomen to rule out kidney stone as well as Reglan Benadryl treatment of headache. Vital Signs Vital signs: Initial Vital Signs Temperature 98.6 F 07/23/24 16:55 Temperature Source Temporal Artery Scan 07/23/24 16:55 Pulse Rate 101 H 07/23/24 16:55 Pulse Rhythm Regular 07/23/24 16:55 Respiratory Rate 14 07/23/24 16:55 Blood Pressure 106/70 07/23/24 16:55 Blood Pressure Mean 82 07/23/24 16:55 Blood Pressure Position Sitting 07/23/24 16:55 Pulse Oximetry 98 07/23/24 16:55 Oxygen Delivery Method Room Air 07/23/24 16:55 Vital Signs Temperature 98.6 F 07/23/24 16:55 Pulse Rate 101 H 07/23/24 16:55 Respiratory Rate 14 07/23/24 16:55 Blood Pressure 106/70 07/23/24 16:55 Pulse Oximetry 98 07/23/24 16:55 Oxygen Delivery Method Room Air 07/23/24 16:55 Temperature 98.6 F 07/23/24 16:55 Pulse Rate 101 H 07/23/24 16:55 Respiratory Rate 14 07/23/24 16:55 Blood Pressure 106/70 07/23/24 16:55 Pulse Oximetry 98 07/23/24 16:55 Oxygen Delivery Method Room Air 07/23/24 16:55 Medications Administered Medications: Discontinued Medications Generic Name Dose Route Start Last Admin Trade Name Douglas PRN Reason Stop Dose Admin Diphenhydramine HCl 25 mg 07/23/24 21:35 07/23/24 21:54 Diphenhydramine 50 Mg/Ml Inj IVP 07/23/24 21:36 25 mg ONCE ONE Administration Sodium Chloride 1,000 mls @ 1,000 mls/hr 07/23/24 18:17 07/23/24 19:42 0.9 % Sodium Chloride 1000 Ml IV 07/23/24 19:16 Infused .Q1H RAMEZ Infusion Metoclopramide HCl 10 mg/ 102 mls @ 306 mls/hr 07/23/24 21:35 07/23/24 21:54 Sodium Chloride IVPB 07/23/24 21:36 306 mls/hr ONCE ONE Administration Medical Decision Making MDM Narrative Medical decision making narrative: 1. Hematuria-no evidence of UTI but culture is pending. Patient has no dysuria. Recommended CT of the abdomen checking for ureteral stone. Patient agreed. CT pending. 2. Headache-associated with visual changes yesterday, onset of bitemporal headache today. Given as well as protein urea I did have concerns regarding preeclampsia but blood pressure is normal. LFTs mildly elevated but according to chart these are actually better than they were in January. Plan on Reglan 10 mg IV piggyback as well as Benadryl 25 mg for prevention av any dysphoric reaction. 4. Atypical chest pain-EKG reassuring and troponin is negative. Patient initially tachycardic and because we are doing a CT was going to add PE study. 5. Disposition -patient agreed to the plan for care. I had the pleasure of speaking to the OBGYN consulted. I was then contacted by nursing staff who stated the patient wanted to go home. I did talk to the patient and she says her headache is now gone and she is feeling better. She describes feeling anxious being here and I do offer her support as well as being able to eat. I have expressed my concern regarding preeclampsia, possible ureteral stone. I do state that if she did parts I am not able to guarantee her that she does not have as significant medical condition going on. In spite of that she wants to sign AMA and in my evaluation she is not under the influence and is able to make that decision for herself. Medical Records Medical records reviewed: Yes I reviewed the patient's medical records Lab Data Lab results reviewed: Yes I reviewed the patient's lab results Labs: Lab Results 07/23/24 07/23/24 07/23/24 Range/Units 17:00 18:21 18:35 WBC 7.57 (4.50-11.00) K/uL RBC 4.13 (4.00-5.20) m/uL Hgb 10.1 L (12.0-16.0) gm/dL Hct 32.2 L (33.0-51.0) % MCV 78 L (80-100) fL MCH 25 L (26-34) pg MCHC 31 L (32-36) gm/dL RDW Coeff of Lorenzo 13.9 (11.5-15.5) % Plt Count 300 (140-440) K/uL Neut % (Auto) 80.1 H (42.0-72.0) % Lymph % (Auto) 13.3 L (20-44) % Woodward % (Auto) 5.7 (0.0-11.0) % Eos % (Auto) 0.0 (0.0-7.0) % Baso % (Auto) 0.1 (0.0-3.0) % Neut # (Auto) 6.10 (1.7-7.0) K/uL Lymph # (Auto) 1.00 (0.90-2.90) K/uL Woodward # (Auto) 0.40 (0.00-0.90) K/UL Eos # (Auto) 0.00 (0.00-0.50) K/uL Baso # (Auto) 0.01 (0.00-0.30) K/uL Abs Immat Gran (auto) 0.06 (0.00-0.30) K/uL Imm/Tot Granulo (auto) 0.8 % Sodium 134 L (135-149) mmol/L Potassium 3.7 (3.6-5.1) mmol/L Chloride 102 (96-114) mmol/L Carbon Dioxide 22 (20-32) mmol/L Anion Gap 10 (7-15) mEq/L BUN 4 L (5-24) mg/dL Creatinine 0.5 (0.5-1.5) mg/dL Estimated GFR 133 ml/min Glucose 78 (60-115) mg/dL Calcium 8.6 (8.4-10.6) mg/dL Total Bilirubin 1.2 (0.1-1.5) mg/dL AST 49 H (12-35) U/L ALT 47 H (4-35) U/L Alkaline Phosphatase 121 (40-150) U/L Total Protein 7.2 (6.0-8.3) g/dL Albumin 4.0 (3.3-5.0) g/dL Urine Color Yellow (Yellow) Urine Appearance Slightly Cloudy A (Clear) Urine pH 5.5 (5.0-8.5) Ur Specific [place] 1.025 (1.000-1.030) Urine Protein 1+ A (Negative) Urine Glucose (UA) Negative (Negative) Urine Ketones Negative (Negative) Urine Blood 3+ A (Negative) Urine Nitrite Negative (Negative) Urine Bilirubin Negative (Negative) Urine Urobilinogen 0.2 (0.2-1.0) Ur Leukocyte Esterase Negative (Negative) Urine RBC 10-25 A (0-2) Urine WBC 0-2 (0-5) Ur Squamous Epith Cells None (None-Few) Urine Bacteria None (None) SARS-CoV-2 (PCR) Negative SARS-CoV-2 (Negative) Influenza Type A (PCR) Negative PCR FLU A (Negative) Influenza Type B (PCR) Negative PCR FLU B (Negative) RSV (PCR) Negative PCR RSV (Negative) POC Troponin I 0.00 L (0.01-0.04) ng/ml ECG Data Attestation: I personally reviewed and interpreted this ECG as follows: Interpretation: EKG by my read shows sinus rhythm at a rate of 96. Patient noted to have normal QT and OK intervals. I do see some flattening of the T-waves and nonspecific ST T-wave abnormality. Discharge Plan Discharge Clinical Impression: Headache, Protein in urine, Flank pain, Hematuria, Atypical chest pain Patient Disposition: Left Against Medical Advice Condition: Improved Prescriptions: No Action acetaminophen [Tylenol Extra Strength] 500 mg tablet 1,000 mg PO Q6H PRN DHA 200 mg capsule PO polyethylene glycol 3350 [Miralax] 17 gram/dose powder 4 g PO ONCE Qty: 119 0RF sennosides [Natural Senna Laxative] 8.6 mg tablet 8.6 mg PO QDAY PRN (Reason: constipation) Qty: 30 0RF amoxicillin 500 mg tablet 1,000 mg PO TID 10 Days Qty: 60 0RF hydroxyzine HCl 50 mg tablet 50 mg PO TID PRN (Reason: pain) Qty: 10 0RF Follow Up/Referrals: Provider,Not a Local [Primary Care Provider] - Stand Alone Forms: Syn[employer] Digital Info Instructions
[2024-07-23 18:27] LABS: Appearance Urine Slightly Cloudy (Clear); Bilirubin Urine Negative (Negative); Blood Urine 3+ (Negative); Color Urine Yellow (Yellow); Glucose Urine Negative (Negative); Ketones Urine Negative (Negative); Leukocyte Esterase Urine Negative (Negative); Nitrite Urine Negative (Negative); Protein Urine 1+ (Negative); Specific Gravity Urine 1.025 (1.000-1.030); Urobilinogen Urine 0.2 (0.2-1.0); pH Urine 5.5 (5.0-8.5)
[2024-07-23] MEDS: 0.9 % SODIUM CHLORIDE 1000 ml 1,000 ML IV (18:38)
[2024-07-23 18:56] LABS: WBC Urine 0-2 (0-5)
[2024-07-23 19:01] LABS: Basophils Absolute Auto 0.01 K/uL (0.00-0.30); Basophils Percent Auto 0.1 % (0.0-3.0); Hematocrit 32.2 % (33.0-51.0); Hemoglobin* 10.1 gm/dL (12.0-16.0); Immature Granulocytes Abs Auto 0.06 K/uL (0.00-0.30); Immature Granulocytes Pct Auto 0.8 %; Lymphocytes Percent Auto 13.3 % (20-44); Mean Corpuscular HGB Conc 31 gm/dL (32-36); Mean Corpuscular Hemoglobin 25 pg (26-34); Mean Corpuscular Volume 78 fL (80-100); Monocytes Percent Auto 5.7 % (0.0-11.0); Neutrophils Percent Auto 80.1 % (42.0-72.0); Platelet Count* 300 K/uL (140-440); RDW Coefficient of Variation % 13.9 % (11.5-15.5); Red Blood Count 4.13 m/uL (4.00-5.20); White Blood Count* 7.57 K/uL (4.50-11.00)
[2024-07-23 19:02] LABS: Slide Review Reflex No
[2024-07-23 19:09] LABS: Chloride* 102 mmol/L (96-114); Potassium* 3.7 mmol/L (3.6-5.1); Sodium* 134 mmol/L (135-149)
[2024-07-23 19:12] LABS: Alanine Aminotransferase* 47 U/L (4-35); Alkaline Phosphatase* 121 U/L (40-150); Anion Gap 10 mEq/L (7-15); Aspartate Amino Transferase* 49 U/L (12-35); Bilirubin Total* 1.2 mg/dL (0.1-1.5); Blood Urea Nitrogen* 4 mg/dL (5-24); Calcium* 8.6 mg/dL (8.4-10.6); Carbon Dioxide* 22 mmol/L (20-32); Creatinine* 0.5 mg/dL (0.5-1.5); Estimated Glomerular Filt Rate 133 ml/min; Glucose* 78 mg/dL (60-115); Total Protein* 7.2 g/dL (6.0-8.3)
--- OUTSIDE RECORDS SUMMARY | 2024-07-23 20:54 | XMS_ITS | Clinical Summary ---
Author Organization [facility] Address [address] [place] [id number] Care Team Providers Care Professor Of Engineering Name Role Phone Stella Cid DO Unavailable [phone] Gretchen Summers RN, SUPERVISOR PAPER MACHINE Unavailable Jesús Díaz MD Primary Care Provider [...] on file Legal Sex Female 7:13 AM AUDIT DIRECTOR Gender Identity Not on file Sexual Orientation [...] Leonard roberts MD Complications:None Delivery Location:Hospital ( [facility] ([facility] Last Filed Vital [...] ve Non-Reacti ve 09/11/2013 8:35 PM CDT [facility] Blood specimen (specimen) BLOOD SPECIMEN / Unknown Venipuncture / Unknown 09/11/2013 12:47 PM CDT 09/11/2013 12:47 PM CDT Narrative [facility] - 09/11/2013 8:35 PM CDT HIV-1 p24 and HIV-1/HIV-2 Ab not detected us Dina Sequeira SEND OUTS Final R [facility] [address] [place] [address], [place] from Last 3 Months or Most Recently Relevant to Health Maintenance [facility] [id number] [place] [id number] Advance Directives * Full Code (Latest Code [...] 8:38 PM 05/24/2014 7:50 PM Care Teams Professor Of Engineering Relationship Specialty Start Date End Date Jesús Díaz MD [address] [place] [address] PCP - General Obstetrics and Gynecology 01/14/23 Stella Cid DO Family Practice 05/25/14 Gretchen Summers RN, SUPERVISOR PAPER MACHINE [address] [place] [address] Nurse Practitioner 08/04/13
[2024-07-23] MEDS: METOCLOPRAMIDE HCL 10 MG in 0.9 % SODIUM CHLORIDE 100 ml 100 ML 306 MG IVPB (21:54)
[2024-07-23] MEDS: diphenhydrAMINE 50 MG/ML inj 25 MG IVP (21:54)
--- NOTE | 2024-07-23 22:02 | PC.NURSE ---
Pt with call light on I feel better, can I get this out(IV), notified.
--- NOTE | 2024-07-23 22:14 | ED.NURSE ---
Pt states she wants her IV out and she wants to leave and go home. Doctor notified. Pt signed AMA paperwork and IV removed before discharge. Pt refused a copy or her discharge paperwork and refused a copy of her AMA paperwork as well.
--- NOTE | 2024-07-24 03:49 | PC.OBNST ---
NST Note NST Note Start: 07/24/24 03:43 Freq: ONCE Status: Active Protocol: Document 07/23/24 21:10 ERICKA (Rec: 07/24/24 03:49 MELE [id number]) NST Note 3 Para (# of births) 2 EDC 10/10/24 Gestational Age In Weeks & Days 28 Weeks & 6 Days Patient Presented with Complaint(s) of Pain,Other Other Complaints Patient came to the ER with a complaint of left hip and lower back pain. Reactive Yes Appropriate for Gestational Age Yes LYNNE Mao RN Date 07/23/24 Reactive Yes Appropriate for Gestational Age Yes LYNNE Hudson RNC Date 07/23/24 OB NST charge Yes Complete NST Note via Write Note Yes The provider's electronic signature indicates the NST is reactive/appropriate for gestational age. *Note to provider: If an addendum is required, open the patient's chart and click on the note under the Nurse/Allied Health tab.
== END 2024-07-23 22:12 | disposition left against medical advice (07) ==
PROVIDERS: Emergency Provider Family Medicine
DX: O12.13 Gestational proteinuria, third trimester (principal); R51.9 Headache, unspecified; R07.89 Other chest pain; R31.9 Hematuria, unspecified; Z53.29 Procedure and treatment not carried out because of patient's decision for other reasons; Z3A.28 28 weeks gestation of pregnancy
CPT/HCPCS: 36415; 59025; 80053; 81001; 84484; 85025; 87631; 93005; 96365; 96375; 99284; J1200; J2765; J7030

== ENCOUNTER 2024-07-24 14:49 | Outpatient (CLI) | payer MEDICAID, SELFPAY | END 2024-07-24 14:50 | disposition home or self-care (01) | PROVIDERS: Visit Provider Obstetrics & Gynecology | DX: Z34.93 Encounter for supervision of normal pregnancy, unspecified, third trimester (principal); Z3A.28 28 weeks gestation of pregnancy | CPT/HCPCS: 84450; 84460; 86592; 87086 ==

== ENCOUNTER 2024-07-27 08:18 | Outpatient (CLI) | payer MEDICAID, SELFPAY | END 2024-07-27 08:19 | disposition home or self-care (01) | PROVIDERS: Visit Provider Obstetrics & Gynecology | DX: O99.013 Anemia complicating pregnancy, third trimester (principal); D50.9 Iron deficiency anemia, unspecified; Z3A.28 28 weeks gestation of pregnancy; Z11.59 Encounter for screening for other viral diseases | CPT/HCPCS: 83010; 83615; 85045; 86644; 86645; 86663; 86704; 86706; 86803; 87340 ==

== ENCOUNTER 2024-08-04 21:22 | Outpatient (CLI) | payer MEDICAID, SELFPAY ==
[2024-08-04 21:31] VITALS: PULSE 88; RESP 16; TEMP 36.7; O2SAT 97
[2024-08-04 21:32] VITALS: BP 118/64; PULSE 85
[2024-08-04] MEDS: ACETAMINOPHEN 500 MG TABLET 1000 MG PO (22:13)
[2024-08-04] MEDS: LACTATED RINGERS 500 ML 500 ML IV (22:30)
[2024-08-04 22:40] LABS: Albumin* 3.9 g/dL (3.3-5.0); Chloride* 106 mmol/L (96-114); Potassium* 3.9 mmol/L (3.6-5.1); Sodium* 136 mmol/L (135-149)
[2024-08-04 22:43] LABS: Alanine Aminotransferase* 55 U/L (4-35); Alkaline Phosphatase* 138 U/L (40-150); Anion Gap 9 mEq/L (7-15); Aspartate Amino Transferase* 43 U/L (12-35); Bilirubin Total* 0.6 mg/dL (0.1-1.5); Blood Urea Nitrogen* 10 mg/dL (5-24); Carbon Dioxide* 21 mmol/L (20-32); Creatinine* 0.6 mg/dL (0.5-1.5); Estimated Glomerular Filt Rate 127 ml/min; Total Protein* 7.3 g/dL (6.0-8.3)
[2024-08-04 22:44] LABS: Glucose* 97 mg/dL (60-115)
[2024-08-04 22:45] LABS: Appearance Urine Slightly Cloudy (Clear); Bilirubin Urine Negative (Negative); Blood Urine Negative (Negative); Color Urine Yellow (Yellow); Glucose Urine Negative (Negative); Ketones Urine Negative (Negative); Leukocyte Esterase Urine Negative (Negative); Nitrite Urine Negative (Negative); Protein Urine Negative (Negative); Specific Gravity Urine 1.015 (1.000-1.030)
[2024-08-04 22:50] LABS: Amorphous Sediment Urine Few; Bacteria Urine Moderate; Mucus Urine Few; Squamous Epithelial Cell Urine Moderate (None-Few)
[2024-08-04 22:57] LABS: Basophils Absolute Auto 0.02 K/uL (0.00-0.30); Basophils Percent Auto 0.2 % (0.0-3.0); Eosinophils Absolute Auto 0.07 K/uL (0.00-0.50); Eosinophils Percent Auto 0.8 % (0.0-7.0); Hematocrit 32.2 % (33.0-51.0); Hemoglobin* 9.9 gm/dL (12.0-16.0); Immature Granulocytes Abs Auto 0.09 K/uL (0.00-0.30); Lymphocytes Absolute Auto 2.96 K/uL (0.90-2.90); Lymphocytes Percent Auto 32.9 % (20-44); Mean Corpuscular HGB Conc 31 gm/dL (32-36); Mean Corpuscular Hemoglobin 24 pg (26-34); Mean Corpuscular Volume 78 fL (80-100); Monocytes Percent Auto 9.2 % (0.0-11.0); Neutrophils Absolute Auto 5.02 K/uL (1.7-7.0); Neutrophils Percent Auto 55.9 % (42.0-72.0); Platelet Count* 436 K/uL (140-440); RDW Coefficient of Variation % 13.3 % (11.5-15.5); Red Blood Count 4.15 m/uL (4.00-5.20); White Blood Count* 8.99 K/uL (4.50-11.00)
[2024-08-04 22:59] LABS: Slide Review Reflex No
--- NOTE | 2024-08-04 23:38 | PC.OBNST ---
NST Note NST Note Start: 08/04/24 21:29 Freq: ONCE Status: Active Protocol: Document 08/04/24 23:31 ALFREDO (Rec: 08/04/24 23:36 ALFREDO Desktop) NST Note 3 Para (# of births) 2 EDC 10/10/25 Gestational Age In -21 Weeks & -5 Days Weeks & Days Patient Presented Pain with Complaint(s) of If Pain, describe low back, abdomen - right lower quadrant location Reactive Yes Appropriate for Yes Gestational Age LYNNE Manjarrez RN Date 08/04/24 Reactive Yes Appropriate for Yes Gestational Age LYNNE Gan RN Date 08/04/24 OB NST charge Yes Complete NST Note Yes via Write Note The provider's electronic signature indicates the NST is reactive/appropriate for gestational age. *Note to provider: If an addendum is required, open the patient's chart and click on the note under the Nurse/Allied Health tab.
== END 2024-08-04 23:35 | disposition home or self-care (01) ==
LOC: OB OUT 21:23 → OB 21:23
PROVIDERS: Visit Provider Obstetrics & Gynecology
DX: O26.892 Other specified pregnancy related conditions, second trimester (principal); R10.31 Right lower quadrant pain; Z3A.21 21 weeks gestation of pregnancy
CPT/HCPCS: 36415; 59025; 80053; 81001; 81003; 85025; 87086; G0463; A9270; J7120

== ENCOUNTER 2024-09-04 13:09 | Outpatient (CLI) | payer MEDICAID, SELFPAY | END 2024-09-04 13:10 | disposition home or self-care (01) | LOC: NFLDREF 13:11 | PROVIDERS: Visit Provider Obstetrics & Gynecology | DX: O99.013 Anemia complicating pregnancy, third trimester (principal); D64.9 Anemia, unspecified; R30.0 Dysuria; Z3A.34 34 weeks gestation of pregnancy | CPT/HCPCS: 82728; 87086 ==

== ENCOUNTER 2024-09-11 11:08 | Outpatient (CLI) | payer MEDICAID, SELFPAY ==
[2024-09-12 15:56] LABS: Strep B DNA Probe Negative (Negative)
[2024-09-12 16:10] LABS: Strep B Susceptibility Needed? No
== END 2024-09-11 11:09 | disposition home or self-care (01) ==
LOC: NFLDREF 11:10
PROVIDERS: Visit Provider Obstetrics & Gynecology
DX: O26.893 Other specified pregnancy related conditions, third trimester (principal); N89.8 Other specified noninflammatory disorders of vagina; Z3A.35 35 weeks gestation of pregnancy
CPT/HCPCS: 87081; 87086; 87653

== ENCOUNTER 2024-09-17 10:30 | Outpatient (CLI) | payer MEDICAID, SELFPAY | END 2024-09-17 10:31 | disposition home or self-care (01) | LOC: NFLDREF 10:30 | PROVIDERS: Visit Provider Obstetrics & Gynecology | DX: O23.43 Unspecified infection of urinary tract in pregnancy, third trimester (principal); N39.0 Urinary tract infection, site not specified; Z3A.36 36 weeks gestation of pregnancy | CPT/HCPCS: 87086 ==

== ENCOUNTER 2024-09-24 22:21 | Outpatient (CLI) | payer MEDICAID, SELFPAY ==
[2024-09-24 22:30] VITALS: PULSE 80; O2SAT 97
[2024-09-24 22:31] VITALS: BP 124/68; PULSE 78
[2024-09-24 22:56] VITALS: TEMP 36.9
[2024-09-24 23:24] LABS: Amnisure Rom* Negative
[2024-09-24 23:31] LABS: Appearance Urine Clear (Clear)
--- NOTE | 2024-09-25 02:14 | PC.OBNST ---
NST Note NST Note Start: 09/24/24 22:32 Freq: ONCE Status: Active Protocol: Document 09/25/24 02:11 LORI (Rec: 09/25/24 02:14 LORI Montes De Oca) NST Note 3 Para (# of births) 2 EDC 10/10/24 Gestational Age In 37 Weeks & 6 Days Weeks & Days Patient Presented Contractions/cramping,Leaking fluid with Complaint(s) of Reactive Yes Appropriate for Yes Gestational Age LYNNE Solis RN Date 09/25/24 Reactive Yes Appropriate for Yes Gestational Age LYNNE Mao RN Date 09/25/24 OB NST charge Yes Complete NST Note Yes via Write Note The provider's electronic signature indicates the NST is reactive/appropriate for gestational age. *Note to provider: If an addendum is required, open the patient's chart and click on the note under the Nurse/Allied Health tab.
== END 2024-09-25 00:54 | disposition home or self-care (01) ==
LOC: OB OUT 22:22 → OB 22:23
PROVIDERS: PCP Obstetrics & Gynecology; Visit Provider Obstetrics & Gynecology
DX: O47.1 False labor at or after 37 completed weeks of gestation (principal); Z3A.37 37 weeks gestation of pregnancy
CPT/HCPCS: 59025; 81001; 81003; 84112; 87086; G0463

== ENCOUNTER 2024-09-26 09:22 | Inpatient (IN) | payer MEDICAID, SELFPAY ==
[2024-09-26] VITALS (26 sets, daily range): BP systolic 90–117; BP diastolic 45–76; PULSE 65–89; RESP 16–20; TEMP 36.6–37.1; O2SAT 79–99; BMI 36.8
[2024-09-26] MEDS: LACTATED RINGERS 1000 ML 1,000 ML 1200 ML IV ×2 (09:25→10:45)
[2024-09-26] MEDS: AZITHROMYCIN 500 MG in 0.9 % SODIUM CHLORIDE 250 ml 250 ML 255 MG IVPB (09:30)
--- NOTE | 2024-09-26 09:34 | P.LDBA_ITS ---
Subjective History of Present Illness Time Seen by Provider: 09:34 Date Seen: 09/26/24 Narrative: Miguel is being admitted to Labor and Delivery for early labor and 3rd with bilateral salpingectomy. She is a 24 year old at 38 and 0/7weeks gestation. Her full history and physical was dictated by Dr. Peters on 09/17/2024. Please see this for details. Surgical consent was reviewed and signed for repeat low-transverse section and bilateral salpingectomy. Anesthesia for scheduled C-sections: Spinal. Anesthesia for most unscheduled C-sections: Epidural. Anesthesia for emergency : General endotracheal. Risks associated with include: Approximately 1% chance of hemorrhage during that would require transfusion of blood products, 2-5% chance of infection: She will receive IV Ancef prior to skin incision to prevent infection, chance of injury to organs that are adjacent to the uterus such as bladder, intestines, blood vessels, nerves, ureters 1/500. Chance of injury to the less than 1/59577. Typically women stay in the hospital 2-3 nights after a . activity restrictions: No lifting greater than 25 lb for 6 weeks, nothing vaginally such as intercourse or tampons for 6 weeks, no high impact/strenuous/core exercises for 6 weeks. No driving well taking narcotic pain medication: Approximately 2 weeks. Walking and walking up and down stairs are safe and she can do is much walking as she feels up to doing at any time . I reviewed how a bilateral salpingectomy is performed and that it does not increase the risk of the surgery. Effectiveness after bilateral salpingectomy for spontaneous is 100%. Regret after bilateral salpingectomy ranges from 5-15%. She states that she is sure that she wants to have the sterilization procedure. Federal consent for sterilization was signed on 08/07/24 Specific Issues/Plans Partner: [] Children: Sj Abbasi. Baby: Boy! H&P: By Dr. Peters on 09/17/24 # History of x2, desires sterilization procedure * Federal Consent signed 08/07/24 * Surgical request submitted on 09/04/24 for 10/02/24 at 38w6d (c/s #3) # Anemia: Hgb 9.9 on 07/24/24 * Start FeSO4 1 tab PO QOD * Recheck hgb at 34 weeks 09/04/24: 10.7 => continue iron supplements # Generalized anxiety disorder with panic and depression * Had anxiety with both previous pregnancies * Treated w/ meds when she was in high school * Sertraline 50mg daily * 08/21/24 hydroxyzine 50mg TID prn panic/insomnia # Bleeding in early ED 03/29/2024: Subchorionic hemorrhage 10.5 cm First OB 03/31/2024: Subchorionic hemorrhage x2, 4.4 cm and 3.4 cm # Right sided abdominal pain: Hepatic steatosis * ED visit 05/11/2024: Normal CBC, comprehensive metabolic panel with the exception of mild elevation of AST and ALT [address] abdomen pelvis:1. Questionable wall hyper enhancement and thickening raising the question of inflammatory or infectious enteritis. Otherwise no acute abdominal/pelvic pathology noted. Severe diffuse hepatic steatosis * Non routine OB visit 05/21: Right upper quadrant ultrasound: hepatomegaly with moderate to severe hepatic steatosis. LFTs: AST 38, ALT 49. Amylase and lipase: normal # UTI 05/21/24: With microscopic hematuria. Macrobid UC: neg 09/04/24 Repeat UA/UCx due to urinary frequency and dysuria Imaging: [Summary of level II or follow up US here; BPP scores not necessary] Vaccinations: COVID: Declined Flu: N/A Tdap: 08/07/24 RSV: N/A 32 week mental health: PHQ-9 12; ROSANNA-7 12 Last pap: 06/20/22 OB - Problem Based A/P Additional Plan (1) Spontaneous onset of labor: Status: Acute (2) Encounter for maternal care for low transverse scar from repeat delivery: Status: Deleted (3) Status post repeat low transverse section: Status: Acute Plan 1. Consent for repeat low-transverse and bilateral salpingectomy reviewed and signed. 2. FIT MODEL and operating room team contacted to have repeat this morning. OB Exam Physical Exam Narrative: GENERAL APPEARANCE: Pleasant, , well-groomed woman in no acute distress. VITAL SIGNS: as noted in nursing notes HEAD: Normocephalic, atraumatic. THYROID: no masses, nodularity, tenderness or enlargement. LUNGS: Clear to auscultation bilaterally without wheezes, rales or rhonchi. HEART: Regular rate and rhythm with normal S1 and S2. No gallop, rub or murmur. ABDOMEN: Gravid. Soft, nontender, nondistended, with normal bowels sounds throughout. EFM: Baseline 140bpm. Accelerations: Absent. Decelerations: 1 late appearing deceleration at 9:27 a.m. and 2 early decelerations at 9:30 a.m. and 9:37 a.m. Moderate variability. Category 2 TOCO: Q 6-7 minutes PRESENTATION: Vertex by Alessio's maneuvers and SVE. SVE: 3 cm/ 80 %/ -1/soft/mid. Significant change from her last cervix check that was on 09/25/2024 at 12:33 a.m. EXTREMITIES: No cyanosis, clubbing, varicosities. +1 bilateral lower extremity edema to the ankle. NEUROLOGIC: Normal gait and balance. Normal deep tendon reflexes at bilateral patella 2+/2, equal without clonus. PSYCHIATRIC: alert and oriented x3. Normal speech pattern, eye contact and affect. SKIN: Warm, dry, and well perfused. Good turgor. No lesions, nodules or rashes.
[2024-09-26 09:40] LABS: Hemoglobin* 11.0 gm/dL (12.0-16.0)
--- NOTE | 2024-09-26 09:43 | P.PCN_ITS ---
Procedure Note Time Seen by Provider: 11:39 Date Seen: 09/26/24 Date of procedure: 09/26/24 Will [facility] bill your pro fee for this procedure?: Yes Procedure Description: Preoperative diagnosis: 24-year-old 3 para 2 at 38 and 0/7 weeks a dmitted for a 1. Planned but unscheduled repeat low transverse section (#3), spontaneous onset of labor. 2. Undesired fertility Postoperative diagnosis: Same Procedure: Repeat low-transverse section. Bilateral Salpingectomy Anesthesia: Spinal Surgeon: Carmen Duque MD Methane Gas Collection System Operator: N/A Quantitative blood loss: 903 mL IV fluid: 1500 mL Urine output: 600 mL Drain(s): Cruz to gravity Specimen: Right and left fallopian tubes to pathology Findings: A live male infant was delivered from the OP position at 1046 am. Apgars were 8 at 1 min and 8 at 5 min, respectively. weight: 9 lb 8 oz. Nuchal cord(s): No. The placenta was delivered spontaneously and complete at 1048 am. Amniotic fluid: Clear. Normal uterus, fallopian tubes and ovaries were noted. Other findings: None Procedure: Galya was taken to the OR where spinal anesthetic was found be adequate. A Cruz catheter was placed. The patient was then placed in the dorsal supine position with a leftward tilt. She was then prepped and draped in a normal sterile manner. A Pfannenstiel skin incision was made and carried through sharply to the underlying layer of fascia. Fascia was incised in the midline and this incision carried laterally with Ruffin scissors. The superior aspect of fascial incision was grasped with Luis clamps, tented up, and the rectus muscles dissected off with a combination of blunt and sharp dissection. The inferior aspect of the fascial incision was grasped with Luis clamps, tented up and again the rectus muscles dissected off with a combination of blunt and sharp dissection. The rectus muscles were in the midline. The peritoneum was entered bluntly. This opening was extended bluntly. An Landry-O self-retaining retractor was placed. A bladder flap was not created. Uterus was incised in a low transverse manner in the midline. This incision carried laterally with blunt pressure on the inferior and superior aspects of th e uterine incision. The amniotic sac was ruptured. The infant's head and body was delivered atraumatically. The infant was shown to the patient and her support person. The cord was clamped and cut after a 32nd delay. The baby was then handed to waiting pediatric and nursing staff. The placenta was delivered spontaneously. The uterus was cleared of clots and debris. The uterine incision was re-approximated with the uterus in vivo. The 1st layer using 0-Vicryl in a running, locked manner. The 2nd layer using 0-Monocryl in a running, vertical, imbricating layer. Additional sutures needed for hemostasis: No. Attention was then turned to performing the bilateral salpingectomy. The uterus was exteriorized to visualize fallopian tubes and ovaries.The right fallopian tube was identified, grasped with 2 Vernon clamps and followed to the fimbriated end of the fallopian tube. The hand-held LigaSure dissecting forceps was used to remove the fallopian tube from the cornua and broad ligament by sequential pedicles. The pedicles were started at the fimbriated end of the tube and extended toward the cornua. The fallopian tube was amputated from the cornual a and sent to pathology. Hemostasis of the pedicles was obtained using bipolar cautery and a DeBakey forceps. The left fallopian tube was then identified, grasped with 2 [place]ell clamps and removed in the same manner as the right fallopian tube. All pedicles were visualized and hemostasis obtained using bipolar cautery with a DeBakey clamp. The uterine incision was reinspected and noted to be hemostatic. The Landry retractor was removed. The rectus muscles and peritoneum were not reapproximated. The rectus muscles were then closely inspected to verify hemostasis. Hemostasis was obtained with bipolar cautery. The fascia was then reapproximated using 0-Maxon loop in a running manner. The subcutaneous tissue was then irrigated with saline and hemostasis obtained with bipolar cautery. The subcutaneous tissue was reapproximated using 3-0 plain gut interrupted sutures. The skin was reapproximated using 4-0 Monocryl in a running subcuticular manner. Exofin skin adhesive and a Mepilex dressing were applied. The patient tolerated this procedure well. Sponge, lap and instrument counts were correct x2 active to the procedure. Patient was taken to the recovery area in stable condition. The patient received 3 g of IV Ancef and 500 mg IV azithromycin prior to skin incision.
[2024-09-26 10:31] LABS: Hematocrit 35.4 % (33.0-51.0); Immature Granulocytes Abs Auto 0.03 K/uL (0.00-0.30); Immature Granulocytes Pct Auto 0.4 %; Lymphocytes Absolute Auto 2.64 K/uL (0.90-2.90); Mean Corpuscular HGB Conc 31 gm/dL (32-36); Mean Corpuscular Hemoglobin 25 pg (26-34); Mean Corpuscular Volume 80 fL (80-100); RDW Coefficient of Variation % 15.8 % (11.5-15.5); Red Blood Count 4.45 m/uL (4.00-5.20); Slide Review Reflex No; White Blood Count* 8.57 K/uL (4.50-11.00)
--- NOTE | 2024-09-26 11:56 | W.PM.NB ---
Nerve Block Nerve Block Time Seen by Provider: 11:45 Date Seen: 09/26/24 Type of block requested by surgeon for post-operative analgesia: TAP Side: bilateral Time out performed: Yes Verification of patient name: Yes Verification of date of : Yes Name of person performing procedure: Wally Mendez Continuous monitoring Was continuous monitoring of O2 sat, B/P, cardiac nurse practitioner, recorded every 15 minutes?: Yes Procedure Checklist: sterile prep, needles and gloves Ultrasound guided. Images saved: Yes Medications given in 5ml increments after negative aspiration: Marcaine %: 0.25 mL: 30 Needle gauge: 20 and Exparel mL: 10 Needle gauge: 20 Patient tolerated procedure well: Yes Block Charges Block Charge (with Pro Fee): TAP Bilateral Use of Ultrasound Machine for Block: Yes- US Guidance/pain block
--- NOTE | 2024-09-26 11:58 | P.ANES_ITS ---
Anesthesia Charges Start Date/Time Anesthesia Start Date: 09/26/24 Anesthesia Start Time: 10:07 Stop Date/Time Anesthesia Stop Date: 09/26/24 Anesthesia Stop Time: 11:50 Summary Emergency: AEROLOGIST Coding CPT Codes CPT Codes: ANESTH CS DELIVERY - 07268 ([id number]) P2 - PATIENT W/MILD SYST DISEASE, QZ - AEROLOGIST SVC W/O PRODUCTION OPERATOR BY Additional Codes: Summary - Emergency: AEROLOGIST ([id number])
--- NOTE | 2024-09-26 11:58 | W.ANESCHARGE ---
Anesthesia Charges Start Date/Time Anesthesia Start Date: 09/26/24 Anesthesia Start Time: 10:07 Stop Date/Time Anesthesia Stop Date: 09/26/24 Anesthesia Stop Time: 11:50 Summary Emergency: RADIO MAINTAINER Coding CPT Codes CPT Codes: ANESTH CS DELIVERY - 82097 ([id number]) P2 - PATIENT W/MILD SYST DISEASE, QZ - RADIO MAINTAINER SVC W/O MINE SUPERVISOR BY Additional Codes: Summary - Emergency: RADIO MAINTAINER ([id number])
[2024-09-26] MEDS: ACETAMINOPHEN 500 MG TABLET 1000 MG PO (17:04)
[2024-09-26] MEDS: SODIUM CHLORIDE 0.9 % (FLUSH) 10 ML SYRINGE IVF (18:43)
[2024-09-27] VITALS (7 sets, daily range): BP systolic 95–109; BP diastolic 60–73; PULSE 63–81; RESP 16–18; TEMP 36.6–36.9; O2SAT 96–97
[2024-09-27 06:47] LABS: Hemoglobin* 10.3 gm/dL (12.0-16.0)
--- NOTE | 2024-09-27 08:02 | PM.OBPNVD1 ---
OB - PN:Subj Subjective Time Seen by Provider: 07:40 Date Seen: 09/27/24 Narrative: Subjective: Miguel is a 24-year-old 3 para 2 now 3 who is postop day 1 from a repeat low-transverse and bilateral salpingectomy after she was admitted to the hospital in spontaneous labor. She is doing well today. She states her pain is well controlled. She is tolerating regular diet. She denies nausea/vomiting. She is urinating without difficulty. Has had adequate urine output. She has been ambulating without difficulty. She is passing flatus. Breast and bottle feeding which is going well. She has no concerns today. Objective: General: Pleasant, , well groomed woman in no acute distress. Vital signs: Per electronic medical record Heart: Regular rate and rhythm without gallop, rub or murmur. Chest: Clear to auscultation bilaterally. Abdomen: Soft, nontender, mildly distended. No CVA or flank tenderness. Incision: Dressing removed and incision is clean, dry and intact with sutures and skin adhesive gel. Extremities: No pain or edema Assessment: 24-year-old postoperative day# 1 from a repeat low-transverse section and bilateral salpingectomy. Plan: 1. Continue routine postop care. 2. Planning discharge home tomorrow. OB - PN: Obj Exam Physical Exam: Vital signs: Temp Pulse Resp BP Pulse Ox O2 Del Method 98.4 F 63 16 95/60 96 Room Air 09/27/24 04:07 09/27/24 04:07 09/27/24 07:26 09/27/24 04:07 09/27/24 04:07 09/27/24 04:07 OB - PN: Obj Data Labs Labs: Laboratory Results - last 24 hr 09/26/24 09/26/24 09/27/24 09:25 10:27 06:31 WBC 8.57 RBC 4.45 Hgb 11.0 L 10.3 L Hct 35.4 MCV 80 MCH 25 L MCHC 31 L RDW Coeff of Lorenzo 15.8 H Plt Count 267 Neut % (Auto) 59.2 Lymph % (Auto) 30.8 [place] % (Auto) 8.5 Eos % (Auto) 0.7 Baso % (Auto) 0.4 Neut # (Auto) 5.08 Lymph # (Auto) 2.64 [place] # (Auto) 0.70 Eos # (Auto) 0.06 Baso # (Auto) 0.03 Abs Immat Gran (auto) 0.03 Imm/Tot Granulo (auto) 0.4 Lab Acknowledgement Test Added Blood Type O Positive Antibody Screen NEGATIVE OB - PN: A/P Delivery Assessment and Plan (1) Encounter for maternal care for low transverse scar from repeat delivery: Status: Deleted
[2024-09-27] MEDS: ACETAMINOPHEN 500 MG TABLET 1000 MG PO ×3 (08:57→20:59)
[2024-09-27] MEDS: DOCUSATE SODIUM 100 MG CAPSULE PO (08:57)
[2024-09-28] MEDS: IBUPROFEN 600 MG TABLET PO ×2 (00:10→06:36)
[2024-09-28 00:18] VITALS: BP 103/65; PULSE 79; RESP 16; TEMP 36.9; O2SAT 96
[2024-09-28] MEDS: ACETAMINOPHEN 500 MG TABLET 1000 MG PO ×2 (04:00→10:18)
--- NOTE | 2024-09-28 07:17 | P.DS_ITS ---
DS: Providers Provider Date Seen: 09/28/24 Date of admission: 09/26/24 09:22 Primary care physician: Carmen Duque MD Admitting Clinician: Carmen Duque MD Consults: 09/26/24 09:52 Consult to Customer Support Agent [CONS] Routine Comment: Reason for Consult:: Assistant Financial Accountant Needed Attending Physician on discharge: Alejandro MILLAN Date of Discharge: 09/28/24 DS: Diagnosis Discharge Diagnosis (1) Status post repeat low transverse section: Status: Acute Problem details: With bilateral salpingectomy 09/26/2024 at 10:46 a.m. male, Chun. 9#8oz (2) Generalized anxiety disorder: Status: Acute (3) Depression: Status: Chronic Exam Narrative: Exam Narrative: GENERAL APPEARANCE:? normal affect, alert, no distress MOOD:? appropriate CHEST:? clear to auscultation HEART:? regular rate and rhythm ABDOMEN:? soft, non-tender the uterine fundus is At Umbilicus, Midline and is appropriate for the stage of recovery. EXTREMITIES:? normal and mild edema INCISION: Clean dry and intact with no erythema or discharge. Surgical dressing has been removed prior to today. Const: Vital Signs, click to edit/add: Vital Signs - 24 hr 09/27/24 07:26 09/27/24 08:15 09/27/24 08:15 Temperature 97.8 F Pulse Rate [Pulse Oximeter] 71 Respiratory Rate 16 16 16 Blood Pressure [Le ft Arm] 109/71 Pulse Oximetry 96 Oxygen Delivery Me thod Room Air 09/27/24 15:48 09/28/24 00:18 Temperature 98.2 F 98.5 F Pulse Rate [Pulse Oximeter] 81 79 Respiratory Rate 16 16 Blood Pressure [Le ft Arm] 107/69 103/65 Pulse Oximetry 97 96 Oxygen Delivery Me thod Room Air Room Air OB - DS: Summary Hospital Course Hospital Course: Gloria is a 24 y.o. G 3 P 3003 who was admitted to [facility] for repeat in labor.? She had a repeat section with bilateral salpingectomy that was uncomplicated. The patient feels well.? The pain is controlled with current medications on a very tight schedule.? She has no new complaints.? She is breast feeding and supplementing formula and reports things are going well. the patient has done well.? Vitals have been stable.? She has remained afebrile.? Has a good appetite, is tolerating a general diet.? She is voiding without difficulty.? She is passing gas and has not had a bowel movement.? She is ambulating and denies any dizziness.? Has small amount of rubra lochia. She has had a bilateral salpingectomy prevention.? ?? Problems: minimal ? ?? plan:? Discharge home with baby.? Follow up in 2 weeks and 6 weeks.? , may see if needed? Hgb 10.3. Abdominal binder for promotion of core healing. Pt desires to start on sertraline 50mg to aid with mood stabilization. RX resent. ? Peripartum Data delivery method: Repeat Section Laceration description: None Episiotomy description: None Procedures: Procedures Operation Date: 09/26/24 10:00 Actual Procedure Side Surgeon p Repeat Low Transverse Section. Bilateral Salpingectomy Bilateral Carmen Duque MD complications: none [place] Gender: Male Discharge Plan: Home Status at Discharge Overall status at discharge: patient is progressing back to baseline Time Spent with Patient Time attestation: Total time spent providing and/or coordinating discharge services: Time spent: Less than 30 minutes Discharge Plan Discharge Disposition: Home, Self-Care Date of Admission: 09/26/24 09:22 Attending Provider on Discharge: Audrey Huang Primary Care Provider: Carmen Duque Condition: Stable Anticipated Discharge Date/Time: 09/28/24 12:24 Discharge Medications: New acetaminophen 500 mg Tablet 1,000 mg PO Q6H PRN (Reason: Pain) Qty: 60 0RF docusate sodium 100 mg Capsule 100 mg PO BID PRN (Reason: constipation) Qty: 60 0RF ibuprofen 600 mg Tablet 600 mg PO Q6H PRN (Reason: Pain) Qty: 60 0RF oxycodone 5 mg tablet 5 mg PO Q6H PRN (Reason: pain) Qty: 10 0RF Continued DHA 200 mg capsule 200 mg PO DAILY sertraline 50 mg tablet 50 mg PO QDAY Qty: 90 1RF Rx Instructions: Take 1/2 tablet daily for 7 days, then take 1 daily. Discontinued acetaminophen [Tylenol Extra Strength] 500 mg tablet 1,000 mg PO Q6H PRN Discharge Orders: Discharge Order (Routine); Ordered 09/28/24 Ordered By: Audrey Huang Patient Education: OB Over the Counter Medication Information, OB /Breast Feeding Additional Instructions: Discharge instructions were reviewed with the patient including signs and symptoms of infection and home going medications Lifting Restrictions: 20 pounds for 6 weeks No not submerge incision under water X 2 weeks? Nothing vaginally for 6 weeks: no tampons or intercourse Do not drive while taking narcotic pain medication(s) Off Work or School for 8 weeks Symptoms to report to doctor: * Bleeding that saturates more than one pad per hour * Passing clots larger than the size of a golf ball * Pain not relieved by prescribed medication * Fever above 100.4 degrees Fahrenheit * A foul vaginal odor * Difficulty in emotions, mood, and functions * Thoughts of hurting yourself and/or * Painful, reddened area in your breast * Any drainage, redness, or tenderness in your IV/epidural site * Severe headache that doesn't improve after taking medications * Changes in vision, including temporary loss of vision, blurred vision, and/or light sensitivity * Upper abdominal pain (usually under ribs on the right side) * Decrease in urination or painful, frequent urinating * Chest pain * Shortness of breath * Tenderness or pain with redness and/swelling in the calf(s) of your leg 1-2-week visit: incision check, discuss infant feeding concerns, review control options and screen for anxiety/depression. 6-week visit for an annual exam. consultation services are available to all mothers and babies for the first year after delivery.? To make an appointment, please call [phone]. Activity Level: Activity as Tolerated and No strenuous activity Discharge Diet: Regular Follow Up Appointments: [facility] [Provider Group] Forms: MyHealth Info Instructions Discharge Comments: Patient discharged in stable condition.
[2024-09-28 08:15] VITALS: BP 108/68; PULSE 71; RESP 16; TEMP 36.7; O2SAT 97
[2024-09-28] MEDS: DOCUSATE SODIUM 100 MG CAPSULE PO (08:26)
== END 2024-09-28 11:33 | disposition home or self-care (01) | DRG 785 ==
LOC: OB OUT 09:22 → OB 09:22
PROVIDERS: Admitting Provider Obstetrics & Gynecology; PCP Obstetrics & Gynecology; Visit Provider Obstetrics & Gynecology
PROC: 10D00Z1 Extraction of Products of Conception, Low, Open Approach (ICD-10-PCS; CPT 59514; principal; 2024-09-26 10:00)
DX: O34.211 Maternal care for low transverse scar from previous cesarean delivery (principal); O75.82 Onset (spontaneous) of labor after 37 completed weeks of gestation but before 39 completed weeks gestation, with delivery by (planned) cesarean section; G89.18 Other acute postprocedural pain; O99.02 Anemia complicating childbirth; D64.9 Anemia, unspecified; O99.344 Other mental disorders complicating childbirth; F32.A Depression, unspecified; F41.1 Generalized anxiety disorder; F41.0 Panic disorder [episodic paroxysmal anxiety]; Z3A.38 38 weeks gestation of pregnancy; Z37.0 Single live birth
CPT/HCPCS: 01961; 36415; 64488; 76942; 81003; 85018; 85025; 86592; 86850; 86900; 86901; 88302; 99140; T1013; A4314; A9270; J0456; J0665; J0666; J0690; J1200; J1885; J2274; J2371; J2405; J2590; J7050; J7120

== ENCOUNTER 2024-10-12 21:44 | Emergency (ER) | payer MEDICAID, SELFPAY ==
--- OUTSIDE RECORDS SUMMARY | 2024-10-12 21:46 | XMS_ITS | Clinical Summary ---
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 Gender Identity Not on file Sexual Orientation [...] Leonard roberts MD Complications:None Delivery Location:Hospital ( [facility] ([facility] Last Filed Vital [...] Depression screening for age 12+ 04/01/2016 04/01/2015 Hepatitis B series for 19+ ( 1 of 3 - 19+ 3-dose series) 2017 Pap test for age 21-65 2019 Tetanus booster 04/19/2021 04/19/2011 COVID-19 vaccine series ( season) 2023 07/07/2020, 06/09/2020 Influenza Vaccine (#1) 2024 01/15/2023 HIV for age 15-65 Completed 09/11/2013 Pneumococcal [...] 8:35 PM CDT [facility] Blood specimen (specimen) BLOOD SPECIMEN / Unknown Venipuncture / Unknown 09/11/2013 12:47 PM CDT 09/11/2013 12:47 PM CDT Narrative [facility] - 09/11/2013 8:35 PM CDT HIV-1 p24 and HIV-1/HIV-2 Ab not detected us Dina Sequeira SEND OUTS Final R esult [facility] [address] [place] [address], [place] from Last 3 Months or Most Recently Relevant to Health Maintenance Insurance [facility] [address] [place] [id number] Advance Directives * Full Code (Latest Code [...] 8:38 PM 05/24/2014 7:50 PM Care Teams Sales Service Technician Relationship Specialty Start Date End Date Jesús Díaz MD [address] [place] [address] PCP - General Obstetrics and Gynecology 01/14/23 Stella Cid DO Family Practice 05/25/14 Gretchen Summers, RN, RN LACTATION [address] [place] [address] Nurse Practitioner 08/04/13
--- OUTSIDE RECORDS SUMMARY | 2024-10-12 21:46 | XMS_ITS ---
Author Organization [facility] (ClinicalSummary Clone) Address Unknown Care Team Providers Care Gold Blower Name Role Phone Unavailable Primary Care Physician Unavailab le Results * [UNITY] ANEUPLOIDY NIPT Performed by: M-KOPA Component Value Range Date Fraction 6.0% 05/04/2024 04 :51 am UTC Sex Chromosome Aneuploidy NOT DETECTED 04:51 am UTC Monosomy X LOW RISK <1 in 10,000 2024 04:51 am UTC Trisomy 13 LOW RISK <1 in 10,000 2024 04:51 am UTC Trisomy 18 LOW RISK <1 in 10,000 2024 04:51 am UTC Trisomy 21 LOW RISK <1 in 10,000 2024 04:51 am UTC Sex MALE 05/04/2024 04:5 1 am UTC Gestation GARNER 05/04/19 25 04:51 am UTC For detailed report, see PDF See PDF 05/04/2024 04:51 am UTC 05/04/2024 04:5 1 am UTC Social History Observation Value Start Date End Date
--- OUTSIDE RECORDS SUMMARY | 2024-10-12 21:46 | XMS_ITS ---
Author Organization [facility] (ClinicalSummary Clone) Address Unknown Care Team Providers Care Manufacturing Machine Operator Name Role Phone Unavailable Primary Care Physician Unavailab le Results * [UNITY] CARRIER SCREEN Performed by: [place] Component Value Range Date Sickle Cell Disease/Beta-Thalassemia/Hemo globinopathies carrier screen NEGATIVE 05/08/2024 06:53 am [facility] Alpha-Thalassemia carrier screen NEGATIVE 05/08/2024 06:53 am [place] Cystic Fibrosis carrier screen NEGATIVE 05/08/2024 06:53 am [place] Spinal Muscular Atrophy carrier screen NEGATIVE 2 SMN1 copies, SNP not present 05/08/2024 06:53 am [place] For detailed report, see PDF See PDF 05/08/2024 06:53 am [place] 05/08/2024 06:5 3 am [facility] Social History Observation Value Start Date End Date
[2024-10-12 22:04] VITALS: BP 115/76; PULSE 73; RESP 16; TEMP 36.6; O2SAT 98; BMI 36.8
--- NOTE | 2024-10-12 22:36 | ED.GENADULT ---
HPI - General Adult General Date Seen: 10/12/24 Chief complaint: Skin/Abscess/Foreign Body Stated complaint: rash on L leg Time Seen by Provider: 10/12/24 22:35 History of Present Illness HPI narrative: 24-year-old female who is 16 days status post and bilateral salpingectomy on 09/26/2024, is otherwise generally healthy presenting to the ER today with a red itchy lesion on her left anteromedial farrell. It has been present for the past couple of days. It has been itchy. She does know what brought it on. She is not having any shortness of breath. No other rash. No swelling in her throat. No fever. It the rash is not painful. She is not having any swelling in her calves. Related Data Home Medications ?Medication ?Instructions ?Recorded ?Confirmed docosahexaenoic acid 200 mg 200 mg PO DAILY 04/28/24 09/27/24 capsule ( DHA) Previous Rx's ?Medication ?Instructions ?Recorded acetaminophen 500 mg tablet 1,000 mg (2 x 500 mg) PO Q6H PRN 09/28/24 Pain #60 tabs docusate sodium 100 mg capsule 100 mg PO BID PRN constipation #60 09/28/24 caps ibuprofen 600 mg tablet 600 mg PO Q6H PRN Pain #60 tabs 09/28/24 oxycodone 5 mg tablet 5 mg PO Q6H PRN pain #10 tabs 09/28/24 sertraline 50 mg tablet 50 mg PO QDAY #90 tabs 09/28/24 diphenhydramine HCl 2 % topical 1 applic topical TID PRN #103 mL 10/12/24 gel (Benadryl) hydrocortisone 1 % topical cream 1 applic topical BID PRN #28.35 10/12/24 grams Allergies Allergy/AdvReac Type Severity Reaction Status Date / Time No Known Drug Allergies Allergy Verified 10/12/24 22:08 [facility] Medical History (Updated 10/12/24 @ 23:11 by Daniel Rivera MD) Pain, dental ?K08.89 - Other specified disorders of teeth and supporting structures (ICD-10) Transaminitis ?R74.01 - Elevation of levels of liver transaminase levels (ICD-10) Abnormal uterine bleeding ?N93.9 - Abnormal uterine and vaginal bleeding, unspecified (ICD-10) UTI in ?O23.40 - Unspecified infection of urinary tract in , unspecified trimester (ICD-10) Surgical History Status post repeat low transverse section (09/26/24) ?Z98.891 - History of uterine scar from previous surgery (ICD-10) History of section ?Z98.891 - History of uterine scar from previous surgery (ICD-10) Social History Narrative: Occupation: []. Marital status: singke. Mormon/cultural needs: no. Chemical or radiation exposure: no. Pre- tobacco use: no. Pre- alcohol use: no. Current tobacco use: no. Current alcohol use: no. Recreational drug use: no. Dietary restrictions: no. Blood transfusion acceptable in an emergency: yes. PSYCHOSOCIAL HISTORY: History of depression or currently depressed: yes, history. Current or past physical, emotional, or sexual mistreatment: Denies. Problems that will make it hard to make it to appointments: Denies. What is your current living situation?: I presently have a place to live Problems where you live: no known problems In the past 12 months, utilities in danger of being shut off: no In past 12 months, lack of transportation kept you from medical appts, meetings, work, or getting things needed for daily living: no In the past 12 mos, have been you worried that your food would run out before you had money to buy more?: never true In the past 12 mos, the food you bought just didn't last and you didn't have money to buy more?: never true Smoking Status: Former smoker Do you use any of these nicotine containing products: Vaping Products Second hand tobacco smoke exposure: No How often do you have a drink containing alcohol: never How many standard drinks containing alcohol do you have on a typical day: 1 or 2 AUDIT-C Alcohol total score: 0 Non-prescribed substance use: denies use How often does anyone, including family, friends and others, physically hurt you: never How often does anyone, including family, friends and others, insult or talk down to you: never How often does anyone, including family, friends and others, threaten you with harm: never How often does anyone, including family, friends and others, scream or curse at you: never service: No Exam Narrative: Exam Narrative: Constitutional: Appears well-developed and well-nourished. Active. Non-toxic appearing. Very polite. HENT: Head: Atraumatic. No signs of injury. Nose: No nasal discharge. Mouth/Throat: Mucous membranes are moist. Pharynx is normal. Tonsils symmetric. Uvula midline. Airway patent. Eyes: Conjunctivae normal and EOM are normal. Pupils are equal, round, and reactive to light. Right eye exhibits no discharge. Left eye exhibits no discharge. No icterus. Neck: Normal range of motion. Neck supple. No adenopathy. No stridor. Cardiovascular: Normal rate and regular rhythm.Brisk capillary refill Pulmonary/Chest: Effort normal. No stridor. No respiratory distress. No wheezes.No rhonchi. No rales. Musculoskeletal: Normal range of motion. No edema. No tenderness. No deformity. Neurological: Alert. Normal strength. No cranial nerve deficit or sensory deficit. Coordination normal. GCS eye subscore is 4. GCS verbal subscore is 5. GCS motor subscore is 6. Skin: She has a erythematous nonraised blanchable macular lesion that is well circumscribed on the left anteromedial farrell. Lesion is irregular in shape but about 2 x 3 cm in size and is well circumscribed. It is fairly brightly erythematous. No other lesions. No other urticaria. No petechiae or purpura. Skin is warm. No rash noted. Const: Vital Signs, click to edit/add: Vital Signs - 24 hr 10/12/24 22:04 10/12/24 23:15 10/12/24 23:26 Temperature 97.8 F 97.8 F 97.8 F Pulse Rate [Pulse Oximeter] 73 70 70 Respiratory Rate 16 16 16 Blood Pressure [Ri ght Upper Arm] 115/76 121/74 121/74 Pulse Oximetry 98 98 Oxygen Delivery Me thod Room Air Room Air Course Vital Signs Vital signs: Initial Vital Signs Temperature 97.8 F 10/12/24 22:04 Temperature Source Temporal Artery Scan 10/12/24 22:04 Pulse Rate 73 10/12/24 22:04 Respiratory Rate 16 10/12/24 22:04 Blood Pressure 115/76 10/12/24 22:04 Blood Pressure Mean 89 10/12/24 22:04 Blood Pressure Position Sitting 10/12/24 22:04 Pulse Oximetry 98 10/12/24 22:04 Oxygen Delivery Method Room Air 10/12/24 22:04 Vital Signs Temperature 97.8 F 10/12/24 22:04 Pulse Rate 73 10/12/24 22:04 Respiratory Rate 16 10/12/24 22:04 Blood Pressure 115/76 10/12/24 22:04 Pulse Oximetry 98 10/12/24 22:04 Oxygen Delivery Method Room Air 10/12/24 22:04 Temperature 97.8 F 10/12/24 23:26 Pulse Rate 70 10/12/24 23:26 Respiratory Rate 16 10/12/24 23:26 Blood Pressure 121/74 10/12/24 23:26 Pulse Oximetry 98 10/12/24 23:15 Oxygen Delivery Method Room Air 10/12/24 23:15 Medical Decision Making MDM Narrative Medical decision making narrative: This patient presents for evaluation of a single pruritic erythematous macule on her left anteromedial farrell that is been there for couple of days.. Signs and symptoms could be consistent with allergic reaction likely to a bug bite or perhaps a exposure to a plant. The rash is fairly brightly erythematous and blanchable but not really raise like a hive. There is no vesicles or pustules to suggest poison maria c. Differential would include vasculitis but with a single lesion, I do not think she needs further workup with labs. This is really not up petechiae or purpura to suggest thrombocytopenia or HELLP syndrome. She is not having any swelling in the calf to raise concern for a DVT. This is not consistent with a superficial thrombophlebitis. No other skin lesions or mucous membrane lesions to raise concern for evolving Crowell Aki. Is very well circumscribed fairly bright red and itchy, and not consistent with a cellulitis or impetigo. She is comfortable managing at home. Will treat with topical and Benadryl and topical corticosteroids. This would allow as to avoid oral meds and limit any potential effect on breast milk. Discussed the anticipated course of healing and illness. Precautions for return to the ER reviewed. Questions answered.. Since this is an isolated single skin lesion, with lack of serious systemic symptoms, lack of respiratory difficulty and no oral or pharyngeal swelling, would not admit at this time for anaphylaxis. There is no signs of anaphylactic shock. Discharge Plan Discharge Clinical Impression: Insect bites, Rash Patient Disposition: Home, Self-Care Condition: Stable Instructions: Insect Bite or Sting (ED), Acute Rash (ED) Additional Instructions: As we discussed we suspect that this rash is probably due to a bug bite. You can apply the topical cream for itch 3-4 times daily as needed and the topical anti-inflammatory cream 2 times daily for the next few days. This rash should gradually fading go away over the next 2-4 days. If the rash is spreading or if you have other new red spots on your skin, please see your doctor or come back to the ER right away to be rechecked. Prescriptions: New Benadryl 2 % gel 1 applic topical TID PRNQty: 103 0RF hydrocortisone 1 % cream 1 applic topical BID PRNQty: 28.35 0RF No Action DHA 200 mg capsule 200 mg PO DAILY acetaminophen 500 mg Tablet 1,000 mg PO Q6H PRN (Reason: Pain) Qty: 60 0RF docusate sodium 100 mg Capsule 100 mg PO BID PRN (Reason: constipation) Qty: 60 0RF ibuprofen 600 mg Tablet 600 mg PO Q6H PRN (Reason: Pain) Qty: 60 0RF sertraline 50 mg tablet 50 mg PO QDAY Qty: 90 1RF Rx Instructions: Take 1/2 tablet daily for 7 days, then take 1 daily. oxycodone 5 mg tablet 5 mg PO Q6H PRN (Reason: pain) Qty: 10 0RF Follow Up/Referrals: Provider,Not a Local [Primary Care Provider, Family Practice] Stand Alone Forms: [facility] Info Instructions
[2024-10-12 23:15] VITALS: BP 121/74; PULSE 70; RESP 16; TEMP 36.6; O2SAT 98
[2024-10-12 23:26] VITALS: BP 121/74; PULSE 70; RESP 16; TEMP 36.6
== END 2024-10-12 23:26 | disposition home or self-care (01) ==
LOC: ED 23:15
PROVIDERS: Emergency Provider Emergency Medicine
DX: R21 Rash and other nonspecific skin eruption (principal); S80.862A Insect bite (nonvenomous), left lower leg, initial encounter
CPT/HCPCS: 99282; 99283

== ENCOUNTER 2024-11-06 14:37 | Outpatient (CLI) | payer MEDICAID, SELFPAY ==
--- NOTE | 2024-11-06 15:00 | CRLHL7_ITS ---
For Patients: As a result of the Century Cures Act, medical imaging exams and procedure reports are released immediately into your electronic medical record. You may view this report before your referring provider. If you have questions, please contact your health care provider. Indication: Incisional mass. Skin fold in the incision or hernia Technique: CT Abdomen/Pelvis w/ 90cc isovue-370 intravenous contrast Please note that all CT scans at this facility use dose modulation, iterative reconstruction, and/or weight-based dosing when appropriate to reduce radiation dose to as low as reasonably achievable. Comparison: 05/11/2024 Findings: Liver is enlarged measuring 21.8 cm. Spleen is normal in size. Mild dependent atelectasis. No pleural effusion. Hepatic steatosis noted with decreased hepatic attenuation. Gallbladder incompletely distended. No calcified gallstone. No biliary obstruction. Normal pancreas and adrenal glands. Normal kidneys. Post gravid uterus. No abscess. No fluid collection. Normal ovaries. Postop changes of lower abdominal incision. No hernia. No bowel obstruction. Normal appendix. No free air. Normal osseous structures. Impression: No evidence of section hernia. Hepatomegaly with hepatic steatosis. Please note that all CT scans at this facility use dose modulation, iterative reconstruction, and/or weight-based dosing when appropriate to reduce radiation dose to as low as reasonably achievable. Dictated by Stephen Baker MD @ 11/09/2024 1:21:23 PM (Electronically Signed)
== END 2024-11-06 14:38 | disposition home or self-care (01) ==
LOC: CT 14:38
PROVIDERS: Visit Provider Obstetrics & Gynecology
DX: R22.9 Localized swelling, mass and lump, unspecified (principal); R16.0 Hepatomegaly, not elsewhere classified; K76.0 Fatty (change of) liver, not elsewhere classified
CPT/HCPCS: 74177; Q9967

== ENCOUNTER 2024-12-16 16:07 | Outpatient (CLI) | payer MEDICAID, SELFPAY | END 2024-12-16 16:08 | disposition home or self-care (01) | LOC: NFLDREF 16:08 | PROVIDERS: Visit Provider Registered Nurse | DX: R63.8 Other symptoms and signs concerning food and fluid intake (principal) | CPT/HCPCS: 84443 ==

== ENCOUNTER 2024-12-22 06:12 | Day surgery (SDC) | payer MEDICAID, SELFPAY ==
[2024-12-22 06:20] VITALS: BMI 33.1
[2024-12-22 06:34] LABS: Ur HCG Qualitative* Negative (Negative)
[2024-12-22 06:41] VITALS: BP 111/69; PULSE 79; RESP 16; TEMP 36.4; O2SAT 98
[2024-12-22] MEDS: LACTATED RINGERS 1000 ML 1,000 ML 100 ML IV (06:44)
[2024-12-22] MEDS: SODIUM CHLORIDE 0.9 % (FLUSH) 10 ML SYRINGE IVF (06:44)
--- NOTE | 2024-12-22 07:12 | W.PM.H&PU ---
History & Physical Update History & Physical Update H&P Reviewed and patient assessed: No changes noted H&P Updates: Ms. Denny Adair is seen in pre-op prior to planned scar revision. No interval change to her health history or questions today. She is an established patient of Dr. Duque, who initially planned her scar revision. Scheduling was revised due to provider availability. Repeat examination completed today, where the C/S scar itself has healed appropriately. The scars are noted to be just superior to a skin fold. About 1cm superior to scar, across 6cm of the midline incision, there is a redundant skin fold. Patient feels her scar tacks this area down. We discussed proceeding with an elliptical excision of her prior scars, where I will undermine the subcutaneous tissue superior to release this fold of skin and will also aim to excise the redundant skin that is creating a fold 1cm above the incision. Explained my goal is to improve cosmesis of the scar and release the redundant skin fold that seems to be tacked down. Explained it is possible that the scar will heal similarly. Explained this will not address her physiologic skin folds secondary to body habitus. Explained some patients note a shelf like condition at their C/S scar if there is superior redundant skin or obesity, which similarly cannot be prevented. Patient expressed understanding and is agreeable to plan. Reviewed risks of suboptimal cosmesis, bleeding, infection, damage to surrounding structures. Written consent was re-signed. Post-procedure restrictions and expectations reviewed. Plan pain control with ibuprofen/Tylenol post-operatively, small quantity of oxycodone to be utilized PRN for breakthrough pain. Recommend no lifting more than 20lbs for 2 weeks. UPT negative. Ancef as perioperative antibiotics indicated.
--- NOTE | 2024-12-22 07:19 | W.PM.GYNPROC ---
Procedure Note Time Seen by Provider: 07:19 Date of procedure: 12/22/24 Will [facility] bill your pro fee for this procedure?: Yes Pre-op diagnosis: History of C/S x3 Suboptimal cosmesis of Pfannensteil incision Procedure: Pfannenstiel scar revision Anesthesia: MAC and local Complications: None Surgeon: Moise Browne MD Estimated blood loss (mL): 10 IV fluids (mL): 800 Pathology: none sent Condition: stable Disposition: same day Findings: Prior Pfannenstiel scars from C/S x3, 13cm in length Redundant skin fold 1cm superior to scar at medical incision measuring 6cm Procedure Description: Patient was taken to the operating room with IV running. She received cefazolin in preoperative prophylaxis. MAC anesthesia was administered. She was prepped and draped in the usual sterile fashion. Injection of 0.5% bupivacaine with epi was administered across incision for additional analgesia. A low-transverse skin incision was made just inferior to her prior C/S scar. In an elliptical fashion, the superior aspect of the scar was similarly incised and extended superiorly to include the redundant skin fold 1cm above the medial incision. The elliptical skin specimen was grasped and elevated with Allis, freed from underlying subcutaneous tissue with electrocautery. The excised skin was removed from surgical field. Incision margins were inspected and no residual scar was noted, skin margins were noted to be healthy. Electrocautery was utilized to address small subcutaneous bleeding vessels. No subcutaneous tethering was noted, where no undermining was completed. The subcutaneous fat was reapproximated with 2-0 Vicryl interrupted sutures in a horizontal fashion to close the space and minimize tension across the skin incision. The skin was closed with a subcuticular stitch of 3-0 Vicryl. Surgical glue was applied above this. Patient tolerated procedure well was taken to recovery area in stable condition.
[2024-12-22] MEDS: BUPIVACAINE 0.5 %/EPI 1:200K 30 ML INJECTION (07:42)
[2024-12-22 08:15] VITALS: BP 97/58; PULSE 70; RESP 16; TEMP 36.4; O2SAT 97
--- NOTE | 2024-12-22 08:17 | P.ANES_ITS ---
Anesthesia Charges Start Date/Time Anesthesia Start Date: 12/22/24 Anesthesia Start Time: 07:17 Stop Date/Time Anesthesia Stop Date: 12/22/24 Anesthesia Stop Time: 08:17 Coding CPT Codes CPT Codes: ANESTH SKIN EXT/PER/ATRUNK - 32848 ([id number]) P2 - PATIENT W/MILD SYST DISEASE, QZ - HAM MARKER SVC W/O COLLECTIONS AGENT BY
--- NOTE | 2024-12-22 08:17 | W.ANESCHARGE ---
Anesthesia Charges Start Date/Time Anesthesia Start Date: 12/22/24 Anesthesia Start Time: 07:17 Stop Date/Time Anesthesia Stop Date: 12/22/24 Anesthesia Stop Time: 08:17 Coding CPT Codes CPT Codes: ANESTH SKIN EXT/PER/ATRUNK - 91517 ([id number]) P2 - PATIENT W/MILD SYST DISEASE, QZ - INSECTICIDE SUPERVISOR SVC W/O PRIMARY PRODUCTS INSPECTORS BY
[2024-12-22 08:30] VITALS: BP 112/65; PULSE 65; RESP 16; O2SAT 98
[2024-12-22 08:45] VITALS: BP 109/73; PULSE 62; RESP 16; O2SAT 100
== END 2024-12-22 09:15 | disposition home or self-care (01) ==
PROVIDERS: Anesthesiology; Visit Provider Obstetrics & Gynecology
PROC: (CPT 56740; principal; 2024-12-22 07:15)
DX: L90.5 Scar conditions and fibrosis of skin (principal); Z98.891 History of uterine scar from previous surgery
CPT/HCPCS: 11406; 13101; 13102 ×2; 00400; 81025; J0690; J1885; J2405; J2704; J3010; J3490; J7120

== ENCOUNTER 2025-01-27 20:39 | Emergency (ER) | payer MEDICAID, SELFPAY ==
--- OUTSIDE RECORDS SUMMARY | 2025-01-27 20:41 | XMS_ITS | Clinical Summary ---
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 Gender Identity Not on file Sexual Orientation [...] MD Complications:None Delivery Location:Hospital ( [facility] Last Filed Vital Signs [...] Last Done Comments HPV series for age 9-45 (1 - 3-dose series) 2013 BMI (ht and wt on same day) for age 18+ 2016 Hepatitis C screening for ag e 18-79 2016 Depression screening for age 12+ 04/01/2016 04/01/19 16 Hepatitis B series for 19+ ( 1 of 3 - 19+ 3-dose series) 2017 Pap test for age 21-65 2019 Tetanus booster 04/19/2021 04/19/2011 Influenza Vaccine (#1) 2024 01/15/2023 RSV vaccine for adults or (1 - 1-dose 75+ series) 2073 HIV for age 15-65 Completed 09/11/2013 Pneumococcal series for age 6-49 Aged Out No longer eligible based on [...] ve Non-Reacti ve 09/11/2013 8:35 PM CDT [facility] Blood specimen (specimen) BLOOD SPECIMEN / Unknown Venipuncture / Unknown 09/11/2013 12:47 PM CDT 09/11/2013 12:47 PM CDT Narrative [facility] - 09/11/2013 8:35 PM CDT HIV-1 p24 and HIV-1/HIV-2 Ab not detected us Dina Sequeira SEND OUTS Final R esult [facility] [address] [place] [address], [place] from Last 3 Months or Most Recently Relevant to Health Maintenance Insurance [facility] [id number] [id number] Advance Directives * Full Code (Latest Code [...] 8:38 PM 05/24/2014 7:50 PM Care Teams Patching Machine Operator Relationship Specialty Start Date End Date Jesús Díaz MD [address] [place] [address] PCP - General Obstetrics and Gynecology 01/14/23 Stella Cid DO Family Practice 05/25/14 Gretchen Summers RN, CASE MANAGEMENT ASSOCIATE [address] [place] [address] Nurse Practitioner 08/04/13
[2025-01-27 21:00] VITALS: BP 124/75; PULSE 79; RESP 12; TEMP 36.4; O2SAT 99; BMI 34.9
--- NOTE | 2025-01-27 21:35 | ED_ITS ---
HPI - General Adult General Time Seen by Provider: 21:35 Date Seen: 01/27/25 Chief complaint: Chest Pain Stated complaint: chest pain, pain while urinating Time Seen by Provider: 01/27/25 21:31 Source: patient Mode of arrival: ambulatory History of Present Illness HPI narrative: Miguel is a 24 yo female who presents to the ED for the evaluation of chest pain and urinary symptoms. Patient complains of right-sided chest pain for the past 2 days. Patient describes the pain is a constant discomfort that she describes as a sensation that someone is hitting her and is worse with taking deep breaths. Patient denies any shortness of breath, cough or cold-like symptoms. Denies any fever, chills, abdominal pain, nausea, vomiting, diarrhea. Patient reports taking Tylenol earlier this morning with no improvement of symptoms. Patient also reports of some dysuria and pain with urination over the past 2 weeks. Patient reports some white discharge. Patient currently 4 months with Caesarean section. Patient also notes recent significant stress, states that her uncle on January 12, they found him down in the bathroom and started CPR until EMS arrived. No history of similar symptoms in the past. Related Data Previous Rx's ?Medication ?Instructions ?Recorded sertraline 100 mg tablet 100 mg PO QDAY #90 tabs 04/11 Allergies Allergy/AdvReac Type Severity Reaction Status Date / Time No Known Drug Allergies Allergy Verified 01/27/25 21:07 Review of Systems Narrative: Past medical history, past surgical history, medications, allergies, family history, and social history were reviewed with the patient. No additional pertinent items. A medically appropriate review of systems was performed with pertinent positives and negatives noted in HPI, all other systems negative. [facility] Medical History (Updated 01/28/25 @ 01:18 by Lynn Preciado MD) Depression ?F32.A - Depression, unspecified (ICD-10) Hepatic steatosis ?K76.0 - Fatty (change of) liver, not elsewhere classified (ICD-10) Pain, dental ?K08.89 - Other specified disorders of teeth and supporting structures (ICD- 10) Transaminitis ?R74.01 - Elevation of levels of liver transaminase levels (ICD-10) Abnormal uterine bleeding ?N93.9 - Abnormal uterine and vaginal bleeding, unspecified (ICD-10) UTI in ?O23.40 - Unspecified infection of urinary tract in , unspecified trimester (ICD-10) Surgical History Status post repeat low transverse section (09/26/24) ?Z98.891 - History of uterine scar from previous surgery (ICD-10) History of section ?Z98.891 - History of uterine scar from previous surgery (ICD-10) Social History Narrative: Occupation: []. Marital status: singke. Latter Day/cultural needs: no. Chemical or radiation exposure: no. Pre- tobacco use: no. Pre- alcohol use: no. Current tobacco use: no. Current alcohol use: no. Recreational drug use: no. Dietary restrictions: no. Blood transfusion acceptable in an emergency: yes. PSYCHOSOCIAL HISTORY: History of depression or currently depressed: yes, history. Current or past physical, emotional, or sexual mistreatment: Denies. Problems that will make it hard to make it to appointments: Denies. What is your current living situation?: I presently have a place to live Problems where you live: no known problems In the past 12 months, utilities in danger of being shut off: no In past 12 months, lack of transportation kept you from medical appts, meetings, work, or getting things needed for daily living: no In the past 12 mos, have been you worried that your food would run out before you had money to buy more?: never true In the past 12 mos, the food you bought just didn't last and you didn't have money to buy more?: never true Smoking Status: Current every day smoker Do you use any of these nicotine containing products: Vaping Products Second hand tobacco smoke exposure: No How often do you have a drink containing alcohol: never AUDIT-C Alcohol total score: 0 Non-prescribed substance use: denies use Caffeine: No How often does anyone, including family, friends and others, physically hurt you : never How often does anyone, including family, friends and others, insult or talk down to you: never How often does anyone, including family, friends and others, threaten you with harm: never How often does anyone, including family, friends and others, scream or curse at you: never Are you using contraception or practicing any form of control: No service: No Exam Narrative: Exam Narrative: General: Afebrile, no acute distress HEENT: Normocephalic, atraumatic, conjunctiva normal. MMM Neck: non-tender, supple Cardio: regular rate. regular rhythm Resp: Normal work of breathing, no respiratory distress, lungs clear bilaterally, no wheezing, rhonchi, rales Chest/Back: no visual signs of trauma, no midline tenderness, no CVA tenderness Abdomen: soft, non distension, no tenderness, no peritoneal signs Neuro: alert and fully oriented. CN II-XII grossly intact. Grossly normal strength and sensation in all extremities. MSK: no deformities. Normal range of motion Integumentary/Skin: no rash visualized, normal color Psych: normal affect, normal behavior Const: Vital Signs, click to edit/add: Vital Signs - 24 hr 01/27/25 21:00 Temperature 97.6 F Pulse Rate [Pulse Oximeter] 79 Respiratory Rate 12 Blood Pressure [Ri ght Upper Arm] 124/75 Pulse Oximetry 99 Oxygen Delivery Me thod Room Air Course Vital Signs Vital signs: Initial Vital Signs Temperature 97.6 F 01/27/25 21:00 Temperature Source Temporal Artery Scan 01/27/25 21:00 Pulse Rate 79 01/27/25 21:00 Respiratory Rate 12 01/27/25 21:00 Blood Pressure 124/75 01/27/25 21:00 Blood Pressure Mean 91 01/27/25 21:00 Blood Pressure Position Sitting 01/27/25 21:00 Pulse Oximetry 99 01/27/25 21:00 Oxygen Delivery Method Room Air 01/27/25 21:00 Vital Signs Temperature 97.6 F 01/27/25 21:00 Pulse Rate 79 01/27/25 21:00 Respiratory Rate 12 01/27/25 21:00 Blood Pressure 124/75 01/27/25 21:00 Pulse Oximetry 99 01/27/25 21:00 Oxygen Delivery Method Room Air 01/27/25 21:00 Temperature 97.6 F 01/27/25 21:00 Pulse Rate 79 01/27/25 21:00 Respiratory Rate 12 01/27/25 21:00 Blood Pressure 124/75 01/27/25 21:00 Pulse Oximetry 99 01/27/25 21:00 Oxygen Delivery Method Room Air 01/27/25 21:00 Medications Administered Medications: Discontinued Medications Generic Name Dose Route Start Last Admin Trade Name Douglas PRN Reason Stop Dose Admin Ketorolac Tromethamine 15 mg 01/27/25 21:51 01/27/25 22:19 Ketorolac 15 Mg/Ml Inj IVP 01/27/25 21:52 15 mg ONCE ONE Administration Medical Decision Making MDM Narrative Medical decision making narrative: Miguel is a 24 yo female who presents to the ED for the evaluation of chest pain x 2 days and urinary symptoms x 2 weeks. Upon arrival patient is nontoxic appearing, afebrile, in distress. Patient hemodynamically stable vital signs within normal limits. Differential diagnosis includes but is not limited to ACS versus atypical chest pain versus musculoskeletal versus pleurisy versus PE versus pneumonia versus pneumothorax versus cholecystitis versus biliary colic versus UTI versus pyelonephritis versus gonorrhea/chlamydia versus Trichomonas/yeast/BV among others. Upon arrival patient was treated with IV Toradol, EKG, comprehensive labs, chest imaging performed. I reviewed EKG which demonstrates normal sinus rhythm with a ventricular rate of 70 beats per minute, normal axis, QTC 423, no acute ischemic change. No prior EKG to compare to. Comprehensive labs remarkable for no leukocytosis white blood cell count 8.7, hemoglobin 12.8, no acute metabolic electrolyte abnormality, mild elevation in liver function tests with AST 80, ALT 149, D-dimer and troponin negative. Normal lipase. Urinalysis with no evidence of acute infection, wet prep negative for Trichomonas, yeast, clue cells. Gonorrhea & chlamydia negative. I personally reviewed interpreted chest x-ray which is unremarkable with no focal infiltrate, pleural effusion, pneumothorax. I personally reviewed interpreted a right upper quadrant ultrasound which demonstrates mild hepatomegaly was suggestive of hepatosteatosis, no evidence of gallbladder wall thickness, stones, sludge. (per chart review it appears the patient does have a history of hepatic steatosis.) Overall ED work up unremrakable. I discussed results with patient - no evidence of acute infection, low suspicious for blood clot given negative D-dimer, less likely ACS given EKG and troponin within normal limits. No evidence of gallstones, pneumonia, pleural effusion, pneumothorax. No evidence of urinary infection. On re-evaluation patient resting comfortably, sleeping, no distress. I discussed results with patient. At this time no emergent indication for further evaluation or admission to the hospital however I do strongly recommend her to have close outpatient follow-up with her primary care provider, recommend continue supportive care with Tylenol/ibuprofen, strict return precautions discussed. Patient understands and agrees the plan. Lab Data Labs: Lab Results 01/27/25 01/27/25 01/27/25 Range/Units 21:40 21:55 22:10 WBC 8.76 (4.50-11.00) K/uL RBC 5.33 H (4.00-5.20) m/uL Hgb 12.8 (12.0-16.0) gm/dL Hct 41.3 (33.0-51.0) % MCV 78 L (80-100) fL MCH 24 L (26-34) pg MCHC 31 L (32-36) gm/dL RDW Coeff of Lorenzo 13.9 (11.5-15.5) % Plt Count 320 (140-440) K/uL Neut % (Auto) 46.2 (42.0-72.0) % Lymph % (Auto) 43.4 (20-44) % Petroleum % (Auto) 7.6 (0.0-11.0) % Eos % (Auto) 2.2 (0.0-7.0) % Baso % (Auto) 0.1 (0.0-3.0) % Neut # (Auto) 4.05 (1.7-7.0) K/uL Lymph # (Auto) 3.80 H (0.90-2.90) K/uL Petroleum # (Auto) 0.70 (0.00-0.90) K/UL Eos # (Auto) 0.19 (0.00-0.50) K/uL Baso # (Auto) 0.01 (0.00-0.30) K/uL Abs Immat Gran (auto) 0.04 (0.00-0.30) K/uL Imm/Tot Granulo (auto) 0.5 % D-Dimer Quant (PE/DVT) < 0.27 (0.00-0.50) ug/ml Sodium 138 (135-149) mmol/L Potassium 3.6 (3.6-5.1) mmol/L Chloride 101 (96-114) mmol/L Carbon Dioxide 25 (20-32) mmol/L Anion Gap 12 (7-15) mEq/L BUN 11 (5-24) mg/dL Creatinine 0.6 (0.5-1.5) mg/dL Estimated Creat Clear 112.38 Estimated GFR 127 ml/min Glucose 96 (60-115) mg/dL Calcium 9.2 (8.4-10.6) mg/dL Total Bilirubin 1.0 (0.1-1.5) mg/dL AST 80 H (12-35) U/L ALT 149 H (4-35) U/L Alkaline Phosphatase 110 (40-150) U/L Troponin I < 0.01 (0.01-0.04) ng/mL Total Protein 8.3 (6.0-8.3) g/dL Albumin 4.8 (3.3-5.0) g/dL Lipase 86 (23-300) U/L Urine Color Yellow (Yellow) Urine Appearance Clear (Clear) Urine pH 6.0 (5.0-8.5) Ur Specific [place] <= 1.005 (1.000-1.030) Urine Protein Negative (Negative) Urine Glucose (UA) Negative (Negative) Urine Ketones Negative (Negative) Urine Blood Negative (Negative) Urine Nitrite Negative (Negative) Urine Bilirubin Negative (Negative) Urine Urobilinogen 0.2 (0.2-1.0) Ur Leukocyte Esterase Negative (Negative) Urine RBC 0-2 (0-2) Urine WBC 0-2 (0-5) Ur Squamous Epith Cells Few (None-Few) Urine Bacteria Few A (None) Urine HCG, Qual Negative (Negative) Vaginal Trichomonas No Trichomonas Seen (None Seen) Vaginal Yeast No Yeast Seen (None Seen) Vaginal Clue Cells No Clue Cells Seen (None Seen) C.trachomatis Ampl DNA NOT DETECTED (No Detected) N.gonorrhoeae Ampl DNA NOT DETECTED (No Detected) Imaging Data US - abdomen: Attestation: I have reviewed the pertinent imaging results. Radiologist's impression: INDICATION: Right-sided abdominal pain with elevated liver function tests. TECHNIQUE: Ultrasound abdomen limited. Sonographic images of the right upper quadrant were obtained using king-scale and color Doppler images. COMPARISON: CT abdomen pelvis 11/06/2024. FINDINGS: Liver: Mildly enlarged, measuring up to 18.2 cm with increased parenchymal echogenicity. Probable regions of focal fatty sparing along the gallbladder fossa. Gallbladder: No stones or sludge. Normal wall thickness. No pericholecystic fluid. Negative sonographic Corrales`s sign. Common bile duct: 3 mm. Pancreas: Limited visualization. Right kidney: Normal in size. Normal echotexture and cortex. No suspicious masses, stones, or hydronephrosis. Vasculature: Proximal abdominal aorta: Normal in caliber. IVC: Patent. Main portal vein: Patent. Ascites: None visualized. IMPRESSION: 1. Mild hepatomegaly with suggestion of hepatic steatosis. 2. Otherwise unremarkable sonographic examination of the abdomen. Dictated by Reza Goodwin MD @ 01/28/2025 12:50:34 AM Chest x-ray: Attestation: I have reviewed the pertinent imaging results. Radiologist's impression: INDICATION: Right sided chest pain TECHNIQUE: Chest radiograph 2 views on 3 images COMPARISON: 02/13/2015 FINDINGS: Mediastinum: The mediastinum is normal in appearance. The heart silhouette is normal in size and morphology. Lung: Both lungs are unremarkable in appearance. No sign of pleural effusion seen. No pneumothorax is identified. Bone and Soft tissue: Unremarkable for age. IMPRESSION: 1. No acute cardiopulmonary disease is seen. Dictated by: Minh Lees MD @ 01/27/2025 23:50:54 Discharge Plan Discharge Clinical Impression: Right-sided chest pain, Lower urinary tract symptoms, Elevated liver enzymes Patient Disposition: Home, Self-Care Condition: Stable Additional Instructions: Please follow-up with your primary care provider in the next 3-5 days for further evaluation and follow-up. Please call to schedule an appointment. Please rest, drink plenty of fluids. Please alternate taking Tylenol 1000 mg and ibuprofen 600 mg every 6 hours as needed for pain. Please return to the emergency department if you develop high fever, severe pain, persistent vomiting, worsening symptoms. It was a pleasure taking care of you today. We hope you feel better soon. Prescriptions: No Action sertraline 100 mg tablet 100 mg PO QDAY Qty: 90 3RF Follow Up/Referrals: Provider,Not a Local [Primary Care Provider, Family Practice] Stand Alone Forms: [employer] Info Instructions
[2025-01-27 21:56] LABS: Appearance Urine Clear (Clear)
[2025-01-27 22:01] LABS: Ur HCG Qualitative* Negative (Negative)
[2025-01-27 22:13] LABS: Trichomonas No Trichomonas Seen (None Seen)
[2025-01-27 22:21] LABS: Hematocrit* 41.3 % (33.0-51.0); Hemoglobin* 12.8 gm/dL (12.0-16.0); Immature Granulocytes Abs Auto 0.04 K/uL (0.00-0.30); Immature Granulocytes Pct Auto 0.5 %; Lymphocytes Absolute Auto 3.80 K/uL (0.90-2.90); Mean Corpuscular HGB Conc 31 gm/dL (32-36); Mean Corpuscular Hemoglobin 24 pg (26-34); Mean Corpuscular Volume 78 fL (80-100); RDW Coefficient of Variation % 13.9 % (11.5-15.5); Red Blood Count* 5.33 m/uL (4.00-5.20); White Blood Count* 8.76 K/uL (4.50-11.00)
[2025-01-27 22:25] LABS: Slide Review Reflex No
[2025-01-27 22:30] LABS: Albumin* 4.8 g/dL (3.3-5.0); Chloride* 101 mmol/L (96-114); Sodium* 138 mmol/L (135-149)
[2025-01-27 22:31] LABS: Potassium* 3.6 mmol/L (3.6-5.1)
[2025-01-27 22:33] LABS: Alanine Aminotransferase* 149 U/L (4-35); Alkaline Phosphatase* 110 U/L (40-150); Anion Gap 12 mEq/L (7-15); Aspartate Amino Transferase* 80 U/L (12-35); Bilirubin Total* 1.0 mg/dL (0.1-1.5); Blood Urea Nitrogen* 11 mg/dL (5-24); Carbon Dioxide* 25 mmol/L (20-32); Creatinine* 0.6 mg/dL (0.5-1.5); Est. Creatinine Clearance* 112.38; Estimated Glomerular Filt Rate 127 ml/min; Total Protein* 8.3 g/dL (6.0-8.3)
[2025-01-27 22:34] LABS: Calcium* 9.2 mg/dL (8.4-10.6); Glucose* 96 mg/dL (60-115)
[2025-01-27 22:39] LABS: D Dimer Quantitative* < 0.27 ug/ml (0.00-0.50)
--- NOTE | 2025-01-27 22:50 | CRLHL7_ITS ---
For Patients: As a result of the Cures Act, medical imaging exams and procedure reports are released immediately into your electronic medical record. You may view this report before your referring provider. If you have questions, please contact your health care provider. INDICATION: Right sided chest pain TECHNIQUE: Chest radiograph 2 views on 3 images COMPARISON: 02/13/2015 FINDINGS: Mediastinum: The mediastinum is normal in appearance. The heart silhouette is normal in size and morphology. Lung: Both lungs are unremarkable in appearance. No sign of pleural effusion seen. No pneumothorax is identified. Bone and Soft tissue: Unremarkable for age. IMPRESSION: 1. No acute cardiopulmonary disease is seen. Dictated by: Minh Lees MD @ 01/27/2025 23:50:54 (Electronically Signed)
[2025-01-27 23:27] LABS: Chlamydia DNA Amplified* NOT DETECTED (No Detected); GC DNA Amplified* NOT DETECTED (No Detected)
--- NOTE | 2025-01-28 | CRLHL7_ITS ---
For Patients: As a result of the Century Cures Act, medical imaging exams and procedure reports are released immediately into your electronic medical record. You may view this report before your referring provider. If you have questions, please contact your health care provider. INDICATION: Right-sided abdominal pain with elevated liver function tests. TECHNIQUE: Ultrasound abdomen limited. Sonographic images of the right upper quadrant were obtained using king-scale and color Doppler images. COMPARISON: CT abdomen pelvis 11/06/2024. FINDINGS: Liver: Mildly enlarged, measuring up to 18.2 cm with increased parenchymal echogenicity. Probable regions of focal fatty sparing along the gallbladder fossa. Gallbladder: No stones or sludge. Normal wall thickness. No pericholecystic fluid. Negative sonographic Corrales`s sign. Common bile duct: 3 mm. Pancreas: Limited visualization. Right kidney: Normal in size. Normal echotexture and cortex. No suspicious masses, stones, or hydronephrosis. Vasculature: Proximal abdominal aorta: Normal in caliber. IVC: Patent. Main portal vein: Patent. Ascites: None visualized. IMPRESSION: 1. Mild hepatomegaly with suggestion of hepatic steatosis. 2. Otherwise unremarkable sonographic examination of the abdomen. Dictated by Reza Goodwin MD @ 01/28/2025 12:50:34 AM (Electronically Signed)
== END 2025-01-28 01:35 | disposition home or self-care (01) ==
PROVIDERS: Emergency Provider Emergency Medicine
DX: R07.9 Chest pain, unspecified (principal); R30.0 Dysuria; R74.01 Elevation of levels of liver transaminase levels; Z98.891 History of uterine scar from previous surgery
CPT/HCPCS: 36415; 71046; 76705; 80053; 81001; 81025; 83690; 84484; 85025; 85379; 87086; 87210; 87491; 87591; 93005; 96374; 99284; 99285; J1885